=== PATIENT | male | born 1975 | race Caucasian/White ===

== ENCOUNTER 2017-09-28 08:33 | Inpatient (IN) ==
[2017-09-28] MEDS ORDERED: 0.9 % SODIUM CHLORIDE 1,000 ML IV ONE ×2 (08:50→09:10)
[2017-09-28] MEDS ORDERED: ACETAMINOPHEN 325 MG TABLET PO ONE (09:10)
[2017-09-28] MEDS ORDERED: ONDANSETRON 4 MG/2 ML VIAL IV ONE ×2 (09:12→13:00)
[2017-09-28] MEDS ORDERED: PIPERACILLIN SODIUM/TAZOBACTAM 3.375 GM in DEXTROSE 5% IN WATER 50 ML IV ONE (09:22)
[2017-09-28] MEDS ORDERED: INSULIN REGULAR, HUMAN 1 UNIT/0.01 ML UNIT IV ONE (09:23)
--- NOTE | 2017-09-28 09:24 | XRay Report ---
HISTORY: Cough FINDINGS: The lungs are clear and normally expanded. The heart size, pulmonary vasculature, mediastinum, jesus, pleura and bones are normal. There is improved aeration of both lungs since 04/20/17 IMPRESSION: Normal exam Interpreted and Authenticated by: Lizandro Grewal 09/28/17
--- NOTE | 2017-09-28 09:27 | Emergency Department Note ---
Fever HPI - General Chief Complaint: Fever Stated Complaint: Nausea, chills, fever Time Seen by Provider: 09/28/17 09:09 Source: patient Mode of arrival: ambulatory Limitations: no limitations - History of Present Illness HPI Narrative: 42-year-old uncontrolled diabetic male with 10 day history of illness status post working in the heat. Apparently he almost passed out was very weak after working all day in the heat. His friends thought he had a heat stroke. Today he says he has not really recovered from that. Additionally he has been sick with nausea vomiting diarrhea cough for the last 4 days. Also for the last 2 months he has had trouble with his right foot. He has several open sores on his right foot. He had that right foot is very red and tender around the great toe with a large open ulcer on the sole as well as the medial heel. He is not going to wound care secondary to financial reasons. He is not on insulin and his blood sugars are typically around 350. - Related Data Home Medications Medication Instructions Recorded Confirmed Hydrochlorothiazide [Oretic] 25 mg PO DAILY 09/28/17 09/28/17 Allergies Allergy/AdvReac Type Severity Reaction Status Date / Time No Known Drug Allergies Allergy Verified 07/17/17 14:04 Review of Systems All systems ED: reviewed and negative except as stated. Fever PMH - Past Medical History Attestation: Yes: The following information was validated with the patient. Medical history: Reports: DM, hypertension, other (some chronic back isssues) Psychiatric history: Reports: no psych history - Social History smoking status: Current every day smoker Alcohol use: Reports: None Drug use: Reports: none Physical Exam No acute distress resting comfortably. Appears ill with mild diaphoresis. Face is flushed. Normocephalic atraumatic. Conjunctive are clear sclerae nonicteric. No nasal discharge or congestion. Oropharynx pink and moist. Multiple missing teeth. Posterior pharynx clear. Neck is supple without lymphadenopathy thyromegaly. Heart is mildly tachycardic but regular rhythm no murmur appreciated. Lungs are clear to auscultation bilaterally without wheezes rales rhonchi or respiratory distress. Occasional nonproductive cough. Abdomen soft nontender nondistended. No pedal edema. Homans sign is negative. Exam of the right foot shows a half dollar size ulcer at the forefoot sole. It is not purulent or malodorous however there is redness surrounding this area up into the top of the foot and the first 2 toes it is tender. He does retain sensation in his foot. No red streaks up his leg. On the medial heel there is a similar ulcer with a good granulation base not malodorous or purulent but again with redness surrounding. He is alert oriented able answer questions; somewhat irritable Limitations: no limitations Course Vital Signs Temperature 99.4 F H 09/28/17 08:35 Pulse Rate 120 H 09/28/17 08:35 Respiratory Rate 34 H 09/28/17 08:35 Blood Pressure 155/87 09/28/17 08:35 Pulse Oximetry (%) 99 09/28/17 08:35 Temperature 98.4 F 09/28/17 10:44 Pulse Rate 99 H 09/28/17 11:54 Respiratory Rate 23 H 09/28/17 11:54 Blood Pressure 145/77 09/28/17 11:54 Pulse Oximetry (%) 93 09/28/17 11:54 Fever - Lab Data Lab results reviewed: Yes I reviewed the patient's lab results. Result diagrams: 09/28/17 09:06 09/28/17 09:06 Lab Results 09/28/17 09/28/17 09/28/17 Range/Units 08:59 09:06 09:06 WBC 38.2 H* (4.5-11.0) K/mcL RBC 4.33 L (4.50-5.90) M/mcL Hgb 13.1 L (13.5-16.5) g/dL Hct 38.5 L (41.0-55.0) % MCV 88.9 (80.0-100.0) fL MCH 30.2 (26.0-34.0) pg MCHC 34.0 (31.0-36.0) g/dL RDW 12.9 (11.5-14.5) % Plt Count 427 (140-440) K/mcL MPV 8.2 (7.4-10.4) fL Gran % 88.3 H (38.0-78.0) % Lymph % (Auto) 3.6 L (15.5-49.0) % [place] % (Auto) 8.0 (1.0-12.0) % Eos % (Auto) 0.1 (0.0-7.0) % Baso % (Auto) 0 (0.0-2.0) % Gran # 33.7 H (1.8-8.0) K/mcL Lymph # (Auto) 1.4 L (1.5-4.8) K/mcL [place] # (Auto) 3.0 H (0.1-0.9) K/mcL Eos # (Auto) 0 (0.0-0.7) K/mcL Baso # (Auto) 0 (0.0-0.3) K/mcL VBG Lactic Acid 1.6 (0.5-2.2) mmol/L Sodium 131 L (133-145) mmol/L Potassium 3.2 L (3.3-5.1) mmol/L Chloride 90 L (96-108) mmol/L Carbon Dioxide 24 (22-30) mmol/L Anion Gap 17.0 H (8-16) BUN 13 (6-20) mg/dl Creatinine 1.0 (0.7-1.2) mg/dl GFR Calculation 93 Glucose 323 H (70-105) mg/dL Hemoglobin A1c (4.0-6.0) % HGB Estim Average Glucose mg/dL Uric Acid (2.5-8.0) mg/dL Calcium 9.1 (8.6-10.4) mg/dl Total Bilirubin 1.4 H (0.0-1.0) mg/dL AST 10 (0-37) U/l ALT 14 (0-40) U/l Alkaline Phosphatase 92 (39-117) U/L Total Protein 7.4 (5.9-8.4) gm/dL Albumin 3.3 (3.2-5.2) gm/dL Globulin 4.1 H (2.2-3.7) gm/dL Albumin/Globulin Ratio 0.8 L (1.0-2.3) Procalcitonin (<0.10) ng/mL 09/28/17 09/28/17 09/28/17 Range/Units 09:06 09:06 09:06 WBC (4.5-11.0) K/mcL RBC (4.50-5.90) M/mcL Hgb (13.5-16.5) g/dL Hct (41.0-55.0) % MCV (80.0-100.0) fL MCH (26.0-34.0) pg MCHC (31.0-36.0) g/dL RDW (11.5-14.5) % Plt Count (140-440) K/mcL MPV (7.4-10.4) fL Gran % (38.0-78.0) % Lymph % (Auto) (15.5-49.0) % [place] % (Auto) (1.0-12.0) % Eos % (Auto) (0.0-7.0) % Baso % (Auto) (0.0-2.0) % Gran # (1.8-8.0) K/mcL Lymph # (Auto) (1.5-4.8) K/mcL [place] # (Auto) (0.1-0.9) K/mcL Eos # (Auto) (0.0-0.7) K/mcL Baso # (Auto) (0.0-0.3) K/mcL VBG Lactic Acid (0.5-2.2) mmol/L Sodium (133-145) mmol/L Potassium (3.3-5.1) mmol/L Chloride (96-108) mmol/L Carbon Dioxide (22-30) mmol/L Anion Gap (8-16) BUN (6-20) mg/dl Creatinine (0.7-1.2) mg/dl GFR Calculation Glucose (70-105) mg/dL Hemoglobin A1c 11.1 H (4.0-6.0) % HGB Estim Average Glucose 272 mg/dL Uric Acid 5.7 (2.5-8.0) mg/dL Calcium (8.6-10.4) mg/dl Total Bilirubin (0.0-1.0) mg/dL AST (0-37) U/l ALT (0-40) U/l Alkaline Phosphatase (39-117) U/L Total Protein (5.9-8.4) gm/dL Albumin (3.2-5.2) gm/dL Globulin (2.2-3.7) gm/dL Albumin/Globulin Ratio (1.0-2.3) Procalcitonin 0.40 (<0.10) ng/mL - Radiology Data Radiology results reviewed: Yes I reviewed the patient's radiology results. Chest x-ray shows no acute cardia pulmonary disease CT scan of the head was done secondary to concern for heat injury-no acute findings except for chronic sinusitis X-ray of the right foot shows subcutaneous gas and abscess but no evidence of osteomyelitis - EKG Data EKG attestation: Yes I reviewed and interpreted this EKG. EKG results narrative: EKG shows a rate of 105 sinus tachycardia no evidence of ischemia. A second EKG shows a rate of 102 with slight nonspecific T-wave depression 2 3 aVF Critical Care Time Critical Care Time: Yes Total Critical Care Time: 30 Attestation: Approximately 30 minutes of critical care time in addition to initial evaluation and management. This includes reviewing studies coordinating care, documentation and discussing options and plan of care with patient/mother. I was immediately available to the patient the entire time. The patient is critically ill and is in danger of losing his foot and is likely septic Disposition Pt seen by MEDICAL RECRUITER/PA only: No Clinical Impression: Foot abscess, right, Hypokalemia Sepsis Qualifiers: Sepsis type: sepsis due to unspecified organism Qualified Code(s): A41.9 - Sepsis, unspecified organism Diabetic foot ulcer Qualifiers: Diabetic foot ulcer location: heel Diabetes mellitus type: type 2 Laterality: right Non-pressure ulcer stage: with fat layer exposed Qualified Code(s): E11.621 - Type 2 diabetes mellitus with foot ulcer; L97.412 - Non-pressure chronic ulcer of right heel and midfoot with fat layer exposed Uncontrolled diabetes mellitus Qualifiers: Diabetes mellitus type: type 2 Glycemic state: with hyperglycemia Qualified Code(s): E11.65 - Type 2 diabetes mellitus with hyperglycemia Summary: Patient clearly has 3 possible things going on: Subacute heat injury, Sirs versus sepsis likely from his right foot ulcers with nausea vomiting diarrhea, uncontrolled diabetes likely causing impaired healing Started IV fluids, empiric antibiotics after cultures, get wound culture, laboratory and imaging studies. He was given 10 units of IV insulin At first patient wanted to go home but I informed patient that he could lose his foot or even of sepsis so best medical care is to bring him in for emergent surgery as he has an abscess of his foot with gas-forming organism. I talked to Dr. Singh at the [facility] who agreed to bring him back to the operating room as soon as possible; we will get anesthesia involved. I also discussed the case with . were told her hospitalist who will admit the patient consult Dr. Singh for further care. Patient agreed to come in the hospital for couple days so we can get him taken care of Patient refused to give us a urine sample Incidentally found chronic sinusitis likely covered by antibiotics Disposition: Xfer As Inpt ([facility]) Condition: Critical Referrals: Mary Davis, CHASE [Primary Care Provider] -
[2017-09-28 09:42] LABS: Basophils # (Auto) 0 K/mcL (0.0-0.3); Basophils % (Auto) 0 % (0.0-2.0); Eosinophils # (Auto) 0 K/mcL (0.0-0.7); Eosinophils % (Auto) 0.1 % (0.0-7.0); Granulocytes % (Auto) 88.3 % (38.0-78.0); Lymphocytes # (Auto) 1.4 K/mcL (1.5-4.8); Lymphocytes % (Auto) 3.6 % (15.5-49.0); Mean Cell Volume 88.9 fL (80.0-100.0); Mean Corpuscular Hemoglobin 30.2 pg (26.0-34.0); Platelet Count 427 K/mcL (140-440); RBC 4.33 M/mcL (4.50-5.90); Red Cell Distribution Width 12.9 % (11.5-14.5)
--- NOTE | 2017-09-28 09:57 | XRay Report ---
HISTORY: Diabetic foot ulcers FINDINGS: There are ulcerations beneath the skin with small bubbles of air seen beneath the heads of the fourth and fifth metatarsals, extending into the bases of these two toes. There is no evidence of osteomyelitis. No fracture or subluxation are present. There is generalized soft tissue swelling throughout the foot. Giant spur is present on the plantar surface of the calcaneus. There are vascular calcifications around the ankle. Old healed fracture is present in the mid shaft of the proximal phalanx in the second toe. There is mature callus. No acute fracture or subluxation are present. Joint spaces are normal in width and alignment. IMPRESSION: Subcutaneous abscess beneath the heads of the fourth and fifth metatarsals. No evidence of osteomyelitis Interpreted and Authenticated by: Lizandro Grewal 09/28/17
[2017-09-28 10:02] LABS: ALT/SGPT 14 U/l (0-40); Albumin 3.3 gm/dL (3.2-5.2); Albumin/Globulin Ratio 0.8 (1.0-2.3); Alkaline Phosphatase 92 U/L (39-117); Blood Urea Nitrogen 13 mg/dl (6-20)
[2017-09-28 10:54] LABS: Estimated Average Glucose(eAG) 272 mg/dL; Hemoglobin A1C 11.1 % HGB (4.0-6.0)
--- NOTE | 2017-09-28 11:00 | Cat Scan Report ---
Headache, fever and chills TECHNIQUE: The brain was imaged without contrast at 2.5 mm intervals. Radiation exposure was limited using dose reduction technology. FINDINGS: The brain appears normal without evidence of edema, inflammation, infarct, hemorrhage or mass effect. No developmental malformation is present. The ventricles are normal in size. There is opacification of most of the ethmoid air cells bilaterally due to sinusitis. There is an old blowout fracture along the posterior medial wall of the right orbit. There is no associated hemorrhage or inflammation in the orbit. Mild mucosal thickening is seen in the inferior recess of the left frontal sinus and there is also mild left-sided sphenoid sinusitis. IMPRESSION: Normal brain Severe ethmoid and mild frontal and left sphenoid sinusitis Dr. Connors was called with the results Interpreted and Authenticated by: Lizandro Grewal 09/28/17
[2017-09-28] MEDS ORDERED: IOPAMIDOL 100 ML BOTTLE IV ONE (12:39)
[2017-09-28] MEDS ORDERED: LIDOCAINE HCL/PF 100 MG/5 ML SYRINGE IV ONE (13:00)
[2017-09-28] MEDS ORDERED: PROPOFOL 200 MG/20 ML VIAL IV ONE (13:00)
[2017-09-28] MEDS ORDERED: GLYCOPYRROLATE 0.2 MG/ML VIAL IV ONE (13:00)
[2017-09-28] MEDS ORDERED: KETAMINE 100 MG/ML ML IV ONE (13:00)
[2017-09-28] MEDS ORDERED: fentaNYL 100 MCG/2 ML VIAL IV ONE (13:00)
[2017-09-28] MEDS ORDERED: MIDAZOLAM 2 MG/2 ML VIAL IV ONE (13:00)
--- NOTE | 2017-09-28 13:13 | Cat Scan Report ---
History: Diabetic foot ulcer with abscess TECHNIQUE: The foot was imaged following injection of 80 cc of Isovue 300 contrast. Sagittal and coronal reformats are created. FINDINGS: There is an open skin wound along the plantar surface of the foot, inferior and lateral to the head of the fifth metatarsal. There are multiple bubbles of air in the soft tissues deep to the skin wound extending to the bases of the fourth and fifth toes. There is significant cellulitis in this region. There are also bubbles of air tracking proximally in the deep fascia along the plantar surface of the foot. An abscess pocket is not identified. Moderate subcutaneous edema is present along the superior lateral aspect of the foot with milder edema up to the ankle. There is a multi septated bone cyst in the calcaneus. Giant spur is present on the plantar surface of the calcaneus. There is no evidence of osteomyelitis within the foot or ankle. No fracture or subluxation are present. IMPRESSION: Skin ulceration on the plantar surface of the foot with associated necrotizing fasciitis Interpreted and Authenticated by: Lizandro Grewal 09/28/17
[2017-09-28 13:15] LABS: Appearance,Urine HAZY; Bacteria,Urine 0 /hpf (0); Color,Urine AMBER; Glucose,Urine (UA) >=500 mg/dL (NEG); Leukocyte Esterase,Urine 500 /uL (NEG); Mucus,Urine MANY /hpf (0); Protein,Urine 100 mg/dL (NEG); Specific Gravity,Urine 1.031 (1.000-1.035); Urine Blood 0.03 mg/dL (<0.03); Urine Hyaline Cast 13 /lpf (0-2); Urine RBC 25 /hpf (0-1); Urine Squamous Epithelial Cell 5 /hpf (0-4); Urine WBC 97 /hpf (0-4)
[2017-09-28] MEDS ORDERED: KETOROLAC 15 MG/ML VIAL IV PRN (13:33)
[2017-09-28] MEDS ORDERED: fentaNYL 100 MCG/2 ML VIAL IV PRN (13:33)
[2017-09-28] MEDS ORDERED: IPRATROPIUM/ALBUTEROL 3 ML AMPUL.NEB NEB PRN (13:33)
[2017-09-28] MEDS ORDERED: PROMETHAZINE 25 MG/ML VIAL IV PRN (13:33)
[2017-09-28] MEDS ORDERED: MEPERIDINE 25 MG/ML SYRINGE IV PRN (13:33)
[2017-09-28] MEDS ORDERED: ACETAMINOPHEN 1,000 MG/100 ML BOTTLE IV ONE (13:33)
[2017-09-28] MEDS ORDERED: LACTATED RINGERS 1,000 ML IV SCH ×3 (13:45→15:21)
--- NOTE | 2017-09-28 14:12 | Internal Med History&Physical ---
Medical - H&P: HPI Patient information: Note initiated : 09/28/17 at 2:08 pm Service Date, if different from initiated Date: [] Patient: Osmin Leslie 42 y/o M admitted on for Nausea, chills, fever. Chief Complaint: [] History of present illness: Mr. Leslie is a 42 year old male with h/o HTN, and untreated DM. On my eval the patient is in pacu, drowsy after anesthesia, history from chart review. The patient it seems has a chr right foot ulcer. The pt has been working out in the heat, he passed out and came to the ED because he was very weak and tired. The patient has been having nausea vomiting and diarrhea going on for the last 4 days. He notes according to the ER note that the right foot has been bothering him for the last 2 months. He has several ulcers on his right foot. The patient had a fever when he presented to the emergency room, temperature of 99.4, he was tachycardic with a heart rate of 110 blood pressure was stable and he was saturating 93% on room air. The patient had a chest x-ray done which was negative for an acute infection, head CT that was negative for acute process did not sinusitis. The patient had an x-ray of the foot done which showed possible abscess and air in the right foot. Patient underwent an emergent CT scan of the right foot called necrotizing fasciitis on the plantar surface of the foot. The patient was evaluated by Dr. Singh, and taken to the OR immediately. Patient was admitted to the hospital for further management. Patient has elevated WBC count at 38,000, hemoglobin 13 platelets 427 sodium 131 , potassium 3.2 creatinine 1.3 glucose elevated at 32 A1c is 11 pro calcitonin 0.2. EKG reviewed normal sinus, tachycardia ROS unobtainable: due to mental status Medical - H&P: PMH Medical history: DM HTN Pertinent family history: unable to obtain Social history: h/op smoking he said not to etoh or other drugs. but was drowsy whe asked Medical - H&P: Meds Home Medications Medication Instructions Recorded Confirmed Type Hydrochlorothiazide [Oretic] 25 mg PO DAILY 09/28/17 09/28/17 History Allergies Allergy/AdvReac Type Severity Reaction Status Date / Time No Known Drug Allergies Allergy Verified 07/17/17 14:04 Medical - H&P: Exam - Constitutional Vitals: Temp Pulse Resp BP Pulse Ox 97.3 F 90 18 110/62 94 09/28/17 13:55 09/28/17 13:55 09/28/17 13:55 09/28/17 13:55 09/28/17 13:55 Exam: GENERAL: The patient is a well-developed, well-nourished in no apparent distress. Is drowsy and oriented x0. in PACU post op VITAL SIGNS: Reviewed and as noted elsewhere. HEENT: Head is normocephalic and atraumatic. Extraocular muscles are intact. Pupils are equal, round, and reactive to light. Nares appeared normal. Mouth appears any without lesions. Mucous membranes are dry NECK: Normal to inspection, Supple, No lymphadenopathy or thyromegaly. LUNGS: Air entry equal on both sides, no wheezing, crackles or rhonchi noted. No accessory muscles of respiration HEART: Regular rate and rhythm normal, S1 and S2 heard, no Gallop, S3 or Rub Noted, No Gross murmur heard. ABDOMEN: Soft, nontender, and nondistended. Positive bowel sounds. No hepatosplenomegaly was noted. EXTREMITIES: No cyanosis, clubbing, rash, lesions or edema. NEUROLOGIC: Cranial nerves II through XII are grossly intact. Motor and Sensory System Grossly Intact PSYCHIATRIC: Normal affect, Normal Mood. Appropriate Behavior. SKIN: No ulceration or wounds noted, No jaundice, No rash noted. Medical - H&P: Reslt - Labs CBC & Chem 7: 09/28/17 09:06 09/28/17 09:06 Labs: Short CBC 09/28/17 Range/Units 09:06 WBC 38.2 H* (4.5-11.0) K/mcL Hgb 13.1 L (13.5-16.5) g/dL Hct 38.5 L (41.0-55.0) % Plt Count 427 (140-440) K/mcL BMP 09/28/17 09:06 Sodium 131 L Potassium 3.2 L Chloride 90 L Carbon Dioxide 24 BUN 13 Creatinine 1.0 Glucose 323 H Calcium 9.1 Liver Function 09/28/17 Range/Units 09:06 Total Bilirubin 1.4 H (0.0-1.0) mg/dL AST 10 (0-37) U/l ALT 14 (0-40) U/l Alkaline Phosphatase 92 (39-117) U/L Albumin 3.3 (3.2-5.2) gm/dL Urine 09/28/17 Range/Units 12:26 Urine Color Lanie Urine Appearance Hazy Urine pH 5.0 (5.0-9.0) Ur Specific [place] 1.031 (1.000-1.035) Urine Protein 100 A (NEG) mg/dL Urine Glucose (UA) >=500 A (NEG) mg/dL Medical - H&P: A/P - Narrative A/P Narrative: A/P Necrotizing fascitis with gas formation- patient has h/o right foot ulcers, CT foot interpreted as necrotizing fascitis due to presence of fascitis as well as gas in the foot. Patient underwent urgent debridement today, I am yet to speak with the surgeon afer the procedure. I had recommended cultures to be sent. patient will be on vancomycin, zosyn and clindamycin for now. Will deescalate abx per cultures and sensitivity. Patient will likely benefit from HBOT treatment given concern for necrotizing fascitis. Sepsis- Treat underlying etiology, IV fluids, no e/o septic shock at thsi time, monitor closely. Diabetes- Uncontrolled, no ont any medication due to financial issues? SSI insulin for now to keep glucose under control. Hypertension- Pt on hctz, in light of dehydration. elevated creat, will hold same, monitor. Acute kidney injury, creat is 1.3, baseline unable, pt had declined ua sample in Er, will try to obtain one while inpatient. DVT hep sq Diet carb consistent Full code.
[2017-09-28] MEDS ORDERED: GENTAMICIN SULFATE 800 MG/20 ML VIAL IR ONE (14:28)
[2017-09-28] MEDS ORDERED: DEXTROSE 31 GM ORAL.SUSP PO PRN (14:29)
[2017-09-28] MEDS ORDERED: VANCOMYCIN PER PHARMACY IV SCH ×2 (14:29→15:21)
[2017-09-28] MEDS ORDERED: NALOXONE HCL 0.4 MG/ML VIAL IV PRN ×2 (14:29→15:21)
[2017-09-28] MEDS ORDERED: HYDROmorphone 2 MG/ML VIAL IV PRN ×2 (14:29→15:21)
[2017-09-28] MEDS ORDERED: POTASSIUM CHLORIDE 40 MEQ in DEXTROSE 5% IN WATER 500 ML IV ONE (14:29)
[2017-09-28] MEDS ORDERED: ACETAMINOPHEN 325 MG TABLET PO PRN ×2 (14:29→15:21)
[2017-09-28] MEDS ORDERED: ONDANSETRON 4 MG/2 ML VIAL IV PRN ×2 (14:29→15:21)
[2017-09-28] MEDS ORDERED: oxyCODONE HCL 5 MG TABLET PO PRN ×2 (14:29→15:21)
[2017-09-28] MEDS ORDERED: 0.9 % SODIUM CHLORIDE 10 ML SYRINGE IV SCH (14:29)
[2017-09-28] MEDS ORDERED: DEXTROSE 50% 50 ML VIAL IV PRN (14:29)
[2017-09-28] MEDS ORDERED: 0.9 % SODIUM CHLORIDE 1,000 ML IV SCH (14:29)
[2017-09-28] MEDS: 0.9 % SODIUM CHLORIDE 1,000 ML IV SCH ×2 (14:42→22:57)
--- NOTE | 2017-09-28 14:47 | General Surgery Procedure Note ---
Date of procedure: Note initiated : 09/28/17 at 2:44 pm Service Date, if different from initiated Date: [] Pre-op diagnosis: DFU Right foot, SIRS Necrotizing infection with air /gas in soft tisses Post-op diagnosis: same Procedure: OR Debridement, Tissue samples for c/s, Fasciotomy RIGHT foot 4/5 toes and excision debridement of DFU Ambrosio 2 Right medial jodi, Ambrosio 3 Right plantar under 5 th toe MPJ and debridement of skin tear Right lower lateral leg. Findings: Fouls smelling necrotic soft tissue in base of right 5 th toe ulcer over plantar 5 th toe MPJ. Necrotic skin and soft tissue wound over right medial heel Grade 2 skin tear right lower lateral leg Dimensions: Right medial heel 3 x 2.5 CM full thickness. Right foot plantar 3 x 2 x a.5 CM exposed bone in wound Skin tear Right lower lateral leg 2 x 1 CM X Ray right foot gas / air in tissue planes between 4 / 5 toes. Anesthesia: GLMA Surgeon: Juanjo Singh Estimated blood loss: 10 Pathology: other Description of procedure: Excision debridement of wounds. Deep tissue biopsies and cultures RIGHT foot DFU Ambrosio 3 and Right Heel Ambrosio 2 wounds. Decompression fasciotomy over blister of dorsal foot between 4/5 toes. Condition: stable Disposition: floor (Procedure well toelrated. Will treat patient with HBOT for necrotizing soft tissue infection DFU Ambrosio 3)
[2017-09-28] MEDS ORDERED: PIPERACILLIN SODIUM/TAZOBACTAM 3.375 GM in DEXTROSE 5% IN WATER 50 ML IV SCH (15:00)
[2017-09-28] MEDS ORDERED: CLINDAMYCIN 900 MG in DEXTROSE 5% IN WATER 50 ML IV SCH (15:00)
[2017-09-28] MEDS ORDERED: VANCOMYCIN 1,500 MG in 0.9 % SODIUM CHLORIDE 500 ML IV SCH (16:00)
[2017-09-28] MEDS ORDERED: INSULIN LISPRO 1 UNIT/0.01 ML UNIT SQ SCH (17:00)
[2017-09-28] MEDS: INSULIN LISPRO 1 UNIT/0.01 ML UNIT SQ SCH ×3 (18:28→23:50)
--- NOTE | 2017-09-28 19:02 | General Surgery Consult Note ---
History of Present Illness Patient information: Note initiated : 09/28/17 at 6:51 pm Service Date, if different from initiated Date: [] Patient: Omsin Leslie 42 y/o M admitted on 09/28/17 for Nausea, chills, fever. Chief Complaint: [] Consult date: 09/28/17 Requesting physician: Vidal Connors (DFU Rt foot SIRS) History of present illness: I saw the chart and examined this patient in the emergency room. I spoke with the patient and his nurse at length. This is a 42-year-old obese male with uncontrolled diabetes, sepsis syndrome, with worsening symptoms for the last 10 days or so. He ended up passing out, with fever and chills. He had high blood sugars, tachycardia, tachypnea and necrotizing fasciitis starting in the right foot DFU Gonzalez 3 under fifth toe. There was foul odor with purulent drainage and necrotic tissue with the patch of gangrenous skin. Additional area of skin necrosis was seen at the site of pressure ulcer medial right heel and a skin tear right lateral lower third of the leg. Patient had a chest x-ray which was negative and a CT scan of head which revealed sinusitis but no intracranial abnormality. EKG revealed tachycardia without any other RHYTHM abnormalities. He had leukocytosis of 38,000, hyperglycemia 350+ and a hemoglobin A1c of 11. I reviewed his imaging studies and noted gas about the ulcer site and corresponding to the area of blister along the anterior lateral aspect of foot above the DFU. I discussed this at length with the patient and his mother, who was present in the room at the time. Decision was made to admit him to the hospital start him on IV antibiotics. Expeditiously take him to the operating room for debridement, deep tissue irrigation, fasciotomy and obtaining tissue samples for cultures and pathology. Indication for surgical exploration, risks benefits and complications discussed and informed consent obtained to proceed with the necessary treatment Further recommendations to be made as his conditioning evolves. No assurances given of any outcome. Medications and Allergies Home Medications Medication Instructions Recorded Confirmed Type Hydrochlorothiazide [Oretic] 25 mg PO DAILY 09/28/17 09/28/17 History Allergies Allergy/AdvReac Type Severity Reaction Status Date / Time scallops Allergy Intermediate Swelling Verified 09/28/17 15:57 of Lip/Tongue/Throat Haw[place] Allergy Intermediate Swelling Verified 09/28/17 15:56 of Lip/Tongue/Throat Exam Temp Pulse Resp BP Pulse Ox 98.4 F 90 18 133/85 94 09/28/17 14:37 09/28/17 14:21 09/28/17 14:21 09/28/17 16:27 09/28/17 16:27 - General physical appearance well developed, well nourished, severe distress, obese, other (warm and tremulous. ) - Eyes PERRL, normal ocular movement - ENT normal pinna, normal nares, normal mucosa - Head Head exam IM: Present: atraumatic, normal inspection, normocephalic - Neck no masses, no bruits, trachea midline, no lymphadectomy, no venous distension - Cardiovascular Cardiovascular exam IM: Present: tachycardia - Respiratory normal expansion, normal respiratory effort, clear to auscultation - Abdomen Abdomen: Present: soft, non tender, bowel sounds - Integumentary Present: other (cellulitis around the right fifth toe DFU GONZALEZ 3, with cellulitis and a blister on the dorsal aspect of the foot between the fourth and fifth toe. Additional areas of full-thickness necrosis involving the medial aspect of right heel and a skin tear on the anterior lateral aspect of lower leg. Palpable pedal pulses. No regional lymphadenopathy.) - Neurologic Present: normal coordination, other (MOVES all 4 extremities.) - Musculoskeletal Present: other (Did not examine patient standing up or walking. Moves all 4 extremities) - Psychiatric Present: oriented to time, oriented to person, oriented to place, speech is normal, memory intact, other (noncompliance in the past. Patient was somewhat lethargic and could not hold a long conversation.) Results - Labs 09/29/17 04:50 09/29/17 04:50 Abnormal lab results 09/28/17 09/28/17 09/28/17 Range/Units 09:06 09:06 09:06 WBC 38.2 H* (4.5-11.0) K/mcL RBC 4.33 L (4.50-5.90) M/mcL Hgb 13.1 L (13.5-16.5) g/dL Hct 38.5 L (41.0-55.0) % Gran % 88.3 H (38.0-78.0) % Lymph % (Auto) 3.6 L (15.5-49.0) % Gran # 33.7 H (1.8-8.0) K/mcL Lymph # (Auto) 1.4 L (1.5-4.8) K/mcL [place] # (Auto) 3.0 H (0.1-0.9) K/mcL Sodium 131 L (133-145) mmol/L Potassium 3.2 L (3.3-5.1) mmol/L Chloride 90 L (96-108) mmol/L Anion Gap 17.0 H (8-16) Glucose 323 H (70-105) mg/dL Hemoglobin A1c 11.1 H (4.0-6.0) % HGB Total Bilirubin 1.4 H (0.0-1.0) mg/dL Globulin 4.1 H (2.2-3.7) gm/dL Albumin/Globulin Ratio 0.8 L (1.0-2.3) Urine Protein (NEG) mg/dL Urine Glucose (UA) (NEG) mg/dL Urine Ketones (NEG) mg/dL Urine Occult Blood (<0.03) mg/dL Urine Bilirubin (NEG) mg/dL Urine Urobilinogen (NEG) mg/dL Ur Leukocyte Esterase (NEG) /uL Urine RBC (0-1) /hpf Urine WBC (0-4) /hpf Ur Squamous Epith Cells (0-4) /hpf Hyaline Casts (0-2) /lpf Urine Mucus (0) /hpf 09/28/17 Range/Units 12:26 WBC (4.5-11.0) K/mcL RBC (4.50-5.90) M/mcL Hgb (13.5-16.5) g/dL Hct (41.0-55.0) % Gran % (38.0-78.0) % Lymph % (Auto) (15.5-49.0) % Gran # (1.8-8.0) K/mcL Lymph # (Auto) (1.5-4.8) K/mcL [place] # (Auto) (0.1-0.9) K/mcL Sodium (133-145) mmol/L Potassium (3.3-5.1) mmol/L Chloride (96-108) mmol/L Anion Gap (8-16) Glucose (70-105) mg/dL Hemoglobin A1c (4.0-6.0) % HGB Total Bilirubin (0.0-1.0) mg/dL Globulin (2.2-3.7) gm/dL Albumin/Globulin Ratio (1.0-2.3) Urine Protein 100 A (NEG) mg/dL Urine Glucose (UA) >=500 A (NEG) mg/dL Urine Ketones 20 A (NEG) mg/dL Urine Occult Blood 0.03 A (<0.03) mg/dL Urine Bilirubin 2.0 A (NEG) mg/dL Urine Urobilinogen 4.0 A (NEG) mg/dL Ur Leukocyte Esterase 500 A (NEG) /uL Urine RBC 25 H (0-1) /hpf Urine WBC 97 H (0-4) /hpf Ur Squamous Epith Cells 5 H (0-4) /hpf Hyaline Casts 13 H (0-2) /lpf Urine Mucus Many A (0) /hpf Diabetes panel 09/28/17 09/28/17 Range/Units 09:06 09:06 Sodium 131 L (133-145) mmol/L Potassium 3.2 L (3.3-5.1) mmol/L Chloride 90 L (96-108) mmol/L Carbon Dioxide 24 (22-30) mmol/L BUN 13 (6-20) mg/dl Creatinine 1.0 (0.7-1.2) mg/dl Glucose 323 H (70-105) mg/dL Hemoglobin A1c 11.1 H (4.0-6.0) % HGB Calcium 9.1 (8.6-10.4) mg/dl AST 10 (0-37) U/l ALT 14 (0-40) U/l Alkaline Phosphatase 92 (39-117) U/L Total Protein 7.4 (5.9-8.4) gm/dL Albumin 3.3 (3.2-5.2) gm/dL Calcium panel 09/28/17 Range/Units 09:06 Calcium 9.1 (8.6-10.4) mg/dl Albumin 3.3 (3.2-5.2) gm/dL Pituitary panel 09/28/17 Range/Units 09:06 Sodium 131 L (133-145) mmol/L Potassium 3.2 L (3.3-5.1) mmol/L Chloride 90 L (96-108) mmol/L Carbon Dioxide 24 (22-30) mmol/L BUN 13 (6-20) mg/dl Creatinine 1.0 (0.7-1.2) mg/dl Glucose 323 H (70-105) mg/dL Calcium 9.1 (8.6-10.4) mg/dl Adrenal panel 09/28/17 Range/Units 09:06 Sodium 131 L (133-145) mmol/L Potassium 3.2 L (3.3-5.1) mmol/L Chloride 90 L (96-108) mmol/L Carbon Dioxide 24 (22-30) mmol/L BUN 13 (6-20) mg/dl Creatinine 1.0 (0.7-1.2) mg/dl Glucose 323 H (70-105) mg/dL Calcium 9.1 (8.6-10.4) mg/dl Total Bilirubin 1.4 H (0.0-1.0) mg/dL AST 10 (0-37) U/l ALT 14 (0-40) U/l Alkaline Phosphatase 92 (39-117) U/L Total Protein 7.4 (5.9-8.4) gm/dL Albumin 3.3 (3.2-5.2) gm/dL All other labs normal. Assessment and Plan (1) 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 Status: Acute Priority: High Qualifiers: Diabetic foot ulcer location: toe Diabetes mellitus type: type 2 Qualified Code(s): E11.621 - Type 2 diabetes mellitus with foot ulcer; L97.513 - Non-pressure chronic ulcer of other part of right foot with necrosis of muscle (2) Sepsis due to anaerobic bacteria Assessment: SIRS, necrotizing skin and soft tissue infection right foot along fourth and fifth toe without evidence of osteomyelitis on CT scan. Uncontrolled diabetes, morbid obesity. Plan: OR debridement, pulse a large irrigation, fasciotomy or pending tissue samples for pathology and cultures and other indicated operation Spoke at length about the indication for emergency surgery, risks, benefits and complications associated with the operation and need for further surgical procedures. Will proceed with hyperbaric oxygen therapy and adjuvant setting after surgical procedure starting tonight and over the weekend as well. There is consensus on part of the patient's mother, patient and. hospitalist physician. Infectious disease consult will be obtained later. 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
[2017-09-28] MEDS ORDERED: HEPARIN 5,000 UNIT/ML VIAL SQ SCH (21:00)
[2017-09-28] MEDS: PIPERACILLIN SODIUM/TAZOBACTAM 3.375 GM in DEXTROSE 5% IN WATER 50 ML IV SCH ×2 (21:27→21:55)
[2017-09-28] MEDS: 0.9 % SODIUM CHLORIDE 10 ML SYRINGE IV SCH (21:55)
[2017-09-28] MEDS: HEPARIN 5,000 UNIT/ML VIAL SQ SCH (21:55)
[2017-09-28] MEDS: VANCOMYCIN 1,500 MG in 0.9 % SODIUM CHLORIDE 500 ML IV SCH (22:32)
[2017-09-29] MEDS: PIPERACILLIN SODIUM/TAZOBACTAM 3.375 GM in DEXTROSE 5% IN WATER 50 ML IV SCH ×5 (02:11→23:17)
[2017-09-29 05:56] LABS: Basophils # (Auto) 0.1 K/mcL (0.0-0.3); Basophils % (Auto) 0.2 % (0.0-2.0); Eosinophils # (Auto) 0.3 K/mcL (0.0-0.7); Eosinophils % (Auto) 1.1 % (0.0-7.0); Granulocytes % (Auto) 82.7 % (38.0-78.0); Lymphocytes # (Auto) 3.1 K/mcL (1.5-4.8); Lymphocytes % (Auto) 9.9 % (15.5-49.0); Mean Cell Volume 89.4 fL (80.0-100.0); Mean Corpuscular HGB Conc 32.5 g/dL (31.0-36.0); Mean Corpuscular Hemoglobin 29.1 pg (26.0-34.0); Monocytes # (Auto) 1.9 K/mcL (0.1-0.9); Monocytes % (Auto) 6.1 % (1.0-12.0); Platelet Count 427 K/mcL (140-440); RBC 3.73 M/mcL (4.50-5.90); Red Cell Distribution Width 13.1 % (11.5-14.5)
[2017-09-29] MEDS: 0.9 % SODIUM CHLORIDE 10 ML SYRINGE IV SCH ×3 (06:01→20:31)
[2017-09-29 06:26] LABS: ALT/SGPT 17 U/l (0-40); Albumin 2.8 gm/dL (3.2-5.2); Albumin/Globulin Ratio 0.7 (1.0-2.3); Alkaline Phosphatase 136 U/L (39-117); Bilirubin,Direct < 0.2 mg/dL (0.0-0.3); Blood Urea Nitrogen 19 mg/dl (6-20); Gamma Glutamyl Transpeptidase 22 U/L (8-61); Uric Acid 4.7 mg/dL (2.5-8.0)
[2017-09-29] MEDS: INSULIN LISPRO 1 UNIT/0.01 ML UNIT SQ SCH ×4 (08:33→20:30)
--- NOTE | 2017-09-29 09:08 | General Surgery Progress Note ---
Subjective Patient reports: no new complaints, other (Uneventful night.) Narrative: Note initiated : 09/29/17 at 9:06 am Service Date, if different from initiated Date: [] Patient: Osmin Leslie 42 y/o M admitted on 09/28/17 for Nausea, chills, fever. Chief Complaint: [] Objective Temp Pulse Resp BP Pulse Ox 99 F 100 H 20 122/72 95 09/29/17 06:59 09/29/17 03:58 09/29/17 06:59 09/29/17 06:59 09/29/17 06:59 AVSS. HD stable. HANG, WNL. L/E. Right foot toes PWD. Dressing CDI Labs: Resolving leucocytosis, Blood glucose trending down. - Additional Data Intake & Output - Last 24 hours: Intake & Output 09/27/17 09/28/17 09/29/17 09/30/17 05:59 05:59 05:59 05:59 Intake Total 3395 / 3395 535 / 535 Output Total 475 / 475 Balance 2920 / 2920 535 / 535 Weight 281 lb 8 oz - Labs 09/29/17 04:50 09/29/17 04:50 Diabetes panel 09/28/17 09/28/17 09/29/17 Range/Units 09:06 09:06 04:50 Sodium 131 L 135 (133-145) mmol/L Potassium 3.2 L 3.8 (3.3-5.1) mmol/L Chloride 90 L 99 (96-108) mmol/L Carbon Dioxide 24 23 (22-30) mmol/L BUN 13 19 (6-20) mg/dl Creatinine 1.0 1.1 (0.7-1.2) mg/dl Glucose 323 H 233 H (70-105) mg/dL Hemoglobin A1c 11.1 H (4.0-6.0) % HGB Calcium 9.1 8.4 L (8.6-10.4) mg/dl AST 10 14 (0-37) U/l ALT 14 17 (0-40) U/l Alkaline Phosphatase 92 136 H (39-117) U/L Total Protein 7.4 6.9 (5.9-8.4) gm/dL Albumin 3.3 2.8 L (3.2-5.2) gm/dL Triglycerides 111 (<150) mg/dl Calcium panel 09/28/17 09/29/17 Range/Units 09:06 04:50 Calcium 9.1 8.4 L (8.6-10.4) mg/dl Phosphorus 2.2 L (2.7-4.5) mg/dL Albumin 3.3 2.8 L (3.2-5.2) gm/dL Pituitary panel 09/28/17 09/29/17 Range/Units 09:06 04:50 Sodium 131 L 135 (133-145) mmol/L Potassium 3.2 L 3.8 (3.3-5.1) mmol/L Chloride 90 L 99 (96-108) mmol/L Carbon Dioxide 24 23 (22-30) mmol/L BUN 13 19 (6-20) mg/dl Creatinine 1.0 1.1 (0.7-1.2) mg/dl Glucose 323 H 233 H (70-105) mg/dL Calcium 9.1 8.4 L (8.6-10.4) mg/dl Adrenal panel 09/28/17 09/29/17 Range/Units 09:06 04:50 Sodium 131 L 135 (133-145) mmol/L Potassium 3.2 L 3.8 (3.3-5.1) mmol/L Chloride 90 L 99 (96-108) mmol/L Carbon Dioxide 24 23 (22-30) mmol/L BUN 13 19 (6-20) mg/dl Creatinine 1.0 1.1 (0.7-1.2) mg/dl Glucose 323 H 233 H (70-105) mg/dL Calcium 9.1 8.4 L (8.6-10.4) mg/dl Total Bilirubin 1.4 H 0.6 (0.0-1.0) mg/dL AST 10 14 (0-37) U/l ALT 14 17 (0-40) U/l Alkaline Phosphatase 92 136 H (39-117) U/L Total Protein 7.4 6.9 (5.9-8.4) gm/dL Albumin 3.3 2.8 L (3.2-5.2) gm/dL Assessment and Plan (1) 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 Status: Acute Current Visit: Yes (2) Sepsis due to anaerobic bacteria Status: Acute Current Visit: Yes (3) Sepsis Status: Acute Current Visit: Yes - Time Spent With Patient Total time spent is greater than 50% in coordination of care (as documented) at patient's floor/unit and/or counseling patient: Assessment: Progressing well. Started on HBOT last evening. Tolerating well. Plan: Continue current treatment. HBOT X 2 today and tomorrow. Change dressing and remove packing on Sunday10/01/2017 Sensilase study on Sunday10/01/2017. consult Associate Entertainment Editor RN to see patient Anticipate discharge by early or mid week and continuation of care as out patient. less than 15 minutes
[2017-09-29] MEDS: VANCOMYCIN 1,500 MG in 0.9 % SODIUM CHLORIDE 500 ML IV SCH ×2 (10:50→20:30)
[2017-09-29] MEDS: HEPARIN 5,000 UNIT/ML VIAL SQ SCH ×2 (11:31→20:30)
[2017-09-29] MEDS: 0.9 % SODIUM CHLORIDE 1,000 ML IV SCH ×3 (11:35→23:06)
--- NOTE | 2017-09-29 13:30 | Internal Med Progress Note ---
Medical - PN: Subj Patient information: Note initiated : 09/29/17 at 1:28 pm Service Date, if different from initiated Date: [] Patient: Osmin Leslie 42 y/o M admitted on 09/28/17 for Nausea, chills, fever. Chief Complaint: [] Interval history: Mr. Leslie is a 42 year old male with h/o HTN, and untreated DM. On my eval the patient is in pacu, drowsy after anesthesia, history from chart review. The patient it seems has a chr right foot ulcer. The pt has been working out in the heat, he passed out and came to the ED because he was very weak and tired. The patient has been having nausea vomiting and diarrhea going on for the last 4 days. He notes according to the ER note that the right foot has been bothering him for the last 2 months. He has several ulcers on his right foot. The patient had a fever when he presented to the emergency room, temperature of 99.4, he was tachycardic with a heart rate of 110 blood pressure was stable and he was saturating 93% on room air. The patient had a chest x-ray done which was negative for an acute infection, head CT that was negative for acute process did not sinusitis. The patient had an x-ray of the foot done which showed possible abscess and air in the right foot. Patient underwent an emergent CT scan of the right foot called necrotizing fasciitis on the plantar surface of the foot. The patient was evaluated by Dr. Singh, and taken to the OR immediately. Patient was admitted to the hospital for further management. Patient has elevated WBC count at 38,000, hemoglobin 13 platelets 427 sodium 131 , potassium 3.2 creatinine 1.3 glucose elevated at 32 A1c is 11 pro calcitonin 0.2. EKG reviewed normal sinus, tachycardia 09/29 Pt seen and examined, no acute overnight issues, mental status much better wbc trending down still high on vanco, zosyn and clindamycin s/p debridement HBOT per wound care DM control not optimal, Pt has no complaints. Pertinent ROS: Denies headache, dizziness Denies chest pain, palpitations Denies cough or shortness of breath Denies abdominal pain, nausea or vomiting. - Constitutional Vitals: Vital Signs Temp Pulse Resp BP Pulse Ox 98.4 F 100 H 20 134/81 97 09/29/17 12:00 09/29/17 03:58 09/29/17 12:00 09/29/17 12:00 09/29/17 12:00 Period Temp Pulse Resp BP Sys/Felix Pulse Ox Last 24 Hr 97.0 F-99 F 82-100 11-20 95-156/49-88 91-98 Intake and Output 09/28/17 09/29/17 09/29/17 21:59 05:59 13:59 Intake Total 345 / 345 1000 / 1000 825 / 825 Output Total 475 / 475 Balance -130 / -130 1000 / 1000 825 / 825 Weight 281 lb 8 oz 281 lb 8 oz Patient Weight 09/30/17 05:59 Weight 281 lb 8 oz Intake & Output: Intake & Output 09/28/17 09/29/17 09/29/17 21:59 05:59 13:59 Intake Total 345 / 345 1000 / 1000 825 / 825 Output Total 475 / 475 Balance -130 / -130 1000 / 1000 825 / 825 Weight 281 lb 8 oz 281 lb 8 oz Intake: IV 345 / 345 700 / 700 225 / 225 Zosyn 3.375 gm In Dextrose 5% 100 / 100 50 / 50 in Water 50 ml @ 100 mls/hr IV Q6H [facility] Rx#:[id number] Vancomycin 1,500 mg In Sodium 500 / 500 Chloride 0.9% 500 ml @ 333.3 mls/hr IV Q12H [facility] Rx#: [id number] Oral 300 / 300 600 / 600 Output: Void Amount 375 / 375 Emesis 100 / 100 Other: Meal Dinner Lunch Percent of Meal Consumed 100% 75% Feeding Ability Independent Independent Urine Appearance Clear Urine Color Dark Yellow Exam: Constitutional; Afebrile, cooperative, alert, not in distress. Eyes- No icterus, , No periorbital swelling Ears- Ext ear normal, hearing normal to conversation. Neck- Midline trachea, supple Respiratory system: Air Entry equal on both sides, No crackles or wheezing, no rhonchi. CVS- Rate rhythm regular, S1,S2 heard, no gallop, no rub. Abdomen- Soft nontender abdomen, no organomegaly, no tenderness, no guarding or rigidity, SOFTWARE ENGINEER INTERN- AOOx3, moving all extremities, no gross focal deficit noted. Medical - PN: Obj Da - Labs CBC & Chem 7: 09/29/17 04:50 09/29/17 04:50 Labs: Abnormal Lab Results 09/29/17 09/29/17 09/28/17 04:50 04:50 12:26 WBC 31.8 H* RBC 3.73 L Hgb 10.8 L Hct 33.3 L Gran % 82.7 H Lymph % (Auto) 9.9 L Gran # 26.3 H Lymph # (Auto) [place] # (Auto) 1.9 H Sodium Potassium Chloride Anion Gap Glucose 233 H Hemoglobin A1c Calcium 8.4 L Phosphorus 2.2 L Total Bilirubin Alkaline Phosphatase 136 H Albumin 2.8 L Globulin 4.1 H Albumin/Globulin Ratio 0.7 L Urine Protein 100 A Urine Glucose (UA) >=500 A Urine Ketones 20 A Urine Occult Blood 0.03 A Urine Bilirubin 2.0 A Urine Urobilinogen 4.0 A Ur Leukocyte Esterase 500 A Urine RBC 25 H Urine WBC 97 H Ur Squamous Epith Cells 5 H Hyaline Casts 13 H Urine Mucus Many A 09/28/17 09/28/17 09/28/17 09:06 09:06 09:06 WBC 38.2 H* RBC 4.33 L Hgb 13.1 L Hct 38.5 L Gran % 88.3 H Lymph % (Auto) 3.6 L Gran # 33.7 H Lymph # (Auto) 1.4 L [place] # (Auto) 3.0 H Sodium 131 L Potassium 3.2 L Chloride 90 L Anion Gap 17.0 H Glucose 323 H Hemoglobin A1c 11.1 H Calcium Phosphorus Total Bilirubin 1.4 H Alkaline Phosphatase Albumin Globulin 4.1 H Albumin/Globulin Ratio 0.8 L Urine Protein Urine Glucose (UA) Urine Ketones Urine Occult Blood Urine Bilirubin Urine Urobilinogen Ur Leukocyte Esterase Urine RBC Urine WBC Ur Squamous Epith Cells Hyaline Casts Urine Mucus Meds: Medications Acetaminophen (Tylenol) 650 mg PO Q6HP PRN PRN Reason: PAIN/FEVER > 101 Diagnostic Test (Pha) (Accu-Chek) 1 each FS ACHS [facility] Last Admin: 09/29/17 11:29 Dose: 1 each Heparin Sodium (Porcine) (Heparin) 5,000 unit SQ Q12 [facility] Last Admin: 09/29/17 11:31 Dose: Not Given Hydromorphone HCl (Dilaudid) 0.5 mg IV Q2HP PRN PRN Reason: PAIN LEVEL > 6 Piperacillin Sod/Tazobactam (Sod 3.375 gm/ Dextrose) 50 mls @ 100 mls/hr IV Q6H [facility] Last Admin: 09/29/17 12:52 Dose: 100 mls/hr Vancomycin HCl 1,500 mg/ (Sodium Chloride) 500 mls @ 333.3 mls/hr IV Q12H [facility] Last Admin: 09/29/17 10:50 Dose: 333.3 mls/hr Sodium Chloride (Sodium Chloride 0.9%) 1,000 mls @ 125 mls/hr IV .Q8H [facility] Last Admin: 09/29/17 11:35 Dose: Not Given Insulin Human Lispro (Humalog) 0 unit SQ ACHS [facility]; Protocol Metformin HCl (Glucophage) 500 mg PO BIDCC [facility] Naloxone HCl (Narcan) 0.1 mg IV Q2MIN PRN PRN Reason: Opiate Reversal Ondansetron HCl (Zofran) 4 mg IV Q6HP PRN PRN Reason: Nausea And Vomiting Oxycodone HCl (Roxicodone) 5 mg PO Q4HP PRN PRN Reason: PAIN LEVEL 3-6 Sodium Chloride (Saline Flush) 10 ml IV Q8 [facility] Last Admin: 09/29/17 06:01 Dose: Not Given Vancomycin HCl (Vancomycin Per Pharmacy) 1 order IV UD [facility] Medical - PN: A/P - Time Spent With Patient Total time spent is greater than 50% in coordination of care (as documented) at patient's floor/unit and/or counseling patient: - Narrative A/P Narrative: A/P Necrotizing fascitis with gas formation- s/p debridement, on vanco, zosyn and clinda, cultures pending gram stain shows many gram positive and gram neg bacillus, on hbot, clinically stable, Sepsis- Treat underlying etiology, IV fluids, no e/o septic shock at this time, monitor closely. Diabetes- Uncontrolled, no ont any medication due to financial issues? ssi insulin, start on metformin 500bid, will allow to run high given hbot will need high glucose. Hypertension- continue to hold hctz for now, monitor bp, resume in AM if creat remains stable DVT hep sq Diet carb consistent Full code.
[2017-09-29] MEDS: metFORMIN 500 MG TABLET PO SCH (17:46)
--- NOTE | 2017-09-29 19:12 | General Surgery Progress Note ---
Subjective Patient reports: other (Right foot dressing got wet, whilst taking shower. Denies any other complaints. Tolerated TWO HBO treatments today uneventfully. ) Narrative: Note initiated : 09/29/17 at 7:10 pm Service Date, if different from initiated Date: [] Patient: Osmin Leslie 42 y/o M admitted on 09/28/17 for Nausea, chills, fever. Chief Complaint: [] Objective Temp Pulse Resp BP Pulse Ox 98.1 F 100 H 20 139/86 95 09/29/17 16:00 09/29/17 03:58 09/29/17 16:00 09/29/17 16:00 09/29/17 16:00 Afebrile, Tachycardia improving. No other changes HANG. Dressing changed by nurse short time ago. Current dressing is CDI. NO odor and No bleeding . - Additional Data Intake & Output - Last 24 hours: Intake & Output 09/27/17 09/28/17 09/29/17 09/30/17 05:59 05:59 05:59 05:59 Intake Total 3395 / 3395 1575 / 1575 Output Total 475 / 475 Balance 2920 / 2920 1575 / 1575 Weight 281 lb 8 oz 281 lb 8 oz - Labs 09/29/17 04:50 09/29/17 04:50 Diabetes panel 09/29/17 Range/Units 04:50 Sodium 135 (133-145) mmol/L Potassium 3.8 (3.3-5.1) mmol/L Chloride 99 (96-108) mmol/L Carbon Dioxide 23 (22-30) mmol/L BUN 19 (6-20) mg/dl Creatinine 1.1 (0.7-1.2) mg/dl Glucose 233 H (70-105) mg/dL Calcium 8.4 L (8.6-10.4) mg/dl AST 14 (0-37) U/l ALT 17 (0-40) U/l Alkaline Phosphatase 136 H (39-117) U/L Total Protein 6.9 (5.9-8.4) gm/dL Albumin 2.8 L (3.2-5.2) gm/dL Triglycerides 111 (<150) mg/dl Calcium panel 09/29/17 Range/Units 04:50 Calcium 8.4 L (8.6-10.4) mg/dl Phosphorus 2.2 L (2.7-4.5) mg/dL Albumin 2.8 L (3.2-5.2) gm/dL Pituitary panel 09/29/17 Range/Units 04:50 Sodium 135 (133-145) mmol/L Potassium 3.8 (3.3-5.1) mmol/L Chloride 99 (96-108) mmol/L Carbon Dioxide 23 (22-30) mmol/L BUN 19 (6-20) mg/dl Creatinine 1.1 (0.7-1.2) mg/dl Glucose 233 H (70-105) mg/dL Calcium 8.4 L (8.6-10.4) mg/dl Adrenal panel 09/29/17 Range/Units 04:50 Sodium 135 (133-145) mmol/L Potassium 3.8 (3.3-5.1) mmol/L Chloride 99 (96-108) mmol/L Carbon Dioxide 23 (22-30) mmol/L BUN 19 (6-20) mg/dl Creatinine 1.1 (0.7-1.2) mg/dl Glucose 233 H (70-105) mg/dL Calcium 8.4 L (8.6-10.4) mg/dl Total Bilirubin 0.6 (0.0-1.0) mg/dL AST 14 (0-37) U/l ALT 17 (0-40) U/l Alkaline Phosphatase 136 H (39-117) U/L Total Protein 6.9 (5.9-8.4) gm/dL Albumin 2.8 L (3.2-5.2) gm/dL Assessment and Plan (1) 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 Status: Acute Current Visit: Yes (2) Sepsis due to anaerobic bacteria Status: Acute Current Visit: Yes (3) Sepsis Status: Acute Current Visit: Yes (4) 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 Mental status improved. Still has HIGH WBC and Blood Glucose. Plan: Continue current treatment. Will check wound in morning. For HBOT # 4 and 5 tomorrow. less than 15 minutes
[2017-09-30] MEDS: 0.9 % SODIUM CHLORIDE 10 ML SYRINGE IV SCH ×3 (05:10→20:41)
[2017-09-30 05:23] LABS: Basophils # (Auto) 0.1 K/mcL (0.0-0.3); Basophils % (Auto) 0.2 % (0.0-2.0); Eosinophils # (Auto) 0.6 K/mcL (0.0-0.7); Eosinophils % (Auto) 2.7 % (0.0-7.0); Granulocytes % (Auto) 76.5 % (38.0-78.0); Lymphocytes # (Auto) 2.8 K/mcL (1.5-4.8); Lymphocytes % (Auto) 12.5 % (15.5-49.0); Mean Cell Volume 88.2 fL (80.0-100.0); Mean Corpuscular HGB Conc 33.4 g/dL (31.0-36.0); Mean Corpuscular Hemoglobin 29.5 pg (26.0-34.0); Monocytes # (Auto) 1.8 K/mcL (0.1-0.9); Monocytes % (Auto) 8.1 % (1.0-12.0); Platelet Count 448 K/mcL (140-440); RBC 3.62 M/mcL (4.50-5.90); Red Cell Distribution Width 13.1 % (11.5-14.5)
[2017-09-30] MEDS: PIPERACILLIN SODIUM/TAZOBACTAM 3.375 GM in DEXTROSE 5% IN WATER 50 ML IV SCH ×4 (05:36→23:55)
[2017-09-30 05:58] LABS: ALT/SGPT 43 U/l (0-40); Albumin 2.8 gm/dL (3.2-5.2); Albumin/Globulin Ratio 0.7 (1.0-2.3); Alkaline Phosphatase 160 U/L (39-117); Bilirubin,Direct 0.4 mg/dL (0.0-0.3); Blood Urea Nitrogen 15 mg/dl (6-20); Gamma Glutamyl Transpeptidase 42 U/L (8-61); Uric Acid 3.5 mg/dL (2.5-8.0)
[2017-09-30] MEDS: INSULIN LISPRO 1 UNIT/0.01 ML UNIT SQ SCH ×4 (06:27→20:38)
[2017-09-30] MEDS: metFORMIN 500 MG TABLET PO SCH ×2 (06:32→17:06)
[2017-09-30] MEDS: HEPARIN 5,000 UNIT/ML VIAL SQ SCH ×3 (06:38→20:39)
[2017-09-30] MEDS ORDERED: MAG HYDROX/AL HYDROX/SIMETH 30 ML ORAL.SUSP PO ONE (09:47)
[2017-09-30] MEDS: HYDROCHLOROTHIAZIDE 25 MG TABLET PO SCH (09:49)
[2017-09-30] MEDS: VANCOMYCIN 1,500 MG in 0.9 % SODIUM CHLORIDE 500 ML IV SCH (10:54)
--- NOTE | 2017-09-30 14:04 | Internal Med Progress Note ---
Medical - PN: Subj Patient information: Note initiated : 09/30/17 at 1:59 pm Service Date, if different from initiated Date: [] Patient: Osmin Leslie 42 y/o M admitted on 09/28/17 for Nausea, chills, fever. Chief Complaint: [] Interval history: Mr. Leslie is a 42 year old male with h/o HTN, and untreated DM. On my eval the patient is in pacu, drowsy after anesthesia, history from chart review. The patient it seems has a chr right foot ulcer. The pt has been working out in the heat, he passed out and came to the ED because he was very weak and tired. The patient has been having nausea vomiting and diarrhea going on for the last 4 days. He notes according to the ER note that the right foot has been bothering him for the last 2 months. He has several ulcers on his right foot. The patient had a fever when he presented to the emergency room, temperature of 99.4, he was tachycardic with a heart rate of 110 blood pressure was stable and he was saturating 93% on room air. The patient had a chest x-ray done which was negative for an acute infection, head CT that was negative for acute process did not sinusitis. The patient had an x-ray of the foot done which showed possible abscess and air in the right foot. Patient underwent an emergent CT scan of the right foot called necrotizing fasciitis on the plantar surface of the foot. The patient was evaluated by Dr. Singh, and taken to the OR immediately. Patient was admitted to the hospital for further management. Patient has elevated WBC count at 38,000, hemoglobin 13 platelets 427 sodium 131 , potassium 3.2 creatinine 1.3 glucose elevated at 32 A1c is 11 pro calcitonin 0.2. EKG reviewed normal sinus, tachycardia 09/29 Pt seen and examined, no acute overnight issues, mental status much better wbc trending down still high on vanco, zosyn and clindamycin s/p debridement HBOT per wound care DM control not optimal, Pt has no complaints. 09/30 Pt seen examined, no acute overnight issue some chest tightness after hbot tretmetn today x ray chest neg, ekg neg, pt reports that he has these due to his reflux disease , and usually vomiting helps, this time Dr Marie gave mallox which helped start on prn tums wbc trending down microbiolgoy is growing strep agalactate, I am not too sure if this is a gas forming bacteria. Patient may have had some gas in the tissue from open wounds but clearly had necrotic tissue on debridement. no mrsa noted d/c vancomycin. continue clindamycin and zosyn for now, consider d/c clindamycin in AM. Pertinent ROS: Denies headache, dizziness Denies chest pain, palpitations (chest tightness resolved after maalox) Denies cough or shortness of breath Denies abdominal pain, nausea or vomiting. - Constitutional Vitals: Vital Signs Temp Pulse Resp BP Pulse Ox 98.1 F 89 16 157/97 98 09/30/17 11:59 09/30/17 04:00 09/30/17 11:59 09/30/17 11:59 09/30/17 11:59 Period Temp Pulse Resp BP Sys/Felix Pulse Ox Last 24 Hr 97.9 F-99.4 F 87-98 16-24 131-157/78-97 93-98 Intake and Output 09/29/17 09/30/17 09/30/17 21:59 05:59 13:59 Intake Total 250 / 250 1050 / 1050 50 / 50 Output Total 300 / 300 Balance 250 / 250 1050 / 1050 -250 / -250 Weight 283 lb 9.6 oz Intake & Output: Intake & Output 09/29/17 09/30/17 09/30/17 21:59 05:59 13:59 Intake Total 250 / 250 1050 / 1050 50 / 50 Output Total 300 / 300 Balance 250 / 250 1050 / 1050 -250 / -250 Weight 283 lb 9.6 oz Intake: IV 50 / 50 550 / 550 50 / 50 Zosyn 3.375 gm In Dextrose 5% 50 / 50 50 / 50 50 / 50 in Water 50 ml @ 100 mls/hr IV Q6H [facility] Rx#:[id number] Vancomycin 1,500 mg In Sodium 500 / 500 Chloride 0.9% 500 ml @ 333.3 mls/hr IV Q12H [facility] Rx#: [id number] Oral 200 / 200 500 / 500 Output: Void Amount 300 / 300 Other: Urine Appearance Clear Urine Color Dark Yellow # Voids 1 1 Exam: Constitutional; Afebrile, cooperative, alert, not in distress. Respiratory system: Air Entry equal on both sides, No crackles or wheezing, no rhonchi. CVS- Rate rhythm regular, S1,S2 heard, no gallop, no rub. Abdomen- Soft nontender abdomen, no organomegaly, no tenderness, no guarding or rigidity, STENCIL TYPIST- AOOx3, moving all extremities, no gross focal deficit noted. Medical - PN: Obj Da - Labs CBC & Chem 7: 09/30/17 04:19 09/30/17 04:19 Labs: Abnormal Lab Results 09/30/17 09/30/17 09/29/17 04:19 04:19 04:50 WBC 22.7 H RBC 3.62 L Hgb 10.7 L Hct 31.9 L Plt Count 448 H Gran % Lymph % (Auto) 12.5 L Gran # 17.3 H Lymph # (Auto) Rawlins # (Auto) 1.8 H Sodium Potassium Chloride Anion Gap Glucose 138 H 233 H Hemoglobin A1c Calcium 8.1 L 8.4 L Phosphorus 2.4 L 2.2 L Total Bilirubin Direct Bilirubin 0.4 H ALT 43 H Alkaline Phosphatase 160 H 136 H Albumin 2.8 L 2.8 L Globulin 4.1 H 4.1 H Albumin/Globulin Ratio 0.7 L 0.7 L Urine Protein Urine Glucose (UA) Urine Ketones Urine Occult Blood Urine Bilirubin Urine Urobilinogen Ur Leukocyte Esterase Urine RBC Urine WBC Ur Squamous Epith Cells Hyaline Casts Urine Mucus 09/29/17 09/28/17 09/28/17 04:50 12:26 09:06 WBC 31.8 H* RBC 3.73 L Hgb 10.8 L Hct 33.3 L Plt Count Gran % 82.7 H Lymph % (Auto) 9.9 L Gran # 26.3 H Lymph # (Auto) Rawlins # (Auto) 1.9 H Sodium Potassium Chloride Anion Gap Glucose Hemoglobin A1c 11.1 H Calcium Phosphorus Total Bilirubin Direct Bilirubin ALT Alkaline Phosphatase Albumin Globulin Albumin/Globulin Ratio Urine Protein 100 A Urine Glucose (UA) >=500 A Urine Ketones 20 A Urine Occult Blood 0.03 A Urine Bilirubin 2.0 A Urine Urobilinogen 4.0 A Ur Leukocyte Esterase 500 A Urine RBC 25 H Urine WBC 97 H Ur Squamous Epith Cells 5 H Hyaline Casts 13 H Urine Mucus Many A 09/28/17 09/28/17 09:06 09:06 WBC 38.2 H* RBC 4.33 L Hgb 13.1 L Hct 38.5 L Plt Count Gran % 88.3 H Lymph % (Auto) 3.6 L Gran # 33.7 H Lymph # (Auto) 1.4 L Rawlins # (Auto) 3.0 H Sodium 131 L Potassium 3.2 L Chloride 90 L Anion Gap 17.0 H Glucose 323 H Hemoglobin A1c Calcium Phosphorus Total Bilirubin 1.4 H Direct Bilirubin ALT Alkaline Phosphatase Albumin Globulin 4.1 H Albumin/Globulin Ratio 0.8 L Urine Protein Urine Glucose (UA) Urine Ketones Urine Occult Blood Urine Bilirubin Urine Urobilinogen Ur Leukocyte Esterase Urine RBC Urine WBC Ur Squamous Epith Cells Hyaline Casts Urine Mucus Meds: Medications Acetaminophen (Tylenol) 650 mg PO Q6HP PRN PRN Reason: PAIN/FEVER > 101 Last Admin: 09/30/17 06:37 Dose: 650 mg Calcium Carbonate/Glycine (Tums) 1,000 mg CHEWED Q4HP PRN PRN Reason: Dyspepsia Diagnostic Test (Pha) (Accu-Chek) 1 each FS [facility] Last Admin: 09/30/17 11:50 Dose: 1 each Heparin Sodium (Porcine) (Heparin) 5,000 unit SQ Q12 [facility] Last Admin: 09/30/17 09:32 Dose: Not Given Hydrochlorothiazide (Oretic) 25 mg PO DAILY [facility] Last Admin: 09/30/17 09:49 Dose: 25 mg Hydromorphone HCl (Dilaudid) 0.5 mg IV Q2HP PRN PRN Reason: PAIN LEVEL > 6 Piperacillin Sod/Tazobactam (Sod 3.375 gm/ Dextrose) 50 mls @ 100 mls/hr IV Q6H [facility] Last Admin: 09/30/17 12:24 Dose: 100 mls/hr Sodium Chloride (Sodium Chloride 0.9%) 1,000 mls @ 125 mls/hr IV .Q8H [facility] Last Admin: 09/29/17 23:06 Dose: 125 mls/hr Insulin Human Lispro (Humalog) 0 unit SQ [facility]; Protocol Last Admin: 09/30/17 11:52 Dose: Not Given Metformin HCl (Glucophage) 500 mg PO BIDCC [facility] Last Admin: 09/30/17 06:32 Dose: 500 mg Naloxone HCl (Narcan) 0.1 mg IV Q2MIN PRN PRN Reason: Opiate Reversal Ondansetron HCl (Zofran) 4 mg IV Q6HP PRN PRN Reason: Nausea And Vomiting Oxycodone HCl (Roxicodone) 5 mg PO Q4HP PRN PRN Reason: PAIN LEVEL 3-6 Sodium Chloride (Saline Flush) 10 ml IV Q8 [facility] Last Admin: 09/30/17 05:10 Dose: Not Given Medical - PN: A/P - Time Spent With Patient Total time spent is greater than 50% in coordination of care (as documented) at patient's floor/unit and/or counseling patient: - Narrative A/P Narrative: A/P Necrotizing fascitis with gas formation- s/p debridement, cultures growing strep agalactae, not known to be a gas forming organism to my knowledge, no mrsa isolated, d/c vanco, continue zosyn and clindamycin, given need for dual anaerobic coverage for clostridium spp, which may not be isolated yet and these wounds are known to be polymicrobial. on HBOT Sepsis- Treat underlying etiology, IV fluids, no e/o septic shock at this time, monitor closely. wbc ternding down ,but still high Diabetes- Uncontrolled, no ont any medication due to financial issues? ssi insulin, start on metformin 500bid, will allow to run high given hbot will need high glucose. Hypertension- resume hctz chest tigthnes- neg x ray, and ekg, clinically not cardiac, resolved with maalox , monitor for now. DVT hep sq Diet carb consistent Full code.
--- NOTE | 2017-09-30 14:44 | General Surgery Progress Note ---
Subjective Patient reports: other Narrative: Note initiated : 09/30/17 at 2:35 pm Service Date, if different from initiated Date: [] Patient: Osmin Leslie 42 y/o M admitted on 09/28/17 for Nausea, chills, fever. Chief Complaint: [] I saw patient this morning before, during and after the HBO treatment. He tolerated this well but complained of chest tightness without shortness of breath, change in voice, lightheadedness, headache or dizziness. He has had similar tightness due to GERD in past, and vomiting had helped. He has been afebrile and his vital signs have been stable. Complete physical examination in the wound center after HBO treatment was unremarkable. His blood sugar was 216 and he was not diaphoretic. I accompanied him to [facility] floor and assessed him after reviewing his EKG and chest x-ray. Both this studies were unremarkable. I examined his wound. Postsurgical changes are noted. The wound beds are pink and there is no evidence of crepitation in the tissues. Post op edema is present with the serous drainage. No foul odor and No purulence. I reviewed wound cultures. They are growing Strep agalactiae B. Blood cultures are negative I discussed these events with a total hospitalist physician. We'll await infectious disease consult tomorrow. Objective Temp Pulse Resp BP Pulse Ox 98.1 F 89 16 157/97 98 09/30/17 11:59 09/30/17 04:00 09/30/17 11:59 09/30/17 11:59 09/30/17 11:59 AVSS. General physical examination within normal limits. Local examination: Resolving postsurgical changes. Tissue edema is still present. Wound beds are granulating. No purulence. No foul odor. Fourth toes are pink warm and dry. Range of motions are present and normally. Sensations are present and pulses are palpable. - Additional Data Intake & Output - Last 24 hours: Intake & Output 09/28/17 09/29/17 09/30/17 10/01/17 05:59 05:59 05:59 05:59 Intake Total 4395 / 4395 2915 / 2915 50 / 50 Output Total 475 / 475 300 / 300 Balance 3920 / 3920 2915 / 2915 -250 / -250 Weight 281 lb 8 oz 283 lb 9.6 oz - Labs 09/30/17 04:19 09/30/17 04:19 Diabetes panel 09/30/17 Range/Units 04:19 Sodium 136 (133-145) mmol/L Potassium 3.6 (3.3-5.1) mmol/L Chloride 99 (96-108) mmol/L Carbon Dioxide 25 (22-30) mmol/L BUN 15 (6-20) mg/dl Creatinine 1.0 (0.7-1.2) mg/dl Glucose 138 H (70-105) mg/dL Calcium 8.1 L (8.6-10.4) mg/dl AST 34 (0-37) U/l ALT 43 H (0-40) U/l Alkaline Phosphatase 160 H (39-117) U/L Total Protein 6.9 (5.9-8.4) gm/dL Albumin 2.8 L (3.2-5.2) gm/dL Triglycerides 114 (<150) mg/dl Calcium panel 09/30/17 Range/Units 04:19 Calcium 8.1 L (8.6-10.4) mg/dl Phosphorus 2.4 L (2.7-4.5) mg/dL Albumin 2.8 L (3.2-5.2) gm/dL Pituitary panel 09/30/17 Range/Units 04:19 Sodium 136 (133-145) mmol/L Potassium 3.6 (3.3-5.1) mmol/L Chloride 99 (96-108) mmol/L Carbon Dioxide 25 (22-30) mmol/L BUN 15 (6-20) mg/dl Creatinine 1.0 (0.7-1.2) mg/dl Glucose 138 H (70-105) mg/dL Calcium 8.1 L (8.6-10.4) mg/dl Adrenal panel 09/30/17 Range/Units 04:19 Sodium 136 (133-145) mmol/L Potassium 3.6 (3.3-5.1) mmol/L Chloride 99 (96-108) mmol/L Carbon Dioxide 25 (22-30) mmol/L BUN 15 (6-20) mg/dl Creatinine 1.0 (0.7-1.2) mg/dl Glucose 138 H (70-105) mg/dL Calcium 8.1 L (8.6-10.4) mg/dl Total Bilirubin 0.8 (0.0-1.0) mg/dL AST 34 (0-37) U/l ALT 43 H (0-40) U/l Alkaline Phosphatase 160 H (39-117) U/L Total Protein 6.9 (5.9-8.4) gm/dL Albumin 2.8 L (3.2-5.2) gm/dL Assessment and Plan (1) 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 Status: Acute Current Visit: Yes (2) Sepsis due to anaerobic bacteria Status: Acute Current Visit: Yes (3) Sepsis Status: Acute Current Visit: Yes (4) 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 on HBOT Sepsis- Treat underlying etiology, IV fluids, no e/o septic shock at this time, monitor closely. wbc ternding down ,but still high Diabetes- Uncontrolled, no ont any medication due to financial issues? ssi insulin, start on metformin 500bid, will allow to run high given hbot will need high glucose. Hypertension- resume hctz chest tigthnes- neg x ray, and ekg, clinically not cardiac, resolved with maalox , monitor for now. DVT hep sq Diet carb consistent Full code. - Time Spent With Patient Total time spent is greater than 50% in coordination of care (as documented) at patient's floor/unit and/or counseling patient: Assessment: Satisfactory progress at this time. Updated patient about current situation. Mentioned about possibility of needing further wound treatment as Inpatient, outpatient or in swing bed status. Possibility of requiring further surgical procedures cannot be ruled out. Plan: Continue current treatment and next hyperbaric treatment today. See amended wound care orders for MIST treatments with GC B dressing changes. 25 - 35 minutes
--- NOTE | 2017-09-30 15:15 | XRay Report ---
HISTORY: Chest tightness, gastroesophageal reflux and smoker FINDINGS: Mildly prominent increased interstitial lung markings are present bilaterally. The lungs are incompletely expanded due to suboptimal inspiration. This may create crowding of the pulmonary vascular markings. Thin bands of discoid atelectasis are seen above the diaphragms bilaterally. There is no consolidating infiltrate, mass or pleural effusion. The heart size, mediastinum and jesus are normal. No pneumothorax is present. IMPRESSION: Suboptimal inspiration with mild discoid atelectasis in both lower lobes Interpreted and Authenticated by: Lizandro Grewal 09/30/17
[2017-09-30] MEDS: 0.9 % SODIUM CHLORIDE 1,000 ML IV SCH (16:35)
[2017-09-30] MEDS: CALCIUM CARBONATE 500 MG TAB.CHEW CHEWED PRN ×2 (17:05→21:45)
[2017-10-01] MEDS: 0.9 % SODIUM CHLORIDE 10 ML SYRINGE IV SCH ×4 (05:25→21:29)
[2017-10-01] MEDS: PIPERACILLIN SODIUM/TAZOBACTAM 3.375 GM in DEXTROSE 5% IN WATER 50 ML IV SCH ×3 (05:25→19:11)
[2017-10-01 05:37] LABS: Basophils # (Auto) 0 K/mcL (0.0-0.3); Basophils % (Auto) 0.2 % (0.0-2.0); Eosinophils # (Auto) 0.7 K/mcL (0.0-0.7); Eosinophils % (Auto) 3.8 % (0.0-7.0); Granulocytes % (Auto) 67.1 % (38.0-78.0); Lymphocytes # (Auto) 4.1 K/mcL (1.5-4.8); Lymphocytes % (Auto) 20.5 % (15.5-49.0); Mean Corpuscular HGB Conc 32.7 g/dL (31.0-36.0); Mean Corpuscular Hemoglobin 29.1 pg (26.0-34.0); Monocytes # (Auto) 1.7 K/mcL (0.1-0.9); Monocytes % (Auto) 8.4 % (1.0-12.0); Platelet Count 469 K/mcL (140-440); RBC 3.69 M/mcL (4.50-5.90); Red Cell Distribution Width 13.3 % (11.5-14.5)
[2017-10-01 05:47] LABS: ALT/SGPT 41 U/l (0-40); Albumin 2.8 gm/dL (3.2-5.2); Albumin/Globulin Ratio 0.7 (1.0-2.3); Alkaline Phosphatase 137 U/L (39-117); Bilirubin,Direct 0.2 mg/dL (0.0-0.3); Blood Urea Nitrogen 10 mg/dl (6-20); Gamma Glutamyl Transpeptidase 45 U/L (8-61); Uric Acid 2.8 mg/dL (2.5-8.0)
[2017-10-01] MEDS: INSULIN LISPRO 1 UNIT/0.01 ML UNIT SQ SCH ×4 (06:54→21:22)
[2017-10-01] MEDS: metFORMIN 500 MG TABLET PO SCH ×2 (06:55→19:20)
[2017-10-01] MEDS: HYDROCHLOROTHIAZIDE 25 MG TABLET PO SCH (06:59)
[2017-10-01] MEDS ORDERED: POTASSIUM CHLORIDE 20 MEQ PACKET PO ONE (07:01)
--- NOTE | 2017-10-01 08:44 | Operative Note ---
DATE OF OPERATION: 09/28/2017 PREOPERATIVE DIAGNOSIS: Infected diabetic foot ulcer, right fifth toe Ambrosio 3 Sepsis syndrome, necrotizing infection fasciitis, additional skin lesions, pressure ulcer medial aspect of right heel and infected skin tear anterior aspect of lower leg. POSTOPERATIVE DIAGNOSIS: Infected diabetic foot ulcer, right fifth toe Ambrosio 3 sepsis syndrome, necrotizing infection fasciitis, additional skin lesions pressure ulcer medial aspect of right heel and infected skin tear anterior aspect of lower leg. OPERATION: 1. Surgical debridement, pulse lavage irrigation, tissue samples for cultures and pathology, fasciotomy between fourth and fifth toe after excision, debridement of the ulcer under the fifth toe. 2. Excision, debridement of pressure ulcer medial right heel and skin tear anterior lower leg. FINDINGS: 1. Foul-smelling necrotic soft tissue in the neuropathic ulcer on the right fifth toe. 2. Necrotic tissue extending up to the dorsal surface of foot and grossly edematous necrotic soft tissue, muscle, between the fourth and fifth toe. 3. Full thickness necrosis medial aspect of right heel and infected skin tear anterior lower leg. SURGEON: Juanjo Singh MD ANESTHESIA: General laryngeal mask airway. ESTIMATED BLOOD LOSS: 10 mL PROCEDURE NOTE: After obtaining informed consent, patient was taken to the operating room. Timeout was called. Intravenous antibiotics were started on the floor. After successful administration of anesthesia, the right lower extremity was widely cleaned, prepped and draped after taking photographs. First, we started off by excising the necrotic skin along the medial aspect of the right heel. This was a full thickness excision extending to the subcutaneous fat and soft tissue over the bone. Next, attention was turned to the infected skin tear. This was excised. We now proceeded to excise the infected necrotic ulcer on the plantar aspect of the fifth toe. Deep tissue samples were obtained for gram stain and culture. I then made a longitudinal incision between the fourth and fifth toes along the dorsal aspect corresponding to the area of skin blister. This was carefully taken down through the subcutaneous tissues and the intraosseous space between the bones. Fasciotomy was performed. The tissues were explored. They found to be communicating with the plantar ulcer. This space was opened. Thorough irrigation of this area was carried out with pulse lavage vehicle refinisher using 3 liters of normal saline and 800 mg of gentamicin solution. Part of this was also used to irrigate the other surgical site along the medial aspect of heel and lower leg. We placed a packing to the plantar aspect of the ulcer and brought it out through the dorsal skin incision between the fourth and fifth metatarsal bones. This packing was reinforced with Xeroform gauze, 4 x 4 gauze, AMD Kerlix gauze, Webril, Coban and RICHMOND bandages. Estimated blood loss was 10 mL. Count of swabs, instruments and needles was reported to be correct. The patient recovered from anesthesia uneventfully. He was taken to in stable condition. The procedure was well tolerated. VD:john Job ID: [id number] Doc ID: [id number] Juanjo LONGORIA
[2017-10-01] MEDS ORDERED: GENTAMICIN SULFATE 40 MG, CLINDAMYCIN 300 MG, BACITRACIN 25,000 UNIT in SODIUM CHLORIDE... IRR SCH (09:00)
[2017-10-01] MEDS ORDERED: ASPIRIN 81 MG TAB.CHEW CHEWED ONE (09:28)
[2017-10-01] MEDS ORDERED: NITROGLYCERIN 0.4 MG TAB.SUBL SL PRN ×2 (09:29→10:52)
[2017-10-01] MEDS ORDERED: PANTOPRAZOLE 40 MG VIAL IV SCH (09:29)
--- NOTE | 2017-10-01 10:08 | General Surgery Progress Note ---
Subjective Narrative: Note initiated : 10/01/17 at 9:59 am Service Date, if different from initiated Date: [] Patient: Osmin Leslie 42 y/o M admitted on 09/28/17 for Nausea, chills, fever. Chief Complaint: [] I saw this patient in the morning before starting his hyperbaric oxygen treatment. He did not report any symptoms and had an uneventful night. Whilst in the chamber he started complaining of chest tightness and experiencing nausea like yesterday. We did not complete full treatment. He was carefully taken out of the chamber after termination of treatment. He had dry heaves and nonbilious emesis, that relieved his chest tightness. There is a significant component of anxiety as well. Dry heaves and emesis is likely due to gastroparesis however other causes need to be ruled out. Patient needs a GI consult for an EGD biopsies etc. I spoke with Dr. Obregon, [employer] telephone [phone], regarding this patient. Orders given to the floor to keep this patient nothing by mouth for an EGD this evening. I spoke with Dr. Salazar. Hospitalist physician, about this development. Dr. Salazar wants to rule out cardiac causes. He ordered cardiac enzymes and has recommended transferring patient to telemetry unit. Objective Temp Pulse Resp BP Pulse Ox 97.8 F 74 18 173/102 98 10/01/17 06:59 10/01/17 04:00 10/01/17 06:59 10/01/17 06:59 10/01/17 07:00 Afebrile vital signs are stable. General physical examination is unremarkable. Abdomen is soft nontender. Bowel sounds heard. No peritoneal signs. Right foot dressing is clean dry and intact. This will be changed later on at the time of MIST treatment. Laboratory results reveal downtrending of WBCs creatinine and thrombocytosis. There is correction of hyperosmolar state with corresponding decrease in hematocrit as well. I have ordered a laser Doppler studies to check for PAD, and requested various consults. - Additional Data Intake & Output - Last 24 hours: Intake & Output 09/29/17 09/30/17 10/01/17 10/02/17 05:59 05:59 05:59 05:59 Intake Total 4395 / 4395 2915 / 2915 1750 / 1750 Output Total 475 / 475 300 / 300 150 / 150 Balance 3920 / 3920 2915 / 2915 1450 / 1450 -150 / -150 Weight 281 lb 8 oz 283 lb 9.6 oz 282 lb 14.4 oz - Labs 10/01/17 04:10 10/01/17 04:10 Diabetes panel 10/01/17 Range/Units 04:10 Sodium 136 (133-145) mmol/L Potassium 3.3 (3.3-5.1) mmol/L Chloride 96 (96-108) mmol/L Carbon Dioxide 28 (22-30) mmol/L BUN 10 (6-20) mg/dl Creatinine 0.8 (0.7-1.2) mg/dl Glucose 134 H (70-105) mg/dL Calcium 9.0 (8.6-10.4) mg/dl AST 21 (0-37) U/l ALT 41 H (0-40) U/l Alkaline Phosphatase 137 H (39-117) U/L Total Protein 6.8 (5.9-8.4) gm/dL Albumin 2.8 L (3.2-5.2) gm/dL Triglycerides 146 (<150) mg/dl Calcium panel 10/01/17 Range/Units 04:10 Calcium 9.0 (8.6-10.4) mg/dl Phosphorus 2.8 (2.7-4.5) mg/dL Albumin 2.8 L (3.2-5.2) gm/dL Pituitary panel 10/01/17 Range/Units 04:10 Sodium 136 (133-145) mmol/L Potassium 3.3 (3.3-5.1) mmol/L Chloride 96 (96-108) mmol/L Carbon Dioxide 28 (22-30) mmol/L BUN 10 (6-20) mg/dl Creatinine 0.8 (0.7-1.2) mg/dl Glucose 134 H (70-105) mg/dL Calcium 9.0 (8.6-10.4) mg/dl Adrenal panel 10/01/17 Range/Units 04:10 Sodium 136 (133-145) mmol/L Potassium 3.3 (3.3-5.1) mmol/L Chloride 96 (96-108) mmol/L Carbon Dioxide 28 (22-30) mmol/L BUN 10 (6-20) mg/dl Creatinine 0.8 (0.7-1.2) mg/dl Glucose 134 H (70-105) mg/dL Calcium 9.0 (8.6-10.4) mg/dl Total Bilirubin 0.6 (0.0-1.0) mg/dL AST 21 (0-37) U/l ALT 41 H (0-40) U/l Alkaline Phosphatase 137 H (39-117) U/L Total Protein 6.8 (5.9-8.4) gm/dL Albumin 2.8 L (3.2-5.2) gm/dL Assessment and Plan (1) 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 Chest tightness and gastritis versus gastroparesis being evaluated and treated. Ongoing wound care and IV antibiotics at this time. Plan: Continue current management and await input from all the consultants. I explained to the patient about ongoing developments and an outline about plan of care as we go forwards. He understands and agrees. - Time Spent With Patient Total time spent is greater than 50% in coordination of care (as documented) at patient's floor/unit and/or counseling patient: 25 - 35 minutes
[2017-10-01] MEDS ORDERED: oxyCODONE HCL 5 MG TABLET PO PRN (10:52)
[2017-10-01] MEDS ORDERED: HYDROmorphone 2 MG/ML VIAL IV PRN (10:52)
[2017-10-01] MEDS ORDERED: CALCIUM CARBONATE 500 MG TAB.CHEW CHEWED PRN (10:52)
[2017-10-01] MEDS ORDERED: ONDANSETRON 4 MG/2 ML VIAL IV PRN (10:52)
[2017-10-01] MEDS ORDERED: NALOXONE HCL 0.4 MG/ML VIAL IV PRN (10:52)
[2017-10-01] MEDS ORDERED: ACETAMINOPHEN 325 MG TABLET PO PRN (10:52)
[2017-10-01 11:17] LABS: Creatine Kinase MB 1.1 ng/ml (0-4.9); Myoglobin 59 ng/ml (28-72)
--- NOTE | 2017-10-01 13:36 | Surgical Pathology Report ---
HISTOLOGY SPECIMEN MICROSCOPIC DIAGNOSIS SPECIMEN A - SKIN, RIGHT HEEL ULCER, BIOPSY: -- SKIN WITH ULCERATION, ACUTE/CHRONIC INFLAMMATION AND FIBROSIS. SPECIMEN B - SKIN, RIGHT DEEP TISSUE ULCER, BIOPSY: -- SKIN WITH ULCERATION, GRANULATION TISSUE, ACUTE/CHRONIC INFLAMMATION AND INFLAMMATORY EXUDATE. (RLF:djf) PROCEDURAL IMPRESSION Right foot cellulitis. GROSS DESCRIPTION Specimen A: Received in formalin, is a garces piece of skin 2.8 x 1.9 x 0.5 cm. The majority of the skin is covered by dusky rivero, slightly raised area that is 2.6 x 2 by up to 0.2 cm. The margin is inked black. Crew Mess Attendant sections submitted - one cassette. Specimen B: Received in formalin labeled with the patient information, are two tissue fragments. The first fragment is 2.3 x 0.5 by up to 0.3 cm with a 0.7 cm disrupted area centrally. The second fragment is 2.5 x 2.3 x 0.5 cm with a 1.5 x 1.5 cm hole/disrupted area centrally. The possible margins are inked black. Crew Mess Attendant sections submitted - one cassette. (SCB:sln) Electronically Signed by: Danielle Robbins M.D.
--- NOTE | 2017-10-01 14:52 | Internal Medicine Consult Note ---
Medical - CN: HPI - Data of Consult Consult date: 10/01/17 Requesting Physician: Chiquita Salazar Primary Care Provider: Mary Davis - Consult Narrative Reason for consult: necrotizing right 5th toe infection History of present illness: Mr. Leslie is a 42 year old man with past medical history pertinent for: Uncontrolled diabetes, A1c of 11.1, on oral antidiabetics at home Peripheral neuropathy Obesity nonhealing ulcer over the right fifth toe since last 2 months Patient was admitted acutely on 09/28/17 am, with a swollen and red right foot with fever and chills. He originally had a callus develop at the lateral aspect of right foot about 2 months ago, on which he tried carving with some object to get rid of it. This led to a ulcer formation, which never healed and that got bigger and bigger over 2 months. About 4 days prior to admission patient noticed the wound was becoming red, and swollen. The swelling and redness progressed to involve the entire foot last Sunday, and patient also complained of fever and chills. He did see his PCP in last 2 months, who had ordered a x- ray of the foot followed by an MRI. He was also prescribed some oral antibiotics which he took. The MRI could not be done because of insurance issues. On 09/28, at time of presentation to the ED patient was febrile with temp of 90 9.4F, heart rate 110, satting 93% on room air. White cell count was 38,000 with neutrophilic predominance, A1c was 32, pro calcitonin was 0.2. Blood cultures were also sent. The x-ray of the foot was done which showed possible abscess and air. An emergent CT scan of the foot done showed concerns for necrotizing fasciitis on the plantar surface of the foot. Patient underwent emergent surgical debridement with findings of "foul-smelling necrotic soft tissue over fifth toe, right medial heel and grade 2 skin tears over the right lower leg". Operative cultures were sent for Gram stain and culture sensitivity. Patient was started on IV vancomycin, IV clindamycin and IV Zosyn. He also underwent multiple session of hyperbaric oxygen therapy over the weekend and today. His white cell count has trended down, has been afebrile. At the time of visit today he reported pain in epigastrium, dry heaves. He mentioned that as soon as he got the insulin injection he started having the belly pain. He denies any other symptoms. He was n.p.o. for a scheduled EGD later in the day. On review of systems, he denied any headache, problems with vision and hearing, difficulty swallowing, cough, chest pain, shortness of breath, diarrhea, discoloration of the limbs. He lives with his parents locally. He has 1 cat and dog, denies any contact of pets with his wounds. CC: Chiquita Salazar All systems: reviewed and no additional remarkable complaints except as stated Medical - CN: PMH Functional capacity: independent ambulation Smoking status: Light tobacco smoker Have you smoked in the last 12 months: Yes Drug use: none Alcohol use: none Medical - CN: Meds Home Medications Medication Instructions Recorded Confirmed Type Hydrochlorothiazide [Oretic] 25 mg PO DAILY 09/28/17 09/28/17 History Allergies Allergy/AdvReac Type Severity Reaction Status Date / Time scallops Allergy Intermediate Swelling Verified 09/28/17 15:57 of Lip/Tongue/Throat [place] Allergy Intermediate Swelling Verified 09/28/17 15:56 of Lip/Tongue/Throat Medical - CN: Exam - Constitutional Vitals: Temp Pulse Resp BP Pulse Ox 36.4 C 74 16 181/109 92 10/01/17 12:00 10/01/17 04:00 10/01/17 12:00 10/01/17 12:00 10/01/17 12:00 General appearance: cooperative, mild distress, obese - Respiratory Respiratory exam: Present: normal respiratory exam, CTAB - Cardiovascular Cardiovascular exam: Present: +S1, +S2. Absent: systolic murmur - GI/Abdominal GI/Abdominal exam: Present: normal bowel sounds, soft, distended Additional comments: Tender on palpation in the epigastric region, no rebound - Extremities Exam Additional comments: No edema in the left leg or foot. The right foot is wrapped in the bandage, the surgical wound could not be examined - Psychiatric Psychiatric exam: Present: agitated, anxious Medical - CN: Result - Labs CBC & Chem 7: 10/01/17 04:10 10/01/17 04:10 Labs: Short CBC 10/01/17 Range/Units 04:10 WBC 19.7 H (4.5-11.0) K/mcL Hgb 10.8 L (13.5-16.5) g/dL Hct 32.8 L (41.0-55.0) % Plt Count 469 H (140-440) K/mcL BMP 10/01/17 04:10 Sodium 136 Potassium 3.3 Chloride 96 Carbon Dioxide 28 BUN 10 Creatinine 0.8 Glucose 134 H Calcium 9.0 Cardiac Enzymes 10/01/17 10/01/17 10/01/17 Range/Units 09:47 09:47 14:00 CK-MB (CK-2) 1.1 (0-4.9) ng/ml Troponin T < 0.01 < 0.01 (0-0.03) ng/ml Liver Function 10/01/17 Range/Units 04:10 Total Bilirubin 0.6 (0.0-1.0) mg/dL Direct Bilirubin 0.2 (0.0-0.3) mg/dL GGT 45 (8-61) U/L AST 21 (0-37) U/l ALT 41 H (0-40) U/l Alkaline Phosphatase 137 H (39-117) U/L Albumin 2.8 L (3.2-5.2) gm/dL Medical - CN: A/P - Narrative A/P Narrative: 42-year-old man with uncontrolled diabetes, with right foot nonhealing ulcer complicated by: 1. Necrotizing soft tissue infection of the right foot; status post surgical debridement with operative cultures growing group B strep so far 2. Sepsis: Resolving. Q Sofa score of 0 3. Acute upper abdominal pain: Pending EGD -No hematemesis -No concern for acute blood loss Recommendations: Continue IV Zosyn at 3.375 g every 6 hours, and IV clindamycin 900 mg every 8 hours. -Stop IV vancomycin -Agree with ongoing hyperbaric oxygen therapy Might need a relook of the wounds for further surgical debridement until the healthy tissue Anticipate a long course of IV antibiotics. If blood cultures are negative at 72 hours, PICC line can be placed We will follow. Jayson Escobar MD Infectious diseases
--- NOTE | 2017-10-01 15:15 | Internal Med Progress Note ---
Medical - PN: Subj Patient information: Note initiated : 10/01/17 at 3:13 pm Service Date, if different from initiated Date: [] Patient: Osmin Leslie 42 y/o M admitted on 09/28/17 for Nausea, Chills, Fever/ Necrotizing Fascitis, Sepsis. Chief Complaint: [] Interval history: Mr. Leslie is a 42 year old male with h/o HTN, and untreated DM. On my eval the patient is in pacu, drowsy after anesthesia, history from chart review. The patient it seems has a chr right foot ulcer. The pt has been working out in the heat, he passed out and came to the ED because he was very weak and tired. The patient has been having nausea vomiting and diarrhea going on for the last 4 days. He notes according to the ER note that the right foot has been bothering him for the last 2 months. He has several ulcers on his right foot. The patient had a fever when he presented to the emergency room, temperature of 99.4, he was tachycardic with a heart rate of 110 blood pressure was stable and he was saturating 93% on room air. The patient had a chest x-ray done which was negative for an acute infection, head CT that was negative for acute process did not sinusitis. The patient had an x-ray of the foot done which showed possible abscess and air in the right foot. Patient underwent an emergent CT scan of the right foot called necrotizing fasciitis on the plantar surface of the foot. The patient was evaluated by Dr. Singh, and taken to the OR immediately. Patient was admitted to the hospital for further management. Patient has elevated WBC count at 38,000, hemoglobin 13 platelets 427 sodium 131 , potassium 3.2 creatinine 1.3 glucose elevated at 32 A1c is 11 pro calcitonin 0.2. EKG reviewed normal sinus, tachycardia 09/29 Pt seen and examined, no acute overnight issues, mental status much better wbc trending down still high on vanco, zosyn and clindamycin s/p debridement HBOT per wound care DM control not optimal, Pt has no complaints. 09/30 Pt seen examined, no acute overnight issue some chest tightness after hbot tretmetn today x ray chest neg, ekg neg, pt reports that he has these due to his reflux disease , and usually vomiting helps, this time Dr Marie gave mallox which helped start on prn tums wbc trending down microbiolgoy is growing strep agalactate, I am not too sure if this is a gas forming bacteria. Patient may have had some gas in the tissue from open wounds but clearly had necrotic tissue on debridement. no mrsa noted d/c vancomycin. continue clindamycin and zosyn for now, consider d/c clindamycin in AM. 10/01 Pt seen examined, no acute overnight issues this am during HBOT he developed epigastric tightness, nausea, shortness of breath. He attributes this to GI symptoms he did get KCL today for low potassium GI consulted by Dr Marie will get set of troponin, asa 325, ordered ntg which pt refused plan to get CT A chest,coronary to evaluate his coronaries, given that his complaint is chest tightness, and not burning epigastric pain which I would expect Pertinent ROS: Denies headache, dizziness Denies chest pain, palpitations, chest tightness this AM Denies cough or shortness of breath Denies abdominal pain, present nausea on vomiting. - Constitutional Vitals: Vital Signs Temp Pulse Resp BP Pulse Ox 97.5 F 74 16 181/109 92 10/01/17 12:00 10/01/17 04:00 10/01/17 12:00 10/01/17 12:00 10/01/17 12:00 Period Temp Pulse Resp BP Sys/Felix Pulse Ox Last 24 Hr 97.1 F-98.1 F 74-92 14-18 104-181/67-109 92-99 Intake and Output 10/01/17 10/01/17 10/01/17 05:59 13:59 21:59 Intake Total 300 / 300 50 / 50 Output Total 150 / 150 Balance 300 / 300 -100 / -100 Intake & Output: Intake & Output 10/01/17 10/01/17 10/01/17 05:59 13:59 21:59 Intake Total 300 / 300 50 / 50 Output Total 150 / 150 Balance 300 / 300 -100 / -100 Intake: IV 50 / 50 50 / 50 Zosyn 3.375 gm In Dextrose 5% 50 / 50 50 / 50 in Water 50 ml @ 100 mls/hr IV Q6H [facility] Rx#:[id number] Oral 250 / 250 Output: Emesis 150 / 150 Other: # Voids 2 Exam: Constitutional; Afebrile, cooperative, alert, in mild disterss this am Eyes- No icterus, , No periorbital swelling Ears- Ext ear normal, hearing normal to conversation. Neck- Midline trachea, supple Respiratory system: Air Entry equal on both sides, No crackles or wheezing, no rhonchi. CVS- Rate rhythm regular, S1,S2 heard, no gallop, no rub. Abdomen- Soft nontender abdomen, no organomegaly, no tenderness, no guarding or rigidity, [place] [employer]- AOOx3, moving all extremities, no gross focal deficit noted. Medical - PN: Obj Da - Labs CBC & Chem 7: 10/01/17 04:10 10/01/17 04:10 Labs: Abnormal Lab Results 10/01/17 10/01/17 09/30/17 04:10 04:10 04:19 WBC 19.7 H RBC 3.69 L Hgb 10.8 L Hct 32.8 L Plt Count 469 H Gran % Lymph % (Auto) Gran # 13.2 H [place] # (Auto) 1.7 H Glucose 134 H 138 H Calcium 8.1 L Phosphorus 2.4 L Direct Bilirubin 0.4 H ALT 41 H 43 H Alkaline Phosphatase 137 H 160 H Albumin 2.8 L 2.8 L Globulin 4.0 H 4.1 H Albumin/Globulin Ratio 0.7 L 0.7 L 09/30/17 09/29/17 09/29/17 04:19 04:50 04:50 WBC 22.7 H 31.8 H* RBC 3.62 L 3.73 L Hgb 10.7 L 10.8 L Hct 31.9 L 33.3 L Plt Count 448 H Gran % 82.7 H Lymph % (Auto) 12.5 L 9.9 L Gran # 17.3 H 26.3 H [place] # (Auto) 1.8 H 1.9 H Glucose 233 H Calcium 8.4 L Phosphorus 2.2 L Direct Bilirubin ALT Alkaline Phosphatase 136 H Albumin 2.8 L Globulin 4.1 H Albumin/Globulin Ratio 0.7 L Meds: Medications Acetaminophen (Tylenol) 650 mg PO Q6HP PRN PRN Reason: PAIN/FEVER > 101 Calcium Carbonate/Glycine (Tums) 1,000 mg CHEWED Q4HP PRN PRN Reason: Dyspepsia Diagnostic Test (Pha) (Accu-Chek) 1 each FS ACHS [facility] Last Admin: 10/01/17 12:03 Dose: 1 each Heparin Sodium (Porcine) (Heparin) 5,000 unit SQ Q12 [facility] Hydrochlorothiazide (Oretic) 25 mg PO DAILY [facility] Hydromorphone HCl (Dilaudid) 0.5 mg IV Q2HP PRN PRN Reason: PAIN LEVEL > 6 Gentamicin Sulfate 40 mg/Clindamycin Phosphate 300 mg/Bacitracin 25,000 unit/ Sodium Chloride 503 mls @ 0 mls/hr IRR DAILY [facility] Piperacillin Sod/Tazobactam (Sod 3.375 gm/ Dextrose) 50 mls @ 100 mls/hr IV Q6H [facility] Last Infusion: 10/01/17 12:39 Dose: Infused Insulin Human Lispro (Humalog) 0 unit SQ [facility]; Protocol Last Admin: 10/01/17 12:08 Dose: 6 unit Metformin HCl (Glucophage) 500 mg PO BIDCC [facility] Naloxone HCl (Narcan) 0.1 mg IV Q2MIN PRN PRN Reason: Opiate Reversal Nitroglycerin (Nitrostat) 0.4 mg SL Q5M PRN PRN Reason: Chest Pain Ondansetron HCl (Zofran) 4 mg IV Q6HP PRN PRN Reason: Nausea And Vomiting Last Admin: 10/01/17 12:43 Dose: 4 mg Oxycodone HCl (Roxicodone) 5 mg PO Q4HP PRN PRN Reason: PAIN LEVEL 3-6 Last Admin: 10/01/17 12:44 Dose: 5 mg Pantoprazole Sodium (Protonix) 40 mg IV BIDAC [facility] Sodium Chloride (Saline Flush) 10 ml IV Q8 [facility] Last Admin: 10/01/17 12:22 Dose: 10 ml Medical - PN: A/P - Time Spent With Patient Total time spent is greater than 50% in coordination of care (as documented) at patient's floor/unit and/or counseling patient: - Narrative A/P Narrative: A/P Necrotizing fascitis with gas formation- s/p debridement, cultures growing strep agalactae, not known to be a gas forming organism to my knowledge, no mrsa isolated, d/c vanco, continue zosyn and clindamycin, given need for dual anaerobic coverage for clostridium spp, which may not be isolated yet and these wounds are known to be polymicrobial. on HBOT. ID consulte await their recos Sepsis- Treat underlying etiology, IV fluids, no e/o septic shock at this time, monitor closely. wbc ternding down ,but still high Diabetes- Uncontrolled, no ont any medication due to financial issues? ssi insulin, start on metformin 500bid, will allow to run high given hbot will need high glucose. Hypertension- resume hctz chest tigthnes/ Epigastric distress- neg x ray, and ekg, unlinkely to be cardiac , but patient has strong risk factors, refused NTG trop x 2 neg, will see if we can get CT angio coronary. GI to consulted, EGD at 5pm today. started on IV ppi DVT hep sq Diet carb consistent Full code.
[2017-10-01] MEDS ORDERED: PROPOFOL 200 MG/20 ML VIAL IV SCH (16:15)
[2017-10-01] MEDS ORDERED: MIDAZOLAM 2 MG/2 ML VIAL IV SCH (16:15)
--- NOTE | 2017-10-01 16:50 | Internal Med Progress Note ---
Medical - PN: Subj Patient information: Note initiated : 10/01/17 at 4:43 pm Service Date, if different from initiated Date: [] Patient: Osmin Leslie 42 y/o M admitted on 09/28/17 for Debridement of Right Foot Ulcer. Chief Complaint: [necrotizing fasciitis] - Constitutional Vitals: Vital Signs Temp Pulse Resp BP Pulse Ox 98.3 F 74 16 161/82 93 10/01/17 15:31 10/01/17 04:00 10/01/17 15:31 10/01/17 15:31 10/01/17 15:31 Period Temp Pulse Resp BP Sys/Felix Pulse Ox Last 24 Hr 97.5 F-98.3 F 74-92 - 104-181/67-109 92-99 Intake and Output 10/01/17 10/01/17 10/01/17 05:59 13:59 21:59 Intake Total 300 / 300 50 / 50 0 / 0 Output Total 150 / 150 Balance 300 / 300 -100 / -100 0 / 0 Intake & Output: Intake & Output 10/01/17 10/01/17 10/01/17 05:59 13:59 21:59 Intake Total 300 / 300 50 / 50 0 / 0 Output Total 150 / 150 Balance 300 / 300 -100 / -100 0 / 0 Intake: IV 50 / 50 50 / 50 Zosyn 3.375 gm In Dextrose 5% 50 / 50 50 / 50 in Water 50 ml @ 100 mls/hr IV Q6H [facility] Rx#:[id number] Oral 250 / 250 0 / 0 Output: Emesis 150 / 150 Other: # Voids 2 Medical - PN: Obj Da - Labs CBC & Chem 7: 10/01/17 04:10 10/01/17 04:10 Labs: Abnormal Lab Results 10/01/17 10/01/17 09/30/17 04:10 04:10 04:19 WBC 19.7 H RBC 3.69 L Hgb 10.8 L Hct 32.8 L Plt Count 469 H Gran % Lymph % (Auto) Gran # 13.2 H [place] # (Auto) 1.7 H Glucose 134 H 138 H Calcium 8.1 L Phosphorus 2.4 L Direct Bilirubin 0.4 H ALT 41 H 43 H Alkaline Phosphatase 137 H 160 H Albumin 2.8 L 2.8 L Globulin 4.0 H 4.1 H Albumin/Globulin Ratio 0.7 L 0.7 L 09/30/17 09/29/17 09/29/17 04:19 04:50 04:50 WBC 22.7 H 31.8 H* RBC 3.62 L 3.73 L Hgb 10.7 L 10.8 L Hct 31.9 L 33.3 L Plt Count 448 H Gran % 82.7 H Lymph % (Auto) 12.5 L 9.9 L Gran # 17.3 H 26.3 H [place] # (Auto) 1.8 H 1.9 H Glucose 233 H Calcium 8.4 L Phosphorus 2.2 L Direct Bilirubin ALT Alkaline Phosphatase 136 H Albumin 2.8 L Globulin 4.1 H Albumin/Globulin Ratio 0.7 L Meds: Medications Acetaminophen (Tylenol) 650 mg PO Q6HP PRN PRN Reason: PAIN/FEVER > 101 Calcium Carbonate/Glycine (Tums) 1,000 mg CHEWED Q4HP PRN PRN Reason: Dyspepsia Diagnostic Test (Pha) (Accu-Chek) [address] [facility] Last Admin: 10/01/17 12:03 Dose: 1 each Diagnostic Test (Pha) (Accu-Chek) 1 each FS ONCE [facility] Stop: 10/02/17 00:07 Heparin Sodium (Porcine) (Heparin) 5,000 unit SQ Q12 [facility] Hydrochlorothiazide (Oretic) 25 mg PO DAILY [facility] Hydromorphone HCl (Dilaudid) 0.5 mg IV Q2HP PRN PRN Reason: PAIN LEVEL > 6 Gentamicin Sulfate 40 mg/Clindamycin Phosphate 300 mg/Bacitracin 25,000 unit/ Sodium Chloride 503 mls @ 0 mls/hr IRR DAILY [facility] Piperacillin Sod/Tazobactam (Sod 3.375 gm/ Dextrose) 50 mls @ 100 mls/hr IV Q6H [facility] Last Infusion: 10/01/17 12:39 Dose: Infused Insulin Human Lispro (Humalog) 0 unit SQ ACHS [facility]; Protocol Last Admin: 10/01/17 12:08 Dose: 6 unit Metformin HCl (Glucophage) 500 mg PO BIDCC [facility] Midazolam HCl (Versed) 0 mg IV ONCE [facility] Stop: 10/02/17 00:07 Naloxone HCl (Narcan) 0.1 mg IV Q2MIN PRN PRN Reason: Opiate Reversal Nitroglycerin (Nitrostat) 0.4 mg SL Q5M PRN PRN Reason: Chest Pain Ondansetron HCl (Zofran) 4 mg IV Q6HP PRN PRN Reason: Nausea And Vomiting Last Admin: 10/01/17 12:43 Dose: 4 mg Oxycodone HCl (Roxicodone) 5 mg PO Q4HP PRN PRN Reason: PAIN LEVEL 3-6 Last Admin: 10/01/17 12:44 Dose: 5 mg Pantoprazole Sodium (Protonix) 40 mg IV BIDAC [facility] Propofol (Diprivan) 0 mg IV ONCE [facility] Stop: 10/02/17 00:07 Sodium Chloride (Saline Flush) 10 ml IV Q8 [facility] Last Admin: 10/01/17 12:22 Dose: 10 ml Medical - PN: A/P - Time Spent With Patient Total time spent is greater than 50% in coordination of care (as documented) at patient's floor/unit and/or counseling patient: - Narrative A/P Narrative: A: *Nec Fasc: s/p I&D (09/28) -cultures growing strep agalactae, *Sepsis: 2/2 above. Resolving *DM: not on home medication d/t finances *HTN: *Chest tightness/Epigastric discomfort: ?GI -trop neg x2, unremarkable EKG/CXR * P: -cont zosyn/clinda; vanco stopped -ID following -Wound Surg following; HBOT -SSI, Started metformin 500bid, will allow to run high given hbot will need high glucose. -cont HCTZ -GI for EGD tonight, ppi IV -ppx: heparin
[2017-10-01] MEDS ORDERED: PROPOFOL 20 ML IV ONE (16:52)
[2017-10-01] MEDS ORDERED: MIDAZOLAM 2 MG/2 ML VIAL ONE (16:52)
[2017-10-01] MEDS: PANTOPRAZOLE 40 MG VIAL IV SCH (19:10)
[2017-10-01] MEDS: HEPARIN 5,000 UNIT/ML VIAL SQ SCH ×2 (19:11→22:58)
--- NOTE | 2017-10-01 19:17 | General Surgery Progress Note ---
Subjective Narrative: Note initiated : 10/01/17 at 7:04 pm Service Date, if different from initiated Date: [] Patient: Osmin Leslie 42 y/o M admitted on 09/28/17 for Debridement of Right Foot Ulcer. Chief Complaint: [] Patient seen several times during the day. Evaluated his wounds earlier this afternoon after MIST treatment. I was present in the GI lab, when EGD was carried out by Dr. Obregon this evening. There is still considerable edema involving the dorsal and more on the plantar aspect with blisters involving mid plantar portion of FOOT. I'm concerned about evolving compartment syndrome and spread of infection to the other areas of the foot. Consequently, I suggested taking him to the operating room tomorrow morning along with Dr. Slade Christian, glass carrier to evaluate the foot and carry out debridement, fasciotomies or possibly right fifth toe amputation if necessary. EGD this evening was unremarkable except for mild esophagitis just above the EG junction, due to gastroesophageal reflux disease. This is already being treated with PPI. After EGD, patient and his mother expressed reservations / objections about surgical intervention and wound debridement and decompression in the operating room tomorrow morning. We had a conference meeting in the patient's room in the presence of patient, his mother, uncle, warehouse shipping supervisor and other nursing staff. It was decided to cancel his scheduled surgery for tomorrow. I will reassess his wounds in the morning and make further recommendations or changes in management as requested by patient and / or his family members. I spoke with Dr. Barrientos, hospitalist on-call about these developments Objective Temp Pulse Resp BP Pulse Ox 98.3 F 89 16 152/71 96 10/01/17 18:13 10/01/17 18:13 10/01/17 18:13 10/01/17 18:13 10/01/17 18:13 Afebrile. Vital signs are stable. General physical examination is unremarkable. Abdomen is soft and nontender. No peritoneal signs. Right foot dressings are clean dry and intact. - Additional Data Intake & Output - Last 24 hours: Intake & Output 09/29/17 09/30/17 10/01/17 10/02/17 05:59 05:59 05:59 05:59 Intake Total 4395 / 4395 2915 / 2915 1750 / 1750 50 / 50 Output Total 475 / 475 300 / 300 150 / 150 Balance 3920 / 3920 2915 / 2915 1450 / 1450 -100 / -100 Weight 281 lb 8 oz 283 lb 9.6 oz 282 lb 14.4 oz - Labs 10/01/17 04:10 10/01/17 04:10 Diabetes panel 10/01/17 Range/Units 04:10 Sodium 136 (133-145) mmol/L Potassium 3.3 (3.3-5.1) mmol/L Chloride 96 (96-108) mmol/L Carbon Dioxide 28 (22-30) mmol/L BUN 10 (6-20) mg/dl Creatinine 0.8 (0.7-1.2) mg/dl Glucose 134 H (70-105) mg/dL Calcium 9.0 (8.6-10.4) mg/dl AST 21 (0-37) U/l ALT 41 H (0-40) U/l Alkaline Phosphatase 137 H (39-117) U/L Total Protein 6.8 (5.9-8.4) gm/dL Albumin 2.8 L (3.2-5.2) gm/dL Triglycerides 146 (<150) mg/dl Calcium panel 10/01/17 Range/Units 04:10 Calcium 9.0 (8.6-10.4) mg/dl Phosphorus 2.8 (2.7-4.5) mg/dL Albumin 2.8 L (3.2-5.2) gm/dL Pituitary panel 10/01/17 Range/Units 04:10 Sodium 136 (133-145) mmol/L Potassium 3.3 (3.3-5.1) mmol/L Chloride 96 (96-108) mmol/L Carbon Dioxide 28 (22-30) mmol/L BUN 10 (6-20) mg/dl Creatinine 0.8 (0.7-1.2) mg/dl Glucose 134 H (70-105) mg/dL Calcium 9.0 (8.6-10.4) mg/dl Adrenal panel 10/01/17 Range/Units 04:10 Sodium 136 (133-145) mmol/L Potassium 3.3 (3.3-5.1) mmol/L Chloride 96 (96-108) mmol/L Carbon Dioxide 28 (22-30) mmol/L BUN 10 (6-20) mg/dl Creatinine 0.8 (0.7-1.2) mg/dl Glucose 134 H (70-105) mg/dL Calcium 9.0 (8.6-10.4) mg/dl Total Bilirubin 0.6 (0.0-1.0) mg/dL AST 21 (0-37) U/l ALT 41 H (0-40) U/l Alkaline Phosphatase 137 H (39-117) U/L Total Protein 6.8 (5.9-8.4) gm/dL Albumin 2.8 L (3.2-5.2) gm/dL Assessment and Plan (1) 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 Complicated diabetic right foot, skin and soft tissue infection with abscesses. Status post OR debridement 09/28/2017 Plan: Continue current management. Ongoing wound care with missed treatments and topical antibiotic-soaked dressing changes 3 times a day. Non weight bearing on right foot was re emphasized. - Time Spent With Patient Total time spent is greater than 50% in coordination of care (as documented) at patient's floor/unit and/or counseling patient: Greater than 35 minutes
[2017-10-01] MEDS: CLINDAMYCIN 900 MG in DEXTROSE 5% IN WATER 50 ML IV SCH (21:22)
[2017-10-02] MEDS: PIPERACILLIN SODIUM/TAZOBACTAM 3.375 GM in DEXTROSE 5% IN WATER 50 ML IV SCH ×5 (00:33→23:32)
[2017-10-02] MEDS: CLINDAMYCIN 900 MG in DEXTROSE 5% IN WATER 50 ML IV SCH ×3 (05:19→22:26)
[2017-10-02] MEDS: 0.9 % SODIUM CHLORIDE 10 ML SYRINGE IV SCH ×3 (05:20→22:27)
[2017-10-02 05:23] LABS: Basophils # (Auto) 0.1 K/mcL (0.0-0.3); Basophils % (Auto) 0.4 % (0.0-2.0); Eosinophils # (Auto) 0.9 K/mcL (0.0-0.7); Eosinophils % (Auto) 4.5 % (0.0-7.0); Granulocytes % (Auto) 65.4 % (38.0-78.0); Lymphocytes # (Auto) 3.9 K/mcL (1.5-4.8); Lymphocytes % (Auto) 19.7 % (15.5-49.0); Mean Cell Volume 88.5 fL (80.0-100.0); Mean Corpuscular Hemoglobin 29.2 pg (26.0-34.0); Platelet Count 478 K/mcL (140-440); RBC 3.76 M/mcL (4.50-5.90); Red Cell Distribution Width 13.5 % (11.5-14.5)
[2017-10-02 05:30] LABS: ALT/SGPT 31 U/l (0-40); Albumin 2.7 gm/dL (3.2-5.2); Albumin/Globulin Ratio 0.7 (1.0-2.3); Alkaline Phosphatase 120 U/L (39-117); Bilirubin,Direct < 0.2 mg/dL (0.0-0.3); Blood Urea Nitrogen 11 mg/dl (6-20); Gamma Glutamyl Transpeptidase 42 U/L (8-61); Uric Acid 3.2 mg/dL (2.5-8.0)
--- NOTE | 2017-10-02 07:47 | Internal Med Progress Note ---
Medical - PN: Subj Patient information: Note initiated : 10/02/17 at 7:46 am Service Date, if different from initiated Date: [] Patient: Osmin Leslie 42 y/o M admitted on 09/28/17 for Debridement of Right Foot Ulcer. Chief Complaint: [] Interval history: Mr. Leslie is a 42 year old male with h/o HTN, and untreated DM. On my eval the patient is in pacu, drowsy after anesthesia, history from chart review. The patient it seems has a chr right foot ulcer. The pt has been working out in the heat, he passed out and came to the ED because he was very weak and tired. The patient has been having nausea vomiting and diarrhea going on for the last 4 days. He notes according to the ER note that the right foot has been bothering him for the last 2 months. He has several ulcers on his right foot. The patient had a fever when he presented to the emergency room, temperature of 99.4, he was tachycardic with a heart rate of 110 blood pressure was stable and he was saturating 93% on room air. The patient had a chest x-ray done which was negative for an acute infection, head CT that was negative for acute process did not sinusitis. The patient had an x-ray of the foot done which showed possible abscess and air in the right foot. Patient underwent an emergent CT scan of the right foot called necrotizing fasciitis on the plantar surface of the foot. The patient was evaluated by Dr. Singh, and taken to the OR immediately. Patient was admitted to the hospital for further management. Patient has elevated WBC count at 38,000, hemoglobin 13 platelets 427 sodium 131 , potassium 3.2 creatinine 1.3 glucose elevated at 32 A1c is 11 pro calcitonin 0.2. EKG reviewed normal sinus, tachycardia 09/29 Pt seen and examined, no acute overnight issues, mental status much better wbc trending down still high on vanco, zosyn and clindamycin s/p debridement HBOT per wound care DM control not optimal, Pt has no complaints. 09/30 Pt seen examined, no acute overnight issue some chest tightness after hbot tretmetn today x ray chest neg, ekg neg, pt reports that he has these due to his reflux disease , and usually vomiting helps, this time Dr Marie gave mallox which helped start on prn tums wbc trending down microbiolgoy is growing strep agalactate, I am not too sure if this is a gas forming bacteria. Patient may have had some gas in the tissue from open wounds but clearly had necrotic tissue on debridement. no mrsa noted d/c vancomycin. continue clindamycin and zosyn for now, consider d/c clindamycin in AM. 10/01 Pt seen examined, no acute overnight issues this am during HBOT he developed epigastric tightness, nausea, shortness of breath. He attributes this to GI symptoms he did get KCL today for low potassium GI consulted by Dr Marie will get set of troponin, asa 325, ordered ntg which pt refused plan to get CT A chest,coronary to evaluate his coronaries, given that his complaint is chest tightness, and not burning epigastric pain which I would expect 10/02 no issues overnight, no nausea/dyspena/chest pain. Review of Systems: denies headache/fever/chills/nausea/vomiting/chest or abdominal pain/cough/ dyspnea/diarrhea. Otherwise see above. - Constitutional Vitals: Vital Signs Temp Pulse Resp BP Pulse Ox 98.1 F 88 18 141/73 94 10/02/17 03:43 10/02/17 03:43 10/02/17 03:43 10/02/17 03:43 10/02/17 03:43 Period Temp Pulse Resp BP Sys/Felix Pulse Ox Last 24 Hr 97.5 F-98.9 F 88-101 16-18 130-181/69-109 92-99 Intake and Output 10/01/17 10/02/17 10/02/17 21:59 05:59 13:59 Intake Total 50 / 50 106 / 106 Balance 50 / 50 106 / 106 Weight 283 lb 1.6 oz Intake & Output: Intake & Output 10/01/17 10/02/17 10/02/17 21:59 05:59 13:59 Intake Total 50 / 50 106 / 106 Balance 50 / 50 106 / 106 Weight 283 lb 1.6 oz Intake: IV 50 / 50 106 / 106 Cleocin 900 mg In Dextrose 5% 56 / 56 in Water 50 ml @ 100 mls/hr IV Q8H [facility] Rx#:[id number] Zosyn 3.375 gm In Dextrose 5% 50 / 50 50 / 50 in Water 50 ml @ 100 mls/hr IV Q6H [facility] Rx#:[id number] Oral 0 / 0 Exam: General: Alert, Awake, No acute Distress HEENT: EOMI, PERRL CV: RRR, No murmurs Pulm: Clear b/l, no wheezing/rhonchi/rales Abd: soft, nontender, +BS x4 Ext: no clubbing/cyanosis. RLL dressings intact Neuro: Alert, no focal deficits, moves all extremities Skin: warm/dry Medical - PN: Obj Da - Labs CBC & Chem 7: 10/02/17 03:30 10/02/17 03:30 Labs: Abnormal Lab Results 10/02/17 10/02/17 10/01/17 03:30 03:30 04:10 WBC 19.9 H RBC 3.76 L Hgb 11.0 L Hct 33.3 L Plt Count 478 H Lymph % (Auto) Gran # 13.0 H [place] # (Auto) 2.0 H Eos # (Auto) 0.9 H Glucose 172 H 134 H Calcium Phosphorus Direct Bilirubin ALT 41 H Alkaline Phosphatase 120 H 137 H Albumin 2.7 L 2.8 L Globulin 3.9 H 4.0 H Albumin/Globulin Ratio 0.7 L 0.7 L Triglycerides 188 H 10/01/17 09/30/17 09/30/17 04:10 04:19 04:19 WBC 19.7 H 22.7 H RBC 3.69 L 3.62 L Hgb 10.8 L 10.7 L Hct 32.8 L 31.9 L Plt Count 469 H 448 H Lymph % (Auto) 12.5 L Gran # 13.2 H 17.3 H [place] # (Auto) 1.7 H 1.8 H Eos # (Auto) Glucose 138 H Calcium 8.1 L Phosphorus 2.4 L Direct Bilirubin 0.4 H ALT 43 H Alkaline Phosphatase 160 H Albumin 2.8 L Globulin 4.1 H Albumin/Globulin Ratio 0.7 L Triglycerides Meds: Medications Acetaminophen (Tylenol) 650 mg PO Q6HP PRN PRN Reason: PAIN/FEVER > 101 Calcium Carbonate/Glycine (Tums) 1,000 mg CHEWED Q4HP PRN PRN Reason: Dyspepsia Diagnostic Test (Pha) (Accu-Chek) 1 each FS ACHS [facility] Last Admin: 10/01/17 21:21 Dose: 1 each Heparin Sodium (Porcine) (Heparin) 5,000 unit SQ Q12 [facility] Last Admin: 10/01/17 19:11 Dose: 5,000 unit Hydrochlorothiazide (Oretic) 25 mg PO DAILY [facility] Hydromorphone HCl (Dilaudid) 0.5 mg IV Q2HP PRN PRN Reason: PAIN LEVEL > 6 Gentamicin Sulfate 40 mg/Clindamycin Phosphate 300 mg/Bacitracin 25,000 unit/ Sodium Chloride 503 mls @ 0 mls/hr IRR DAILY [facility] Piperacillin Sod/Tazobactam (Sod 3.375 gm/ Dextrose) 50 mls @ 100 mls/hr IV Q6H [facility] Last Admin: 10/02/17 05:17 Dose: 100 mls/hr Clindamycin Phosphate 900 mg/ (Dextrose) 56 mls @ 100 mls/hr IV Q8H [facility] Last Admin: 10/02/17 05:19 Dose: 100 mls/hr Insulin Human Lispro (Humalog) 0 unit SQ ACHS [facility]; Protocol Last Admin: 10/01/17 21:22 Dose: Not Given Metformin HCl (Glucophage) 500 mg PO BIDCC [facility] Last Admin: 10/01/17 19:20 Dose: 500 mg Naloxone HCl (Narcan) 0.1 mg IV Q2MIN PRN PRN Reason: Opiate Reversal Nitroglycerin (Nitrostat) 0.4 mg SL Q5M PRN PRN Reason: Chest Pain Ondansetron HCl (Zofran) 4 mg IV Q6HP PRN PRN Reason: Nausea And Vomiting Last Admin: 10/01/17 12:43 Dose: 4 mg Oxycodone HCl (Roxicodone) 5 mg PO Q4HP PRN PRN Reason: PAIN LEVEL 3-6 Last Admin: 10/01/17 12:44 Dose: 5 mg Pantoprazole Sodium (Protonix) 40 mg IV BIDAC [facility] Last Admin: 10/01/17 19:10 Dose: 40 mg Sodium Chloride (Saline Flush) 10 ml IV Q8 [facility] Last Admin: 10/02/17 05:20 Dose: 10 ml Medical - PN: A/P - Time Spent With Patient Total time spent is greater than 50% in coordination of care (as documented) at patient's floor/unit and/or counseling patient: - Narrative A/P Narrative: A: *Nec Fasc: s/p I&D (09/28) -cultures growing strep agalactae, *Sepsis: 2/2 above. Resolving *DM: A1c 11.1,not on home medication d/t finances *HTN: *Chest tightness/Epigastric discomfort: 2/2 erosive esophagitis on EGD (10/01) -trop neg x2, unremarkable EKG/CXR * P: -cont zosyn/clinda; vanco stopped, PICC once BC neg x72hrs -ID following -Wound care following; HBOT; plan for further debridement -SSI, Started metformin 500bid increase upon d/c, DM education, f/u with pcp likely need insulin; refusing SSI and food brought in from outside hospital -cont HCTZ -cont bid ppi -ppx: heparin
--- NOTE | 2017-10-02 08:37 | Operative Note ---
DATE OF OPERATION: 10/01/2017 PROCEDURE: Esophagogastroduodenoscopy. BARREL CHARRER AND SIGNAL SUPERVISOR: Gilmar Gautam M.D. ANESTHETIC USED: Propofol 150 mg IV and Versed 2 mg IV. PREOPERATIVE DIAGNOSIS: The patient is a 42-year-old white male with poorly-controlled diabetes who was in the hospital for hyperbaric treatment and surgical management of a diabetic foot ulcer and infection. He has had unusual symptoms of epigastric pain and nausea and vomiting that are brought on by undergoing hyperbaric treatments and also by receiving insulin injection subcutaneously. Previously he had not been on subcutaneous insulin injections, and he says that he reacts by having abdominal pain and nausea. POSTOPERATIVE DIAGNOSIS: Multiple shallow ulcerations and erosions of the distal esophagus consistent with either ongoing GERD and/or recent vomiting. Otherwise, normal EGD. CONSENT: Prior to the procedure the patient provided his own informed consent. The patient was evaluated and considered medically fit for endoscopy. DESCRIPTION OF PROCEDURE: With the patient in the left lateral decubitus position, a gastroscope was advanced via the mouth to the esophagus under direct vision. The esophagus appears normal in its upper portion. In the distal 3 to 4 cm of the esophagus, there is almost circumferential shallow ulceration and erosions. It is not friable. There is no stricture. There is no hiatal hernia seen either. The stomach was endoscopically normal including retroflex view. There was a slight patch of gastritis at the prepyloric area but no ulceration or erosion. The pylorus was patent and the duodenum was normal to the second portion. I should note that in the stomach and upper GI tract I saw no significant retained fluid and no food particles. COMPLICATIONS: None immediate. RECOMMENDATIONS AND FOLLOWUP: Consider PPI for reflux and antireflux measures. Ultimately, a gastric emptying scan may be a consideration to investigate possible diabetic gastroparesis. WENDY:anitha Job ID: [id number] Doc ID: [id number] Gilmar STONE
[2017-10-02] MEDS ORDERED: HYDROCHLOROTHIAZIDE 25 MG TABLET PO SCH (09:00)
[2017-10-02] MEDS ORDERED: GENTAMICIN SULFATE 40 MG, CLINDAMYCIN 300 MG, BACITRACIN 25,000 UNIT in SODIUM CHLORIDE... IRR SCH (09:00)
[2017-10-02] MEDS: INSULIN LISPRO 1 UNIT/0.01 ML UNIT SQ SCH ×5 (09:24→21:23)
[2017-10-02] MEDS: metFORMIN 500 MG TABLET PO SCH ×2 (09:24→18:35)
[2017-10-02] MEDS: PANTOPRAZOLE 40 MG VIAL IV SCH ×2 (09:26→18:34)
[2017-10-02] MEDS: HEPARIN 5,000 UNIT/ML VIAL SQ SCH ×2 (09:27→21:22)
--- NOTE | 2017-10-02 10:06 | General Surgery Progress Note ---
Subjective Narrative: Note initiated : 10/02/17 at 9:59 am Service Date, if different from initiated Date: [] Patient: Osmin Leslie 42 y/o M admitted on 09/28/17 for Debridement of Right Foot Ulcer. Chief Complaint: [I saw this patient on morning rounds around 7:30. Nursing staff and patient's mother were in the room at the time. Went over the lab results with the patient. His white count and creatinine are trending up.. Examined his wounds and noted further erythema, redness and blistering especially along the plantar aspect.. Spoke at length with patient and his mother. By now both want to be treated here at [facility]. I explained the need for adequate decompression of his wounds and debridement to keep up with this necrotic process and prevented from spreading further. The risk for amputation of the foot or below-knee and other major complications resulting in is very real in this situation. Cannot give any assurances of outcome but would recommend continuation of current treatment and OR debridement with pulse lavage irrigation. Both patient and his mother have reconsidered their understanding of current situation and want to go ahead with the hyperbaric oxygen treatment and schedule surgery at the earliest convenient time. Planning on doing this first thing tomorrow morning at 7:30 AM. Objective Temp Pulse Resp BP Pulse Ox 98.1 F 88 18 141/73 94 10/02/17 03:43 10/02/17 03:43 10/02/17 03:43 10/02/17 03:43 10/02/17 03:43 AVSS, L/E: Increased erythema and edema extending up to the anterior aspect of the ankle. Plantar open wound probes up to the midportion of the blister medially. No foul odor.. Drainage is hemo-serous. We will continue with the MIST treatment and local antibiotic soaked wet-to-dry gauze dressings 3 times a day and hyperbaric oxygen therapy today. - Additional Data Intake & Output - Last 24 hours: Intake & Output 09/30/17 10/01/17 10/02/17 10/03/17 05:59 05:59 05:59 05:59 Intake Total 2915 / 2915 1750 / 1750 206 / 206 Output Total 300 / 300 150 / 150 Balance 2915 / 2915 1450 / 1450 56 / 56 Weight 283 lb 9.6 oz 282 lb 14.4 oz 283 lb 1.6 oz - Labs 10/02/17 03:30 10/02/17 03:30 Diabetes panel 10/02/17 Range/Units 03:30 Sodium 136 (133-145) mmol/L Potassium 3.3 (3.3-5.1) mmol/L Chloride 99 (96-108) mmol/L Carbon Dioxide 27 (22-30) mmol/L BUN 11 (6-20) mg/dl Creatinine 1.0 (0.7-1.2) mg/dl Glucose 172 H (70-105) mg/dL Calcium 8.9 (8.6-10.4) mg/dl AST 15 (0-37) U/l ALT 31 (0-40) U/l Alkaline Phosphatase 120 H (39-117) U/L Total Protein 6.6 (5.9-8.4) gm/dL Albumin 2.7 L (3.2-5.2) gm/dL Triglycerides 188 H (<150) mg/dl Calcium panel 10/02/17 Range/Units 03:30 Calcium 8.9 (8.6-10.4) mg/dl Phosphorus 3.4 (2.7-4.5) mg/dL Albumin 2.7 L (3.2-5.2) gm/dL Pituitary panel 10/02/17 Range/Units 03:30 Sodium 136 (133-145) mmol/L Potassium 3.3 (3.3-5.1) mmol/L Chloride 99 (96-108) mmol/L Carbon Dioxide 27 (22-30) mmol/L BUN 11 (6-20) mg/dl Creatinine 1.0 (0.7-1.2) mg/dl Glucose 172 H (70-105) mg/dL Calcium 8.9 (8.6-10.4) mg/dl Adrenal panel 10/02/17 Range/Units 03:30 Sodium 136 (133-145) mmol/L Potassium 3.3 (3.3-5.1) mmol/L Chloride 99 (96-108) mmol/L Carbon Dioxide 27 (22-30) mmol/L BUN 11 (6-20) mg/dl Creatinine 1.0 (0.7-1.2) mg/dl Glucose 172 H (70-105) mg/dL Calcium 8.9 (8.6-10.4) mg/dl Total Bilirubin 0.5 (0.0-1.0) mg/dL AST 15 (0-37) U/l ALT 31 (0-40) U/l Alkaline Phosphatase 120 H (39-117) U/L Total Protein 6.6 (5.9-8.4) gm/dL Albumin 2.7 L (3.2-5.2) gm/dL Assessment and Plan (1) 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 Status: Acute Current Visit: Yes (2) Sepsis due to anaerobic bacteria Status: Acute Current Visit: Yes (3) Sepsis Status: Acute Current Visit: Yes (4) 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 Will give Ativan 1 mg before HBO treatment. Or scheduled for 10/03/2017 at 7:30 AM. 15 - 24 minutes
[2017-10-02] MEDS ORDERED: LORazepam 1 MG TABLET PO PRN ×2 (10:11→12:20)
[2017-10-02] MEDS ORDERED: MAG HYDROX/AL HYDROX/SIMETH 30 ML ORAL.SUSP PO PRN ×2 (11:10→12:20)
[2017-10-02] MEDS ORDERED: HYDROmorphone 2 MG/ML VIAL IV PRN (12:20)
[2017-10-02] MEDS ORDERED: NITROGLYCERIN 0.4 MG TAB.SUBL SL PRN (12:20)
[2017-10-02] MEDS ORDERED: ONDANSETRON 4 MG/2 ML VIAL IV PRN (12:20)
[2017-10-02] MEDS ORDERED: CALCIUM CARBONATE 500 MG TAB.CHEW CHEWED PRN (12:20)
[2017-10-02] MEDS ORDERED: NALOXONE HCL 0.4 MG/ML VIAL IV PRN (12:20)
[2017-10-02] MEDS ORDERED: ACETAMINOPHEN 325 MG TABLET PO PRN (12:20)
[2017-10-02] MEDS ORDERED: oxyCODONE HCL 5 MG TABLET PO PRN (12:20)
--- NOTE | 2017-10-02 15:03 | Internal Med Progress Note ---
Medical - PN: Subj Patient information: Note initiated : 10/02/17 at 2:59 pm Service Date, if different from initiated Date: [] Patient: Osmin Leslie 42 y/o M admitted on 09/28/17 for Debridement of Right Foot Ulcer. Chief Complaint: [] Interval history: Patient sitting up in the bed, doing better than yesterday. Says his upper belly pain is much better. Denies any fever, chills, nausea, vomiting, diarrhea. Endorses pain in his foot. - Constitutional Vitals: Vital Signs Temp Pulse Resp BP Pulse Ox 36.7 C 88 16 155/80 95 10/02/17 11:52 10/02/17 03:43 10/02/17 11:52 10/02/17 11:52 10/02/17 11:52 Period Temp Pulse Resp BP Sys/Felix Pulse Ox Last 24 Hr 36.7 C-37.2 C 88-101 16-18 130-161/69-82 93-98 Intake and Output 10/02/17 10/02/17 10/02/17 05:59 13:59 21:59 Intake Total 156 / 156 Balance 156 / 156 Intake & Output: Intake & Output 10/02/17 10/02/17 10/02/17 05:59 13:59 21:59 Intake Total 156 / 156 Balance 156 / 156 Intake: IV 156 / 156 Cleocin 900 mg In Dextrose 5% 56 / 56 in Water 50 ml @ 100 mls/hr IV Q8H [facility] Rx#:[id number] Zosyn 3.375 gm In Dextrose 5% 100 / 100 in Water 50 ml @ 100 mls/hr IV Q6H [facility] Rx#:[id number] General appearance: cooperative, no acute distress, obese - Respiratory Respiratory exam: Present: CTAB - Cardiovascular Cardiovascular exam: Present: +S1, +S2. Absent: systolic murmur - GI/Abdominal GI/Abdominal exam: Present: normal bowel sounds, soft, distended - Extremities Exam Additional comments: Right foot was unwrapped and patient was undergoing ultrasoundmissed therapy: Patient had 2 open surgical wounds; one on the dorsal aspect and another on the plantar aspect. Both of them had purulent exudate, with surrounding redness/ swelling/tenderness Medical - PN: Obj Da - Labs CBC & Chem 7: 10/02/17 03:30 10/02/17 03:30 Labs: Abnormal Lab Results 10/02/17 10/02/17 10/01/17 03:30 03:30 04:10 WBC 19.9 H RBC 3.76 L Hgb 11.0 L Hct 33.3 L Plt Count 478 H Lymph % (Auto) Gran # 13.0 H [place] # (Auto) 2.0 H Eos # (Auto) 0.9 H Glucose 172 H 134 H Calcium Phosphorus Direct Bilirubin ALT 41 H Alkaline Phosphatase 120 H 137 H Albumin 2.7 L 2.8 L Globulin 3.9 H 4.0 H Albumin/Globulin Ratio 0.7 L 0.7 L Triglycerides 188 H 10/01/17 09/30/17 09/30/17 04:10 04:19 04:19 WBC 19.7 H 22.7 H RBC 3.69 L 3.62 L Hgb 10.8 L 10.7 L Hct 32.8 L 31.9 L Plt Count 469 H 448 H Lymph % (Auto) 12.5 L Gran # 13.2 H 17.3 H [place] # (Auto) 1.7 H 1.8 H Eos # (Auto) Glucose 138 H Calcium 8.1 L Phosphorus 2.4 L Direct Bilirubin 0.4 H ALT 43 H Alkaline Phosphatase 160 H Albumin 2.8 L Globulin 4.1 H Albumin/Globulin Ratio 0.7 L Triglycerides Meds: Medications Acetaminophen (Tylenol) 650 mg PO Q6HP PRN PRN Reason: PAIN/FEVER > 101 Al Hydrox/Mg Hydrox/Simethicone (Maalox) 30 ml PO Q4HP PRN PRN Reason: Dyspepsia Calcium Carbonate/Glycine (Tums) 1,000 mg CHEWED Q4HP PRN PRN Reason: Dyspepsia Diagnostic Test (Pha) (Accu-Chek) 1 each FS ACHS [facility] Heparin Sodium (Porcine) (Heparin) 5,000 unit SQ Q12 [facility] Hydrochlorothiazide (Oretic) 25 mg PO DAILY [facility] Hydromorphone HCl (Dilaudid) 0.5 mg IV Q2HP PRN PRN Reason: PAIN LEVEL > 6 Clindamycin Phosphate 900 mg/ (Dextrose) 56 mls @ 100 mls/hr IV Q8H [facility] Gentamicin Sulfate 40 mg/Clindamycin Phosphate 300 mg/Bacitracin 25,000 unit/ Sodium Chloride 503 mls @ 0 mls/hr IRR DAILY [facility] Piperacillin Sod/Tazobactam (Sod 3.375 gm/ Dextrose) 50 mls @ 100 mls/hr IV Q6H [facility] Insulin Human Lispro (Humalog) 0 unit SQ ACHS [facility]; Protocol Lorazepam (Ativan) 1 mg PO DAILYP PRN PRN Reason: ANXIETY/SEDATION Metformin HCl (Glucophage) 500 mg PO BIDCC [facility] Naloxone HCl (Narcan) 0.1 mg IV Q2MIN PRN PRN Reason: Opiate Reversal Nitroglycerin (Nitrostat) 0.4 mg SL Q5M PRN PRN Reason: Chest Pain Ondansetron HCl (Zofran) 4 mg IV Q6HP PRN PRN Reason: Nausea And Vomiting Oxycodone HCl (Roxicodone) 5 mg PO Q4HP PRN PRN Reason: PAIN LEVEL 3-6 Pantoprazole Sodium (Protonix) 40 mg IV BIDAC [facility] Sodium Chloride (Saline Flush) 10 ml IV Q8 [facility] Medical - PN: A/P - Time Spent With Patient Total time spent is greater than 50% in coordination of care (as documented) at patient's floor/unit and/or counseling patient: 15 - 24 minutes - Narrative A/P Narrative: 42-year-old man with uncontrolled diabetes, with right foot nonhealing ulcer complicated by: 1. Necrotizing soft tissue infection of the right foot; status post surgical debridement, postoperative day 2 with operative cultures growing group B strep and a gram-negative anaerobe [pending ID and sensitivity] so far -Still has leukocytosis, which suggests residual infection 2. Sepsis: Resolving. Q Sofa score of 0 3. Acute upper abdominal pain: Resolved. EGD suggestive of gastritis -No hematemesis -No concern for acute blood loss Recommendations: Continue IV Zosyn at 3.375 g every 6 hours, and IV clindamycin 900 mg every 8 hours. -Agree with ongoing hyperbaric oxygen therapy and relook of the wounds for further surgical debridement until the healthy tissue Anticipate a long course of IV antibiotics. -Consider PICC line placement by tomorrow if blood cultures remain negative We will follow. Jayson Escobar MD Infectious diseases
--- NOTE | 2017-10-02 19:39 | General Surgery Progress Note ---
Subjective Narrative: Note initiated : 10/02/17 at 7:35 pm Service Date, if different from initiated Date: [] Patient: Osmin Leslie 42 y/o M admitted on 09/28/17 for Debridement of Right Foot Ulcer. Chief Complaint: [] I saw patient multiple times today. This started first in the morning with nurse on the shift and the dental assistant teacher acute care nursing assistant. Had a detailed talk with the patient and his mother in the presence of nursing staff.. Both patient and his mother have had long time to think over the current situation and now they request for treatment to be carried out here at [facility] and want me to operate on him. I examined the patient's wounds and explained the changes to the patient and his mother. We will continue with the ongoing MIST treatment and local wound care for today. Patient will go to the operating room tomorrow morning. He tolerated HBO treatment uneventfully. His wound cultures are growing and aerobic Peptostreptococcus in addition to strep agalactiae. His current antibiotic wound care coverage is covering for anaerobic bacteria as well. Objective Temp Pulse Resp BP Pulse Ox 99.3 F H 82 20 149/74 97 10/02/17 19:24 10/02/17 16:07 10/02/17 19:24 10/02/17 19:24 10/02/17 19:24 Afebrile vital signs are stable. No changes in her physical examination. Local examination blood for the dressings are clean dry and intact. His wound' s was seen in the morning and detailed note entered thereafter in EMR. - Additional Data Intake & Output - Last 24 hours: Intake & Output 09/30/17 10/01/17 10/02/17 10/03/17 05:59 05:59 05:59 05:59 Intake Total 2915 / 2915 1750 / 1750 256 / 256 Output Total 300 / 300 150 / 150 Balance 2915 / 2915 1450 / 1450 106 / 106 Weight 283 lb 9.6 oz 282 lb 14.4 oz 283 lb 1.6 oz - Labs 10/02/17 03:30 10/02/17 03:30 Diabetes panel 10/02/17 Range/Units 03:30 Sodium 136 (133-145) mmol/L Potassium 3.3 (3.3-5.1) mmol/L Chloride 99 (96-108) mmol/L Carbon Dioxide 27 (22-30) mmol/L BUN 11 (6-20) mg/dl Creatinine 1.0 (0.7-1.2) mg/dl Glucose 172 H (70-105) mg/dL Calcium 8.9 (8.6-10.4) mg/dl AST 15 (0-37) U/l ALT 31 (0-40) U/l Alkaline Phosphatase 120 H (39-117) U/L Total Protein 6.6 (5.9-8.4) gm/dL Albumin 2.7 L (3.2-5.2) gm/dL Triglycerides 188 H (<150) mg/dl Calcium panel 10/02/17 Range/Units 03:30 Calcium 8.9 (8.6-10.4) mg/dl Phosphorus 3.4 (2.7-4.5) mg/dL Albumin 2.7 L (3.2-5.2) gm/dL Pituitary panel 10/02/17 Range/Units 03:30 Sodium 136 (133-145) mmol/L Potassium 3.3 (3.3-5.1) mmol/L Chloride 99 (96-108) mmol/L Carbon Dioxide 27 (22-30) mmol/L BUN 11 (6-20) mg/dl Creatinine 1.0 (0.7-1.2) mg/dl Glucose 172 H (70-105) mg/dL Calcium 8.9 (8.6-10.4) mg/dl Adrenal panel 10/02/17 Range/Units 03:30 Sodium 136 (133-145) mmol/L Potassium 3.3 (3.3-5.1) mmol/L Chloride 99 (96-108) mmol/L Carbon Dioxide 27 (22-30) mmol/L BUN 11 (6-20) mg/dl Creatinine 1.0 (0.7-1.2) mg/dl Glucose 172 H (70-105) mg/dL Calcium 8.9 (8.6-10.4) mg/dl Total Bilirubin 0.5 (0.0-1.0) mg/dL AST 15 (0-37) U/l ALT 31 (0-40) U/l Alkaline Phosphatase 120 H (39-117) U/L Total Protein 6.6 (5.9-8.4) gm/dL Albumin 2.7 L (3.2-5.2) gm/dL Assessment and Plan (1) 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 Now wants to proceed with surgery and further treatment here at [facility]. - Time Spent With Patient Total time spent is greater than 50% in coordination of care (as documented) at patient's floor/unit and/or counseling patient: 15 - 24 minutes
[2017-10-03] MEDS: PIPERACILLIN SODIUM/TAZOBACTAM 3.375 GM in DEXTROSE 5% IN WATER 50 ML IV SCH ×3 (05:48→17:22)
[2017-10-03] MEDS: 0.9 % SODIUM CHLORIDE 10 ML SYRINGE IV SCH (05:48)
[2017-10-03] MEDS: CLINDAMYCIN 900 MG in DEXTROSE 5% IN WATER 50 ML IV SCH (05:48)
[2017-10-03 06:25] LABS: Basophils # (Auto) 0.1 K/mcL (0.0-0.3); Basophils % (Auto) 0.5 % (0.0-2.0); Eosinophils % (Auto) 5.7 % (0.0-7.0); Granulocytes % (Auto) 61.6 % (38.0-78.0); Lymphocytes # (Auto) 4.1 K/mcL (1.5-4.8); Lymphocytes % (Auto) 22.4 % (15.5-49.0); Mean Cell Volume 89.1 fL (80.0-100.0); Mean Corpuscular HGB Conc 32.9 g/dL (31.0-36.0); Mean Corpuscular Hemoglobin 29.3 pg (26.0-34.0); Monocytes # (Auto) 1.8 K/mcL (0.1-0.9); Monocytes % (Auto) 9.8 % (1.0-12.0); Platelet Count 518 K/mcL (140-440); RBC 3.65 M/mcL (4.50-5.90); Red Cell Distribution Width 13.6 % (11.5-14.5)
[2017-10-03 06:53] LABS: ALT/SGPT 30 U/l (0-40); Albumin 2.8 gm/dL (3.2-5.2); Albumin/Globulin Ratio 0.7 (1.0-2.3); Alkaline Phosphatase 109 U/L (39-117); Bilirubin,Direct < 0.2 mg/dL (0.0-0.3); Blood Urea Nitrogen 9 mg/dl (6-20); Gamma Glutamyl Transpeptidase 38 U/L (8-61); Uric Acid 3.4 mg/dL (2.5-8.0)
[2017-10-03] MEDS: PANTOPRAZOLE 40 MG VIAL IV SCH ×2 (07:31→16:32)
[2017-10-03] MEDS: INSULIN LISPRO 1 UNIT/0.01 ML UNIT SQ SCH ×4 (07:36→21:11)
--- NOTE | 2017-10-03 07:38 | Internal Med Progress Note ---
Medical - PN: Subj Patient information: Note initiated : 10/03/17 at 7:31 am Service Date, if different from initiated Date: [] Patient: Osmin Leslie 42 y/o M admitted on 09/28/17 for Debridement of Right Foot Ulcer. Chief Complaint: [] Interval history: Mr. Leslie is a 42 year old male with h/o HTN, and untreated DM. On my eval the patient is in pacu, drowsy after anesthesia, history from chart review. The patient it seems has a chr right foot ulcer. The pt has been working out in the heat, he passed out and came to the ED because he was very weak and tired. The patient has been having nausea vomiting and diarrhea going on for the last 4 days. He notes according to the ER note that the right foot has been bothering him for the last 2 months. He has several ulcers on his right foot. The patient had a fever when he presented to the emergency room, temperature of 99.4, he was tachycardic with a heart rate of 110 blood pressure was stable and he was saturating 93% on room air. The patient had a chest x-ray done which was negative for an acute infection, head CT that was negative for acute process did not sinusitis. The patient had an x-ray of the foot done which showed possible abscess and air in the right foot. Patient underwent an emergent CT scan of the right foot called necrotizing fasciitis on the plantar surface of the foot. The patient was evaluated by Dr. Singh, and taken to the OR immediately. Patient was admitted to the hospital for further management. Patient has elevated WBC count at 38,000, hemoglobin 13 platelets 427 sodium 131 , potassium 3.2 creatinine 1.3 glucose elevated at 32 A1c is 11 pro calcitonin 0.2. EKG reviewed normal sinus, tachycardia 09/29 Pt seen and examined, no acute overnight issues, mental status much better wbc trending down still high on vanco, zosyn and clindamycin s/p debridement HBOT per wound care DM control not optimal, Pt has no complaints. 09/30 Pt seen examined, no acute overnight issue some chest tightness after hbot tretmetn today x ray chest neg, ekg neg, pt reports that he has these due to his reflux disease , and usually vomiting helps, this time Dr Marie gave mallox which helped start on prn tums wbc trending down microbiolgoy is growing strep agalactate, I am not too sure if this is a gas forming bacteria. Patient may have had some gas in the tissue from open wounds but clearly had necrotic tissue on debridement. no mrsa noted d/c vancomycin. continue clindamycin and zosyn for now, consider d/c clindamycin in AM. 10/01 Pt seen examined, no acute overnight issues this am during HBOT he developed epigastric tightness, nausea, shortness of breath. He attributes this to GI symptoms he did get KCL today for low potassium GI consulted by Dr Marie will get set of troponin, asa 325, ordered ntg which pt refused plan to get CT A chest,coronary to evaluate his coronaries, given that his complaint is chest tightness, and not burning epigastric pain which I would expect 10/02 no issues overnight, no nausea/dyspena/chest pain. 10/03 slept well, no new complaints. Review of Systems: denies headache/fever/chills/nausea/vomiting/chest or abdominal pain/cough/ dyspnea/diarrhea. Otherwise see above. - Constitutional Vitals: Vital Signs Temp Pulse Resp BP Pulse Ox 97.6 F 87 16 148/87 96 10/03/17 04:00 10/03/17 04:00 10/03/17 04:00 10/03/17 04:00 10/03/17 04:00 Period Temp Pulse Resp BP Sys/Felix Pulse Ox Last 24 Hr 97.5 F-99.3 F 82-94 16-20 134-165/74-100 94-98 Intake and Output 10/02/17 10/03/17 10/03/17 21:59 05:59 13:59 Intake Total 50 / 50 466 / 466 Balance 50 / 50 466 / 466 Weight 281 lb 4.8 oz Intake & Output: Intake & Output 10/02/17 10/03/17 10/03/17 21:59 05:59 13:59 Intake Total 50 / 50 466 / 466 Balance 50 / 50 466 / 466 Weight 281 lb 4.8 oz Intake: IV 50 / 50 106 / 106 Cleocin 900 mg In Dextrose 5% 56 / 56 in Water 50 ml @ 100 mls/hr IV Q8H [facility] Rx#:[id number] Zosyn 3.375 gm In Dextrose 5% 50 / 50 50 / 50 in Water 50 ml @ 100 mls/hr IV Q6H [facility] Rx#:[id number] Oral 360 / 360 Other: # Voids 2 Exam: General: Alert, Awake, No acute Distress HEENT: EOMI, CV: RRR, No murmurs Pulm: Clear b/l, no wheezing/rhonchi/rales Abd: soft, nontender, +BS x4 Ext: no clubbing/cyanosis. RLL dressings intact Neuro: Alert, no focal deficits, moves all extremities Skin: warm/dry Medical - PN: Obj Da - Labs CBC & Chem 7: 10/03/17 03:23 10/03/17 03:23 Labs: Abnormal Lab Results 10/03/17 10/03/17 10/02/17 03:23 03:23 03:30 WBC 18.4 H RBC 3.65 L Hgb 10.7 L Hct 32.5 L Plt Count 518 H Gran # 11.3 H [place] # (Auto) 1.8 H Eos # (Auto) 1.0 H Glucose 172 H ALT Alkaline Phosphatase 120 H Albumin 2.8 L 2.7 L Globulin 3.8 H 3.9 H Albumin/Globulin Ratio 0.7 L 0.7 L Triglycerides 171 H 188 H 10/02/17 10/01/17 10/01/17 03:30 04:10 04:10 WBC 19.9 H 19.7 H RBC 3.76 L 3.69 L Hgb 11.0 L 10.8 L Hct 33.3 L 32.8 L Plt Count 478 H 469 H Gran # 13.0 H 13.2 H [place] # (Auto) 2.0 H 1.7 H Eos # (Auto) 0.9 H Glucose 134 H ALT 41 H Alkaline Phosphatase 137 H Albumin 2.8 L Globulin 4.0 H Albumin/Globulin Ratio 0.7 L Triglycerides Meds: Medications Acetaminophen (Tylenol) 650 mg PO Q6HP PRN PRN Reason: PAIN/FEVER > 101 Last Admin: 10/02/17 21:22 Dose: 650 mg Al Hydrox/Mg Hydrox/Simethicone (Maalox) 30 ml PO Q4HP PRN PRN Reason: Dyspepsia Calcium Carbonate/Glycine (Tums) 1,000 mg CHEWED Q4HP PRN PRN Reason: Dyspepsia Diagnostic Test (Pha) (Accu-Chek) 1 each FS ACHS [facility] Last Admin: 10/02/17 21:23 Dose: 1 each Heparin Sodium (Porcine) (Heparin) 5,000 unit SQ Q12 [facility] Last Admin: 10/02/17 21:22 Dose: 5,000 unit Hydrochlorothiazide (Oretic) 25 mg PO DAILY [facility] Hydromorphone HCl (Dilaudid) 0.5 mg IV Q2HP PRN PRN Reason: PAIN LEVEL > 6 Clindamycin Phosphate 900 mg/ (Dextrose) 56 mls @ 100 mls/hr IV Q8H [facility] Last Admin: 10/03/17 05:48 Dose: 100 mls/hr Gentamicin Sulfate 40 mg/Clindamycin Phosphate 300 mg/Bacitracin 25,000 unit/ Sodium Chloride 503 mls @ 0 mls/hr IRR DAILY [facility] Piperacillin Sod/Tazobactam (Sod 3.375 gm/ Dextrose) 50 mls @ 100 mls/hr IV Q6H [facility] Last Admin: 10/03/17 05:48 Dose: 100 mls/hr Gentamicin Sulfate 80 mg/Clindamycin Phosphate 600 mg/Bacitracin 25,000 unit/ Sodium Chloride 3,006 mls @ 0 mls/hr IRR ONCE ONE Stop: 10/03/17 08:01 Insulin Human Lispro (Humalog) 0 unit SQ [facility]; Protocol Last Admin: 10/02/17 21:23 Dose: 4 unit Lorazepam (Ativan) 1 mg PO DAILYP PRN PRN Reason: ANXIETY/SEDATION Metformin HCl (Glucophage) 500 mg PO BIDCC [facility] Last Admin: 10/02/17 18:35 Dose: 500 mg Naloxone HCl (Narcan) 0.1 mg IV Q2MIN PRN PRN Reason: Opiate Reversal Nitroglycerin (Nitrostat) 0.4 mg SL Q5M PRN PRN Reason: Chest Pain Ondansetron HCl (Zofran) 4 mg IV Q6HP PRN PRN Reason: Nausea And Vomiting Oxycodone HCl (Roxicodone) 5 mg PO Q4HP PRN PRN Reason: PAIN LEVEL 3-6 Pantoprazole Sodium (Protonix) 40 mg IV BIDAC [facility] Last Admin: 10/02/17 18:34 Dose: 40 mg Sodium Chloride (Saline Flush) 10 ml IV Q8 [facility] Last Admin: 10/03/17 05:48 Dose: 10 ml Medical - PN: A/P - Time Spent With Patient Total time spent is greater than 50% in coordination of care (as documented) at patient's floor/unit and/or counseling patient: - Narrative A/P Narrative: A: *Nec Fasc: s/p I&D (09/28) -cultures growing strep agalactae, *Sepsis: 2/2 above. Resolving *DM: A1c 11.1,not on home medication d/t finances *HTN: *Chest tightness/Epigastric discomfort: 2/2 erosive esophagitis on EGD (10/01) - 2/2 GI etiology -trop neg x2, unremarkable EKG/CXR P: -cont zosyn/clinda; place PICC -ID following, outpt abx/duration per ID -Wound care following; HBOT; plan for further debridement today -SSI, Started metformin 500bid increase upon d/c, DM education, f/u with pcp likely need insulin; refusing SSI and food brought in from outside hospital, improving with now compliance -cont HCTZ -cont ppi bid -ppx: heparin
[2017-10-03] MEDS: metFORMIN 500 MG TABLET PO SCH ×2 (07:42→16:31)
[2017-10-03] MEDS ORDERED: [UNRECOGNIZED DRUG - OTHER] IRR ONE (08:00)
[2017-10-03] MEDS ORDERED: BACITRACIN IRR ONE (08:00)
[2017-10-03] MEDS ORDERED: CLINDAMYCIN IRR ONE (08:00)
[2017-10-03] MEDS ORDERED: GENTAMICIN SULFATE IRR ONE (08:00)
[2017-10-03] MEDS ORDERED: HYDROCHLOROTHIAZIDE 25 MG TABLET PO SCH (09:00)
[2017-10-03] MEDS ORDERED: GENTAMICIN SULFATE 40 MG, CLINDAMYCIN 300 MG, BACITRACIN 25,000 UNIT in SODIUM CHLORIDE... IRR SCH (09:00)
[2017-10-03] MEDS: HEPARIN 5,000 UNIT/ML VIAL SQ SCH ×2 (09:02→21:11)
[2017-10-03] MEDS ORDERED: IPRATROPIUM/ALBUTEROL 3 ML AMPUL.NEB NEB PRN ×3 (12:02→14:29)
[2017-10-03] MEDS ORDERED: PROMETHAZINE 25 MG/ML VIAL IV PRN ×3 (12:02→14:29)
[2017-10-03] MEDS ORDERED: KETOROLAC 30 MG/ML VIAL IV PRN (12:02)
[2017-10-03] MEDS ORDERED: ACETAMINOPHEN 1,000 MG/100 ML BOTTLE IV ONE (12:02)
[2017-10-03] MEDS ORDERED: fentaNYL 100 MCG/2 ML VIAL IV PRN ×3 (12:02→14:29)
[2017-10-03] MEDS ORDERED: MEPERIDINE 25 MG/ML SYRINGE IV PRN (12:02)
[2017-10-03] MEDS ORDERED: ONDANSETRON 4 MG/2 ML VIAL IV PRN ×4 (12:02→14:29)
[2017-10-03] MEDS ORDERED: PROPOFOL 200 MG/20 ML VIAL IV ONE (12:15)
[2017-10-03] MEDS ORDERED: LIDOCAINE HCL/PF 100 MG/5 ML SYRINGE IV ONE (12:15)
[2017-10-03] MEDS ORDERED: DEXAMETHASONE 10 MG/ML VIAL IV ONE (12:15)
[2017-10-03] MEDS ORDERED: KETAMINE 100 MG/ML ML IV ONE (12:15)
[2017-10-03] MEDS ORDERED: LACTATED RINGERS 1,000 ML IV SCH ×3 (12:15→14:29)
[2017-10-03] MEDS ORDERED: fentaNYL 100 MCG/2 ML VIAL IV ONE (12:15)
[2017-10-03] MEDS ORDERED: MIDAZOLAM 5 MG/5 ML VIAL IV ONE (12:15)
[2017-10-03] MEDS ORDERED: ONDANSETRON 4 MG/2 ML VIAL IV ONE (12:15)
[2017-10-03] MEDS ORDERED: diphenhydrAMINE 50 MG/ML VIAL IV PRN ×2 (12:37→14:29)
[2017-10-03] MEDS ORDERED: HYDROmorphone 2 MG/ML VIAL IV PRN ×3 (12:37→14:29)
[2017-10-03] MEDS ORDERED: ATROPINE SULFATE 0.4 MG/ML VIAL IV PRN ×2 (12:37→14:29)
[2017-10-03] MEDS ORDERED: METHOCARBAMOL 1,000 MG/10 ML VIAL IV PRN ×2 (12:37→14:29)
[2017-10-03] MEDS ORDERED: NALOXONE HCL 0.4 MG/ML VIAL IV PRN ×3 (12:37→14:29)
[2017-10-03] MEDS ORDERED: PROMETHAZINE 25 MG/ML VIAL IM PRN ×2 (12:37→14:29)
[2017-10-03] MEDS ORDERED: ePHEDrine 50 MG/ML AMPUL IV PRN ×2 (12:37→14:29)
[2017-10-03] MEDS ORDERED: MEPERIDINE 50 MG/ML INJECTION IM PRN ×2 (12:37→14:29)
[2017-10-03] MEDS ORDERED: METOPROLOL TARTRATE 5 MG/5 ML VIAL IV PRN ×2 (12:37→14:29)
[2017-10-03] MEDS ORDERED: FLUMAZENIL 0.1 MG/ML ML IV PRN ×2 (12:37→14:29)
--- NOTE | 2017-10-03 13:43 | Internal Med Progress Note ---
Medical - PN: Subj Patient information: Note initiated : 10/03/17 at 1:39 pm Service Date, if different from initiated Date: [] Patient: Osmin Leslie 42 y/o M admitted on 09/28/17 for Debridement of Right Foot Ulcer. Chief Complaint: [] Interval history: Patient is feeling better. Denies any fever, chills, nausea, vomiting, diarrhea , belly pain. Is scheduled for relook surgery and possible debridement today afternoon. Discussed with him the results of his white cell count and cultures , and plan to place a PICC line for long-term antibiotics. - Constitutional Vitals: Vital Signs Temp Pulse Resp BP Pulse Ox 37.2 C 80 20 166/91 95 10/03/17 11:53 10/03/17 08:00 10/03/17 11:53 10/03/17 11:53 10/03/17 11:53 Period Temp Pulse Resp BP Sys/Felix Pulse Ox Last 24 Hr 36.4 C-37.4 C 80-94 16-20 134-166/74-100 94-98 Intake and Output 10/02/17 10/03/17 10/03/17 21:59 05:59 13:59 Intake Total 50 / 50 466 / 466 50 / 50 Balance 50 / 50 466 / 466 50 / 50 Weight 127.596 kg Intake & Output: Intake & Output 10/02/17 10/03/17 10/03/17 21:59 05:59 13:59 Intake Total 50 / 50 466 / 466 50 / 50 Balance 50 / 50 466 / 466 50 / 50 Weight 127.596 kg Intake: IV 50 / 50 106 / 106 50 / 50 Cleocin 900 mg In Dextrose 5% 56 / 56 in Water 50 ml @ 100 mls/hr IV Q8H [facility] Rx#:[id number] Zosyn 3.375 gm In Dextrose 5% 50 / 50 50 / 50 50 / 50 in Water 50 ml @ 100 mls/hr IV Q6H [facility] Rx#:[id number] Oral 360 / 360 Other: # Voids 2 General appearance: cooperative, no acute distress, obese - Respiratory Respiratory exam: Present: CTAB - Cardiovascular Cardiovascular exam: Present: +S1, +S2. Absent: systolic murmur - GI/Abdominal GI/Abdominal exam: Present: soft, distended. Absent: tenderness - Extremities Exam Additional comments: The right foot was covered under dressing, and this could not be examined. No edema in the left feet or left leg. Medical - PN: Obj Da - Labs CBC & Chem 7: 10/03/17 03:23 10/03/17 03:23 Labs: Abnormal Lab Results 10/03/17 10/03/17 10/02/17 03:23 03:23 03:30 WBC 18.4 H RBC 3.65 L Hgb 10.7 L Hct 32.5 L Plt Count 518 H Gran # 11.3 H [place] # (Auto) 1.8 H Eos # (Auto) 1.0 H Glucose 172 H ALT Alkaline Phosphatase 120 H Albumin 2.8 L 2.7 L Globulin 3.8 H 3.9 H Albumin/Globulin Ratio 0.7 L 0.7 L Triglycerides 171 H 188 H 10/02/17 10/01/17 10/01/17 03:30 04:10 04:10 WBC 19.9 H 19.7 H RBC 3.76 L 3.69 L Hgb 11.0 L 10.8 L Hct 33.3 L 32.8 L Plt Count 478 H 469 H Gran # 13.0 H 13.2 H [place] # (Auto) 2.0 H 1.7 H Eos # (Auto) 0.9 H Glucose 134 H ALT 41 H Alkaline Phosphatase 137 H Albumin 2.8 L Globulin 4.0 H Albumin/Globulin Ratio 0.7 L Triglycerides Meds: Medications Acetaminophen (Tylenol) 650 mg PO Q6HP PRN PRN Reason: PAIN/FEVER > 101 Last Admin: 10/02/17 21:22 Dose: 650 mg Al Hydrox/Mg Hydrox/Simethicone (Maalox) 30 ml PO Q4HP PRN PRN Reason: Dyspepsia Albuterol/Ipratropium (Duoneb) 3 ml NEB ONCE PRN PRN Reason: Wheezing Stop: 10/03/17 14:02 Albuterol/Ipratropium (Duoneb) 3 ml NEB ONCE PRN PRN Reason: Wheezing Stop: 10/03/17 14:37 Atropine Sulfate (Atropine Sulfate) 0.4 mg IV ONCE PRN PRN Reason: Bradycardia Stop: 10/03/17 14:37 Calcium Carbonate/Glycine (Tums) 1,000 mg CHEWED Q4HP PRN PRN Reason: Dyspepsia Diagnostic Test (Pha) (Accu-Chek) 1 each FS ACHS [facility] Last Admin: 10/03/17 11:49 Dose: 1 each Diphenhydramine HCl (Benadryl) 25 mg IV ONCE PRN PRN Reason: ITCH Stop: 10/03/17 14:37 Ephedrine Sulfate (Akovaz) 0 mg IV Q30M PRN PRN Reason: Hypotension Stop: 10/03/17 14:37 Fentanyl (Sublimaze) 25 mcg IV Q2M PRN PRN Reason: Pain Stop: 10/03/17 14:02 Fentanyl (Sublimaze) 25 mcg IV Q2M PRN PRN Reason: Pain Stop: 10/03/17 14:38 Flumazenil (Romazicon) 0.1 mg IV Q2MIN PRN PRN Reason: BENZODIAZEPINE REVERSAL Stop: 10/03/17 14:37 Heparin Sodium (Porcine) (Heparin) 5,000 unit SQ Q12 [facility] Last Admin: 10/03/17 09:02 Dose: Not Given Hydrochlorothiazide (Oretic) 25 mg PO DAILY [facility] Last Admin: 10/03/17 09:01 Dose: 25 mg Hydromorphone HCl (Dilaudid) 0.5 mg IV Q2HP PRN PRN Reason: PAIN LEVEL > 6 Hydromorphone HCl (Dilaudid) 0.5 mg IV Q15MIN PRN PRN Reason: PAIN LEVEL > 6 Clindamycin Phosphate 900 mg/ (Dextrose) 56 mls @ 100 mls/hr IV Q8H [facility] Last Admin: 10/03/17 05:48 Dose: 100 mls/hr Gentamicin Sulfate 40 mg/Clindamycin Phosphate 300 mg/Bacitracin 25,000 unit/ Sodium Chloride 503 mls @ 0 mls/hr IRR DAILY [facility] Last Admin: 10/03/17 08:52 Dose: Not Given Piperacillin Sod/Tazobactam (Sod 3.375 gm/ Dextrose) 50 mls @ 100 mls/hr IV Q6H [facility] Last Admin: 10/03/17 12:05 Dose: 100 mls/hr Lactated Ringer's (Lactated Ringers) 1,000 mls @ 20 mls/hr IV .Q24H [facility] Stop: 10/03/17 14:03 Lactated Ringer's (Lactated Ringers) 1,000 mls @ 20 mls/hr IV .Q24H [facility] Stop: 10/03/17 14:38 Insulin Human Lispro (Humalog) 0 unit SQ ACHS [facility]; Protocol Last Admin: 10/03/17 11:49 Dose: Not Given Ketorolac Tromethamine (Toradol) 30 mg IV ONCE PRN PRN Reason: Pain Stop: 10/03/17 14:03 Lorazepam (Ativan) 1 mg PO DAILYP PRN PRN Reason: ANXIETY/SEDATION Meperidine HCl (Demerol) 12.5 mg IV Q5M PRN PRN Reason: Shivering Stop: 10/03/17 14:02 Meperidine HCl (Demerol) 50 mg IM ONCE PRN PRN Reason: Pain Stop: 10/03/17 14:38 Metformin HCl (Glucophage) 500 mg PO BIDCC [facility] Last Admin: 10/03/17 07:42 Dose: Not Given Methocarbamol (Robaxin) 750 mg IV ONCE PRN PRN Reason: Muscle Spasm Stop: 10/03/17 14:37 Metoprolol Tartrate (Lopressor) 2.5 mg IV Q5MIN PRN PRN Reason: Tachyarrhythmias Stop: 10/03/17 14:37 Naloxone HCl (Narcan) 0.1 mg IV Q2MIN PRN PRN Reason: Opiate Reversal Naloxone HCl (Narcan) 0.1 mg IV Q2MIN PRN PRN Reason: Opiate Reversal Stop: 10/03/17 14:37 Nitroglycerin (Nitrostat) 0.4 mg SL Q5M PRN PRN Reason: Chest Pain Ondansetron HCl (Zofran) 4 mg IV Q6HP PRN PRN Reason: Nausea And Vomiting Ondansetron HCl (Zofran) 4 mg IV ONCE PRN PRN Reason: Nausea And Vomiting Stop: 10/03/17 14:02 Ondansetron HCl (Zofran) 4 mg IV ONCE PRN PRN Reason: Nausea And Vomiting Stop: 10/03/17 14:37 Oxycodone HCl (Roxicodone) 5 mg PO Q4HP PRN PRN Reason: PAIN LEVEL 3-6 Pantoprazole Sodium (Protonix) 40 mg IV BIDAC [facility] Last Admin: 10/03/17 07:31 Dose: 40 mg Promethazine HCl (Phenergan) 6.25 mg IV Q15M PRN PRN Reason: Nausea And Vomiting Stop: 10/03/17 14:02 Promethazine HCl (Phenergan) 6.25 mg IV Q15M PRN PRN Reason: Nausea And Vomiting Stop: 10/03/17 14:37 Promethazine HCl (Phenergan) 12.5 mg IM ONCE PRN PRN Reason: Nausea And Vomiting Stop: 10/03/17 14:38 Sodium Chloride (Saline Flush) 10 ml IV Q8 [facility] Last Admin: 10/03/17 05:48 Dose: 10 ml Medical - PN: A/P - Time Spent With Patient Total time spent is greater than 50% in coordination of care (as documented) at patient's floor/unit and/or counseling patient: less than 15 minutes - Narrative A/P Narrative: 42-year-old man with uncontrolled diabetes, with right foot nonhealing ulcer complicated by: 1. Necrotizing soft tissue infection of the right foot; status post surgical debridement, postoperative day 2 with operative cultures growing group B strep and Bacteroides, Peptostreptococcus species so far -Still has leukocytosis, which suggests residual infection 2. Sepsis: Resolving. Q Sofa score of 0 3. DM2; blood sugars less than 200 in the last 24 hours Recommendations: Continue IV Zosyn at 3.375 g every 6 hours, and IV clindamycin 900 mg every 8 hours. Will consolidate antibiotics to a single agent tomorrow. -Agree with ongoing hyperbaric oxygen therapy and relook of the wounds for further surgical debridement until the healthy tissue Anticipate a long course of IV antibiotics. -Consider PICC line placement We will follow. Jayson Escobar MD Infectious diseases
--- NOTE | 2017-10-03 13:43 | General Surgery Procedure Note ---
Date of procedure: Note initiated : 10/03/17 at 1:40 pm Service Date, if different from initiated Date: [] Pre-op diagnosis: SEPSIS Necrotizing fascitis Right foot Post-op diagnosis: same Procedure: Transmetatarsal 5 the toe amputation, Plantar and dorsal fasciotomies and radical debridement . OPEN packing Findings: Necrotizing fascitis and loculated abscesses around open wounds and plantar fascia / spaces Anesthesia: MAC Surgeon: Juanjo Singh Estimated blood loss: 100 Pathology: other Description of procedure: As above. ALL necrotic tissue excised and tissue spaces opened and pulse lavaged with antibiotic solution and packed open. Condition: stable Disposition: PACU (Operation well tolerated. Spoke with family ( Mother and Uncle after surgery ))
[2017-10-03] MEDS ORDERED: MAG HYDROX/AL HYDROX/SIMETH 30 ML ORAL.SUSP PO PRN (14:29)
[2017-10-03] MEDS ORDERED: NITROGLYCERIN 0.4 MG TAB.SUBL SL PRN (14:29)
[2017-10-03] MEDS ORDERED: oxyCODONE HCL 5 MG TABLET PO PRN (14:29)
[2017-10-03] MEDS ORDERED: CALCIUM CARBONATE 500 MG TAB.CHEW CHEWED PRN (14:29)
[2017-10-03] MEDS ORDERED: ACETAMINOPHEN 325 MG TABLET PO PRN (14:29)
[2017-10-03] MEDS ORDERED: BACITRACIN IRR SCH (14:30)
[2017-10-03] MEDS ORDERED: CLINDAMYCIN IRR SCH (14:30)
[2017-10-03] MEDS ORDERED: [UNRECOGNIZED DRUG - OTHER] IRR SCH (14:30)
[2017-10-03] MEDS ORDERED: GENTAMICIN SULFATE IRR SCH (14:30)
--- NOTE | 2017-10-03 16:03 | Operative Note ---
DATE OF OPERATION: 10/03/2017 PREOPERATIVE DIAGNOSIS: Progressive necrotizing fasciitis with sepsis. POSTOPERATIVE DIAGNOSES: 1. Progressive necrotizing fasciitis with sepsis. 2. Prior radical debridement of infected right foot with sepsis. PROCEDURE: 1. Transmetatarsal amputation of the fifth toe. 2. Plantar and dorsal fasciotomies and radical debridement. 3. Open packing. SURGEON: Juanjo Singh M.D. FINDINGS: Necrotizing fasciitis with loculated abscesses and collections around the open wounds and on the plantar subcutaneous space above and below the fascia. ANESTHESIA: General laryngeal mask airway. ESTIMATED BLOOD LOSS: 100 mL. PATHOLOGY: Specimen sent for cultures and pathology from deep loculated pocket and collections. PROCEDURE NOTE: This is patient's second trip to the operating room in over 5 days. After obtaining informed consent, he was taken to the operating room and anesthetized uneventfully in supine position using laryngeal mask airway. Timeout was called. The site was marked earlier in the holding area. Preoperative photographs were taken. We first used a 10 mL syringe and 18 gauge needle to probe the deep edematous tissue with fluctuance on the plantar surface of the right foot. An incision was made at this site and digitally all loculations were broken down. This led to drainage of soft necrotic necrotic tissue. This incision was widened adequately and the deep fascia was incised vertically in the direction of its fibers. Superficial and deep spaces along this fasciotomy site were explored. They were communicating with the open wound on the plantar aspect of the right foot and on the open wound on the dorsal aspect of right forefoot. These pockets and spaces were fully opened and sharply debrided. The fifth toe was nonviable. After opening the interdigital space between the fourth and fifth toe, another pocket of necrotic loculation was encountered. This was widely unroofed and debrided. The fifth toe was amputated at the distal metatarsal shaft. Rongeur was used to take additional specimens until healthy bone marrow was encountered. Copious irrigation of these spaces was carried out. We used pulse lavage irrigation with 3 liters of normal saline, 50,000 units of Bacitracin, 80 mg of gentamicin, and 600 mg of clindamycin solution. We used a second bag of 3 liters of normal saline. All the nonviable necrotic tissue was radically excised until healthy back bleeding and tissues were identified with bright red bleeding. We made a counter incision on the medial dorsal aspect of the right foot. Half-inch Edilia drains were placed between the wounds to elevate this segment of skin and to keep it open for a postoperative tissue irrigation. Similarly, Frederica drain was placed at the fasciotomy site and at the open toe amputation site. Hemostasis was achieved with pressure and elevation. Count of swabs, instruments and needles was verified to be correct. We placed Xeroform gauze on the wounds and reinforced this with open 4 x 4 gauze pieces reinforced with Kerlix bandage, ABD pad, Kerlix bandage, Coban and Patrick bandages. Estimated blood loss was about 100 mL. Count of swabs, instruments and needles was reported to be correct. Operation was well tolerated. He recovered from anesthesia uneventfully. After the surgery, I went out and spoke with patient's mother and uncle. VD:anitha Job ID: [id number] Doc ID: [id number] Juanjo [place]
[2017-10-04] MEDS: CLINDAMYCIN 900 MG in DEXTROSE 5% IN WATER 50 ML IV SCH ×4 (00:02→15:14)
[2017-10-04] MEDS: 0.9 % SODIUM CHLORIDE 10 ML SYRINGE IV SCH ×6 (00:14→21:24)
[2017-10-04] MEDS: PIPERACILLIN SODIUM/TAZOBACTAM 3.375 GM in DEXTROSE 5% IN WATER 50 ML IV SCH ×4 (01:37→17:21)
[2017-10-04 06:45] LABS: Basophils # (Auto) 0.1 K/mcL (0.0-0.3); Basophils % (Auto) 0.2 % (0.0-2.0); Eosinophils # (Auto) 0.4 K/mcL (0.0-0.7); Eosinophils % (Auto) 1.4 % (0.0-7.0); Granulocytes % (Auto) 77.1 % (38.0-78.0); Lymphocytes % (Auto) 15.4 % (15.5-49.0); Mean Cell Volume 87.8 fL (80.0-100.0); Mean Corpuscular HGB Conc 34.1 g/dL (31.0-36.0); Mean Corpuscular Hemoglobin 29.9 pg (26.0-34.0); Monocytes # (Auto) 1.6 K/mcL (0.1-0.9); Monocytes % (Auto) 5.9 % (1.0-12.0); Platelet Count 546 K/mcL (140-440); RBC 3.71 M/mcL (4.50-5.90); Red Cell Distribution Width 13.4 % (11.5-14.5)
[2017-10-04 07:07] LABS: ALT/SGPT 26 U/l (0-40); Albumin 2.9 gm/dL (3.2-5.2); Albumin/Globulin Ratio 0.7 (1.0-2.3); Alkaline Phosphatase 101 U/L (39-117); Bilirubin,Direct < 0.2 mg/dL (0.0-0.3); Blood Urea Nitrogen 12 mg/dl (6-20); Gamma Glutamyl Transpeptidase 37 U/L (8-61); Uric Acid 3.6 mg/dL (2.5-8.0)
[2017-10-04] MEDS: PANTOPRAZOLE 40 MG VIAL IV SCH ×2 (07:42→17:15)
--- NOTE | 2017-10-04 07:44 | Internal Med Progress Note ---
Medical - PN: Subj Patient information: Note initiated : 10/04/17 at 7:40 am Service Date, if different from initiated Date: [] Patient: Osmin Leslie 42 y/o M admitted on 09/28/17 for Debridement of Right Foot Ulcer. Chief Complaint: [] Interval history: Mr. Leslie is a 42 year old male with h/o HTN, and untreated DM. On my eval the patient is in pacu, drowsy after anesthesia, history from chart review. The patient it seems has a chr right foot ulcer. The pt has been working out in the heat, he passed out and came to the ED because he was very weak and tired. The patient has been having nausea vomiting and diarrhea going on for the last 4 days. He notes according to the ER note that the right foot has been bothering him for the last 2 months. He has several ulcers on his right foot. The patient had a fever when he presented to the emergency room, temperature of 99.4, he was tachycardic with a heart rate of 110 blood pressure was stable and he was saturating 93% on room air. The patient had a chest x-ray done which was negative for an acute infection, head CT that was negative for acute process did not sinusitis. The patient had an x-ray of the foot done which showed possible abscess and air in the right foot. Patient underwent an emergent CT scan of the right foot called necrotizing fasciitis on the plantar surface of the foot. The patient was evaluated by Dr. Singh, and taken to the OR immediately. Patient was admitted to the hospital for further management. Patient has elevated WBC count at 38,000, hemoglobin 13 platelets 427 sodium 131 , potassium 3.2 creatinine 1.3 glucose elevated at 32 A1c is 11 pro calcitonin 0.2. EKG reviewed normal sinus, tachycardia 09/29 Pt seen and examined, no acute overnight issues, mental status much better wbc trending down still high on vanco, zosyn and clindamycin s/p debridement HBOT per wound care DM control not optimal, Pt has no complaints. 09/30 Pt seen examined, no acute overnight issue some chest tightness after hbot tretmetn today x ray chest neg, ekg neg, pt reports that he has these due to his reflux disease , and usually vomiting helps, this time Dr Marie gave mallox which helped start on prn tums wbc trending down microbiolgoy is growing strep agalactate, I am not too sure if this is a gas forming bacteria. Patient may have had some gas in the tissue from open wounds but clearly had necrotic tissue on debridement. no mrsa noted d/c vancomycin. continue clindamycin and zosyn for now, consider d/c clindamycin in AM. 10/01 Pt seen examined, no acute overnight issues this am during HBOT he developed epigastric tightness, nausea, shortness of breath. He attributes this to GI symptoms he did get KCL today for low potassium GI consulted by Dr Marie will get set of troponin, asa 325, ordered ntg which pt refused plan to get CT A chest,coronary to evaluate his coronaries, given that his complaint is chest tightness, and not burning epigastric pain which I would expect 10/02 no issues overnight, no nausea/dyspena/chest pain. 10/03 slept well, no new complaints. 10/04 I&D yesterday, feeling better. awaiting PICC. Review of Systems: denies headache/fever/chills/nausea/vomiting/chest or abdominal pain/cough/ dyspnea/diarrhea. Otherwise see above. - Constitutional Vitals: Vital Signs Temp Pulse Resp BP Pulse Ox 98.0 F 94 H 24 H 149/76 97 10/04/17 04:00 10/04/17 04:00 10/04/17 04:00 10/04/17 04:00 10/04/17 04:00 Period Temp Pulse Resp BP Sys/Felix Pulse Ox Last 24 Hr 97 F-98.9 F 71-97 16-24 137-168/76-97 93-98 Intake and Output 10/03/17 10/04/17 10/04/17 21:59 05:59 13:59 Intake Total 350 / 350 906 / 906 Output Total 700 / 700 Balance -350 / -350 906 / 906 Weight 275 lb 1.6 oz Intake & Output: Intake & Output 10/03/17 10/04/17 10/04/17 21:59 05:59 13:59 Intake Total 350 / 350 906 / 906 Output Total 700 / 700 Balance -350 / -350 906 / 906 Weight 275 lb 1.6 oz Intake: IV 150 / 150 106 / 106 Cleocin 900 mg In Dextrose 5% 56 / 56 in Water 50 ml @ 100 mls/hr IV Q8H [facility] Rx#:[id number] Zosyn 3.375 gm In Dextrose 5% 50 / 50 50 / 50 in Water 50 ml @ 100 mls/hr IV Q6H [facility] Rx#:[id number] Oral 200 / 200 800 / 800 Output: Void Amount 700 / 700 Other: Meal Dinner Percent of Meal Consumed 100% Feeding Ability Independent Urine Appearance Clear Urine Color Bright Yellow Urine Odor Normal # Voids 1 Exam: General: Alert, Awake, No acute Distress HEENT: EOMI, CV: RRR, No murmurs Pulm: Clear b/l, no wheezing/rhonchi/rales Abd: soft, nontender, +BS x4 Ext: no clubbing/cyanosis. RLL dressings intact Neuro: Alert, no focal deficits, moves all extremities Skin: warm/dry Medical - PN: Obj Da - Labs CBC & Chem 7: 10/04/17 05:28 10/04/17 05:28 Labs: Abnormal Lab Results 10/04/17 10/04/17 10/03/17 05:28 05:28 03:23 WBC 26.3 H RBC 3.71 L Hgb 11.1 L Hct 32.6 L Plt Count 546 H Lymph % (Auto) 15.4 L Gran # 20.3 H [place] # (Auto) 1.6 H Eos # (Auto) Glucose 138 H Alkaline Phosphatase Albumin 2.9 L 2.8 L Globulin 4.3 H 3.8 H Albumin/Globulin Ratio 0.7 L 0.7 L Triglycerides 169 H 171 H 10/03/17 10/02/17 10/02/17 03:23 03:30 03:30 WBC 18.4 H 19.9 H RBC 3.65 L 3.76 L Hgb 10.7 L 11.0 L Hct 32.5 L 33.3 L Plt Count 518 H 478 H Lymph % (Auto) Gran # 11.3 H 13.0 H [place] # (Auto) 1.8 H 2.0 H Eos # (Auto) 1.0 H 0.9 H Glucose 172 H Alkaline Phosphatase 120 H Albumin 2.7 L Globulin 3.9 H Albumin/Globulin Ratio 0.7 L Triglycerides 188 H Meds: Medications Acetaminophen (Tylenol) 650 mg PO Q6HP PRN PRN Reason: PAIN/FEVER > 101 Al Hydrox/Mg Hydrox/Simethicone (Maalox) 30 ml PO Q4HP PRN PRN Reason: Dyspepsia Calcium Carbonate/Glycine (Tums) 1,000 mg CHEWED Q4HP PRN PRN Reason: Dyspepsia Diagnostic Test (Pha) (Accu-Chek) 1 each FS ACHS [facility] Last Admin: 10/03/17 21:12 Dose: 1 each Heparin Sodium (Porcine) (Heparin) 5,000 unit SQ Q12 [facility] Last Admin: 10/03/17 21:11 Dose: 5,000 unit Hydrochlorothiazide (Oretic) 25 mg PO DAILY [facility] Hydromorphone HCl (Dilaudid) 0.5 mg IV Q2HP PRN PRN Reason: PAIN LEVEL > 6 Clindamycin Phosphate 900 mg/ (Dextrose) 56 mls @ 100 mls/hr IV Q8H [facility] Last Admin: 10/04/17 06:27 Dose: 100 mls/hr Piperacillin Sod/Tazobactam (Sod 3.375 gm/ Dextrose) 50 mls @ 100 mls/hr IV Q6H [facility] Last Admin: 10/04/17 06:25 Dose: 100 mls/hr Insulin Human Lispro (Humalog) 0 unit SQ [facility]; Protocol Last Admin: 10/03/17 21:11 Dose: 10 unit Lorazepam (Ativan) 1 mg PO DAILYP PRN PRN Reason: ANXIETY/SEDATION Metformin HCl (Glucophage) 500 mg PO BIDCC [facility] Last Admin: 10/03/17 16:31 Dose: 500 mg Naloxone HCl (Narcan) 0.1 mg IV Q2MIN PRN PRN Reason: Opiate Reversal Nitroglycerin (Nitrostat) 0.4 mg SL Q5M PRN PRN Reason: Chest Pain Ondansetron HCl (Zofran) 4 mg IV Q6HP PRN PRN Reason: Nausea And Vomiting Oxycodone HCl (Roxicodone) 5 mg PO Q4HP PRN PRN Reason: PAIN LEVEL 3-6 Pantoprazole Sodium (Protonix) 40 mg IV BIDAC [facility] Last Admin: 10/03/17 16:32 Dose: 40 mg Sodium Chloride (Saline Flush) 10 ml IV Q8 [facility] Last Admin: 10/04/17 06:17 Dose: Not Given Medical - PN: A/P - Time Spent With Patient Total time spent is greater than 50% in coordination of care (as documented) at patient's floor/unit and/or counseling patient: - Narrative A/P Narrative: A: *Nec Fasc: s/p I&D (09/28) and (10/03) -cultures growing strep agalactae/Bacteroides/Peptostreptoccocus *Sepsis: 2/2 above. Resolving *DM: A1c 11.1,not on home medication d/t finances *HTN: *Chest tightness/Epigastric discomfort: 2/2 erosive esophagitis on EGD (10/01) - 2/2 GI etiology -trop neg x2, unremarkable EKG/CXR P: -cont zosyn/clinda; place PICC -ID following, outpt abx/duration per ID -Wound care following; HBOT; -SSI, Started metformin 500bid increase upon d/c, DM education, f/u with pcp likely need insulin; refusing SSI and food brought in from outside hospital, improving with now compliance -cont HCTZ -cont ppi bid -ppx: heparin
[2017-10-04] MEDS: metFORMIN 500 MG TABLET PO SCH ×2 (07:53→17:21)
[2017-10-04] MEDS: INSULIN LISPRO 1 UNIT/0.01 ML UNIT SQ SCH ×4 (07:53→21:18)
[2017-10-04] MEDS ORDERED: GENTAMICIN SULFATE 40 MG, CLINDAMYCIN 300 MG, BACITRACIN 25,000 UNIT in SODIUM CHLORIDE... IRR SCH (09:00)
[2017-10-04] MEDS: HYDROCHLOROTHIAZIDE 25 MG TABLET PO SCH (09:17)
[2017-10-04] MEDS: HEPARIN 5,000 UNIT/ML VIAL SQ SCH ×2 (09:17→21:17)
--- NOTE | 2017-10-04 16:02 | General Surgery Progress Note ---
Subjective Narrative: Note initiated : 10/04/17 at 3:59 pm Service Date, if different from initiated Date: [] Patient: Osmin Leslie 42 y/o M admitted on 09/28/17 for Wound Dressing Change - Foot Ulcer. Chief Complaint: [] Postoperative day 1. Status post reexploration of right foot surgical wound, fasciotomy plantar fascia, right fifth toe transmetatarsal amputation and tissue samples for cultures and sensitivities. Patient had a even full night. He reports feeling well this morning. There was bloodstained drainage along the distal margin of the dressing and on Patrick bandage. Remaining toes are pink warm and dry. I saw this patient in the morning along with JOSH ORTIZ, wound care nurse and subsequently saw him again around 11:00 this morning. We took down his dressings, irrigated and cleaned the wounds with NS. And his care was explained to the floor DIANA Echavarria for ongoing wound care management and dressing changes 3 times a day. Objective Temp Pulse Resp BP Pulse Ox 97.7 F 72 20 153/88 99 10/04/17 15:52 10/04/17 15:52 10/04/17 15:52 10/04/17 15:52 10/04/17 15:52 - Additional Data Intake & Output - Last 24 hours: Intake & Output 10/02/17 10/03/17 10/04/17 10/05/17 05:59 05:59 05:59 05:59 Intake Total 256 / 256 516 / 516 1906 / 1906 882 / 882 Output Total 150 / 150 800 / 800 Balance 106 / 106 516 / 516 1106 / 1106 882 / 882 Weight 283 lb 1.6 oz 281 lb 4.8 oz 275 lb 1.6 oz 275 lb 1.6 oz 10/04/17 16:02 Afebrile. Vital signs are stable. General physical examination is unchanged. Lab results reviewed. White count is 26,000 with thrombocytosis. This is reactive and postsurgical. Creatinine is normal. Hematocrit is stable. Dressings were taken down. The wounds were irrigated with normal saline. We irrigated the deep spaces by lifting the Edilia drains. Later, these wounds will be covered with antibiotic GCB soaked gauze and Kerlix and Patrick bandages respectively. This is to be done 3 times a day. Patient will continue with his hyperbaric treatments. - Labs 10/04/17 05:28 10/04/17 05:28 Diabetes panel 10/04/17 Range/Units 05:28 Sodium 135 (133-145) mmol/L Potassium 3.6 (3.3-5.1) mmol/L Chloride 97 (96-108) mmol/L Carbon Dioxide 27 (22-30) mmol/L BUN 12 (6-20) mg/dl Creatinine 0.9 (0.7-1.2) mg/dl Glucose 138 H (70-105) mg/dL Calcium 8.9 (8.6-10.4) mg/dl AST 15 (0-37) U/l ALT 26 (0-40) U/l Alkaline Phosphatase 101 (39-117) U/L Total Protein 7.2 (5.9-8.4) gm/dL Albumin 2.9 L (3.2-5.2) gm/dL Triglycerides 169 H (<150) mg/dl Calcium panel 10/04/17 Range/Units 05:28 Calcium 8.9 (8.6-10.4) mg/dl Phosphorus 3.0 (2.7-4.5) mg/dL Albumin 2.9 L (3.2-5.2) gm/dL Pituitary panel 10/04/17 Range/Units 05:28 Sodium 135 (133-145) mmol/L Potassium 3.6 (3.3-5.1) mmol/L Chloride 97 (96-108) mmol/L Carbon Dioxide 27 (22-30) mmol/L BUN 12 (6-20) mg/dl Creatinine 0.9 (0.7-1.2) mg/dl Glucose 138 H (70-105) mg/dL Calcium 8.9 (8.6-10.4) mg/dl Adrenal panel 10/04/17 Range/Units 05:28 Sodium 135 (133-145) mmol/L Potassium 3.6 (3.3-5.1) mmol/L Chloride 97 (96-108) mmol/L Carbon Dioxide 27 (22-30) mmol/L BUN 12 (6-20) mg/dl Creatinine 0.9 (0.7-1.2) mg/dl Glucose 138 H (70-105) mg/dL Calcium 8.9 (8.6-10.4) mg/dl Total Bilirubin 0.6 (0.0-1.0) mg/dL AST 15 (0-37) U/l ALT 26 (0-40) U/l Alkaline Phosphatase 101 (39-117) U/L Total Protein 7.2 (5.9-8.4) gm/dL Albumin 2.9 L (3.2-5.2) gm/dL Assessment and Plan (1) 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 Wound dressings were changed and wound care explained to the nurse on the floor. Plan: Continue current management and dressing changes. Hyperbaric oxygen treatments to continue as scheduled. We will reassess again in the morning. 25 - 35 minutes
--- NOTE | 2017-10-04 17:14 | Internal Med Progress Note ---
Medical - PN: Subj Patient information: Note initiated : 10/04/17 at 5:03 pm Service Date, if different from initiated Date: [] Patient: Osmin Leslie 42 y/o M admitted on 09/28/17 for Wound Dressing Change - Foot Ulcer. Chief Complaint: [] Interval history: Patient not in the room, gone for his hyperbaric oxygen therapy. - Constitutional Vitals: Vital Signs Temp Pulse Resp BP Pulse Ox 36.5 C 72 20 153/88 99 10/04/17 15:52 10/04/17 15:52 10/04/17 15:52 10/04/17 15:52 10/04/17 15:52 Period Temp Pulse Resp BP Sys/Felix Pulse Ox Last 24 Hr 36.5 C-37.1 C 72-97 20-24 140-153/76-90 95-99 Intake and Output 10/04/17 10/04/17 10/04/17 05:59 13:59 21:59 Intake Total 906 / 906 826 / 826 56 / 56 Balance 906 / 906 826 / 826 56 / 56 Weight 124.783 kg Patient Weight 10/05/17 05:59 Weight 124.783 kg Intake & Output: Intake & Output 10/04/17 10/04/17 10/04/17 05:59 13:59 21:59 Intake Total 906 / 906 826 / 826 56 / 56 Balance 906 / 906 826 / 826 56 / 56 Weight 124.783 kg Intake: IV 106 / 106 106 / 106 56 / 56 Cleocin 900 mg In Dextrose 5% 56 / 56 56 / 56 56 / 56 in Water 50 ml @ 100 mls/hr IV Q8H [facility] Rx#:[id number] Zosyn 3.375 gm In Dextrose 5% 50 / 50 50 / 50 in Water 50 ml @ 100 mls/hr IV Q6H [facility] Rx#:[id number] Oral 800 / 800 720 / 720 Other: Meal Lunch Percent of Meal Consumed 75% # Voids 1 2 3 # Bowel Movements 1 Medical - PN: Obj Da - Labs CBC & Chem 7: 10/04/17 05:28 10/04/17 05:28 Labs: Abnormal Lab Results 10/04/17 10/04/17 10/03/17 05:28 05:28 03:23 WBC 26.3 H RBC 3.71 L Hgb 11.1 L Hct 32.6 L Plt Count 546 H Lymph % (Auto) 15.4 L Gran # 20.3 H [place] # (Auto) 1.6 H Eos # (Auto) Glucose 138 H Alkaline Phosphatase Albumin 2.9 L 2.8 L Globulin 4.3 H 3.8 H Albumin/Globulin Ratio 0.7 L 0.7 L Triglycerides 169 H 171 H 10/03/17 10/02/17 10/02/17 03:23 03:30 03:30 WBC 18.4 H 19.9 H RBC 3.65 L 3.76 L Hgb 10.7 L 11.0 L Hct 32.5 L 33.3 L Plt Count 518 H 478 H Lymph % (Auto) Gran # 11.3 H 13.0 H [place] # (Auto) 1.8 H 2.0 H Eos # (Auto) 1.0 H 0.9 H Glucose 172 H Alkaline Phosphatase 120 H Albumin 2.7 L Globulin 3.9 H Albumin/Globulin Ratio 0.7 L Triglycerides 188 H Meds: Medications Acetaminophen (Tylenol) 650 mg PO Q6HP PRN PRN Reason: PAIN/FEVER > 101 Al Hydrox/Mg Hydrox/Simethicone (Maalox) 30 ml PO Q4HP PRN PRN Reason: Dyspepsia Bacitracin (Bacitracin Topical Oint) 1 dose TOPICAL TID [facility] Calcium Carbonate/Glycine (Tums) 1,000 mg CHEWED Q4HP PRN PRN Reason: Dyspepsia Diagnostic Test (Pha) (Accu-Chek) 1 each FS ACHS [facility] Last Admin: 10/04/17 11:32 Dose: 1 each Heparin Sodium (Porcine) (Heparin) 5,000 unit SQ Q12 [facility] Last Admin: 10/04/17 09:17 Dose: 5,000 unit Hydrochlorothiazide (Oretic) 25 mg PO DAILY [facility] Last Admin: 10/04/17 09:17 Dose: 25 mg Hydromorphone HCl (Dilaudid) 0.5 mg IV Q2HP PRN PRN Reason: PAIN LEVEL > 6 Clindamycin Phosphate 900 mg/ (Dextrose) 56 mls @ 100 mls/hr IV Q8H [facility] Last Infusion: 10/04/17 15:55 Dose: Infused Piperacillin Sod/Tazobactam (Sod 3.375 gm/ Dextrose) 50 mls @ 100 mls/hr IV Q6H [facility] Last Admin: 10/04/17 11:31 Dose: 100 mls/hr Gentamicin Sulfate 40 mg/Clindamycin Phosphate 300 mg/Bacitracin 25,000 unit/ Sodium Chloride 503 mls @ 0 mls/hr IRR TID [facility] Insulin Human Lispro (Humalog) 0 unit SQ ACHS [facility]; Protocol Last Admin: 10/04/17 11:46 Dose: 4 unit Lorazepam (Ativan) 1 mg PO DAILYP PRN PRN Reason: ANXIETY/SEDATION Metformin HCl (Glucophage) 500 mg PO BIDCC [facility] Last Admin: 10/04/17 07:53 Dose: 500 mg Naloxone HCl (Narcan) 0.1 mg IV Q2MIN PRN PRN Reason: Opiate Reversal Nitroglycerin (Nitrostat) 0.4 mg SL Q5M PRN PRN Reason: Chest Pain Ondansetron HCl (Zofran) 4 mg IV Q6HP PRN PRN Reason: Nausea And Vomiting Oxycodone HCl (Roxicodone) 5 mg PO Q4HP PRN PRN Reason: PAIN LEVEL 3-6 Pantoprazole Sodium (Protonix) 40 mg IV BIDAC [facility] Last Admin: 10/04/17 07:42 Dose: 40 mg Sodium Chloride (Saline Flush) 10 ml IV Q8 [facility] Last Admin: 10/04/17 15:14 Dose: 10 ml Medical - PN: A/P - Time Spent With Patient Total time spent is greater than 50% in coordination of care (as documented) at patient's floor/unit and/or counseling patient: - Narrative A/P Narrative: 42-year-old man with uncontrolled diabetes, with right foot nonhealing ulcer complicated by: 1. Necrotizing soft tissue infection of the right foot; status post surgical debridement, postoperative day 4 from the original surgery and postoperative day 1 from relook surgery [right fifth toe transmetatarsal amputation, exploration and debridement] - operative cultures growing group B strep and Bacteroides, Peptostreptococcus species so far -Increase in white cell count from 19-26 may suggest an acute inflammatory response secondary to surgery. If it continues to go up will need further workup such as imaging to rule out any deeper fluid collections and C. difficile infection [if patient has diarrhea or ileus] 2. Sepsis: Resolving. Q Sofa score of 0 3. Uncontrolled DM2 at baseline Recommendations: Can consolidate current antibiotics to just IV ertapenem 1 g every 24 hours -Agree with ongoing hyperbaric oxygen therapy Anticipate a 4 week of IV antibiotics and further follow-up in infectious disease clinic to assess the need for antibiotics. -Consider PICC line placement -We will make final follow-up plans prior to discharge Jayson Escobar MD Infectious diseases
[2017-10-04] MEDS ORDERED: 0.9 % SODIUM CHLORIDE 10 ML SYRINGE IV PRN (18:23)
--- NOTE | 2017-10-04 18:48 | XRay Report ---
CLINICAL INFORMATION: PICC placement COMPARISON: 09/30/2017 FINDINGS: Left PICC line tip overlies the SVC right atrial junction. Cardiac mediastinal silhouette and pulmonary vessels are normal for technique. Lungs are clear IMPRESSION: PICC line satisfactory position. Interpreted and Authenticated by: Gilmar Wilson 10/04/17
[2017-10-04] MEDS: ERTAPENEM 1 GM in 0.9 % SODIUM CHLORIDE 50 ML IV SCH (20:37)
[2017-10-04] MEDS: GENTAMICIN SULFATE 40 MG, CLINDAMYCIN 300 MG, BACITRACIN 25,000 UNIT in SODIUM CHLORIDE... IRR SCH (22:25)
[2017-10-04] MEDS: BACITRACIN TOPICAL OINT 15 GM TUBE TOPICAL SCH (22:25)
[2017-10-05 06:50] LABS: Basophils # (Auto) 0.1 K/mcL (0.0-0.3); Basophils % (Auto) 0.5 % (0.0-2.0); Eosinophils # (Auto) 1.2 K/mcL (0.0-0.7); Eosinophils % (Auto) 7.1 % (0.0-7.0); Granulocytes % (Auto) 54.3 % (38.0-78.0); Lymphocytes % (Auto) 28.6 % (15.5-49.0); Mean Corpuscular HGB Conc 32.8 g/dL (31.0-36.0); Mean Corpuscular Hemoglobin 29.2 pg (26.0-34.0); Monocytes # (Auto) 1.7 K/mcL (0.1-0.9); Monocytes % (Auto) 9.5 % (1.0-12.0); Platelet Count 601 K/mcL (140-440); RBC 3.54 M/mcL (4.50-5.90); Red Cell Distribution Width 13.8 % (11.5-14.5)
[2017-10-05 07:14] LABS: ALT/SGPT 28 U/l (0-40); Albumin 3.1 gm/dL (3.2-5.2); Albumin/Globulin Ratio 0.8 (1.0-2.3); Alkaline Phosphatase 99 U/L (39-117); Bilirubin,Direct < 0.2 mg/dL (0.0-0.3); Blood Urea Nitrogen 13 mg/dl (6-20); Gamma Glutamyl Transpeptidase 33 U/L (8-61); Uric Acid 4.1 mg/dL (2.5-8.0)
--- NOTE | 2017-10-05 07:32 | Internal Med Progress Note ---
Medical - PN: Subj Patient information: Note initiated : 10/05/17 at 7:29 am Service Date, if different from initiated Date: [] Patient: Osmin Leslie 42 y/o M admitted on 09/28/17 for Wound Dressing Change - Foot Ulcer. Chief Complaint: [] Interval history: Mr. Leslie is a 42 year old male with h/o HTN, and untreated DM. On my eval the patient is in pacu, drowsy after anesthesia, history from chart review. The patient it seems has a chr right foot ulcer. The pt has been working out in the heat, he passed out and came to the ED because he was very weak and tired. The patient has been having nausea vomiting and diarrhea going on for the last 4 days. He notes according to the ER note that the right foot has been bothering him for the last 2 months. He has several ulcers on his right foot. The patient had a fever when he presented to the emergency room, temperature of 99.4, he was tachycardic with a heart rate of 110 blood pressure was stable and he was saturating 93% on room air. The patient had a chest x-ray done which was negative for an acute infection, head CT that was negative for acute process did not sinusitis. The patient had an x-ray of the foot done which showed possible abscess and air in the right foot. Patient underwent an emergent CT scan of the right foot called necrotizing fasciitis on the plantar surface of the foot. The patient was evaluated by Dr. Singh, and taken to the OR immediately. Patient was admitted to the hospital for further management. Patient has elevated WBC count at 38,000, hemoglobin 13 platelets 427 sodium 131 , potassium 3.2 creatinine 1.3 glucose elevated at 32 A1c is 11 pro calcitonin 0.2. EKG reviewed normal sinus, tachycardia 09/29 Pt seen and examined, no acute overnight issues, mental status much better wbc trending down still high on vanco, zosyn and clindamycin s/p debridement HBOT per wound care DM control not optimal, Pt has no complaints. 09/30 Pt seen examined, no acute overnight issue some chest tightness after hbot tretmetn today x ray chest neg, ekg neg, pt reports that he has these due to his reflux disease , and usually vomiting helps, this time Dr Marie gave mallox which helped start on prn tums wbc trending down microbiolgoy is growing strep agalactate, I am not too sure if this is a gas forming bacteria. Patient may have had some gas in the tissue from open wounds but clearly had necrotic tissue on debridement. no mrsa noted d/c vancomycin. continue clindamycin and zosyn for now, consider d/c clindamycin in AM. 10/01 Pt seen examined, no acute overnight issues this am during HBOT he developed epigastric tightness, nausea, shortness of breath. He attributes this to GI symptoms he did get KCL today for low potassium GI consulted by Dr Marie will get set of troponin, asa 325, ordered ntg which pt refused plan to get CT A chest,coronary to evaluate his coronaries, given that his complaint is chest tightness, and not burning epigastric pain which I would expect 10/02 no issues overnight, no nausea/dyspena/chest pain. 10/03 slept well, no new complaints. 10/04 I&D yesterday, feeling better. awaiting PICC. 10/05 no overnight events, no new complaints Review of Systems: denies headache/fever/chills/nausea/vomiting/chest or abdominal pain/cough/ dyspnea/diarrhea. Otherwise see above. - Constitutional Vitals: Vital Signs Temp Pulse Resp BP Pulse Ox 98.3 F 84 18 171/95 94 10/05/17 04:00 10/05/17 04:00 10/05/17 04:00 10/05/17 04:00 10/05/17 04:00 Period Temp Pulse Resp BP Sys/Felix Pulse Ox Last 24 Hr 97.7 F-98.3 F 72-84 16-20 144-171/86-95 94-99 Intake and Output 10/04/17 10/05/17 10/05/17 21:59 05:59 13:59 Intake Total 156 / 156 50 / 50 Balance 156 / 156 50 / 50 Weight 280 lb Intake & Output: Intake & Output 10/04/17 10/05/17 10/05/17 21:59 05:59 13:59 Intake Total 156 / 156 50 / 50 Balance 156 / 156 50 / 50 Weight 280 lb Intake: IV 156 / 156 Cleocin 900 mg In Dextrose 5% 56 / 56 in Water 50 ml @ 100 mls/hr IV Q8H [facility] Rx#:[id number] INVanz 1 GM In Sodium Chloride 50 / 50 0.9% 50 ml @ 100 mls/hr IV Q24H [facility] Rx#:[id number] Zosyn 3.375 gm In Dextrose 5% 50 / 50 in Water 50 ml @ 100 mls/hr IV Q6H [facility] [place] Rx#:[id number] Oral 50 / 50 Other: # Voids 1 # Bowel Movements 1 Exam: General: Alert, Awake, No acute Distress HEENT: EOMI, CV: RRR, No murmurs Pulm: Clear b/l, no wheezing/rhonchi/rales Abd: soft, nontender, +BS x4 Ext: no clubbing/cyanosis. RLL dressings intact Neuro: Alert, no focal deficits, moves all extremities Skin: warm/dry Medical - PN: Obj Da - Labs CBC & Chem 7: 10/05/17 04:20 10/05/17 04:20 Labs: Abnormal Lab Results 10/05/17 10/05/17 10/04/17 04:20 04:20 05:28 WBC 17.4 H RBC 3.54 L Hgb 10.3 L Hct 31.5 L Plt Count 601 H Lymph % (Auto) Eos % (Auto) 7.1 H Gran # 9.4 H Lymph # (Auto) 5.0 H [place] # (Auto) 1.7 H Eos # (Auto) 1.2 H Glucose 124 H 138 H Albumin 3.1 L 2.9 L Globulin 4.0 H 4.3 H Albumin/Globulin Ratio 0.8 L 0.7 L Triglycerides 233 H 169 H 10/04/17 10/03/17 10/03/17 05:28 03:23 03:23 WBC 26.3 H 18.4 H RBC 3.71 L 3.65 L Hgb 11.1 L 10.7 L Hct 32.6 L 32.5 L Plt Count 546 H 518 H Lymph % (Auto) 15.4 L Eos % (Auto) Gran # 20.3 H 11.3 H Lymph # (Auto) [place] # (Auto) 1.6 H 1.8 H Eos # (Auto) 1.0 H Glucose Albumin 2.8 L Globulin 3.8 H Albumin/Globulin Ratio 0.7 L Triglycerides 171 H Meds: Medications Acetaminophen (Tylenol) 650 mg PO Q6HP PRN PRN Reason: PAIN/FEVER > 101 Al Hydrox/Mg Hydrox/Simethicone (Maalox) 30 ml PO Q4HP PRN PRN Reason: Dyspepsia Bacitracin (Bacitracin Topical Oint) 1 dose TOPICAL TID [facility] Last Admin: 10/04/17 22:25 Dose: 1 dose Calcium Carbonate/Glycine (Tums) 1,000 mg CHEWED Q4HP PRN PRN Reason: Dyspepsia Diagnostic Test (Pha) (Accu-Chek) 1 each FS ACHS [facility] [place] Last Admin: 10/04/17 21:18 Dose: 1 each Heparin Sodium (Porcine) (Heparin) 5,000 unit SQ Q12 [facility] [place] Last Admin: 10/04/17 21:17 Dose: 5,000 unit Heparin Sodium (Porcine) (Heparin Flush) 2 ml IV Q12 [facility] [place] Last Admin: 10/04/17 21:18 Dose: 2 ml Hydrochlorothiazide (Oretic) 25 mg PO DAILY [facility] [place] Last Admin: 10/04/17 09:17 Dose: 25 mg Hydromorphone HCl (Dilaudid) 0.5 mg IV Q2HP PRN PRN Reason: PAIN LEVEL > 6 Gentamicin Sulfate 40 mg/Clindamycin Phosphate 300 mg/Bacitracin 25,000 unit/ Sodium Chloride 503 mls @ 0 mls/hr IRR TID [facility] [place] Last Admin: 10/04/17 22:25 Dose: 1 mls/hr Ertapenem 1 gm/ Sodium (Chloride) 50 mls @ 100 mls/hr IV Q24H [facility] [place] Last Infusion: 10/04/17 21:05 Dose: Infused Insulin Human Lispro (Humalog) 0 unit SQ ACHS [facility] [place]; Protocol Last Admin: 10/04/17 21:18 Dose: 2 unit Lorazepam (Ativan) 1 mg PO DAILYP PRN PRN Reason: ANXIETY/SEDATION Metformin HCl (Glucophage) 500 mg PO BIDCC [facility] [place] Last Admin: 10/04/17 17:21 Dose: 500 mg Naloxone HCl (Narcan) 0.1 mg IV Q2MIN PRN PRN Reason: Opiate Reversal Nitroglycerin (Nitrostat) 0.4 mg SL Q5M PRN PRN Reason: Chest Pain Ondansetron HCl (Zofran) 4 mg IV Q6HP PRN PRN Reason: Nausea And Vomiting Oxycodone HCl (Roxicodone) 5 mg PO Q4HP PRN PRN Reason: PAIN LEVEL 3-6 Pantoprazole Sodium (Protonix) 40 mg IV BIDAC [facility] [place] Last Admin: 10/04/17 17:15 Dose: 40 mg Sodium Chloride (Saline Flush) 10 ml IV UD PRN PRN Reason: FLUSH Sodium Chloride (Saline Flush) 10 ml IV Q12 [facility] [place] Last Admin: 10/04/17 21:24 Dose: Not Given Medical - PN: A/P - Time Spent With Patient Total time spent is greater than 50% in coordination of care (as documented) at patient's floor/unit and/or counseling patient: - Narrative A/P Narrative: A: *Nec Fasc: s/p I&D (09/28) and (10/03) -cultures growing strep agalactae/Bacteroides/Peptostreptoccocus *Sepsis: 2/2 above. Resolving *DM: A1c 11.1,not on home medication d/t finances *HTN: *Chest tightness/Epigastric discomfort: 2/2 erosive esophagitis on EGD (10/01) - 2/2 GI etiology -trop neg x2, unremarkable EKG/CXR P: -per ID IV ertapenem 1 g every 24 hours for 4 weeks and f/u in office, recs to keep another night to trend WBC's -Wound care following; HBOT; -SSI, Started metformin 500bid increase upon d/c, DM education, f/u with pcp likely need insulin; -cont HCTZ -cont ppi bid -ppx: heparin d/c planning
[2017-10-05] MEDS: PANTOPRAZOLE 40 MG VIAL IV SCH ×2 (07:52→17:38)
[2017-10-05] MEDS: INSULIN LISPRO 1 UNIT/0.01 ML UNIT SQ SCH ×4 (07:58→21:10)
[2017-10-05] MEDS: ERTAPENEM 1 GM in 0.9 % SODIUM CHLORIDE 50 ML IV SCH (08:41)
[2017-10-05] MEDS: HYDROCHLOROTHIAZIDE 25 MG TABLET PO SCH (08:41)
[2017-10-05] MEDS: metFORMIN 500 MG TABLET PO SCH ×2 (08:41→17:39)
[2017-10-05] MEDS: HEPARIN 5,000 UNIT/ML VIAL SQ SCH ×2 (08:42→21:04)
[2017-10-05] MEDS: 0.9 % SODIUM CHLORIDE 10 ML SYRINGE IV SCH ×2 (09:31→23:49)
[2017-10-05] MEDS: GENTAMICIN SULFATE 40 MG, CLINDAMYCIN 300 MG, BACITRACIN 25,000 UNIT in SODIUM CHLORIDE... IRR SCH ×3 (10:50→23:48)
[2017-10-05] MEDS: BACITRACIN TOPICAL OINT 15 GM TUBE TOPICAL SCH ×3 (10:50→23:48)
[2017-10-05] MEDS: LORazepam 1 MG TABLET PO PRN (11:50)
--- NOTE | 2017-10-05 13:33 | Infectious Disease Prog Note ---
Subjective Patient information: Note initiated : 10/05/17 at 1:31 pm Service Date, if different from initiated Date: [] Patient: Osmin Leslie 42 y/o M admitted on 09/28/17 for Wound Dressing Change - Foot Ulcer. Pt is doing well. He is POD 2, and POD 5 from his foot debridement. Denies any fever, chills, n/v/diarrgea. Had a PICC line placement today, uneventful. Objective - Vital Signs Vital signs: Vital Signs Temp Pulse Resp BP BP Pulse Ox 10/05/17 11:00 36.6 C 88 16 165/91 97 10/05/17 07:50 37.2 C 82 18 156/85 96 10/05/17 04:00 36.8 C 84 18 171/95 94 10/05/17 00:00 36.6 C 76 16 164/88 97 10/04/17 20:00 98 10/04/17 19:44 36.6 C 84 16 160/90 98 10/04/17 15:52 36.5 C 72 20 153/88 99 Intake and Output 10/04/17 10/05/17 10/05/17 21:59 05:59 13:59 Intake Total 156 / 156 50 / 50 240 / 240 Balance 156 / 156 50 / 50 240 / 240 Intake: IV 156 / 156 Cleocin 900 mg In Dextrose 5% 56 / 56 in Water 50 ml @ 100 mls/hr IV Q8H [facility] Rx#:[id number] INVanz 1 GM In Sodium Chloride 50 / 50 0.9% 50 ml @ 100 mls/hr IV Q24H [facility] Rx#:[id number] Zosyn 3.375 gm In Dextrose 5% 50 / 50 in Water 50 ml @ 100 mls/hr IV Q6H [facility] Rx#:[id number] Oral 50 / 50 240 / 240 Other: Meal Breakfast Percent of Meal Consumed 100% # Voids 1 # Bowel Movements 1 Weight 127.006 kg Intake & Output: Intake & Output 10/04/17 10/05/17 10/05/17 21:59 05:59 13:59 Intake Total 156 / 156 50 / 50 240 / 240 Balance 156 / 156 50 / 50 240 / 240 Weight 127.006 kg Intake: IV 156 / 156 Cleocin 900 mg In Dextrose 5% 56 / 56 in Water 50 ml @ 100 mls/hr IV Q8H [facility] Rx#:[id number] INVanz 1 GM In Sodium Chloride 50 / 50 0.9% 50 ml @ 100 mls/hr IV Q24H [facility] Rx#:[id number] Zosyn 3.375 gm In Dextrose 5% 50 / 50 in Water 50 ml @ 100 mls/hr IV Q6H [facility] Rx#:[id number] Oral 50 / 50 240 / 240 Other: Meal Breakfast Percent of Meal Consumed 100% # Voids 1 # Bowel Movements 1 - General Appearance General appearance: well-developed, obese Respiratory: clear Cardiology: no murmurs, normal S1, normal S2 Gastrointestinal: normoactive bowel sounds, obese - Lab 10/05/17 04:20 10/05/17 04:20 Most recent lab results Calcium 8.9 mg/dl (8.6-10.4) 10/05/17 04:20 Phosphorus 3.2 mg/dL (2.7-4.5) 10/05/17 04:20 Magnesium 1.9 mg/dL (1.6-2.5) 10/05/17 04:20
--- NOTE | 2017-10-05 13:37 | Internal Med Progress Note ---
Medical - PN: Subj Patient information: Note initiated : 10/05/17 at 1:34 pm Service Date, if different from initiated Date: [] Patient: Osmin Leslie 42 y/o M admitted on 09/28/17 for Wound Dressing Change - Foot Ulcer. Chief Complaint: [] Interval history: Pt doing fine. denied any symptoms inc fever, chills, n/v/ diarrhea. had a PICC line placement today, uneventful. discussed the plan to follow up in ID clinic in 4 weeks. - Constitutional Vitals: Vital Signs Temp Pulse Resp BP Pulse Ox 36.6 C 88 16 165/91 97 10/05/17 11:00 10/05/17 11:00 10/05/17 11:00 10/05/17 11:00 10/05/17 11:00 Period Temp Pulse Resp BP Sys/Felix Pulse Ox Last 24 Hr 36.5 C-37.2 C 72-88 16-20 153-171/85-95 94-99 Intake and Output 10/04/17 10/05/17 10/05/17 21:59 05:59 13:59 Intake Total 156 / 156 50 / 50 240 / 240 Balance 156 / 156 50 / 50 240 / 240 Weight 127.006 kg Intake & Output: Intake & Output 10/04/17 10/05/17 10/05/17 21:59 05:59 13:59 Intake Total 156 / 156 50 / 50 240 / 240 Balance 156 / 156 50 / 50 240 / 240 Weight 127.006 kg Intake: IV 156 / 156 Cleocin 900 mg In Dextrose 5% 56 / 56 in Water 50 ml @ 100 mls/hr IV Q8H [facility] Rx#:[id number] INVanz 1 GM In Sodium Chloride 50 / 50 0.9% 50 ml @ 100 mls/hr IV Q24H [facility] Rx#:[id number] Zosyn 3.375 gm In Dextrose 5% 50 / 50 in Water 50 ml @ 100 mls/hr IV Q6H [facility] Rx#:[id number] Oral 50 / 50 240 / 240 Other: Meal Breakfast Percent of Meal Consumed 100% # Voids 1 # Bowel Movements 1 General appearance: cooperative, no acute distress, obese - Respiratory Respiratory exam: Present: CTAB - Cardiovascular Cardiovascular exam: Present: +S1, +S2. Absent: systolic murmur - GI/Abdominal GI/Abdominal exam: Present: normal bowel sounds, soft, distended. Absent: tenderness - Extremities Exam Additional comments: right foot wrapped in dressing, no drainage seen. Medical - PN: Obj Da - Labs CBC & Chem 7: 10/05/17 04:20 10/05/17 04:20 Labs: Abnormal Lab Results 10/05/17 10/05/17 10/04/17 04:20 04:20 05:28 WBC 17.4 H RBC 3.54 L Hgb 10.3 L Hct 31.5 L Plt Count 601 H Lymph % (Auto) Eos % (Auto) 7.1 H Gran # 9.4 H Lymph # (Auto) 5.0 H [place] # (Auto) 1.7 H Eos # (Auto) 1.2 H Glucose 124 H 138 H Albumin 3.1 L 2.9 L Globulin 4.0 H 4.3 H Albumin/Globulin Ratio 0.8 L 0.7 L Triglycerides 233 H 169 H 10/04/17 10/03/17 10/03/17 05:28 03:23 03:23 WBC 26.3 H 18.4 H RBC 3.71 L 3.65 L Hgb 11.1 L 10.7 L Hct 32.6 L 32.5 L Plt Count 546 H 518 H Lymph % (Auto) 15.4 L Eos % (Auto) Gran # 20.3 H 11.3 H Lymph # (Auto) [place] # (Auto) 1.6 H 1.8 H Eos # (Auto) 1.0 H Glucose Albumin 2.8 L Globulin 3.8 H Albumin/Globulin Ratio 0.7 L Triglycerides 171 H Meds: Medications Acetaminophen (Tylenol) 650 mg PO Q6HP PRN PRN Reason: PAIN/FEVER > 101 Al Hydrox/Mg Hydrox/Simethicone (Maalox) 30 ml PO Q4HP PRN PRN Reason: Dyspepsia Bacitracin (Bacitracin Topical Oint) 1 dose TOPICAL TID [facility] Last Admin: 10/05/17 10:50 Dose: 1 dose Calcium Carbonate/Glycine (Tums) 1,000 mg CHEWED Q4HP PRN PRN Reason: Dyspepsia Diagnostic Test (Pha) (Accu-Chek) 1 each FS ACHS [facility] Last Admin: 10/05/17 11:01 Dose: 1 each Heparin Sodium (Porcine) (Heparin) 5,000 unit SQ Q12 [facility] Last Admin: 10/05/17 08:42 Dose: 5,000 unit Heparin Sodium (Porcine) (Heparin Flush) 2 ml IV Q12 [facility] Last Admin: 10/05/17 09:31 Dose: 2 ml Hydrochlorothiazide (Oretic) 25 mg PO DAILY [facility] Last Admin: 10/05/17 08:41 Dose: 25 mg Hydromorphone HCl (Dilaudid) 0.5 mg IV Q2HP PRN PRN Reason: PAIN LEVEL > 6 Gentamicin Sulfate 40 mg/Clindamycin Phosphate 300 mg/Bacitracin 25,000 unit/ Sodium Chloride 503 mls @ 0 mls/hr IRR TID [facility] Last Admin: 10/05/17 10:50 Dose: 1 mls/hr Ertapenem 1 gm/ Sodium (Chloride) 50 mls @ 100 mls/hr IV Q24H [facility] Last Admin: 10/05/17 08:41 Dose: 100 mls/hr Insulin Human Lispro (Humalog) 0 unit SQ ACHS [facility]; Protocol Last Admin: 10/05/17 07:58 Dose: Not Given Lorazepam (Ativan) 1 mg PO DAILYP PRN PRN Reason: ANXIETY/SEDATION Last Admin: 10/05/17 11:50 Dose: 1 mg Metformin HCl (Glucophage) 500 mg PO BIDCC [facility] Last Admin: 10/05/17 08:41 Dose: 500 mg Naloxone HCl (Narcan) 0.1 mg IV Q2MIN PRN PRN Reason: Opiate Reversal Nitroglycerin (Nitrostat) 0.4 mg SL Q5M PRN PRN Reason: Chest Pain Ondansetron HCl (Zofran) 4 mg IV Q6HP PRN PRN Reason: Nausea And Vomiting Oxycodone HCl (Roxicodone) 5 mg PO Q4HP PRN PRN Reason: PAIN LEVEL 3-6 Pantoprazole Sodium (Protonix) 40 mg IV BIDAC [facility] Last Admin: 10/05/17 07:52 Dose: 40 mg Sodium Chloride (Saline Flush) 10 ml IV UD PRN PRN Reason: FLUSH Sodium Chloride (Saline Flush) 10 ml IV Q12 [facility] Last Admin: 10/05/17 09:31 Dose: 10 ml Medical - PN: A/P - Time Spent With Patient Total time spent is greater than 50% in coordination of care (as documented) at patient's floor/unit and/or counseling patient: less than 15 minutes - Narrative A/P Narrative: 42-year-old man with uncontrolled diabetes, with right foot nonhealing ulcer complicated by: 1. Necrotizing soft tissue infection of the right foot; status post surgical debridement, postoperative day 5 from the original surgery and postoperative day 2 from relook surgery [right fifth toe transmetatarsal amputation, exploration and debridement] - operative cultures growing group B strep and Bacteroides, Peptostreptococcus species so far -Increase in white cell count suggest an acute inflammatory response secondary to surgery. 2. Uncontrolled DM2 at baseline Recommendations: Continue IV ertapenem 1 g every 24 hours Start date: 10/03/17 [date of 2nd debridement] Stop date: at least till 11/01/17 F/u labs: CBC, BMP once weekly ESR and CRP every [address] a follow-up appt in ID clinic in 4 weeks [10/31/17]. will decide about further therapy (IV vs PO) and duration at that time -Agree with ongoing hyperbaric oxygen therapy Jayson Escobar MD Infectious diseases
--- NOTE | 2017-10-05 16:01 | General Surgery Progress Note ---
Subjective Narrative: Note initiated : 10/05/17 at 3:58 pm Service Date, if different from initiated Date: [] Patient: Osmin Leslie 42 y/o M admitted on 09/28/17 for Wound Dressing Change - Foot Ulcer. Chief Complaint: [] Postoperative day #2 status post reexploration of necrotizing fasciitis right foot with the fifth toe amputation and extensive plantar fasciotomy. Patient reportedly feels well. He is likely turning corner. Edema has gone down. Leukocytosis is trending down. Creatinine is normal and the vital signs are stable. Appreciated hospitalist note and infectious diseases follow-up and input. Antibiotics are changed. Patient is ambulating with crutches and waiting for an offloading rollabout scooter so that he can be discharged home and continue his outpatient follow-up in the wound care clinic. He still has 2 more HBO treatments remaining to complete the course. Objective Temp Pulse Resp BP Pulse Ox 98.4 F 82 16 149/87 98 10/05/17 15:38 10/05/17 15:38 10/05/17 15:38 10/05/17 15:38 10/05/17 15:39 AVSS. No changes to her physical examination. Local examination surgical wounds are clean and dry. Granulating. No order. No evidence of cellulitis. Open wounds with resolving erythema and the granulating wound beds. Dorsal Edilia drain has been removed. We will continue with the plantar drain and local wound care and dressing changes along with HBOT. - Additional Data Intake & Output - Last 24 hours: Intake & Output 10/03/17 10/04/17 10/05/17 10/06/17 05:59 05:59 05:59 05:59 Intake Total 516 / 516 1906 / 1906 1082 / 1082 1060 / 1060 Output Total 800 / 800 Balance 516 / 516 1106 / 1106 1082 / 1082 1060 / 1060 Weight 281 lb 4.8 oz 275 lb 1.6 oz 280 lb - Labs 10/05/17 04:20 10/05/17 04:20 Diabetes panel 10/05/17 Range/Units 04:20 Sodium 134 (133-145) mmol/L Potassium 3.5 (3.3-5.1) mmol/L Chloride 97 (96-108) mmol/L Carbon Dioxide 28 (22-30) mmol/L BUN 13 (6-20) mg/dl Creatinine 0.8 (0.7-1.2) mg/dl Glucose 124 H (70-105) mg/dL Calcium 8.9 (8.6-10.4) mg/dl AST 19 (0-37) U/l ALT 28 (0-40) U/l Alkaline Phosphatase 99 (39-117) U/L Total Protein 7.1 (5.9-8.4) gm/dL Albumin 3.1 L (3.2-5.2) gm/dL Triglycerides 233 H (<150) mg/dl Calcium panel 10/05/17 Range/Units 04:20 Calcium 8.9 (8.6-10.4) mg/dl Phosphorus 3.2 (2.7-4.5) mg/dL Albumin 3.1 L (3.2-5.2) gm/dL Pituitary panel 10/05/17 Range/Units 04:20 Sodium 134 (133-145) mmol/L Potassium 3.5 (3.3-5.1) mmol/L Chloride 97 (96-108) mmol/L Carbon Dioxide 28 (22-30) mmol/L BUN 13 (6-20) mg/dl Creatinine 0.8 (0.7-1.2) mg/dl Glucose 124 H (70-105) mg/dL Calcium 8.9 (8.6-10.4) mg/dl Adrenal panel 10/05/17 Range/Units 04:20 Sodium 134 (133-145) mmol/L Potassium 3.5 (3.3-5.1) mmol/L Chloride 97 (96-108) mmol/L Carbon Dioxide 28 (22-30) mmol/L BUN 13 (6-20) mg/dl Creatinine 0.8 (0.7-1.2) mg/dl Glucose 124 H (70-105) mg/dL Calcium 8.9 (8.6-10.4) mg/dl Total Bilirubin 0.3 (0.0-1.0) mg/dL AST 19 (0-37) U/l ALT 28 (0-40) U/l Alkaline Phosphatase 99 (39-117) U/L Total Protein 7.1 (5.9-8.4) gm/dL Albumin 3.1 L (3.2-5.2) gm/dL Assessment and Plan (1) 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 Plan: Continue current treatment. Consider wound VAC placement off to the weekend and before discharge. Have explained to the patient that he will need further wound care treatment and or operating room debridement and covering this area with a Skin graft from cadaver skin substitute. - Time Spent With Patient Total time spent is greater than 50% in coordination of care (as documented) at patient's floor/unit and/or counseling patient: 15 - 24 minutes
[2017-10-06 05:50] LABS: Basophils # (Auto) 0.1 K/mcL (0.0-0.3); Basophils % (Auto) 0.6 % (0.0-2.0); Eosinophils # (Auto) 1.2 K/mcL (0.0-0.7); Eosinophils % (Auto) 7.2 % (0.0-7.0); Granulocytes % (Auto) 53.9 % (38.0-78.0); Lymphocytes # (Auto) 4.8 K/mcL (1.5-4.8); Lymphocytes % (Auto) 29.7 % (15.5-49.0); Mean Cell Volume 88.6 fL (80.0-100.0); Mean Corpuscular HGB Conc 32.7 g/dL (31.0-36.0); Monocytes # (Auto) 1.4 K/mcL (0.1-0.9); Monocytes % (Auto) 8.6 % (1.0-12.0); Platelet Count 603 K/mcL (140-440); RBC 3.61 M/mcL (4.50-5.90); Red Cell Distribution Width 13.4 % (11.5-14.5)
[2017-10-06 06:35] LABS: Erythrocyte Sedimentation Rate 108 mm/hr (0-15)
--- NOTE | 2017-10-06 07:18 | Internal Med Progress Note ---
Medical - PN: Subj Patient information: Note initiated : 10/06/17 at 7:13 am Service Date, if different from initiated Date: [] Patient: Osmin Leslie 42 y/o M admitted on 09/28/17 for Wound Dressing Change - Foot Ulcer. Chief Complaint: [] Interval history: Mr. Leslie is a 42 year old male with h/o HTN, and untreated DM. On my eval the patient is in pacu, drowsy after anesthesia, history from chart review. The patient it seems has a chr right foot ulcer. The pt has been working out in the heat, he passed out and came to the ED because he was very weak and tired. The patient has been having nausea vomiting and diarrhea going on for the last 4 days. He notes according to the ER note that the right foot has been bothering him for the last 2 months. He has several ulcers on his right foot. The patient had a fever when he presented to the emergency room, temperature of 99.4, he was tachycardic with a heart rate of 110 blood pressure was stable and he was saturating 93% on room air. The patient had a chest x-ray done which was negative for an acute infection, head CT that was negative for acute process did not sinusitis. The patient had an x-ray of the foot done which showed possible abscess and air in the right foot. Patient underwent an emergent CT scan of the right foot called necrotizing fasciitis on the plantar surface of the foot. The patient was evaluated by Dr. Singh, and taken to the OR immediately. Patient was admitted to the hospital for further management. Patient has elevated WBC count at 38,000, hemoglobin 13 platelets 427 sodium 131 , potassium 3.2 creatinine 1.3 glucose elevated at 32 A1c is 11 pro calcitonin 0.2. EKG reviewed normal sinus, tachycardia 09/29 Pt seen and examined, no acute overnight issues, mental status much better wbc trending down still high on vanco, zosyn and clindamycin s/p debridement HBOT per wound care DM control not optimal, Pt has no complaints. 09/30 Pt seen examined, no acute overnight issue some chest tightness after hbot tretmetn today x ray chest neg, ekg neg, pt reports that he has these due to his reflux disease , and usually vomiting helps, this time Dr Marie gave mallox which helped start on prn tums wbc trending down microbiolgoy is growing strep agalactate, I am not too sure if this is a gas forming bacteria. Patient may have had some gas in the tissue from open wounds but clearly had necrotic tissue on debridement. no mrsa noted d/c vancomycin. continue clindamycin and zosyn for now, consider d/c clindamycin in AM. 10/01 Pt seen examined, no acute overnight issues this am during HBOT he developed epigastric tightness, nausea, shortness of breath. He attributes this to GI symptoms he did get KCL today for low potassium GI consulted by Dr Marie will get set of troponin, asa 325, ordered ntg which pt refused plan to get CT A chest,coronary to evaluate his coronaries, given that his complaint is chest tightness, and not burning epigastric pain which I would expect 10/02 no issues overnight, no nausea/dyspena/chest pain. 10/03 slept well, no new complaints. 10/04 I&D yesterday, feeling better. awaiting PICC. 10/05 no overnight events, no new complaints 10/06 Patient doing well feeling great. Adamant about leaving, tired of being here and ready to go. No issues overnight. Review of Systems: denies headache/fever/chills/nausea/vomiting/chest or abdominal pain/cough/ dyspnea/diarrhea. Otherwise see above. - Constitutional Vitals: Vital Signs Temp Pulse Resp BP Pulse Ox 97.5 F 80 18 172/93 97 10/06/17 04:00 10/06/17 04:00 10/06/17 04:00 10/06/17 04:00 10/06/17 04:00 Period Temp Pulse Resp BP Sys/Felix Pulse Ox Last 24 Hr 97.3 F-98.9 F 80-88 - 149-186/85-98 96-99 Intake and Output 10/05/17 10/06/17 10/06/17 21:59 05:59 13:59 Intake Total 820 / 820 50 / 50 Output Total 725 / 725 Balance 820 / 820 50 / 50 -725 / -725 Weight 125.418 kg Intake & Output: Intake & Output 10/05/17 10/06/17 10/06/17 21:59 05:59 13:59 Intake Total 820 / 820 50 / 50 Output Total 725 / 725 Balance 820 / 820 50 / 50 -725 / -725 Weight 125.418 kg Intake: Oral 820 / 820 50 / 50 Output: Void Amount 725 / 725 Other: Meal Egg salad sandwich, apple sauce, saltine crackers Percent of Meal Consumed 100% Feeding Ability Independent Urine Appearance Clear Urine Color Dark Yellow # Voids 1 # Bowel Movements 1 Exam: General: Alert, Awake, No acute Distress HEENT: EOMI, CV: RRR, No murmurs Pulm: Clear b/l, no wheezing/rhonchi/rales Abd: soft, nontender, +BS x4 Ext: no clubbing/cyanosis. RLL dressings intact Neuro: Alert, no focal deficits, moves all extremities Skin: warm/dry Medical - PN: Obj Da - Labs CBC & Chem 7: 10/06/17 04:00 10/05/17 04:20 Labs: Abnormal Lab Results 10/06/17 10/06/17 10/05/17 04:00 04:00 04:20 WBC 16.1 H RBC 3.61 L Hgb 10.5 L Hct 32.0 L Plt Count 603 H Lymph % (Auto) Eos % (Auto) 7.2 H Gran # 8.7 H Lymph # (Auto) [place] # (Auto) 1.4 H Eos # (Auto) 1.2 H ESR 108 H Glucose 124 H C-Reactive Protein 2.2 H Albumin 3.1 L Globulin 4.0 H Albumin/Globulin Ratio 0.8 L Triglycerides 233 H 10/05/17 10/04/17 10/04/17 04:20 05:28 05:28 WBC 17.4 H 26.3 H RBC 3.54 L 3.71 L Hgb 10.3 L 11.1 L Hct 31.5 L 32.6 L Plt Count 601 H 546 H Lymph % (Auto) 15.4 L Eos % (Auto) 7.1 H Gran # 9.4 H 20.3 H Lymph # (Auto) 5.0 H [place] # (Auto) 1.7 H 1.6 H Eos # (Auto) 1.2 H ESR Glucose 138 H C-Reactive Protein Albumin 2.9 L Globulin 4.3 H Albumin/Globulin Ratio 0.7 L Triglycerides 169 H Meds: Medications Acetaminophen (Tylenol) 650 mg PO Q6HP PRN PRN Reason: PAIN/FEVER > 101 Al Hydrox/Mg Hydrox/Simethicone (Maalox) 30 ml PO Q4HP PRN PRN Reason: Dyspepsia Bacitracin (Bacitracin Topical Oint) 1 dose TOPICAL TID [facility] Last Admin: 10/05/17 23:48 Dose: 1 dose Calcium Carbonate/Glycine (Tums) 1,000 mg CHEWED Q4HP PRN PRN Reason: Dyspepsia Diagnostic Test (Pha) (Accu-Chek) 1 each FS ACHS [facility] Last Admin: 10/05/17 21:04 Dose: 1 each Heparin Sodium (Porcine) (Heparin) 5,000 unit SQ Q12 [facility] Last Admin: 10/05/17 21:04 Dose: 5,000 unit Heparin Sodium (Porcine) (Heparin Flush) 2 ml IV Q12 [facility] Last Admin: 10/05/17 21:11 Dose: 2 ml Hydrochlorothiazide (Oretic) 25 mg PO DAILY [facility] Last Admin: 10/05/17 08:41 Dose: 25 mg Hydromorphone HCl (Dilaudid) 0.5 mg IV Q2HP PRN PRN Reason: PAIN LEVEL > 6 Gentamicin Sulfate 40 mg/Clindamycin Phosphate 300 mg/Bacitracin 25,000 unit/ Sodium Chloride 503 mls @ 0 mls/hr IRR TID [facility] Last Admin: 10/05/17 23:48 Dose: 100 mls/hr Ertapenem 1 gm/ Sodium (Chloride) 50 mls @ 100 mls/hr IV Q24H [facility] Last Admin: 10/05/17 08:41 Dose: 100 mls/hr Insulin Human Lispro (Humalog) 0 unit SQ [facility]; Protocol Last Admin: 10/05/17 21:10 Dose: 8 unit Lorazepam (Ativan) 1 mg PO DAILYP PRN PRN Reason: ANXIETY/SEDATION Last Admin: 10/05/17 11:50 Dose: 1 mg Metformin HCl (Glucophage) 500 mg PO BIDCC [facility] Last Admin: 10/05/17 17:39 Dose: 500 mg Naloxone HCl (Narcan) 0.1 mg IV Q2MIN PRN PRN Reason: Opiate Reversal Nitroglycerin (Nitrostat) 0.4 mg SL Q5M PRN PRN Reason: Chest Pain Ondansetron HCl (Zofran) 4 mg IV Q6HP PRN PRN Reason: Nausea And Vomiting Oxycodone HCl (Roxicodone) 5 mg PO Q4HP PRN PRN Reason: PAIN LEVEL 3-6 Pantoprazole Sodium (Protonix) 40 mg IV BIDAC [facility] Last Admin: 10/05/17 17:38 Dose: 40 mg Sodium Chloride (Saline Flush) 10 ml IV UD PRN PRN Reason: FLUSH Sodium Chloride (Saline Flush) 10 ml IV Q12 [facility] Last Admin: 10/05/17 23:49 Dose: 10 ml Medical - PN: A/P - Time Spent With Patient Total time spent is greater than 50% in coordination of care (as documented) at patient's floor/unit and/or counseling patient: - Narrative A/P Narrative: A: *Nec Fasc: s/p I&D (09/28) and (10/03) -cultures growing strep agalactae/Bacteroides/Peptostreptoccocus *Sepsis: 2/2 above. Resolving *DM: A1c 11.1, not on home medication d/t finances *HTN: *Chest tightness/Epigastric discomfort: 2/2 erosive esophagitis on EGD (10/01) - 2/2 GI etiology -trop neg x2, unremarkable EKG/CXR P: -per ID IV ertapenem 1g q24 hours x4 weeks until 11/01/17 and f/u in office, cbc/ bmp weekly, esr/crp q2wks -Wound care following; HBOT (none this weekend.) -SSI, Started metformin 500bid (increase to 750bid tonight), DM education, f/u with pcp likely need insulin; -cont HCTZ -cont ppi bid -ppx: heparin d/c planning for AM
[2017-10-06] MEDS: metFORMIN 500 MG TABLET PO SCH ×3 (08:27→17:40)
[2017-10-06] MEDS: PANTOPRAZOLE 40 MG PACKET PO SCH ×2 (08:27→17:39)
[2017-10-06] MEDS: INSULIN LISPRO 1 UNIT/0.01 ML UNIT SQ SCH ×4 (08:28→22:02)
--- NOTE | 2017-10-06 10:14 | Discharge Summary ---
Medical - DS: Prov Patient information: Note initiated : 10/06/17 at 10:04 am Service Date, if different from initiated Date: [] Patient: Osmin Leslie 42 y/o M admitted on 09/28/17 for Wound Dressing Change - Foot Ulcer. Chief Complaint: [] Date of admission: 09/28/17 14:21 Discharge date: 10/07/17 Primary care physician: Mary Davis Consults: 09/28/17 11:40 Consult to Physician [CONS] Stat Comment: Consulting Provider: Juanjo Singh Reason For Exam: Physician to Consult 09/28/17 12:00 Consult to Physician [CONS] Stat Comment: Consulting Provider: Chiquita Salazar Reason For Exam: Physician to Consult 10/01/17 07:01 Consult to Physician [CONS] Routine Comment: Consulting Provider: Jayson Escobar Reason For Exam: Physician to Consult 10/01/17 08:20 Consult to Physician [CONS] Routine Comment: Consulting Provider: Jayson Escobar Reason For Exam: Antibiotics recommendations 10/01/17 09:06 Consult to Physician [CONS] Routine Comment: Consulting Provider: Gilmar Gautam Reason For Exam: Physician to Consult Medical - DS: Meds - Discharge Medications Prescriptions: Accu-Chek 1 each FS ACHS #100 strip Bacitracin Topical Oint 1 dose TOPICAL TID #1 tube Insulin Lispro [Humalog] See Protocol SQ ACHS #10 ml Lisinopril [Zestril] 20 mg PO DAILY #30 tab Pantoprazole [Protonix] 40 mg PO BIDAC #60 packet Active and Home Medications: Home Medications Hydrochlorothiazide [Oretic] 25 mg PO DAILY 09/28/17 [History Confirmed Last Taken Unknown] Medical - DS: Hosp Hospital course: Mr. Leslie is a 42 year old M History of present illness: Mr. Leslie is a 42 year old male with h/o HTN, and untreated DM. On my eval the patient is in pacu, drowsy after anesthesia, history from chart review. The patient it seems has a chr right foot ulcer. The pt has been working out in the heat, he passed out and came to the ED because he was very weak and tired. The patient has been having nausea vomiting and diarrhea going on for the last 4 days. He notes according to the ER note that the right foot has been bothering him for the last 2 months. He has several ulcers on his right foot. The patient had a fever when he presented to the emergency room, temperature of 99.4, he was tachycardic with a heart rate of 110 blood pressure was stable and he was saturating 93% on room air. The patient had a chest x-ray done which was negative for an acute infection, head CT that was negative for acute process did not sinusitis. The patient had an x-ray of the foot done which showed possible abscess and air in the right foot. Patient underwent an emergent CT scan of the right foot called necrotizing fasciitis on the plantar surface of the foot. The patient was evaluated by Dr. Singh, and taken to the OR immediately. Patient was admitted to the hospital for further management. Patient has elevated WBC count at 38,000, hemoglobin 13 platelets 427 sodium 131 , potassium 3.2 creatinine 1.3 glucose elevated at 32 A1c is 11 pro calcitonin 0.2. EKG reviewed normal sinus, tachycardia Course: 09/29 Pt seen and examined, no acute overnight issues, mental status much better wbc trending down still high on vanco, zosyn and clindamycin s/p debridement HBOT per wound care DM control not optimal, Pt has no complaints. 09/30 Pt seen examined, no acute overnight issue some chest tightness after hbot tretmetn today x ray chest neg, ekg neg, pt reports that he has these due to his reflux disease , and usually vomiting helps, this time Dr Marie gave mallox which helped start on prn tums wbc trending down microbiolgoy is growing strep agalactate, I am not too sure if this is a gas forming bacteria. Patient may have had some gas in the tissue from open wounds but clearly had necrotic tissue on debridement. no mrsa noted d/c vancomycin. continue clindamycin and zosyn for now, consider d/c clindamycin in AM. 10/01 Pt seen examined, no acute overnight issues this am during HBOT he developed epigastric tightness, nausea, shortness of breath. He attributes this to GI symptoms he did get KCL today for low potassium GI consulted by Dr Marie will get set of troponin, asa 325, ordered ntg which pt refused plan to get CT A chest,coronary to evaluate his coronaries, given that his complaint is chest tightness, and not burning epigastric pain which I would expect 10/02 no issues overnight, no nausea/dyspena/chest pain. 10/03 slept well, no new complaints. 10/04 I&D yesterday, feeling better. awaiting PICC. 10/05 no overnight events, no new complaints 10/06 Patient doing well feeling great. Looking forward to going home Discharge diagnosis: Diabetic foot ulcer with necrotizing fasciitis - Time Spent with Patient Total time spent providing and/or coordinating discharge services: Medical - DS: Exam - Constitutional Vitals: Vital Signs Temp Pulse Resp BP BP Pulse Ox 10/06/17 08:00 96 10/06/17 07:13 97.8 F 18 149/87 96 10/06/17 04:00 97.5 F 80 18 172/93 97 10/06/17 00:00 97.3 F 82 16 172/91 96 10/05/17 20:00 98 10/05/17 19:55 97.5 F 82 18 186/98 98 10/05/17 15:39 98 10/05/17 15:38 98.4 F 82 16 149/87 99 10/05/17 11:00 98 F 88 16 165/91 97 Intake and Output 10/05/17 10/06/17 10/06/17 21:59 05:59 13:59 Intake Total 820 / 820 50 / 50 Output Total 725 / 725 Balance 820 / 820 50 / 50 -725 / -725 Intake: Oral 820 / 820 50 / 50 Output: Void Amount 725 / 725 Other: Meal Egg salad sandwich, apple sauce, saltine crackers Percent of Meal Consumed 100% Feeding Ability Independent Urine Appearance Clear Urine Color Dark Yellow # Voids 1 # Bowel Movements 1 Weight 125.418 kg Medical - DS: Data Labs on day of discharge: Labs from last 24 hours 10/06/17 10/06/17 04:00 04:00 WBC 16.1 H RBC 3.61 L Hgb 10.5 L Hct 32.0 L MCV 88.6 MCH 29.0 MCHC 32.7 RDW 13.4 Plt Count 603 H MPV 7.8 Gran % 53.9 Lymph % (Auto) 29.7 [place] % (Auto) 8.6 Eos % (Auto) 7.2 H Baso % (Auto) 0.6 Gran # 8.7 H Lymph # (Auto) 4.8 [place] # (Auto) 1.4 H Eos # (Auto) 1.2 H Baso # (Auto) 0.1 ESR 108 H C-Reactive Protein 2.2 H Preliminary micro results at discharge 10/03/17 12:30 Anaerobic Culture - Preliminary Foot - Right Medical - DS: A/P - Patient/Caregiver Discharge Instructions Activity: increase activity as tolerated Diet: Consistent Carbohydrate Prescriptions: Accu-Chek 1 each FS ACHS #100 strip Bacitracin Topical Oint 1 dose TOPICAL TID #1 tube Insulin Lispro [Humalog] See Protocol SQ ACHS #10 ml Lisinopril [Zestril] 20 mg PO DAILY #30 tab Pantoprazole [Protonix] 40 mg PO BIDAC #60 packet - Follow up Plan Follow up with: Mary Davis ARNP [Primary Care Provider] - Juanjo Singh MD [Physician] - Jayson Escobar MD [Physician] - Disposition: Home, Self-Care Prognosis: Fair Rehab Potential: Fair
--- NOTE | 2017-10-06 10:34 | General Surgery Progress Note ---
Subjective Narrative: Note initiated : 10/06/17 at 10:32 am Service Date, if different from initiated Date: [] Patient: Osmin Leslie 42 y/o M admitted on 09/28/17 for Wound Dressing Change - Foot Ulcer. Chief Complaint: [] Patient had an uneventful night. I saw him along with Elisa ORTIZ and reviewed his progress with Dr. Barrientos Hospitalist physician. Patient still has unresolved inflammatory foci / pockets under his open wounds. Objective Temp Pulse Resp BP Pulse Ox 97.8 F 80 18 149/87 96 10/06/17 07:13 10/06/17 04:00 10/06/17 07:13 10/06/17 07:13 10/06/17 08:00 AVSS. HANG no changes L/E. gradually resolving inflammatory changes, STILL has pitting edema around open plantar wound and drain. NEEDS aggressive T I D wound irrigation and dressing changes along with IV antibiotics. Leucocytosis persists. THROMBOCYTOSIS with increasing platelet counts. Will monitor. 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 Patient is compliant with instructions. UNDERSTANDS the need for close monitoring and TID wound care and need for on going IV antibiotics. AGREES to stay in hospital at this time. Plan: Continue current treatment. Will anticipate discharge after week end and continuation of treatment as out patient. - Time Spent With Patient Total time spent is greater than 50% in coordination of care (as documented) at patient's floor/unit and/or counseling patient: 15 - 24 minutes
[2017-10-06] MEDS: BACITRACIN TOPICAL OINT 15 GM TUBE TOPICAL SCH ×3 (10:37→22:04)
[2017-10-06] MEDS: GENTAMICIN SULFATE 40 MG, CLINDAMYCIN 300 MG, BACITRACIN 25,000 UNIT in SODIUM CHLORIDE... IRR SCH ×3 (10:37→21:59)
[2017-10-06] MEDS: ERTAPENEM 1 GM in 0.9 % SODIUM CHLORIDE 50 ML IV SCH (11:21)
[2017-10-06] MEDS: HEPARIN 5,000 UNIT/ML VIAL SQ SCH ×2 (11:21→22:00)
[2017-10-06] MEDS: 0.9 % SODIUM CHLORIDE 10 ML SYRINGE IV SCH ×2 (11:22→22:02)
[2017-10-06] MEDS: HYDROCHLOROTHIAZIDE 25 MG TABLET PO SCH (11:22)
[2017-10-06] MEDS ORDERED: ENALAPRILAT 1.25 MG/ML VIAL IV PRN (22:39)
[2017-10-06] MEDS: LISINOPRIL 20 MG TABLET PO SCH (22:48)
[2017-10-06] MEDS ORDERED: LISINOPRIL 10 MG TABLET ONE (22:50)
[2017-10-07 06:42] LABS: Basophils # (Auto) 0.1 K/mcL (0.0-0.3); Basophils % (Auto) 0.5 % (0.0-2.0); Eosinophils # (Auto) 1.4 K/mcL (0.0-0.7); Eosinophils % (Auto) 7.9 % (0.0-7.0); Lymphocytes # (Auto) 4.8 K/mcL (1.5-4.8); Lymphocytes % (Auto) 27.6 % (15.5-49.0); Mean Cell Volume 88.7 fL (80.0-100.0); Mean Corpuscular HGB Conc 32.9 g/dL (31.0-36.0); Mean Corpuscular Hemoglobin 29.2 pg (26.0-34.0); Monocytes # (Auto) 1.2 K/mcL (0.1-0.9); Platelet Count 622 K/mcL (140-440); Red Cell Distribution Width 13.4 % (11.5-14.5)
--- NOTE | 2017-10-07 07:35 | Internal Med Progress Note ---
Medical - PN: Subj Patient information: Note initiated : 10/07/17 at 7:32 am Service Date, if different from initiated Date: [] Patient: Osmin Leslie 42 y/o M admitted on 09/28/17 for Wound Dressing Change - Foot Ulcer. Chief Complaint: [] Interval history: Mr. Leslie is a 42 year old male with h/o HTN, and untreated DM. On my eval the patient is in pacu, drowsy after anesthesia, history from chart review. The patient it seems has a chr right foot ulcer. The pt has been working out in the heat, he passed out and came to the ED because he was very weak and tired. The patient has been having nausea vomiting and diarrhea going on for the last 4 days. He notes according to the ER note that the right foot has been bothering him for the last 2 months. He has several ulcers on his right foot. The patient had a fever when he presented to the emergency room, temperature of 99.4, he was tachycardic with a heart rate of 110 blood pressure was stable and he was saturating 93% on room air. The patient had a chest x-ray done which was negative for an acute infection, head CT that was negative for acute process did not sinusitis. The patient had an x-ray of the foot done which showed possible abscess and air in the right foot. Patient underwent an emergent CT scan of the right foot called necrotizing fasciitis on the plantar surface of the foot. The patient was evaluated by Dr. Singh, and taken to the OR immediately. Patient was admitted to the hospital for further management. Patient has elevated WBC count at 38,000, hemoglobin 13 platelets 427 sodium 131 , potassium 3.2 creatinine 1.3 glucose elevated at 32 A1c is 11 pro calcitonin 0.2. EKG reviewed normal sinus, tachycardia 09/29 Pt seen and examined, no acute overnight issues, mental status much better wbc trending down still high on vanco, zosyn and clindamycin s/p debridement HBOT per wound care DM control not optimal, Pt has no complaints. 09/30 Pt seen examined, no acute overnight issue some chest tightness after hbot tretmetn today x ray chest neg, ekg neg, pt reports that he has these due to his reflux disease , and usually vomiting helps, this time Dr Marie gave mallox which helped start on prn tums wbc trending down microbiolgoy is growing strep agalactate, I am not too sure if this is a gas forming bacteria. Patient may have had some gas in the tissue from open wounds but clearly had necrotic tissue on debridement. no mrsa noted d/c vancomycin. continue clindamycin and zosyn for now, consider d/c clindamycin in AM. 10/01 Pt seen examined, no acute overnight issues this am during HBOT he developed epigastric tightness, nausea, shortness of breath. He attributes this to GI symptoms he did get KCL today for low potassium GI consulted by Dr Marie will get set of troponin, asa 325, ordered ntg which pt refused plan to get CT A chest,coronary to evaluate his coronaries, given that his complaint is chest tightness, and not burning epigastric pain which I would expect 10/02 no issues overnight, no nausea/dyspena/chest pain. 10/03 slept well, no new complaints. 10/04 I&D yesterday, feeling better. awaiting PICC. 10/05 no overnight events, no new complaints 10/06 Patient doing well feeling great. Adamant about leaving, tired of being here and ready to go. No issues overnight. 10/07 No new complaints. Review of Systems: denies headache/fever/chills/nausea/vomiting/chest or abdominal pain/cough/ dyspnea/diarrhea. Otherwise see above. - Constitutional Vitals: Vital Signs Temp Pulse Resp BP Pulse Ox 97.8 F 87 18 150/82 96 10/07/17 07:13 10/07/17 04:00 10/07/17 07:13 10/07/17 07:13 10/07/17 07:13 Period Temp Pulse Resp BP Sys/Felix Pulse Ox Last 24 Hr 97.3 F-98.2 F 79-96 16-18 146-174/77-99 90-99 Intake and Output 10/06/17 10/07/17 10/07/17 21:59 05:59 13:59 Intake Total 240 / 240 500 / 500 Balance 240 / 240 500 / 500 Weight 123.921 kg Intake & Output: Intake & Output 10/06/17 10/07/17 10/07/17 21:59 05:59 13:59 Intake Total 240 / 240 500 / 500 Balance 240 / 240 500 / 500 Weight 123.921 kg Intake: Oral 240 / 240 500 / 500 Other: Meal Lunch Percent of Meal Consumed 100% # Voids 2 Exam: General: Alert, Awake, No acute Distress HEENT: EOMI, CV: RRR, No murmurs Pulm: Clear b/l, no wheezing/rhonchi/rales Abd: soft, obese, nontender, +BS x4 Ext: no clubbing/cyanosis. RLL dressings intact Neuro: Alert, no focal deficits, moves all extremities Skin: warm/dry Medical - PN: Obj Da - Labs CBC & Chem 7: 10/07/17 05:00 10/05/17 04:20 Labs: Abnormal Lab Results 10/07/17 10/06/17 10/06/17 05:00 04:00 04:00 WBC 17.5 H 16.1 H RBC 3.90 L 3.61 L Hgb 11.4 L 10.5 L Hct 34.6 L 32.0 L Plt Count 622 H 603 H Eos % (Auto) 7.9 H 7.2 H Gran # 9.9 H 8.7 H Lymph # (Auto) [place] # (Auto) 1.2 H 1.4 H Eos # (Auto) 1.4 H 1.2 H ESR 108 H Glucose C-Reactive Protein 2.2 H Albumin Globulin Albumin/Globulin Ratio Triglycerides 10/05/17 10/05/17 04:20 04:20 WBC 17.4 H RBC 3.54 L Hgb 10.3 L Hct 31.5 L Plt Count 601 H Eos % (Auto) 7.1 H Gran # 9.4 H Lymph # (Auto) 5.0 H [place] # (Auto) 1.7 H Eos # (Auto) 1.2 H ESR Glucose 124 H C-Reactive Protein Albumin 3.1 L Globulin 4.0 H Albumin/Globulin Ratio 0.8 L Triglycerides 233 H Meds: Medications Acetaminophen (Tylenol) 650 mg PO Q6HP PRN PRN Reason: PAIN/FEVER > 101 Al Hydrox/Mg Hydrox/Simethicone (Maalox) 30 ml PO Q4HP PRN PRN Reason: Dyspepsia Bacitracin (Bacitracin Topical Oint) 1 dose TOPICAL TID [facility] Last Admin: 10/06/17 22:04 Dose: 1 dose Calcium Carbonate/Glycine (Tums) 1,000 mg CHEWED Q4HP PRN PRN Reason: Dyspepsia Diagnostic Test (Pha) (Accu-Chek) 1 each FS ACHS [facility] Last Admin: 10/06/17 22:03 Dose: 1 each Enalaprilat (Vasotec) 0.625 mg IV Q2HP PRN PRN Reason: SBP>150 Heparin Sodium (Porcine) (Heparin) 5,000 unit SQ Q12 [facility] Last Admin: 10/06/17 22:00 Dose: 5,000 unit Heparin Sodium (Porcine) (Heparin Flush) 2 ml IV Q12 [facility] Last Admin: 10/06/17 22:01 Dose: 2 ml Hydrochlorothiazide (Oretic) 25 mg PO DAILY [facility] Last Admin: 10/06/17 11:22 Dose: 25 mg Hydromorphone HCl (Dilaudid) 0.5 mg IV Q2HP PRN PRN Reason: PAIN LEVEL > 6 Gentamicin Sulfate 40 mg/Clindamycin Phosphate 300 mg/Bacitracin 25,000 unit/ Sodium Chloride 503 mls @ 0 mls/hr IRR TID [facility] Last Admin: 10/06/17 21:59 Dose: 5 mls/hr Ertapenem 1 gm/ Sodium (Chloride) 50 mls @ 100 mls/hr IV Q24H [facility] Last Infusion: 10/06/17 11:51 Dose: Infused Insulin Human Lispro (Humalog) 0 unit SQ [facility]; Protocol Last Admin: 10/06/17 22:02 Dose: Not Given Lisinopril (Zestril) 20 mg PO DAILY [facility] Last Admin: 10/06/17 22:48 Dose: Not Given Lorazepam (Ativan) 1 mg PO DAILYP PRN PRN Reason: ANXIETY/SEDATION Last Admin: 10/05/17 11:50 Dose: 1 mg Metformin HCl (Glucophage) 750 mg PO BIDCC [facility] Last Admin: 10/06/17 17:40 Dose: 750 mg Naloxone HCl (Narcan) 0.1 mg IV Q2MIN PRN PRN Reason: Opiate Reversal Nitroglycerin (Nitrostat) 0.4 mg SL Q5M PRN PRN Reason: Chest Pain Ondansetron HCl (Zofran) 4 mg IV Q6HP PRN PRN Reason: Nausea And Vomiting Oxycodone HCl (Roxicodone) 5 mg PO Q4HP PRN PRN Reason: PAIN LEVEL 3-6 Pantoprazole Sodium (Protonix) 40 mg PO BIDAC [facility] Last Admin: 10/06/17 17:39 Dose: Not Given Sodium Chloride (Saline Flush) 10 ml IV UD PRN PRN Reason: FLUSH Sodium Chloride (Saline Flush) 10 ml IV Q12 [facility] Last Admin: 10/06/17 22:02 Dose: 10 ml Medical - PN: A/P - Time Spent With Patient Total time spent is greater than 50% in coordination of care (as documented) at patient's floor/unit and/or counseling patient: - Narrative A/P Narrative: A: *Nec Fasc: s/p I&D (09/28) and (10/03) -cultures growing strep agalactae/Bacteroides/Peptostreptoccocus *Sepsis: 2/2 above. Resolving *DM: A1c 11.1, not on home medication d/t finances *HTN: *Chest tightness/Epigastric discomfort: 2/2 erosive esophagitis on EGD (10/01) - 2/2 GI etiology -trop neg x2, unremarkable EKG/CXR P: -per ID, IV ertapenem 1g q24 hours x4 weeks until 11/01/17 and f/u in office, cbc /bmp weekly, esr/crp q2wks -Wound care following; HBOT (none this weekend.) -dressing and abx tid per wound care -SSI, Started metformin 500bid (increase to 750bid tonight), DM education, f/u with pcp likely need insulin; -cont HCTZ -cont ppi bid - -ppx: heparin d/c planning for AM
[2017-10-07 09:13] LABS: Basophils % (Manual) 1 % (0-2); Eosinophils % (Manual) 5 % (0-7); Lymphocytes % 25 % (15-49); Monocytes % (Manual) 5 % (1-12); Platelet Estimate INCREASED (NORMAL); RBC Morphology NORMAL (NORMAL); Segmented Neutrophils % 65 % (38-78)
[2017-10-07] MEDS: BACITRACIN TOPICAL OINT 15 GM TUBE TOPICAL SCH ×3 (09:19→22:22)
[2017-10-07] MEDS: metFORMIN 500 MG TABLET PO SCH ×2 (09:19→17:34)
[2017-10-07] MEDS: HEPARIN 5,000 UNIT/ML VIAL SQ SCH ×2 (09:20→20:46)
[2017-10-07] MEDS: GENTAMICIN SULFATE 40 MG, CLINDAMYCIN 300 MG, BACITRACIN 25,000 UNIT in SODIUM CHLORIDE... IRR SCH ×3 (09:20→22:22)
[2017-10-07] MEDS: INSULIN LISPRO 1 UNIT/0.01 ML UNIT SQ SCH ×4 (09:20→22:21)
[2017-10-07] MEDS: LISINOPRIL 20 MG TABLET PO SCH (09:21)
[2017-10-07] MEDS: HYDROCHLOROTHIAZIDE 25 MG TABLET PO SCH (09:21)
[2017-10-07] MEDS: PANTOPRAZOLE 40 MG PACKET PO SCH ×2 (09:35→17:35)
[2017-10-07] MEDS: 0.9 % SODIUM CHLORIDE 10 ML SYRINGE IV SCH (09:37)
[2017-10-07] MEDS: ERTAPENEM 1 GM in 0.9 % SODIUM CHLORIDE 50 ML IV SCH (09:37)
--- NOTE | 2017-10-07 14:32 | General Surgery Progress Note ---
Subjective Narrative: Note initiated : 10/07/17 at 2:28 pm Service Date, if different from initiated Date: [] Patient: Osmin Leslie 42 y/o M admitted on 09/28/17 for Wound Dressing Change - Foot Ulcer. Chief Complaint: [] Patient seen with nursing staff. Progress reviewed. Patient is frustrated about being in the hospital and wants to go home. Understands the current situation i.e. OPEN wounds and exposed structures, WBC and platelet counts trending up and need for ongoing wound care and IV antibiotics. He also needs additional surgical procedures/s i.e debridement and / or skin graft or skin substitute placement. Objective Temp Pulse Resp BP Pulse Ox 97.5 F 81 16 157/85 97 10/07/17 12:00 10/07/17 12:00 10/07/17 12:00 10/07/17 12:00 10/07/17 12:00 NO changes in HANG. Wounds dressed this afternoon. No purulence and NO odor per nursing staff. 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 Concerned about further loculated collections and NEED for additional debridement. Consider imaging studies CT scan without contrast tomorrow ?? Plan: Continue current treatment. SPENT long time over 20 minutes speaking with patient and family members. If he wants to leave hospital, he as to sign AMA papers. REASSESS in AM. - Time Spent With Patient Total time spent is greater than 50% in coordination of care (as documented) at patient's floor/unit and/or counseling patient: 15 - 24 minutes
[2017-10-08] MEDS: 0.9 % SODIUM CHLORIDE 10 ML SYRINGE IV SCH ×2 (01:24→08:28)
[2017-10-08] MEDS ORDERED: PANTOPRAZOLE 40 MG TABLET PO SCH (07:30)
[2017-10-08] MEDS: INSULIN LISPRO 1 UNIT/0.01 ML UNIT SQ SCH ×2 (07:39→11:37)
[2017-10-08] MEDS: metFORMIN 500 MG TABLET PO SCH (07:41)
[2017-10-08] MEDS: GENTAMICIN SULFATE 40 MG, CLINDAMYCIN 300 MG, BACITRACIN 25,000 UNIT in SODIUM CHLORIDE... IRR SCH (08:23)
[2017-10-08] MEDS: ERTAPENEM 1 GM in 0.9 % SODIUM CHLORIDE 50 ML IV SCH (08:26)
[2017-10-08] MEDS: HEPARIN 5,000 UNIT/ML VIAL SQ SCH (08:27)
[2017-10-08] MEDS: LISINOPRIL 20 MG TABLET PO SCH (08:28)
[2017-10-08] MEDS: HYDROCHLOROTHIAZIDE 25 MG TABLET PO SCH (08:29)
[2017-10-08] MEDS: BACITRACIN TOPICAL OINT 15 GM TUBE TOPICAL SCH ×2 (08:34→16:51)
[2017-10-08 09:41] LABS: Basophils # (Auto) 0.3 K/mcL (0.0-0.3); Basophils % (Auto) 1.6 % (0.0-2.0); Eosinophils # (Auto) 1.2 K/mcL (0.0-0.7); Eosinophils % (Auto) 6.6 % (0.0-7.0); Granulocytes % (Auto) 64.9 % (38.0-78.0); Lymphocytes # (Auto) 3.7 K/mcL (1.5-4.8); Lymphocytes % (Auto) 20.7 % (15.5-49.0); Mean Cell Volume 88.4 fL (80.0-100.0); Mean Corpuscular HGB Conc 33.1 g/dL (31.0-36.0); Mean Corpuscular Hemoglobin 29.2 pg (26.0-34.0); Monocytes # (Auto) 1.1 K/mcL (0.1-0.9); Monocytes % (Auto) 6.2 % (1.0-12.0); Platelet Count 647 K/mcL (140-440); RBC 3.98 M/mcL (4.50-5.90); Red Cell Distribution Width 13.6 % (11.5-14.5)
[2017-10-08 09:57] LABS: Blood Urea Nitrogen 16 mg/dl (6-20)
--- NOTE | 2017-10-08 10:23 | Internal Med Progress Note ---
Medical - PN: Subj Patient information: Note initiated : 10/08/17 at 10:21 am Service Date, if different from initiated Date: [] Patient: Osmin Leslie 42 y/o M admitted on 09/28/17 for Wound Dressing Change - Foot Ulcer. Chief Complaint: [] Interval history: Patient fine. Reports no symptoms including fever, chills, nausea, vomiting, diarrhea, pain at the PICC line site. Is frustrated as he wants to go home soon. - Constitutional Vitals: Vital Signs Temp Pulse Resp BP Pulse Ox 36.6 C 94 H 20 134/76 97 10/08/17 07:19 10/08/17 04:00 10/08/17 07:19 10/08/17 07:19 10/08/17 07:19 Period Temp Pulse Resp BP Sys/Felix Pulse Ox Last 24 Hr 36.4 C-36.7 C 81-94 16-20 134-162/76-90 97-98 Intake and Output 10/07/17 10/08/17 10/08/17 21:59 05:59 13:59 Intake Total 1320 / 1320 740 / 740 50 / 50 Balance 1320 / 1320 740 / 740 50 / 50 Weight 123.332 kg Intake & Output: Intake & Output 10/07/17 10/08/17 10/08/17 21:59 05:59 13:59 Intake Total 1320 / 1320 740 / 740 50 / 50 Balance 1320 / 1320 740 / 740 50 / 50 Weight 123.332 kg Intake: IV 50 / 50 INVanz 1 GM In Sodium Chloride 50 / 50 0.9% 50 ml @ 100 mls/hr IV Q24H [facility] Rx#:[id number] Oral 1320 / 1320 740 / 740 Other: Meal Lunch Percent of Meal Consumed 100% # Voids 1 General appearance: no acute distress, obese - Respiratory Respiratory exam: Present: CTAB - Cardiovascular Cardiovascular exam: Present: +S1, +S2. Absent: systolic murmur - GI/Abdominal GI/Abdominal exam: Present: normal bowel sounds, soft, distended. Absent: tenderness - Extremities Exam Additional comments: Left foot wrapped in dressing. Could not be examined No dependent edema bilaterally Medical - PN: Obj Da - Labs CBC & Chem 7: 10/08/17 08:55 10/08/17 08:55 Labs: Abnormal Lab Results 10/08/17 10/08/17 10/07/17 08:55 08:55 05:00 WBC 17.7 H RBC 3.98 L Hgb 11.6 L Hct 35.2 L Plt Count 647 H Eos % (Auto) Gran # 11.5 H [place] # (Auto) 1.1 H Eos # (Auto) 1.2 H Platelet Estimate Increased A ESR Glucose 194 H C-Reactive Protein 10/07/17 10/06/17 10/06/17 05:00 04:00 04:00 WBC 17.5 H 16.1 H RBC 3.90 L 3.61 L Hgb 11.4 L 10.5 L Hct 34.6 L 32.0 L Plt Count 622 H 603 H Eos % (Auto) 7.9 H 7.2 H Gran # 9.9 H 8.7 H [place] # (Auto) 1.2 H 1.4 H Eos # (Auto) 1.4 H 1.2 H Platelet Estimate ESR 108 H Glucose C-Reactive Protein 2.2 H Meds: Medications Acetaminophen (Tylenol) 650 mg PO Q6HP PRN PRN Reason: PAIN/FEVER > 101 Al Hydrox/Mg Hydrox/Simethicone (Maalox) 30 ml PO Q4HP PRN PRN Reason: Dyspepsia Bacitracin (Bacitracin Topical Oint) 1 dose TOPICAL TID [facility] Last Admin: 10/08/17 08:34 Dose: 1 dose Calcium Carbonate/Glycine (Tums) 1,000 mg CHEWED Q4HP PRN PRN Reason: Dyspepsia Diagnostic Test (Pha) (Accu-Chek) 1 each FS ACHS [facility] Last Admin: 10/08/17 07:10 Dose: 1 each Enalaprilat (Vasotec) 0.625 mg IV Q2HP PRN PRN Reason: SBP>150 Heparin Sodium (Porcine) (Heparin) 5,000 unit SQ Q12 [facility] Last Admin: 10/08/17 08:27 Dose: 5,000 unit Heparin Sodium (Porcine) (Heparin Flush) 2 ml IV Q12 [facility] Last Admin: 10/08/17 09:27 Dose: 2 ml Hydrochlorothiazide (Oretic) 25 mg PO DAILY [facility] Last Admin: 10/08/17 08:29 Dose: 25 mg Hydromorphone HCl (Dilaudid) 0.5 mg IV Q2HP PRN PRN Reason: PAIN LEVEL > 6 Gentamicin Sulfate 40 mg/Clindamycin Phosphate 300 mg/Bacitracin 25,000 unit/ Sodium Chloride 503 mls @ 0 mls/hr IRR TID [facility] Last Admin: 10/08/17 08:23 Dose: 1 mls/hr Ertapenem 1 gm/ Sodium (Chloride) 50 mls @ 100 mls/hr IV Q24H [facility] Last Infusion: 10/08/17 09:00 Dose: Infused Insulin Human Lispro (Humalog) 0 unit SQ ACHS [facility]; Protocol Last Admin: 10/08/17 07:39 Dose: 2 unit Lisinopril (Zestril) 20 mg PO DAILY [facility] Last Admin: 10/08/17 08:28 Dose: 20 mg Lorazepam (Ativan) 1 mg PO DAILYP PRN PRN Reason: ANXIETY/SEDATION Last Admin: 10/05/17 11:50 Dose: 1 mg Metformin HCl (Glucophage) 750 mg PO BIDCC [facility] Last Admin: 10/08/17 07:41 Dose: 750 mg Naloxone HCl (Narcan) 0.1 mg IV Q2MIN PRN PRN Reason: Opiate Reversal Nitroglycerin (Nitrostat) 0.4 mg SL Q5M PRN PRN Reason: Chest Pain Ondansetron HCl (Zofran) 4 mg IV Q6HP PRN PRN Reason: Nausea And Vomiting Oxycodone HCl (Roxicodone) 5 mg PO Q4HP PRN PRN Reason: PAIN LEVEL 3-6 Pantoprazole Sodium (Protonix) 40 mg PO BIDAC [facility] Last Admin: 10/08/17 07:40 Dose: 40 mg Sodium Chloride (Saline Flush) 10 ml IV UD PRN PRN Reason: FLUSH Sodium Chloride (Saline Flush) 10 ml IV Q12 [facility] Last Admin: 10/08/17 08:28 Dose: 10 ml Medical - PN: A/P - Time Spent With Patient Total time spent is greater than 50% in coordination of care (as documented) at patient's floor/unit and/or counseling patient: less than 15 minutes - Narrative A/P Narrative: 42-year-old man with uncontrolled diabetes, with right foot nonhealing ulcer complicated by: 1. Necrotizing soft tissue infection of the right foot; status post surgical debridement x 2, with [right fifth toe transmetatarsal amputation, exploration and debridement] - operative cultures growing group B strep and Bacteroides, Peptostreptococcus species -Persistent leukocytosis white suggest acute inflammatory response secondary to surgery, extent of debridement with an open wound 2. Uncontrolled DM2 at baseline Recommendations: Continue IV ertapenem 1 g every 24 hours, day 5 Start date: 10/03/17 [date of 2nd debridement] Stop date: at least till 11/01/17 F/u labs: CBC, BMP once weekly ESR and CRP every [address] a follow-up appt in ID clinic in 4 weeks [10/31/17]. will decide about further therapy (IV vs PO) and duration at that time -Agree with ongoing hyperbaric oxygen therapy, and further relook surgical debridement as needed. Patient will benefit from a wound VAC. Jayson Escobar MD Infectious diseases
--- NOTE | 2017-10-08 12:27 | Surgical Pathology Report ---
HISTOLOGY SPECIMEN MICROSCOPIC DIAGNOSIS SPECIMEN A - RIGHT FIFTH TOE, AMPUTATION: -- ACUTE OSTEOMYELITIS. SPECIMEN B - BONE, RIGHT PROXIMAL FIFTH TOE FRAGMENT, EXCISION: -- CHRONIC OSTEOMYELITIS. -- NEGATIVE FOR ACUTE OSTEOMYELITIS. (EBD:[email or web address]) CLINICAL HISTORY Non-healing wounds. GROSS DESCRIPTION Specimen A is received in formalin as right fifth toe and consists of an amputated toe with lateral aspect of foot that measures 7.5 cm from the tip of the toe to the soft tissue margin of resection and 6 cm from the tip of the toe to the cutaneous resection margin on the lateral aspect. The resection margin of the medial aspect is present 2.5 cm from the tip of the toe. The skin on the dorsal and lateral aspect of the toe has slippage with a broad area of ulcer. The region of skin slippage measures up to 5.5 cm. The region of ulcer on the dorsal foot measures 2.5 x 1.5 cm. The nail plate is intact and measures 1 x 0.6 cm. There is hemorrhage and brown discoloration of the soft tissue. The lateral aspect region ulcer measures 3 x 2.2 cm. The entire specimen is decalcified prior to sectioning. The soft tissue margins are inked. Sectioning reveals soft, decalcified bone underlying areas of ulceration with associated hemorrhage of the marrow space and associated soft tissue. [employer] Professional cross sections of skin, bone and associated soft tissue are submitted in A1-A2. Specimen B is received in formalin as proximal right fifth toe bone fragment and consists of two portions of bone with associated soft tissue that measures 0.4 x 0.5 x 0.3 cm and 0.7 x 0.5 x 0.6 cm. Both of these are decalcified prior to sectioning. The larger piece is bisected and the entire specimen is submitted in B. (ACP:adj) Electronically Signed by: Mercy Lane M.D.
[2017-10-08] MEDS: LORazepam 1 MG TABLET PO PRN (12:51)
--- NOTE | 2017-10-08 13:32 | General Surgery Progress Note ---
Subjective Narrative: Note initiated : 10/08/17 at 1:13 pm Service Date, if different from initiated Date: [] Patient: Osmin Leslie 42 y/o M admitted on 09/28/17 for Wound Dressing Change - Foot Ulcer. Chief Complaint: [] I examined this patient along with [facility] inpatient wound care nurse and [facility]. Patient reports feeling well and is keen to go home. No overnight events were reported. By now, he is changing his own dressings, checking his own blood sugars and giving himself insulin. Objective Temp Pulse Resp BP Pulse Ox 97.8 F 94 H 20 120/74 98 10/08/17 11:40 10/08/17 04:00 10/08/17 11:40 10/08/17 11:40 10/08/17 12:00 Afebrile. Vital signs are stable. No changes in general physical examination. Wound cleaned and debrided / dressing changed at bedside in front of nursing staff. Local examination reveals open wound right anterior lateral foot and right plantar area. There is a connecting tract between the 2 wounds. This will require further debridement and possibly laying it completely open to convert these 2 wounds into one wound. After operating room debridement and pulse lavage irrigation will consider to use wound VAC to bring about own compression contraction and approximation treat this with the wound VAC . Patient will continue to require further surgical intervention / OR debridement , skin graft or skin substitute as the need arises. Lab results and culture results reviewed. Discussed with ID. - Additional Data Intake & Output - Last 24 hours: Intake & Output 10/06/17 10/07/17 10/08/17 10/09/17 05:59 05:59 05:59 05:59 Intake Total 1110 / 1110 840 / 840 2109 / 2109 530 / 530 Output Total 725 / 725 550 / 550 Balance 1110 / 1110 115 / 115 2109 / 2109 -20 / -20 Weight 276 lb 8 oz 273 lb 3.2 oz 271 lb 14.4 oz - Labs 10/08/17 08:55 10/08/17 08:55 Diabetes panel 10/08/17 Range/Units 08:55 Sodium 133 (133-145) mmol/L Potassium 4.7 (3.3-5.1) mmol/L Chloride 97 (96-108) mmol/L Carbon Dioxide 26 (22-30) mmol/L BUN 16 (6-20) mg/dl Creatinine 1.0 (0.7-1.2) mg/dl Glucose 194 H (70-105) mg/dL Calcium 9.5 (8.6-10.4) mg/dl Calcium panel 10/08/17 Range/Units 08:55 Calcium 9.5 (8.6-10.4) mg/dl Pituitary panel 10/08/17 Range/Units 08:55 Sodium 133 (133-145) mmol/L Potassium 4.7 (3.3-5.1) mmol/L Chloride 97 (96-108) mmol/L Carbon Dioxide 26 (22-30) mmol/L BUN 16 (6-20) mg/dl Creatinine 1.0 (0.7-1.2) mg/dl Glucose 194 H (70-105) mg/dL Calcium 9.5 (8.6-10.4) mg/dl Adrenal panel 10/08/17 Range/Units 08:55 Sodium 133 (133-145) mmol/L Potassium 4.7 (3.3-5.1) mmol/L Chloride 97 (96-108) mmol/L Carbon Dioxide 26 (22-30) mmol/L BUN 16 (6-20) mg/dl Creatinine 1.0 (0.7-1.2) mg/dl Glucose 194 H (70-105) mg/dL Calcium 9.5 (8.6-10.4) mg/dl Assessment and Plan (1) 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 CSSSI, Uncontrolled diabetes ( Improving ) Plan: Wound care and dressings daily BID. Once in evening by patient as explained and demonstrated. Daily IV antibiotics as out patient in [facility] and dressing change at the same time in [facility]. For HBOT today. Later OK to discharge home WITH instructions about dressing change and daily IV abx at [facility]. OR debridement on 10/10/2017 at 07:30 hrs. - Time Spent With Patient Total time spent is greater than 50% in coordination of care (as documented) at patient's floor/unit and/or counseling patient: 25 - 35 minutes
[2017-10-09] MEDS ORDERED: GENTAMICIN SULFATE 80 MG, CLINDAMYCIN 600 MG, BACITRACIN 50,000 UNIT in SODIUM CHLORIDE... IRR SCH (07:30)
== END 2017-10-08 16:16 | disposition home or self-care (01) | DRG 616 ==
LOC: ED 08:33 → SUR 12:38 → MEDSUR 14:21 → ICU 10-01 10:05 → MEDSUR 10-03 11:52
PROVIDERS: ADMIT Internal Medicine; ATTEND Internal Medicine

== ENCOUNTER 2019-10-21 15:52 | Inpatient (IN) ==
[2019-10-21] MEDS ORDERED: IOPAMIDOL 100 ML BOTTLE IV ONE (15:53)
[2019-10-21] MEDS ORDERED: 0.9 % SODIUM CHLORIDE 2,000 ML IV ONE (16:02)
[2019-10-21] MEDS ORDERED: VANCOMYCIN 1,500 MG in 0.9 % SODIUM CHLORIDE 500 ML IV ONE (16:02)
[2019-10-21] MEDS ORDERED: PIPERACILLIN SODIUM/TAZOBACTAM 3.375 GM in DEXTROSE 5% IN WATER 50 ML IV ONE (16:02)
--- NOTE | 2019-10-21 16:32 | XRay Report ---
CLINICAL INFORMATION: Sepsis COMPARISON: 02/21/2019 TECHNIQUE: PA and Lateral views FINDINGS: The heart size, mediastinum and pulmonary vessels are unremarkable. The lungs are clear. There are no effusions. The bones and soft tissues are within normal limits. IMPRESSION: Normal chest. Interpreted and Authenticated by: Gilmar Wilson 10/21/19
[2019-10-21] MEDS ORDERED: HYDROmorphone 0.5 MG/0.5 ML SYRINGE IV ONE (16:39)
[2019-10-21] MEDS ORDERED: ONDANSETRON 4 MG/2 ML VIAL IV ONE (16:39)
--- NOTE | 2019-10-21 16:47 | Emergency Department Note ---
Altered Mental Status HPI General Chief Complaint: Altered Mental Status Stated Complaint: altered mental status, lethargy Time Seen by Provider: 10/21/19 16:01 Source: patient Mode of arrival: wheelchair Limitations: no limitations History of Present Illness HPI Narrative: Narrative: 44-year-old male is followed by Dr. Singh for wound care for his left foot wounds. He is a diabetic not on insulin. He has been told he is got neuropathy but he says he retains feeling in his foot. Anyways he had an x-ray done on 09/23/2019 which did not show a fracture of this foot nor evidence of osteomyelitis. However today after getting home from the tire store with his mother he had altered mental status very confused and somnolent so she brought him in. He is not febrile but his left foot wounds have crusted drainage, and the lower leg is hot with mild erythema. No nausea vomiting diarrhea trouble breathing Related Data Home Medications Medication Instructions Recorded Confirmed lisinopril-hydrochlorothiazide 1 tab PO QDAY 10/03/19 pantoprazole 40 mg PO QDAY 10/03/19 Previous Rx's Medication Instructions Recorded blood sugar diagnostic #100 strip 10/08/17 blood-glucose meter #1 each 10/08/17 metformin 750 mg PO BIDCC #60 tab.er.24h 10/08/17 Allergies Allergy/AdvReac Type Severity Reaction Status Date / Time scallops Allergy Intermediate Swelling Verified 10/03/19 12:55 of Lip/Tongue/Throat [place] Allergy Intermediate Swelling Verified 10/03/19 12:55 of Lip/Tongue/Throat Review of Systems ROS ROS Narrative: Narrative: All systems ED: reviewed and negative except as stated. 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 Clearly disoriented but not febrile. Normocephalic atraumatic. Conjunctive are clear sclerae white nonicteric. No nasal discharge or congestion. Oropharynx pink and moist. Neck is supple without lymphadenopathy or thyromegaly. Heart is regular rate and rhythm no murmur appreciated. Lungs are clear to auscultation bilaterally without wheezes rales rhonchi or respiratory distress. Abdomen is soft nontender nondistended. Exam of the left lower leg shows significant swelling compared to the right-especially at the ankle and foot. Trace erythema is noted all the way up to the knee. He has multiple wounds on his left foot -2 dime sized ones on the dorsum of his foot and a larger area perhaps 5 cm or so on the lateral portion of his forefoot. The ones on the dorsum are draining a little bit with crusting. I did check for sensation and he does have sensation to pressure and light touch. He is able to move his toes foot and ankle. General Limitations: no limitations Course Vital Signs Vital signs: Vital Signs Respiratory Rate 10/21/19 15:53 Temperature 98.3 F 10/21/19 18:05 Pulse Rate 98 H 10/21/19 18:46 Respiratory Rate 18 10/21/19 18:46 Blood Pressure 152/92 10/21/19 18:46 Pulse Oximetry (%) 97 10/21/19 18:46 [facility] MDM Narrative Medical decision making narrative: Narrative: concern for sepsis -blood cultures and start vanc and zosyn. Ordered laboratory and start IV fluids. CT scan of the left lower leg. Dilaudid for pain and Zofran for nausea Differential diagnosis also includes metabolic issues, dehydration, blood sugar problems Laboratory consistent with early sepsis. CT scan confirms source of cellulitis plus comminuted fracture of the navicular and medial cuboid consistent with Charcot foot. I discussed the case with Dr. Terell Castro, orthopedist on- call. He felt that there was nothing emergent to be done. I then discussed the case with Dr. Dukes, hospitalist who agreed to accept the patient for further care and evaluation in the hospital. I discussed the situation as well with the patient and his mother and let them know the plan On reevaluation he was much more awake and alert. Antibiotics and fluids seem to be helping Lab Data Result diagrams: 10/21/19 16:11 10/21/19 16:10 Labs: Lab Results 10/21/19 10/21/19 10/21/19 Range/Units 16:10 16:10 16:11 WBC 19.8 H (4.50-11.00) K/mcL RBC 4.12 L (4.63-6.08) M/mcL Hgb 12.1 L (13.7-17.5) g/dL Hct 36.9 L (40.1-51.0) % MCV 89.6 (80.0-100.0) fL MCH 29.4 (26.0-34.0) pg MCHC 32.8 (31.0-36.0) g/dL RDW 12.8 (11.5-14.5) % Plt Count 435 (140-440) K/mcL MPV 10.1 (7.4-10.4) fL Gran % 74.0 (38.0-78.0) % Lymph % (Auto) 12.8 L (15.5-49.0) % [place] % (Auto) 9.2 (1.0-12.0) % Eos % (Auto) 3.4 (0.0-7.0) % Baso % (Auto) 0.6 (0.0-2.0) % Gran # 14.65 H (1.80-8.00) K/mcL Lymph # (Auto) 2.53 (1.50-4.80) K/mcL Fountain # (Auto) 1.81 H (0.10-0.90) K/mcL Eos # (Auto) 0.68 (0.00-0.70) K/mcL Baso # (Auto) 0.11 (0.00-0.30) K/mcL VBG Lactic Acid 1.1 (0.5-2.0) mmol/L Sodium 134 (133-145) mmol/L Potassium 4.2 (3.3-5.1) mmol/L Chloride 100 (96-108) mmol/L Carbon Dioxide 23 (22-30) mmol/L Anion Gap 11.0 (8-16) BUN 16 (6-20) mg/dl Creatinine 0.9 (0.7-1.2) mg/dl GFR Calculation 104 Glucose 183 H (70-105) mg/dL Calcium 9.3 (8.6-10.4) mg/dl Total Bilirubin 1.1 H (0.0-1.0) mg/dL AST 19 (0-37) U/l ALT 19 (0-40) U/l Alkaline Phosphatase 86 (39-117) U/L Ammonia (16-60) umol/L Troponin T (0-0.03) ng/ml Total Protein 6.5 (5.9-8.4) gm/dL Albumin 3.1 L (3.2-5.2) gm/dL Globulin 3.4 (2.2-3.7) gm/dL Albumin/Globulin Ratio 0.9 L (1.0-2.3) Procalcitonin (<0.10) ng/mL Ethyl Alcohol (<0.010) gm/dl 10/21/19 10/21/19 10/21/19 Range/Units 16:11 16:11 16:11 WBC (4.50-11.00) K/mcL RBC (4.63-6.08) M/mcL Hgb (13.7-17.5) g/dL Hct (40.1-51.0) % MCV (80.0-100.0) fL MCH (26.0-34.0) pg MCHC (31.0-36.0) g/dL RDW (11.5-14.5) % Plt Count (140-440) K/mcL MPV (7.4-10.4) fL Gran % (38.0-78.0) % Lymph % (Auto) (15.5-49.0) % Fountain % (Auto) (1.0-12.0) % Eos % (Auto) (0.0-7.0) % Baso % (Auto) (0.0-2.0) % Gran # (1.80-8.00) K/mcL Lymph # (Auto) (1.50-4.80) K/mcL Fountain # (Auto) (0.10-0.90) K/mcL Eos # (Auto) (0.00-0.70) K/mcL Baso # (Auto) (0.00-0.30) K/mcL VBG Lactic Acid (0.5-2.0) mmol/L Sodium (133-145) mmol/L Potassium (3.3-5.1) mmol/L Chloride (96-108) mmol/L Carbon Dioxide (22-30) mmol/L Anion Gap (8-16) BUN (6-20) mg/dl Creatinine (0.7-1.2) mg/dl GFR Calculation Glucose (70-105) mg/dL Calcium (8.6-10.4) mg/dl Total Bilirubin (0.0-1.0) mg/dL AST (0-37) U/l ALT (0-40) U/l Alkaline Phosphatase (39-117) U/L Ammonia (16-60) umol/L Troponin T 0.02 (0-0.03) ng/ml Total Protein (5.9-8.4) gm/dL Albumin (3.2-5.2) gm/dL Globulin (2.2-3.7) gm/dL Albumin/Globulin Ratio (1.0-2.3) Procalcitonin 0.07 (<0.10) ng/mL Ethyl Alcohol < 0.010 (<0.010) gm/dl 10/21/19 Range/Units 16:17 WBC (4.50-11.00) K/mcL RBC (4.63-6.08) M/mcL Hgb (13.7-17.5) g/dL Hct (40.1-51.0) % MCV (80.0-100.0) fL MCH (26.0-34.0) pg MCHC (31.0-36.0) g/dL RDW (11.5-14.5) % Plt Count (140-440) K/mcL MPV (7.4-10.4) fL Gran % (38.0-78.0) % Lymph % (Auto) (15.5-49.0) % Fountain % (Auto) (1.0-12.0) % Eos % (Auto) (0.0-7.0) % Baso % (Auto) (0.0-2.0) % Gran # (1.80-8.00) K/mcL Lymph # (Auto) (1.50-4.80) K/mcL Fountain # (Auto) (0.10-0.90) K/mcL Eos # (Auto) (0.00-0.70) K/mcL Baso # (Auto) (0.00-0.30) K/mcL VBG Lactic Acid (0.5-2.0) mmol/L Sodium (133-145) mmol/L Potassium (3.3-5.1) mmol/L Chloride (96-108) mmol/L Carbon Dioxide (22-30) mmol/L Anion Gap (8-16) BUN (6-20) mg/dl Creatinine (0.7-1.2) mg/dl GFR Calculation Glucose (70-105) mg/dL Calcium (8.6-10.4) mg/dl Total Bilirubin (0.0-1.0) mg/dL AST (0-37) U/l ALT (0-40) U/l Alkaline Phosphatase (39-117) U/L Ammonia 39 (16-60) umol/L Troponin T (0-0.03) ng/ml Total Protein (5.9-8.4) gm/dL Albumin (3.2-5.2) gm/dL Globulin (2.2-3.7) gm/dL Albumin/Globulin Ratio (1.0-2.3) Procalcitonin (<0.10) ng/mL Ethyl Alcohol (<0.010) gm/dl Radiology Data Radiology results reviewed: Yes I reviewed the patient's radiology results. Radiology results narrative: CT scan showed findings above. Cellulitis plus comminuted displaced fractures of the navicular and medial cuboid consistent with Charcot foot EKG Data EKG #1: EKG attestation: Yes I reviewed and interpreted this EKG. EKG results narrative: EKG shows sinus tachycardia without evidence of ACS Discharge Plan Patient/Caregiver Discharge Instructions Pt seen by APPLIANCE INSTALLER/PA only: No Clinical Impression: Sepsis Qualifiers: Sepsis type: sepsis due to unspecified organism Sepsis acute organ dysfunction status: unspecified Qualified Code(s): A41.9 - Sepsis, unspecified organism Cellulitis Qualifiers: Site of cellulitis: extremity Site of cellulitis of extremity: lower extremity Laterality: left Qualified Code(s): L03.116 - Cellulitis of left lower limb Foot, fracture, navicular Qualifiers: Encounter type: initial encounter Fracture type: closed Fracture alignment: displaced Laterality: left Qualified Code(s): S92.252A - Displaced fracture of navicular [scaphoid] of left foot, initial encounter for closed fracture Cuboid fracture Qualifiers: Encounter type: initial encounter Fracture type: closed Fracture alignment: displaced Laterality: left Qualified Code(s): S92.212A - Displaced fracture of cuboid bone of left foot, initial encounter for closed fracture Patient Disposition: Xfer As Inpt ([facility]) Condition: Fair Follow up with: Mary Davis ARNP [Primary Care Provider] - Prescriptions: No Action pantoprazole 40 mg Tablet,Delayed Release (Dr/Ec) 40 mg PO QDAY RF: 0 lisinopril-hydrochlorothiazide 20-25 mg Tablet 1 tab PO QDAY RF: 0 metformin 750 MG tablet extended release 24 hr 750 mg PO BIDCC Qty: 60 RF: 0 (DME) blood-glucose meter 1 EACH misc 1 each MC ACHS Qty: 1 RF: 0 (DME) blood sugar diagnostic 1 EACH strip 1 each MC ACHS Qty: 100 RF: 0
[2019-10-21 17:07] LABS: Basophils # (Auto) 0.11 K/mcL (0.00-0.30); Basophils % (Auto) 0.6 % (0.0-2.0); Eosinophils # (Auto) 0.68 K/mcL (0.00-0.70); Eosinophils % (Auto) 3.4 % (0.0-7.0); Hematocrit 36.9 % (40.1-51.0); Hemoglobin 12.1 g/dL (13.7-17.5); Lymphocytes # (Auto) 2.53 K/mcL (1.50-4.80); Lymphocytes % (Auto) 12.8 % (15.5-49.0); Mean Cell Volume 89.6 fL (80.0-100.0); Mean Corpuscular HGB Conc 32.8 g/dL (31.0-36.0); Mean Platelet Volume 10.1 fL (7.4-10.4); Monocytes # (Auto) 1.81 K/mcL (0.10-0.90); Monocytes % (Auto) 9.2 % (1.0-12.0); Platelet Count 435 K/mcL (140-440); RBC 4.12 M/mcL (4.63-6.08); Red Cell Distribution Width 12.8 % (11.5-14.5); WBC 19.8 K/mcL (4.50-11.00)
[2019-10-21 17:28] LABS: Alcohol, Blood < 10.0 mg/dL (<10); Alcohol,Blood < 0.010 gm/dl (<0.010)
[2019-10-21 17:34] LABS: ALT/SGPT 19 U/l (0-40); AST/SGOT 19 U/l (0-37); Albumin 3.1 gm/dL (3.2-5.2); Albumin/Globulin Ratio 0.9 (1.0-2.3); Alkaline Phosphatase 86 U/L (39-117); Bilirubin,Total 1.1 mg/dL (0.0-1.0); Blood Urea Nitrogen 16 mg/dl (6-20); Calcium 9.3 mg/dl (8.6-10.4); Carbon Dioxide 23 mmol/L (22-30); Chloride 100 mmol/L (96-108); Globulin 3.4 gm/dL (2.2-3.7); Glomerular Filtration Rate 104; Glucose 183 mg/dL (70-105)
--- NOTE | 2019-10-21 18:29 | Cat Scan Report ---
CLINICAL INFORMATION: sepsis, wound COMPARISON: TECHNIQUE: 0.625 helical slices were obtained through the distal femoral diaphysis through the entire left lower leg including the foot and ankle. Following reconstruction, 2.5 or axial, coronal and axial reformatted images were processed and reviewed in bone and soft tissue windows. FINDINGS: There is a severely comminuted fracture of the navicular with moderate fragment displacement. There is also a severely comminuted fracture through the medial aspect of the cuboid involving the articular surface. Fragments are displaced 6 to 7 mm medially. The visualized distal femur, patella and the entire tibia and fibula are unremarkable. Muscle and fascial planes are normal. Moderate edema in the deep subcutaneous soft tissues of the calf and marked edema throughout the foot. IMPRESSION: 1. Severely comminuted, moderately displaced acute fracture of the navicular. New since plain film of 09/23/2019 2. Severely comminuted mildly displaced fracture the medial cuboid. New since plain film 09/23/2019 3. Moderate edema in the subcutaneous fat throughout the calf and a very large amount of edema throughout the foot and ankle diffusely. Interpreted and Authenticated by: Gilmar Wilson 10/21/19
[2019-10-21 19:43] LABS: Amphetamine Screen,Urine NONE DETECTED (NONDETECTED); Barbiturate Screen,Urine NONE DETECTED (NONDETECTED); Benzodiazepines Screen,Urine NONE DETECTED (NONDETECTED); Cannabinoid Screen,Urine NONE DETECTED (NONDETECTED); Cocaine Screen,Urine NONE DETECTED (NONDETECTED); Opiate Screen,Urine NONE DETECTED (NONDETECTED); Oxycodone, Urine Screen NONE DETECTED (NONDETECTED); Phencyclidine Screen,Urine NONE DETECTED (NONDETECTED)
--- NOTE | 2019-10-21 19:49 | Internal Med History&Physical ---
HPI History of Present Illness Patient information: Note initiated : 10/21/19 at 7:49 pm Service Date, if different from initiated Date: [] Patient: Osmin Leslie 44 y/o M admitted on for altered mental status, lethargy. Chief Complaint: Confused History of present illness: Mr. Leslie is a 44 year old M history of DM type II/hypertension/Charcot foot and recurrent ulcer managed by Dr. Singh at wound care. Patient presents to the ER today with altered mental status since 8 hours, Fever and Lt LE swelling, purulent drainage. Patient's mother discovered him in a state of daze when she returned home. He was brought in for evaluation. Initial work-up was consistent with severe sepsis with white count 19.8/left lower extremity cellulitis with CT evidence of navicular and cuboid fracture. Orthopedics was consulted. Recommended hospitalization and conservative management and antibiotics for management of cellulitis. Following initial evaluation patient's entation much improved he however remains drowsy but able to answer most of the question. Patient was started on broad antibiotics after cultures were drawn. At the time of my evaluation patient is able to answer most the question. He denies chest pain, diarrhea, fever chills. Denies recent trauma. He endorses that his blood sugars have been fairly well controlled. 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 (Acute) Cellulitis (Acute) Foot, fracture, navicular (Acute) Cuboid fracture (Acute) Sepsis (Acute) Congestive heart failure (Acute) Open wound of right foot (Acute) Social History (Updated 02/21/19 @ 12:11 by Terell Crespo PA-C) smoking status: Current every day smoker tobacco type: cigarettes per day: 3 pack-years: 15 alcohol intake frequency: holiday/special occasion only substance use type: does not use MEDS/ALLERGIES Home Medications and Allergies Home Medications Medication Instructions Recorded Confirmed Type blood sugar diagnostic #100 strip 10/08/17 10/21/19 Rx blood-glucose meter #1 each 10/08/17 10/21/19 Rx metformin 750 mg PO BIDCC #60 tab.er.24h 10/08/17 10/22/19 Rx lisinopril-hydrochlorothiazide 1 tab PO QDAY 10/03/19 10/21/19 History pantoprazole 40 mg PO QDAY 10/03/19 10/21/19 History Allergies Allergy/AdvReac Type Severity Reaction Status Date / Time scallops Allergy Intermediate Swelling Verified 10/03/19 12:55 of Lip/Tongue/Throat [place] Allergy Intermediate Swelling Verified 10/03/19 12:55 of Lip/Tongue/Throat EXAM Constitutional Vitals: Temp Pulse Resp BP Pulse Ox 98.3 F 98 H 15 142/121 96 10/21/19 18:05 10/21/19 19:31 10/21/19 19:31 10/21/19 19:31 10/21/19 19:31 Drowsy and lethargic Head normocephalic Oral cavity dry No ear nose discharge Eye movement symmetrical Neck supple no lymphadenopathy S1-S2 occasionally irregular Nonlabored breathing Nondistended nontender abdomen Left lower extremity significant redness around the foot with multiple areas of ulceration medial and dorsal aspect with purulent drainage noted. No cyanosis clubbing noted Skin no suspicious lesion Psych drowsy and lethargic Neuro Limited higher function examination unremarkable DATA Data Completed and Pending Labs: Labs from last 24 hours 10/21/19 10/21/19 10/21/19 18:25 18:25 16:17 WBC RBC Hgb Hct MCV MCH MCHC RDW Plt Count MPV Gran % Lymph % (Auto) Garrett % (Auto) Eos % (Auto) Baso % (Auto) Gran # Lymph # (Auto) Garrett # (Auto) Eos # (Auto) Baso # (Auto) VBG Lactic Acid Sodium Potassium Chloride Carbon Dioxide Anion Gap BUN Creatinine GFR Calculation Glucose Calcium Total Bilirubin AST ALT Alkaline Phosphatase Ammonia 39 Troponin T Total Protein Albumin Globulin Albumin/Globulin Ratio Procalcitonin Urine Color Pending Urine Appearance Pending Urine pH Pending Ur Specific [place] Pending Urine Protein Pending Urine Glucose (UA) Pending Urine Ketones Pending Urine Occult Blood Pending Urine Nitrate Pending Urine Bilirubin Pending Urine Urobilinogen Pending Ur Leukocyte Esterase Pending Urine Opiates Screen None detected Ur Opiates Confirm Pending Ur Oxycodone Screen None detected Urine Methadone Screen None detected Ur Methadone Confirm Pending Ur Barbiturates Screen None detected Ur Barbiturate Confirm Pending Ur Phencyclidine Scrn None detected Urine PCP Confirm Pending Ur Amphetamines Screen None detected U Amphetamines Confirm Pending U Benzodiazepines Scrn None detected U Benzodiazepine Confm Pending Urine Cocaine Screen None detected Urine Cocaine Confirm Pending U Cannabinoids Confirm Pending U Marijuana (THC) Screen None detected Ethyl Alcohol 10/21/19 10/21/19 10/21/19 16:11 16:11 16:11 WBC RBC Hgb Hct MCV MCH MCHC RDW Plt Count MPV Gran % Lymph % (Auto) Garrett % (Auto) Eos % (Auto) Baso % (Auto) Gran # Lymph # (Auto) Garrett # (Auto) Eos # (Auto) Baso # (Auto) VBG Lactic Acid Sodium Potassium Chloride Carbon Dioxide Anion Gap BUN Creatinine GFR Calculation Glucose Calcium Total Bilirubin AST ALT Alkaline Phosphatase Ammonia Troponin T 0.02 Total Protein Albumin Globulin Albumin/Globulin Ratio Procalcitonin 0.07 Urine Color Urine Appearance Urine pH Ur Specific [place] Urine Protein Urine Glucose (UA) Urine Ketones Urine Occult Blood Urine Nitrate Urine Bilirubin Urine Urobilinogen Ur Leukocyte Esterase Urine Opiates Screen Ur Opiates Confirm Ur Oxycodone Screen Urine Methadone Screen Ur Methadone Confirm Ur Barbiturates Screen Ur Barbiturate Confirm Ur Phencyclidine Scrn Urine PCP Confirm Ur Amphetamines Screen U Amphetamines Confirm U Benzodiazepines Scrn U Benzodiazepine Confm Urine Cocaine Screen Urine Cocaine Confirm U Cannabinoids Confirm U Marijuana (THC) Screen Ethyl Alcohol < 0.010 10/21/19 10/21/19 10/21/19 16:11 16:10 16:10 WBC 19.8 H RBC 4.12 L Hgb 12.1 L Hct 36.9 L MCV 89.6 MCH 29.4 MCHC 32.8 RDW 12.8 Plt Count 435 MPV 10.1 Gran % 74.0 Lymph % (Auto) 12.8 L Garrett % (Auto) 9.2 Eos % (Auto) 3.4 Baso % (Auto) 0.6 Gran # 14.65 H Lymph # (Auto) 2.53 Garrett # (Auto) 1.81 H Eos # (Auto) 0.68 Baso # (Auto) 0.11 VBG Lactic Acid 1.1 Sodium 134 Potassium 4.2 Chloride 100 Carbon Dioxide 23 Anion Gap 11.0 BUN 16 Creatinine 0.9 GFR Calculation 104 Glucose 183 H Calcium 9.3 Total Bilirubin 1.1 H AST 19 ALT 19 Alkaline Phosphatase 86 Ammonia Troponin T Total Protein 6.5 Albumin 3.1 L Globulin 3.4 Albumin/Globulin Ratio 0.9 L Procalcitonin Urine Color Urine Appearance Urine pH Ur Specific [place] Urine Protein Urine Glucose (UA) Urine Ketones Urine Occult Blood Urine Nitrate Urine Bilirubin Urine Urobilinogen Ur Leukocyte Esterase Urine Opiates Screen Ur Opiates Confirm Ur Oxycodone Screen Urine Methadone Screen Ur Methadone Confirm Ur Barbiturates Screen Ur Barbiturate Confirm Ur Phencyclidine Scrn Urine PCP Confirm Ur Amphetamines Screen U Amphetamines Confirm U Benzodiazepines Scrn U Benzodiazepine Confm Urine Cocaine Screen Urine Cocaine Confirm U Cannabinoids Confirm U Marijuana (THC) Screen Ethyl Alcohol A/P Narrative A/P Narrative: * Left lower extremity cellulitis pancultures/antibiotic coverage/wound care consul * Sepsis secondary to above with evidence of endorgan dysfunction. Elevated white count at 19.8. Pancultures/antibiotic/crystalloids and management per guidlines. * history of hypertension restart home medications * DM type II sliding scale insulin/CC diet * GERD continue PPI * full code * inpatient admission * broad antibiotic coverage * pre-existing medical condition management on home medications * neurochecks * Wound care consult * Directed therapies/nutrition support Time Spent With Patient Time: Total time spent is greater than 50% in coordination of care (as documented) at patient's floor/unit and/or counseling patient:
[2019-10-21 20:18] LABS: Appearance,Urine CLEAR; Bacteria,Urine 0 /hpf (0); Bilirubin,Urine NEG (NEG); Color,Urine YELLOW; Culture Indicated,Urine NO; Glucose,Urine (UA) NEGATIVE (NEG); Ketones,Urine NEG (NEG); Leukocyte Esterase,Urine NEG /uL (NEG); Mucus,Urine MOD /hpf (0); Nitrate,Urine NEG (NEG); Protein,Urine 100 mg/dL (NEG); Urine Blood 0.03 mg/dL (<0.03); Urine RBC 6 /hpf (0-1); Urine Squamous Epithelial Cell 0 /hpf (0-4); Urine WBC 4 /hpf (0-4); Urobilinogen,Urine NEG (NEG)
[2019-10-21] MEDS ORDERED: BISACODYL 10 MG SUPP.RECT PR PRN (20:30)
[2019-10-21] MEDS ORDERED: MAGNESIUM SULFATE 2 GM/50 ML BAG IV PRN (20:30)
[2019-10-21] MEDS ORDERED: ACETAMINOPHEN 325 MG TABLET PO PRN (20:30)
[2019-10-21] MEDS ORDERED: POLYETHYLENE GLYCOL 3350 17 GM PACKET PO PRN (20:30)
[2019-10-21] MEDS ORDERED: DEXTROSE 31 GM ORAL.SUSP PO PRN (20:30)
[2019-10-21] MEDS ORDERED: DEXTROSE 50% 50 ML VIAL IV PRN (20:30)
[2019-10-21] MEDS ORDERED: ONDANSETRON 4 MG/2 ML VIAL IV PRN (20:30)
[2019-10-21] MEDS ORDERED: VANCOMYCIN PER PHARMACY IV SCH (20:30)
[2019-10-21] MEDS ORDERED: ONDANSETRON 4 MG ODT TABLET SL PRN (20:30)
[2019-10-21] MEDS ORDERED: METOPROLOL TARTRATE 5 MG/5 ML VIAL IV PRN (20:30)
[2019-10-21] MEDS ORDERED: NOREPINEPHRINE BITARTRATE 8 MG in 0.9 % SODIUM CHLORIDE 242 ML IV PRN (20:30)
[2019-10-21] MEDS ORDERED: hydrALAZINE 20 MG/ML VIAL IV PRN (20:30)
[2019-10-21] MEDS ORDERED: MELATONIN 3 MG TABLET PO PRN (20:30)
[2019-10-21] MEDS ORDERED: ACETAMINOPHEN 650 MG/65 ML BOTTLE IV PRN (20:30)
[2019-10-21] MEDS ORDERED: POTASSIUM CHLORIDE 20 MEQ PACKET PO PRN (20:30)
[2019-10-21] MEDS: 0.9 % SODIUM CHLORIDE 1,000 ML IV SCH (21:03)
[2019-10-21] MEDS: 0.9 % SODIUM CHLORIDE 250 ML IV SCH (21:06)
[2019-10-21] MEDS: DOCUSATE SODIUM 100 MG CAPSULE PO SCH (21:12)
[2019-10-21] MEDS: SENNOSIDES/DOCUSATE SODIUM 1 TAB TABLET PO SCH (21:12)
[2019-10-21] MEDS: 0.9 % SODIUM CHLORIDE 10 ML SYRINGE IV SCH (21:24)
[2019-10-21] MEDS: INSULIN LISPRO 1 UNIT/0.01 ML UNIT SQ SCH (21:24)
[2019-10-21] MEDS: HEPARIN 5,000 UNIT/ML VIAL SQ SCH (21:24)
[2019-10-22] MEDS: PIPERACILLIN SODIUM/TAZOBACTAM 3.375 GM in DEXTROSE 5% IN WATER 50 ML IV SCH ×5 (00:12→23:57)
[2019-10-22] MEDS: 0.9 % SODIUM CHLORIDE 10 ML SYRINGE IV SCH ×3 (05:38→20:44)
[2019-10-22 06:25] LABS: Hematocrit 35.2 % (40.1-51.0); Hemoglobin 11.1 g/dL (13.7-17.5); Mean Cell Volume 92.6 fL (80.0-100.0); Mean Corpuscular HGB Conc 31.5 g/dL (31.0-36.0); Mean Platelet Volume 10.2 fL (7.4-10.4); Platelet Count 406 K/mcL (140-440); Red Cell Distribution Width 13.1 % (11.5-14.5); WBC 17.2 K/mcL (4.50-11.00)
[2019-10-22 06:48] LABS: ALT/SGPT 16 U/l (0-40); AST/SGOT 15 U/l (0-37); Albumin 2.7 gm/dL (3.2-5.2); Albumin/Globulin Ratio 0.8 (1.0-2.3); Alkaline Phosphatase 82 U/L (39-117); Bilirubin,Direct 0.3 mg/dL (0.0-0.3); Bilirubin,Total 1.1 mg/dL (0.0-1.0); Blood Urea Nitrogen 13 mg/dl (6-20); Calcium 8.4 mg/dl (8.6-10.4); Carbon Dioxide 23 mmol/L (22-30); Chloride 101 mmol/L (96-108); Globulin 3.2 gm/dL (2.2-3.7); Glomerular Filtration Rate 104; Glucose 119 mg/dL (70-105); Lactate Dehydrogenase 253 U/L (94-250); Phosphorous 2.6 mg/dL (2.7-4.5); Triglycerides 94 mg/dl (<150); Uric Acid 6.8 mg/dL (2.5-8.0)
[2019-10-22] MEDS: INSULIN LISPRO 1 UNIT/0.01 ML UNIT SQ SCH ×4 (08:07→20:43)
[2019-10-22 08:24] LABS: Basophils % (Manual) 2 % (0-2); Eosinophils % (Manual) 4 % (0-7); Lymphocytes % 24 % (15-49); Monocytes % (Manual) 8 % (1-12); Platelet Estimate NORMAL (NORMAL); RBC Morphology NORMAL (NORMAL); Segmented Neutrophils % 62 % (38-78)
[2019-10-22] MEDS: 0.9 % SODIUM CHLORIDE 250 ML IV SCH ×2 (08:29→20:30)
[2019-10-22] MEDS: metFORMIN 500 MG TABLET PO SCH ×3 (08:39→16:54)
[2019-10-22] MEDS: MULTIVIT,THER IRON,CA,FA & MIN 1 TABLET PO SCH (08:40)
[2019-10-22] MEDS: VANCOMYCIN 1,500 MG in 0.9 % SODIUM CHLORIDE 500 ML IV SCH ×2 (08:40→20:43)
[2019-10-22] MEDS: HEPARIN 5,000 UNIT/ML VIAL SQ SCH ×2 (08:40→20:43)
[2019-10-22] MEDS: PANTOPRAZOLE 40 MG TABLET PO SCH (08:40)
[2019-10-22] MEDS: DOCUSATE SODIUM 100 MG CAPSULE PO SCH ×3 (08:40→20:30)
[2019-10-22] MEDS: sitaGLIPtin 100 MG TABLET PO SCH (08:40)
--- NOTE | 2019-10-22 09:51 | Internal Med Progress Note ---
SUBJECTIVE Subjective Patient information: Note initiated : 10/22/19 at 9:47 am Service Date, if different from initiated Date: [] Patient: Osmin Leslie 44 y/o M admitted on 10/21/19 for altered mental status, lethargy. Chief Complaint: [] History of present illness: Mr. Leslie is a 44 year old M history of DM type II/hypertension/Charcot foot and recurrent ulcer managed by Dr. Singh at wound care. Patient presents to the ER today with altered mental status since 8 hours, Fever and Lt LE swelling, purulent drainage. Patient's mother discovered him in a state of daze when she returned home. He was brought in for evaluation. Initial work-up was consistent with severe sepsis with white count 19.8/left lower extremity cellulitis with CT evidence of navicular and cuboid fracture. Orthopedics was consulted. Recommended hospitalization and conservative management and antibiotics for management of cellulitis. Following initial evaluation patient's entation much improved he however remains drowsy but able to answer most of the question. Patient was started on broad antibiotics after cultures were drawn. At the time of my evaluation patient is able to answer most the question. He denies chest pain, diarrhea, fever chills. Denies recent trauma. He endorses that his blood sugars have been fairly well controlled. 10/21-patient doing well. More lucid alert. Sitting on bed . Eating breakfast. No overnight telemetry events. Much improved swelling. Wound care on board. On antibiotic coverage. White count down to 17.2. Constitutional Vitals: Vital Signs Temp Pulse Resp BP Pulse Ox 98.6 F 91 H 26 H 156/94 94 10/22/19 08:01 10/22/19 08:01 10/22/19 08:01 10/22/19 08:01 10/22/19 08:01 Period Temp Pulse Resp BP Sys/Felix Pulse Ox Last 24 Hr 98.3 F-99.1 F 83-109 15-32 133-170/77-121 87-99 Intake and Output 10/21/19 10/22/19 10/22/19 21:59 05:59 13:59 Intake Total 2550 50 290 Output Total 550 Balance 2550 -500 290 Weight 135.715 kg alert oriented Nonlabored breathing Left foot swelling and redness improved No anxiety Intake & Output: Intake & Output 10/21/19 10/22/19 10/22/19 21:59 05:59 13:59 Intake Total 2550 50 290 Output Total 550 Balance 2550 -500 290 Weight 135.715 kg Intake: IV 2550 50 50 Sodium Chloride 0.9% 2,000 ml @ 2000 Wide Open IV .Q0M ONE Rx#: [id number] Zosyn 3.375 gm In Dextrose 5% 50 50 50 in Water 50 ml @ 100 mls/hr IV Q6H [facility] Rx#:[id number] Vancomycin 1,500 mg In Sodium 500 Chloride 0.9% 500 ml @ 333.3 mls/hr IV ONCE ONE Rx#: [id number] Oral 240 Output: Void Amount 550 Other: Meal Breakfast Percent of Meal Consumed 25% Feeding Ability Independent Urine Appearance Clear Urine Color Light Lanie Stool Size Moderate Stool Color Brown Stool Consistency Formed # Bowel Movements 1 OBJ DATA Labs CBC & Chem 7: 10/22/19 05:00 10/22/19 05:00 Labs: Abnormal Lab Results 10/22/19 10/22/19 10/21/19 05:00 05:00 18:25 WBC 17.2 H RBC 3.80 L Hgb 11.1 L Hct 35.2 L Lymph % (Auto) Gran # [place] # (Auto) Glucose 119 H Calcium 8.4 L Phosphorus 2.6 L Total Bilirubin 1.1 H Lactate Dehydrogenase 253 H Albumin 2.7 L Albumin/Globulin Ratio 0.8 L Urine Protein 100 A Urine Occult Blood 0.03 A Urine RBC 6 H 10/21/19 10/21/19 16:11 16:10 WBC 19.8 H RBC 4.12 L Hgb 12.1 L Hct 36.9 L Lymph % (Auto) 12.8 L Gran # 14.65 H [place] # (Auto) 1.81 H Glucose 183 H Calcium Phosphorus Total Bilirubin 1.1 H Lactate Dehydrogenase Albumin 3.1 L Albumin/Globulin Ratio 0.9 L Urine Protein Urine Occult Blood Urine RBC Meds: Medications Acetaminophen (Tylenol) 650 mg PO Q4-6HP PRN; Protocol PRN Reason: Per Pain Protocol/Fever > 101 Last Admin: 10/21/19 21:23 Dose: 650 mg Documented by: Bisacodyl (Dulcolax) 10 mg RI Q2-3DAYS PRN PRN Reason: Constipation Dextrose (Dextrose 50%) 0 ml IV UD PRN PRN Reason: Hypoglycemia Diagnostic Test (Pha) (Accu-Chek) 1 each FS ACHS [facility] Last Admin: 10/22/19 08:07 Dose: 1 each Documented by: Docusate Sodium (Colace) 100 mg PO BID [facility] Last Admin: 10/22/19 09:03 Dose: Not Given Documented by: Glucose (Insta-Glucose) 15 gm PO PRN PRN PRN Reason: Hypoglycemia Heparin Sodium (Porcine) (Heparin) 5,000 unit SQ Q12 [facility] Last Admin: 10/22/19 08:40 Dose: 5,000 unit Documented by: Hydralazine HCl (Apresoline) 10 mg IV Q4-6HP PRN PRN Reason: Hypertension Magnesium Sulfate (Magnesium Sulfate) 2 gm in 50 mls @ 50 mls/hr IV UD PRN PRN Reason: MG = or < 1.7 Sodium Chloride (Sodium Chloride 0.9%) 1,000 mls @ 50 mls/hr IV .Q20H [facility] Stop: 10/24/19 08:29 Last Admin: 10/21/19 21:03 Dose: 50 mls/hr Documented by: Acetaminophen (Ofirmev) 650 mg in 65 mls @ 130 mls/hr IV Q6HP PRN; Protocol PRN Reason: Per Pain Protocol/Fever > 101 Piperacillin Sod/Tazobactam (Sod 3.375 gm/ Dextrose) 50 mls @ 100 mls/hr IV Q6H [facility]; Protocol Last Infusion: 10/22/19 06:10 Dose: Infused Documented by: Norepinephrine Bitartrate 8 mg (/ Sodium Chloride) 250 mls @ 18.75 mls/hr IV Q14H PRN; Protocol PRN Reason: MAP<65 Sodium Chloride (Sodium Chloride 0.9%) 250 mls @ 20 mls/hr IV .[id number] [facility] Last Admin: 10/22/19 08:29 Dose: Not Given Documented by: Vancomycin HCl 1,500 mg/ (Sodium Chloride) 500 mls @ 333.3 mls/hr IV Q12H [facility] Last Admin: 10/22/19 08:40 Dose: 333.3 mls/hr Documented by: Insulin Human Lispro (Humalog) 0 unit SQ ACHS [facility]; Protocol Last Admin: 10/22/19 08:07 Dose: Not Given Documented by: Iron Carb/Multivit/[place]/Folic Acid (Multivitamin W/Minerals) 1 tab PO DAILY [facility] Last Admin: 10/22/19 08:40 Dose: 1 tab Documented by: Melatonin (Melatonin 3mg Tablet) 3 mg PO HSP PRN PRN Reason: Insomnia Last Admin: 10/21/19 21:23 Dose: 3 mg Documented by: Metformin HCl (Glucophage) 750 mg PO BIDCC [facility] Last Admin: 10/22/19 09:01 Dose: Not Given Documented by: Metoprolol Tartrate (Lopressor) 5 mg IV Q5M PRN PRN Reason: Heart Rate > 140 bpm Ondansetron HCl (Zofran Odt) 4 mg SL Q4-6HP PRN; Protocol PRN Reason: Nausea And Vomiting Ondansetron HCl (Zofran) 4 mg IV Q4-6HP PRN; Protocol PRN Reason: Nausea And Vomiting Pantoprazole Sodium (Protonix) 40 mg PO QDAY [facility] Last Admin: 10/22/19 08:40 Dose: 40 mg Documented by: Polyethylene Glycol (Miralax) 17 gm PO DAILYP PRN PRN Reason: Constipation Potassium Chloride (Klor-Con) 40 meq PO DAILYP PRN PRN Reason: K+ < 3.5 Senna/Docusate Sodium (Senna Plus Tablet) 1 tab PO HS [facility] Last Admin: 10/21/19 21:12 Dose: Not Given Documented by: Sitagliptin Phosphate (Januvia) 100 mg PO DAILY [facility] Last Admin: 10/22/19 08:40 Dose: 100 mg Documented by: Sodium Chloride (Saline Flush) 10 ml IV Q8 [facility] Last Admin: 10/22/19 05:38 Dose: 10 ml Documented by: Vancomycin HCl (Vancomycin Per Pharmacy) 1 order IV UD [facility]; Protocol A/P Narrative A/P Narrative: * Left lower extremity cellulitis -clinically improving on antibiotic coverage. Await cultures. Wound care on board. * Sepsis secondary to above with evidence of endorgan dysfunction. White count downtrending from 19.8-17.2. Continue antibiotic/management per guidelines. * history of hypertension continue home medications * DM type II well controlled on sliding scale insulin/CC diet. Metformin held in light of contrast * GERD continue PPI * full code Plan * Continue broad antibiotic coverage * pre-existing medical condition management on home medications * Wound care consult * Continue directed therapies/nutrition support Time Spent With Patient Time: Total time spent is greater than 50% in coordination of care (as documented) at patient's floor/unit and/or counseling patient: Total time spent with greater than 50% in coordination of care (as documented) at patient's floor/unit and/or counseling patient:: Greater than 35 minutes
--- NOTE | 2019-10-22 16:24 | General Surgery Consult Note ---
HPI Data of Consult Patient: known to practice within the last 3 years Consult date: 10/22/19 Requesting physician: Tucker Duffy Primary Care Provider: Mary Davis Consult Narrative Patient Information: Note initiated : 10/22/19 at 4:04 pm Service Date, if different from initiated Date: [] Patient: Osmin Leslie 44 y/o M admitted on 10/21/19 for altered mental status, lethargy. Chief Complaint: [] Reason for consult: SESPSIS syndrome. Acute fractures LEFT cuboid, navicluar bones, AMS. cc:: CC: Tucker Duffy Review of Systems ROS unobtainable: due to mental status (AMS at time of admission. Alert this morning, but confused.) All systems: reviewed and no additional remarkable complaints except as stated (Interval change with fever, cellulitis LEFT foot and edema foot, heel and leg. ) Constitutional Constitutional: Present as per HPI, fever(s) and malaise Endocrine Endocrine: Present other (Elevated blood sugars and leucocytosis. 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 (Acute) Cellulitis (Acute) Foot, fracture, navicular (Acute) Cuboid fracture (Acute) Sepsis (Acute) Congestive heart failure (Acute) Open wound of right foot (Acute) Social History (Updated 02/21/19 @ 12:11 by Terell Crespo PA-C) smoking status: Current every day smoker tobacco type: cigarettes per day: 3 pack-years: 15 alcohol intake frequency: holiday/special occasion only substance use type: does not use MEDS/ALLERGIES Home Medications and Allergies Home Medications Medication Instructions Recorded Confirmed Type blood sugar diagnostic #100 strip 10/08/17 10/21/19 Rx blood-glucose meter #1 each 10/08/17 10/21/19 Rx metformin 750 mg PO BIDCC #60 tab.er.24h 10/08/17 10/22/19 Rx lisinopril-hydrochlorothiazide 1 tab PO QDAY 10/03/19 10/21/19 History pantoprazole 40 mg PO QDAY 10/03/19 10/21/19 History Allergies Allergy/AdvReac Type Severity Reaction Status Date / Time scallops Allergy Severe Swelling Verified 10/22/19 10:48 of Lip/Tongue/Throat [place] Allergy Severe Swelling Verified 10/22/19 10:48 of Lip/Tongue/Throat Physical Examination Vital Signs Vital signs: Temp Pulse Resp BP Pulse Ox 99.2 F H 102 H 20 161/98 93 10/22/19 16:01 10/22/19 16:01 10/22/19 16:01 10/22/19 16:01 10/22/19 16:01 General physical appearance General physical exam: well developed, well nourished, no distress and no pain Eyes Eye exam: PERRL and normal ocular movement ENT ENT exam: normal pinna, normal mucosa and no congestion Head Head exam IM: Present atraumatic and normocephalic Neck Neck exam: no masses and no venous distension Cardiovascular Cardiovascular exam IM: Present tachycardia Respiratory Respiratory exam: normal expansion, clear to auscultation and other (Tachypnea) Abdomen Abdomen: Present soft, non tender and bowel sounds Integumentary Integumentary: Present other (Cellulitis of LEFT foot extending to ankle and edma of leg, ankle and foot.) Neurologic Neurologic: Present confused and other (Diabetic peripheral neuropathy. ) Musculoskeletal Musculoskeletal: Present other (Non ambulatory. Edema LEFT foot,ankle and leg. 2 chronic pressure ulcer wounds Lateral mid foot ) Psychiatric Psychiatric: Present oriented to person and speech is normal Results Labs Result diagrams: 10/22/19 05:00 10/22/19 05:00 Labs: Abnormal lab results 10/21/19 10/21/19 10/21/19 Range/Units 16:10 16:11 18:25 WBC 19.8 H (4.50-11.00) K/mcL RBC 4.12 L (4.63-6.08) M/mcL Hgb 12.1 L (13.7-17.5) g/dL Hct 36.9 L (40.1-51.0) % Lymph % (Auto) 12.8 L (15.5-49.0) % Gran # 14.65 H (1.80-8.00) K/mcL [place] # (Auto) 1.81 H (0.10-0.90) K/mcL Glucose 183 H (70-105) mg/dL Calcium (8.6-10.4) mg/dl Phosphorus (2.7-4.5) mg/dL Total Bilirubin 1.1 H (0.0-1.0) mg/dL Lactate Dehydrogenase (94-250) U/L Albumin 3.1 L (3.2-5.2) gm/dL Albumin/Globulin Ratio 0.9 L (1.0-2.3) Urine Protein 100 A (NEG) mg/dL Urine Occult Blood 0.03 A (<0.03) mg/dL Urine RBC 6 H (0-1) /hpf 10/22/19 10/22/19 Range/Units 05:00 05:00 WBC 17.2 H (4.50-11.00) K/mcL RBC 3.80 L (4.63-6.08) M/mcL Hgb 11.1 L (13.7-17.5) g/dL Hct 35.2 L (40.1-51.0) % Lymph % (Auto) (15.5-49.0) % Gran # (1.80-8.00) K/mcL [place] # (Auto) (0.10-0.90) K/mcL Glucose 119 H (70-105) mg/dL Calcium 8.4 L (8.6-10.4) mg/dl Phosphorus 2.6 L (2.7-4.5) mg/dL Total Bilirubin 1.1 H (0.0-1.0) mg/dL Lactate Dehydrogenase 253 H (94-250) U/L Albumin 2.7 L (3.2-5.2) gm/dL Albumin/Globulin Ratio 0.8 L (1.0-2.3) Urine Protein (NEG) mg/dL Urine Occult Blood (<0.03) mg/dL Urine RBC (0-1) /hpf Diabetes panel 10/21/19 10/22/19 Range/Units 16:10 05:00 Sodium 134 135 (133-145) mmol/L Potassium 4.2 4.0 (3.3-5.1) mmol/L Chloride 100 101 (96-108) mmol/L Carbon Dioxide 23 23 (22-30) mmol/L BUN 16 13 (6-20) mg/dl Creatinine 0.9 0.9 (0.7-1.2) mg/dl Glucose 183 H 119 H (70-105) mg/dL Calcium 9.3 8.4 L (8.6-10.4) mg/dl AST 19 15 (0-37) U/l ALT 19 16 (0-40) U/l Alkaline Phosphatase 86 82 (39-117) U/L Total Protein 6.5 5.9 (5.9-8.4) gm/dL Albumin 3.1 L 2.7 L (3.2-5.2) gm/dL Triglycerides 94 (<150) mg/dl Calcium panel 10/21/19 10/22/19 Range/Units 16:10 05:00 Calcium 9.3 8.4 L (8.6-10.4) mg/dl Phosphorus 2.6 L (2.7-4.5) mg/dL Albumin 3.1 L 2.7 L (3.2-5.2) gm/dL Pituitary panel 10/21/19 10/22/19 Range/Units 16:10 05:00 Sodium 134 135 (133-145) mmol/L Potassium 4.2 4.0 (3.3-5.1) mmol/L Chloride 100 101 (96-108) mmol/L Carbon Dioxide 23 23 (22-30) mmol/L BUN 16 13 (6-20) mg/dl Creatinine 0.9 0.9 (0.7-1.2) mg/dl Glucose 183 H 119 H (70-105) mg/dL Calcium 9.3 8.4 L (8.6-10.4) mg/dl Adrenal panel 10/21/19 10/22/19 Range/Units 16:10 05:00 Sodium 134 135 (133-145) mmol/L Potassium 4.2 4.0 (3.3-5.1) mmol/L Chloride 100 101 (96-108) mmol/L Carbon Dioxide 23 23 (22-30) mmol/L BUN 16 13 (6-20) mg/dl Creatinine 0.9 0.9 (0.7-1.2) mg/dl Glucose 183 H 119 H (70-105) mg/dL Calcium 9.3 8.4 L (8.6-10.4) mg/dl Total Bilirubin 1.1 H 1.1 H (0.0-1.0) mg/dL AST 19 15 (0-37) U/l ALT 19 16 (0-40) U/l Alkaline Phosphatase 86 82 (39-117) U/L Total Protein 6.5 5.9 (5.9-8.4) gm/dL Albumin 3.1 L 2.7 L (3.2-5.2) gm/dL All other labs normal. A/P Narrative A/P Narrative: Assessment: LEFT foot acute fractures Cuboid and navicular bones. SEPSIS DFU chronic lateral mid / posterior border. Plan: Continue current management. Podiatry consult Dr. Slade Christian. ( Local Superintendent ) FOLLOWING PATIENT along with Local Superintendent and Hospitalist. Time Spent With Patient Time: Total time spent is greater than 50% in coordination of care (as documented) at patient's floor/unit and/or counseling patient: Total time spent with greater than 50% in coordination of care (as documented) at patient's floor/unit and/or counseling patient:: 25 - 35 minutes
[2019-10-22] MEDS: 0.9 % SODIUM CHLORIDE 1,000 ML IV SCH (20:15)
[2019-10-22] MEDS: SENNOSIDES/DOCUSATE SODIUM 1 TAB TABLET PO SCH (20:30)
[2019-10-22] MEDS ORDERED: IBUPROFEN 400 MG TABLET PO PRN (20:38)
[2019-10-22] MEDS: MUPIROCIN OINT 2% 22GM TOPICAL SCH (20:44)
[2019-10-22] MEDS ORDERED: IBUPROFEN 200 MG TABLET PO PRN (21:45)
--- NOTE | 2019-10-22 21:52 | Infectious Disease Consult ---
HPI Data of Consult Primary Care Provider: Mary Davis Consult Narrative Patient Information: Note initiated : 10/22/19 at 9:46 pm Service Date, if different from initiated Date: [] Patient: Osmin Leslie 44 y/o M admitted on 10/21/19 for altered mental status, lethargy. Chief Complaint: [44-year-old diabetic male well known to me from his right lateral foot osteomyelitis few years ago, is admitted to [facility] with left foot and leg swelling. Pt is followed by Dr. Singh for wound care for his left foot wounds. Pt had an x-ray done on 09/23/2019 which was neg for fracture or osteomyelitis. Pt developed acute onset confusion yesterday because of which he was brought o [facility] ED. IN ED, he was afebrile BP in 150s. WBC was 19.8. CT left lower extremity showed cellulitis with navicular and cuboid fracture. Patient was started on broad antibiotics after blood cultures were drawn. He was on IV Vanc and IV Zosyn initially. At time of visit, pt confirmed the above Hx. Added that he got sick all of a sudden. Denied any skin blisters in last few weeks. Denied any trauma, falls, bites by pets. Mentions that his diabetes in under control. 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 (Acute) Cellulitis (Acute) Foot, fracture, navicular (Acute) Cuboid fracture (Acute) Sepsis (Acute) Congestive heart failure (Acute) Open wound of right foot (Acute) Social History smoking status: Former smoker alcohol intake frequency: holiday/special occasion only substance use type: does not use MEDS/ALLERGIES Home Medications and Allergies Home Medications Medication Instructions Recorded Confirmed Type blood sugar diagnostic #100 strip 10/08/17 10/21/19 Rx blood-glucose meter #1 each 10/08/17 10/21/19 Rx metformin 750 mg PO BIDCC #60 tab.er.24h 10/08/17 10/22/19 Rx lisinopril-hydrochlorothiazide 1 tab PO QDAY 10/03/19 10/21/19 History pantoprazole 40 mg PO QDAY 10/03/19 10/21/19 History amlodipine 2.5 mg PO DAILY #30 tab 10/24/19 Rx ceftriaxone 2 g IV QDAY #1 each 10/24/19 Rx ceftriaxone 2 gm IV Q24H #0 ea 10/24/19 Rx vancomycin 1,500 mg IV Q12H #1 each 10/24/19 Rx Allergies Allergy/AdvReac Type Severity Reaction Status Date / Time scallops Allergy Severe Swelling Verified 10/22/19 10:48 of Lip/Tongue/Throat [place] Allergy Severe Swelling Verified 10/22/19 10:48 of Lip/Tongue/Throat Physical Examination Vital Signs Vital signs: Temp Pulse Resp BP Pulse Ox 37.3 C H 102 H 20 153/94 92 10/22/19 20:39 10/22/19 20:39 10/22/19 18:01 10/22/19 20:39 10/22/19 20:39 Constitutional General appearance: no acute distress and alert EENT ENT: other (no thrush) Respiratory Auscultation: bilateral: clear Cardiovascular Cardiovascular: regular rate and rhythm and other (s1 s2 normal, no murmurs heard) Gastrointestinal Gastrointestinal: normoactive bowel sounds, soft and non-tender Extremities Extremities: other (left lateral foot has 2 wounds. Distal one probes to bone, with scant yellow drainage. proximal one is scabbed, and doesnot drain. Pt also has a scabbed wound over proximal dorsal foot. All wounds have surrouding redness and swelling which continues on to distal 1/2 of left leg. No ulcer on left leg) Results Laboratory Findings CBC and BMP: 10/24/19 05:45 10/24/19 05:45 Abnormal lab findings: Abnormal Labs 10/21/19 10/21/19 10/21/19 16:10 16:11 18:25 WBC 19.8 H RBC 4.12 L Hgb 12.1 L Hct 36.9 L Lymph % (Auto) 12.8 L Gran # 14.65 H [place] # (Auto) 1.81 H Glucose 183 H Calcium Phosphorus Total Bilirubin 1.1 H Lactate Dehydrogenase Albumin 3.1 L Albumin/Globulin Ratio 0.9 L Urine Protein 100 A Urine Occult Blood 0.03 A Urine RBC 6 H 10/22/19 10/22/19 05:00 05:00 WBC 17.2 H RBC 3.80 L Hgb 11.1 L Hct 35.2 L Lymph % (Auto) Gran # [place] # (Auto) Glucose 119 H Calcium 8.4 L Phosphorus 2.6 L Total Bilirubin 1.1 H Lactate Dehydrogenase 253 H Albumin 2.7 L Albumin/Globulin Ratio 0.8 L Urine Protein Urine Occult Blood Urine RBC Microbiology: Microbiology 10/22/19 17:14 Foot - Left Gram Stain - Preliminary 10/21/19 16:21 Blood Blood Culture - Preliminary 10/21/19 16:17 Blood Blood Culture - Preliminary Gram positive cocci 10/21/19 20:27 Nose - Both Right and Left MRSA (PCR) - Final A/P Narrative A/P Narrative: A: 1. Left foot and leg cellulitis: non purulent - source left foot chronic wounds - MRSA nasal PCR neg 2. DM2 with neuropathy 3. Staph epidermidis isolated from 02/22 bottles: await culture results before concluding if it is bacteremia or not Recommendations: - repeat 2 sets of blood Cx tomorrow - Continue IV Vanc per pharmacy assisted dosing. Check trough before the 4th dose - Stop IV Zosyn tomorrow. Start IV Ceftriaxone 2 gm q24 hrs - left leg and foot elevation - wound care per Dr Singh - wound Cx sent will follow Jayson Escobar MD Infectious Diseases Time Spent With Patient Time: Total time spent is greater than 50% in coordination of care (as documented) at patient's floor/unit and/or counseling patient:
[2019-10-23] MEDS: 0.9 % SODIUM CHLORIDE 10 ML SYRINGE IV SCH ×3 (05:40→20:59)
[2019-10-23] MEDS: PIPERACILLIN SODIUM/TAZOBACTAM 3.375 GM in DEXTROSE 5% IN WATER 50 ML IV SCH (05:40)
[2019-10-23 06:41] LABS: Hematocrit 36.1 % (40.1-51.0); Hemoglobin 11.5 g/dL (13.7-17.5); Mean Cell Volume 91.6 fL (80.0-100.0); Mean Corpuscular HGB Conc 31.9 g/dL (31.0-36.0); Mean Platelet Volume 9.9 fL (7.4-10.4); Platelet Count 433 K/mcL (140-440); RBC 3.94 M/mcL (4.63-6.08); Red Cell Distribution Width 12.9 % (11.5-14.5); WBC 18.4 K/mcL (4.50-11.00)
[2019-10-23] MEDS: PANTOPRAZOLE 40 MG TABLET PO SCH ×2 (06:53→08:12)
[2019-10-23 07:10] LABS: ALT/SGPT 18 U/l (0-40); AST/SGOT 17 U/l (0-37); Albumin 2.8 gm/dL (3.2-5.2); Albumin/Globulin Ratio 0.8 (1.0-2.3); Alkaline Phosphatase 86 U/L (39-117); Bilirubin,Total 1.1 mg/dL (0.0-1.0); Blood Urea Nitrogen 12 mg/dl (6-20); Calcium 8.4 mg/dl (8.6-10.4); Carbon Dioxide 21 mmol/L (22-30); Chloride 103 mmol/L (96-108); Globulin 3.3 gm/dL (2.2-3.7); Glomerular Filtration Rate 92; Glucose 109 mg/dL (70-105); Lactate Dehydrogenase 231 U/L (94-250); Phosphorous 2.4 mg/dL (2.7-4.5); Triglycerides 89 mg/dl (<150); Uric Acid 5.6 mg/dL (2.5-8.0)
[2019-10-23 07:15] LABS: Bilirubin,Direct 0.4 mg/dL (0.0-0.3)
[2019-10-23] MEDS: INSULIN LISPRO 1 UNIT/0.01 ML UNIT SQ SCH ×4 (07:58→21:03)
[2019-10-23] MEDS: metFORMIN 500 MG TABLET PO SCH ×2 (07:59→17:17)
[2019-10-23] MEDS: 0.9 % SODIUM CHLORIDE 250 ML IV SCH (08:29)
[2019-10-23 08:32] LABS: Eosinophils % (Manual) 2 % (0-7); Lymphocytes % 17 % (15-49); Monocytes % (Manual) 9 % (1-12); Platelet Estimate NORMAL (NORMAL); RBC Morphology NORMAL (NORMAL); Segmented Neutrophils % 72 % (38-78)
--- NOTE | 2019-10-23 09:16 | XRay Report ---
CLINICAL INFORMATION: Dyspnea COMPARISON: 10/21/2019 FINDINGS: The heart is mildly enlarged. Mediastinum is unremarkable. Pulmonary vessels show mild upper lobe redistribution. No definite edema. There are no infiltrates or effusions. IMPRESSION: Borderline CHF or volume overload. Note: Patient has had multiple (eight) plain films over the past six months presuming for cardiorespiratory symptoms. CT has not been performed at [facility]. At this juncture, consider CT pulmonary angiogram to more specifically evaluate the lungs for pneumonia, edema pattern digesting CHF, to exclude pulmonary emboli in the region of her symptoms and get a reasonable visualization of the proximal coronary arteries Interpreted and Authenticated by: Glimar Wilson 10/23/19
[2019-10-23] MEDS: sitaGLIPtin 100 MG TABLET PO SCH (09:21)
[2019-10-23] MEDS: HEPARIN 5,000 UNIT/ML VIAL SQ SCH ×2 (09:21→21:02)
[2019-10-23] MEDS: DOCUSATE SODIUM 100 MG CAPSULE PO SCH ×2 (09:21→20:50)
[2019-10-23] MEDS: MULTIVIT,THER IRON,CA,FA & MIN 1 TABLET PO SCH (09:21)
[2019-10-23] MEDS: VANCOMYCIN 1,500 MG in 0.9 % SODIUM CHLORIDE 500 ML IV SCH ×2 (10:08→20:59)
--- NOTE | 2019-10-23 10:43 | Internal Med Progress Note ---
SUBJECTIVE Subjective Patient information: Note initiated : 10/23/19 at 10:38 am Service Date, if different from initiated Date: [] Patient: Osmin Leslie 44 y/o M admitted on 10/21/19 for altered mental status, lethargy. Chief Complaint: [] History of present illness: Mr. Leslie is a 44 year old M history of DM type II/hypertension/Charcot foot and recurrent ulcer managed by Dr. Singh at [facility]. Patient presents to the ER today with altered mental status since 8 hours, Fever and Lt LE swelling, purulent drainage. Patient's mother discovered him in a state of daze when she returned home. He was brought in for evaluation. Initial work-up was consistent with severe sepsis with white count 19.8/left lower extremity cellulitis with CT evidence of navicular and cuboid fracture. Orthopedics was consulted. Recommended hospitalization and conservative management and antibiotics for management of cellulitis. Following initial evaluation patient's entation much improved he however remains drowsy but able to answer most of the question. Patient was started on broad antibiotics after cultures were drawn. At the time of my evaluation patient is able to answer most the question. He denies chest pain, diarrhea, fever chills. Denies recent trauma. He endorses that his blood sugars have been fairly well controlled. 10/21-patient doing well. More lucid alert. Sitting on bed . Eating breakfast. No overnight telemetry events. Much improved swelling. Wound care on board. On antibiotic coverage. White count down to 17.2. 10/22-patient doing a lot better. Continuing antibiotic coverage. Wound care/podiatry on board. On blood culture Rocephin/vancomycin per ID. White count at 18.4. Blood culture 10/20 gram-positive cocci, surveillance cultures pending. Echocardiogram pending. No overnight fever chills. No telemetry events. Transition to medical floor. Constitutional Vitals: Vital Signs Temp Pulse Resp BP Pulse Ox 98.2 F 97 H 20 175/95 94 10/23/19 08:00 10/23/19 08:00 10/23/19 06:02 10/23/19 07:01 10/23/19 08:00 Period Temp Pulse Resp BP Sys/Felix Pulse Ox Last 24 Hr 97.8 F-99.2 F 86-105 16-28 142-175/75-98 86-94 Intake and Output 10/22/19 10/23/19 10/23/19 21:59 05:59 13:59 Intake Total 1050 1270 150 Output Total 300 550 300 Balance 750 720 -150 Weight 137.892 kg Alert oriented Minimal anxiety Swelling and erythema left lower extremity improving Intake & Output: Intake & Output 10/22/19 10/23/19 10/23/19 21:59 05:59 13:59 Intake Total 1050 1270 150 Output Total 300 550 300 Balance 750 720 -150 Weight 137.892 kg Intake: IV 1050 550 50 Sodium Chloride 0.9% 1,000 ml @ 1000 50 mls/hr IV .Q20H [facility] Rx#: [id number] Zosyn 3.375 gm In Dextrose 5% 50 50 50 in Water 50 ml @ 100 mls/hr IV Q6H [facility] Rx#:[id number] Vancomycin 1,500 mg In Sodium 500 Chloride 0.9% 500 ml @ 333.3 mls/hr IV Q12H [facility] Rx#: [id number] Oral 720 100 Output: Void Amount 300 550 300 Other: Meal Dinner Percent of Meal Consumed 75% Feeding Ability Independent Urine Appearance Clear Clear Clear Urine Color Light Lanie Light Lanie Light Lanie Urine Odor Normal Normal Stool Size Moderate Moderate Stool Color Brown Brown Stool Consistency Soft Soft Formed Formed # Bowel Movements 1 OBJ DATA Labs CBC & Chem 7: 10/23/19 05:10 10/23/19 05:10 Labs: Abnormal Lab Results 10/23/19 10/23/19 10/22/19 05:10 05:10 05:00 WBC 18.4 H RBC 3.94 L Hgb 11.5 L Hct 36.1 L Lymph % (Auto) Gran # [place] # (Auto) Carbon Dioxide 21 L Glucose 109 H 119 H Calcium 8.4 L 8.4 L Phosphorus 2.4 L 2.6 L Total Bilirubin 1.1 H 1.1 H Direct Bilirubin 0.4 H Lactate Dehydrogenase 253 H Albumin 2.8 L 2.7 L Albumin/Globulin Ratio 0.8 L 0.8 L Urine Protein Urine Occult Blood Urine RBC 10/22/19 10/21/19 10/21/19 05:00 18:25 16:11 WBC 17.2 H 19.8 H RBC 3.80 L 4.12 L Hgb 11.1 L 12.1 L Hct 35.2 L 36.9 L Lymph % (Auto) 12.8 L Gran # 14.65 H [place] # (Auto) 1.81 H Carbon Dioxide Glucose Calcium Phosphorus Total Bilirubin Direct Bilirubin Lactate Dehydrogenase Albumin Albumin/Globulin Ratio Urine Protein 100 A Urine Occult Blood 0.03 A Urine RBC 6 H 10/21/19 16:10 WBC RBC Hgb Hct Lymph % (Auto) Gran # [place] # (Auto) Carbon Dioxide Glucose 183 H Calcium Phosphorus Total Bilirubin 1.1 H Direct Bilirubin Lactate Dehydrogenase Albumin 3.1 L Albumin/Globulin Ratio 0.9 L Urine Protein Urine Occult Blood Urine RBC Meds: Medications Acetaminophen (Tylenol) 650 mg PO Q4-6HP PRN; Protocol PRN Reason: Per Pain Protocol/Fever > 101 Last Admin: 10/21/19 21:23 Dose: 650 mg Documented by: Bisacodyl (Dulcolax) 10 mg [place] Q2-3DAYS PRN PRN Reason: Constipation Dextrose (Dextrose 50%) 0 ml IV UD PRN PRN Reason: Hypoglycemia Diagnostic Test (Pha) (Accu-Chek) 1 each FS ACHS [facility] Last Admin: 10/23/19 07:58 Dose: 1 each Documented by: Docusate Sodium (Colace) 100 mg PO BID [facility] Last Admin: 10/23/19 09:21 Dose: Not Given Documented by: Glucose (Insta-Glucose) 15 gm PO PRN PRN PRN Reason: Hypoglycemia Heparin Sodium (Porcine) (Heparin) 5,000 unit SQ Q12 [facility] Last Admin: 10/23/19 09:21 Dose: 5,000 unit Documented by: Hydralazine HCl (Apresoline) 10 mg IV Q4-6HP PRN PRN Reason: Hypertension Magnesium Sulfate (Magnesium Sulfate) 2 gm in 50 mls @ 50 mls/hr IV UD PRN PRN Reason: MG = or < 1.7 Sodium Chloride (Sodium Chloride 0.9%) 1,000 mls @ 50 mls/hr IV .Q20H [facility] Stop: 10/24/19 08:29 Last Admin: 10/22/19 20:15 Dose: 50 mls/hr Documented by: Acetaminophen (Ofirmev) 650 mg in 65 mls @ 130 mls/hr IV Q6HP PRN; Protocol PRN Reason: Per Pain Protocol/Fever > 101 Piperacillin Sod/Tazobactam (Sod 3.375 gm/ Dextrose) 50 mls @ 100 mls/hr IV Q6H [facility]; Protocol Last Infusion: 10/23/19 06:45 Dose: Infused Documented by: Norepinephrine Bitartrate 8 mg (/ Sodium Chloride) 250 mls @ 18.75 mls/hr IV Q14H PRN; Protocol PRN Reason: MAP<65 Sodium Chloride (Sodium Chloride 0.9%) 250 mls @ 20 mls/hr IV .[id number] [facility] Last Admin: 10/23/19 08:29 Dose: Not Given Documented by: Vancomycin HCl 1,500 mg/ (Sodium Chloride) 500 mls @ 333.3 mls/hr IV Q12H [facility] Last Admin: 10/23/19 10:08 Dose: 250 mls/hr Documented by: Ibuprofen (Motrin) 400 mg PO TIDP PRN; Protocol PRN Reason: Per Pain Protocol Insulin Human Lispro (Humalog) 0 unit SQ ACHS [facility]; Protocol Last Admin: 10/23/19 07:58 Dose: Not Given Documented by: Iron Carb/Multivit/Group Activities Aide/Folic Acid (Multivitamin W/Minerals) 1 tab PO DAILY [facility] Last Admin: 10/23/19 09:21 Dose: 1 tab Documented by: Melatonin (Melatonin 3mg Tablet) 3 mg PO HSP PRN PRN Reason: Insomnia Last Admin: 10/21/19 21:23 Dose: 3 mg Documented by: [facility]) [facility] Last Admin: 10/23/19 07:59 Dose: Not Given Documented by: Metoprolol Tartrate (Lopressor) 5 mg IV Q5M PRN PRN Reason: Heart Rate > 140 bpm Mupirocin (Bactroban Oint 2%) 1 dose TOPICAL BID [facility] Last Admin: 10/22/19 20:44 Dose: 1 dose Documented by: Ondansetron HCl (Zofran Odt) 4 mg SL Q4-6HP PRN; Protocol PRN Reason: Nausea And Vomiting Ondansetron HCl (Zofran) 4 mg IV Q4-6HP PRN; Protocol PRN Reason: Nausea And Vomiting Pantoprazole Sodium (Protonix) 40 mg PO QDAY [facility] Last Admin: 10/23/19 08:12 Dose: Not Given Documented by: Polyethylene Glycol (Miralax) 17 gm PO DAILYP PRN PRN Reason: Constipation Potassium Chloride (Klor-Con) 40 meq PO DAILYP PRN PRN Reason: K+ < 3.5 Senna/Docusate Sodium (Senna Plus Tablet) 1 tab PO HS [facility] Last Admin: 10/22/19 20:30 Dose: Not Given Documented by: Sitagliptin Phosphate (Januvia) 100 mg PO DAILY [facility] Last Admin: 10/23/19 09:21 Dose: 100 mg Documented by: Sodium Chloride (Saline Flush) 10 ml IV Q8 [facility] Last Admin: 10/23/19 05:40 Dose: 10 ml Documented by: Vancomycin HCl (Vancomycin Per Pharmacy) 1 order IV UD [facility]; Protocol A/P Narrative A/P Narrative: * Left lower extremity cellulitis -White count uptrending. 18.4 today. On antibiotic coverage per ID. Wound care on board * Gram-positive bacteremia, surveillance cultures pending. Echocardiogram pending rule out infective endocarditis. * Sepsis secondary to above with evidence of endorgan dysfunction. WBC 18.4. * history of hypertension continue home medications, suboptimally controlled. * DM type II well controlled on sliding scale insulin/CC diet. Metformin held in light of contrast * GERD continue PPI * full code Plan * Switch Zosyn to Rocephin per ID * Continue pre-existing medical condition management on home medications * Wound management per wound care * Continue directed therapies/nutrition support Time Spent With Patient Time: Total time spent is greater than 50% in coordination of care (as documented) at patient's floor/unit and/or counseling patient: Total time spent with greater than 50% in coordination of care (as documented) at patient's floor/unit and/or counseling patient:: Greater than 35 minutes
[2019-10-23] MEDS ORDERED: NOREPINEPHRINE BITARTRATE 8 MG in 0.9 % SODIUM CHLORIDE 242 ML IV PRN (11:00)
[2019-10-23] MEDS ORDERED: hydrALAZINE 20 MG/ML VIAL IV PRN ×2 (11:00)
[2019-10-23] MEDS ORDERED: POTASSIUM CHLORIDE 20 MEQ PACKET PO PRN (11:00)
[2019-10-23] MEDS ORDERED: ONDANSETRON 4 MG/2 ML VIAL IV PRN (11:00)
[2019-10-23] MEDS ORDERED: IBUPROFEN 200 MG TABLET PO PRN (11:00)
[2019-10-23] MEDS ORDERED: DEXTROSE 31 GM ORAL.SUSP PO PRN (11:00)
[2019-10-23] MEDS ORDERED: MELATONIN 3 MG TABLET PO PRN (11:00)
[2019-10-23] MEDS ORDERED: 0.9 % SODIUM CHLORIDE 250 ML IV SCH ×2 (11:00)
[2019-10-23] MEDS ORDERED: ACETAMINOPHEN 650 MG/65 ML BOTTLE IV PRN (11:00)
[2019-10-23] MEDS ORDERED: BISACODYL 10 MG SUPP.RECT PR PRN (11:00)
[2019-10-23] MEDS ORDERED: VANCOMYCIN PER PHARMACY IV SCH (11:00)
[2019-10-23] MEDS ORDERED: ACETAMINOPHEN 325 MG TABLET PO PRN (11:00)
[2019-10-23] MEDS ORDERED: 0.9 % SODIUM CHLORIDE 1,000 ML IV SCH (11:00)
[2019-10-23] MEDS ORDERED: ONDANSETRON 4 MG ODT TABLET SL PRN (11:00)
[2019-10-23] MEDS ORDERED: DEXTROSE 50% 50 ML VIAL IV PRN (11:00)
[2019-10-23] MEDS ORDERED: MAGNESIUM SULFATE 2 GM/50 ML BAG IV PRN (11:00)
[2019-10-23] MEDS ORDERED: METOPROLOL TARTRATE 5 MG/5 ML VIAL IV PRN (11:00)
[2019-10-23] MEDS ORDERED: POLYETHYLENE GLYCOL 3350 17 GM PACKET PO PRN (11:00)
--- NOTE | 2019-10-23 12:08 | Internal Med Progress Note ---
SUBJECTIVE Subjective Patient information: Note initiated : 10/23/19 at 12:07 pm Service Date, if different from initiated Date: [] Patient: Osmin Leslie 44 y/o M admitted on 10/21/19 for altered mental status, lethargy. Chief Complaint: [Pt feels better than yesterday, denied any fever, chills, n/v, diarrhea. Denied any left foot pain.] Constitutional Vitals: Vital Signs Temp Pulse Resp BP Pulse Ox 36.8 C 97 H 20 175/95 94 10/23/19 08:00 10/23/19 08:00 10/23/19 06:02 10/23/19 07:01 10/23/19 08:00 Period Temp Pulse Resp BP Sys/Felix Pulse Ox Last 24 Hr 36.6 C-37.3 C 86-105 16-28 142-175/75-98 86-94 Intake and Output 10/22/19 10/23/19 10/23/19 21:59 05:59 13:59 Intake Total 1050 1270 150 Output Total 300 550 300 Balance 750 720 -150 Weight 137.892 kg Intake & Output: Intake & Output 10/22/19 10/23/19 10/23/19 21:59 05:59 13:59 Intake Total 1050 1270 150 Output Total 300 550 300 Balance 750 720 -150 Weight 137.892 kg Intake: IV 1050 550 50 Sodium Chloride 0.9% 1,000 ml @ 1000 50 mls/hr IV .Q20H [facility] Rx#: [id number] Zosyn 3.375 gm In Dextrose 5% 50 50 50 in Water 50 ml @ 100 mls/hr IV Q6H [facility] Rx#:[id number] Vancomycin 1,500 mg In Sodium 500 Chloride 0.9% 500 ml @ 333.3 mls/hr IV Q12H [facility] Rx#: [id number] Oral 720 100 Output: Void Amount 300 550 300 Other: Meal Dinner Percent of Meal Consumed 75% Feeding Ability Independent Urine Appearance Clear Clear Clear Urine Color Light Lanie Light Lanie Light Lanie Urine Odor Normal Normal Stool Size Moderate Moderate Stool Color Brown Brown Stool Consistency Soft Soft Formed Formed # Bowel Movements 1 General appearance: no acute distress and obese Exam: ao x 3, no thrush left foot: has 3 wounds. 1st one measures 3-4 mm, is located over lateral border has minimal purulent drainage, with probe to bone +ve. 2nd one is scabbed and located adjacent and proximal to the 1st one. the 3rd one is located over dorsum of the left foot and is a shallow ulcer with a dirty looking base and some slough, measures 4-5 mm left leg: swollen compared to right side. non tender, and not red. OBJ DATA Labs CBC & Chem 7: 10/23/19 05:10 10/23/19 05:10 Labs: Abnormal Lab Results 10/23/19 10/23/19 10/22/19 05:10 05:10 05:00 WBC 18.4 H RBC 3.94 L Hgb 11.5 L Hct 36.1 L Lymph % (Auto) Gran # [place] # (Auto) Carbon Dioxide 21 L Glucose 109 H 119 H Calcium 8.4 L 8.4 L Phosphorus 2.4 L 2.6 L Total Bilirubin 1.1 H 1.1 H Direct Bilirubin 0.4 H Lactate Dehydrogenase 253 H Albumin 2.8 L 2.7 L Albumin/Globulin Ratio 0.8 L 0.8 L Urine Protein Urine Occult Blood Urine RBC 10/22/19 10/21/19 10/21/19 05:00 18:25 16:11 WBC 17.2 H 19.8 H RBC 3.80 L 4.12 L Hgb 11.1 L 12.1 L Hct 35.2 L 36.9 L Lymph % (Auto) 12.8 L Gran # 14.65 H [place] # (Auto) 1.81 H Carbon Dioxide Glucose Calcium Phosphorus Total Bilirubin Direct Bilirubin Lactate Dehydrogenase Albumin Albumin/Globulin Ratio Urine Protein 100 A Urine Occult Blood 0.03 A Urine RBC 6 H 10/21/19 16:10 WBC RBC Hgb Hct Lymph % (Auto) Gran # [place] # (Auto) Carbon Dioxide Glucose 183 H Calcium Phosphorus Total Bilirubin 1.1 H Direct Bilirubin Lactate Dehydrogenase Albumin 3.1 L Albumin/Globulin Ratio 0.9 L Urine Protein Urine Occult Blood Urine RBC Meds: Medications Acetaminophen (Tylenol) 650 mg PO Q4-6HP PRN; Protocol PRN Reason: Per Pain Protocol/Fever > 101 Bisacodyl (Dulcolax) 10 mg [place] Q2-3DAYS PRN PRN Reason: Constipation Dextrose (Dextrose 50%) 0 ml IV UD PRN PRN Reason: Hypoglycemia Diagnostic Test (Pha) (Accu-Chek) 1 each FS ACHS [facility] Docusate Sodium (Colace) 100 mg PO BID [facility] Glucose (Insta-Glucose) 15 gm PO PRN PRN PRN Reason: Hypoglycemia Heparin Sodium (Porcine) (Heparin) 5,000 unit SQ Q12 [facility] Hydralazine HCl (Apresoline) 10 mg IV Q4-6HP PRN PRN Reason: Hypertension Hydrochlorothiazide ([place]) 25 mg PO DAILY [facility] Magnesium Sulfate (Magnesium Sulfate) 2 gm in 50 mls @ 50 mls/hr IV UD PRN PRN Reason: MG = or < 1.7 Sodium Chloride (Sodium Chloride 0.9%) 250 mls @ 20 mls/hr IV .[id number] [facility] Last Admin: 10/23/19 11:09 Dose: Not Given Documented by: Sodium Chloride (Sodium Chloride 0.9%) 1,000 mls @ 50 mls/hr IV .Q20H [facility] Stop: 10/24/19 08:29 Acetaminophen (Ofirmev) 650 mg in 65 mls @ 130 mls/hr IV Q6HP PRN; Protocol PRN Reason: Per Pain Protocol/Fever > 101 Vancomycin HCl 1,500 mg/ (Sodium Chloride) 500 mls @ 333.3 mls/hr IV Q12H [facility] Norepinephrine Bitartrate 8 mg (/ Sodium Chloride) 250 mls @ 18.75 mls/hr IV Q14H PRN; Protocol PRN Reason: MAP<65 Sodium Chloride (Sodium Chloride 0.9%) 250 mls @ 20 mls/hr IV .[id number] [facility] Last Admin: 10/23/19 11:09 Dose: Not Given Documented by: Ceftriaxone Sodium 2 gm/ (Dextrose) 50 mls @ 100 mls/hr IV Q24H [facility]; Protocol Ibuprofen (Motrin) 400 mg PO TIDP PRN; Protocol PRN Reason: Per Pain Protocol Insulin Human Lispro (Humalog) 0 unit SQ ACHS [facility]; Protocol Iron Carb/Multivit/[place]/Folic Acid (Multivitamin W/Minerals) 1 tab PO DAILY [facility] Lisinopril (Zestril) 20 mg PO DAILY [facility] Melatonin (Melatonin 3mg Tablet) 3 mg PO HSP PRN PRN Reason: Insomnia Metformin HCl (Glucophage) 750 mg PO BIDCC [facility] Metoprolol Tartrate (Lopressor) 5 mg IV Q5M PRN PRN Reason: Heart Rate > 140 bpm Mupirocin (Bactroban Oint 2%) 1 dose TOPICAL BID [facility] Ondansetron HCl (Zofran Odt) 4 mg SL Q4-6HP PRN; Protocol PRN Reason: Nausea And Vomiting Ondansetron HCl (Zofran) 4 mg IV Q4-6HP PRN; Protocol PRN Reason: Nausea And Vomiting Pantoprazole Sodium (Protonix) 40 mg PO QDAY [facility] Polyethylene Glycol (Miralax) 17 gm PO DAILYP PRN PRN Reason: Constipation Potassium Chloride (Klor-Con) 40 meq PO DAILYP PRN PRN Reason: K+ < 3.5 Senna/Docusate Sodium (Senna Plus Tablet) 1 tab PO HS [facility] Sitagliptin Phosphate (Januvia) 100 mg PO DAILY [facility] Sodium Chloride (Saline Flush) 10 ml IV Q8 [facility] Vancomycin HCl (Vancomycin Per Pharmacy) 1 order IV UD [facility]; Protocol A/P Narrative A/P Narrative: A: 1. Left foot and leg cellulitis: non purulent - source left foot chronic wounds - MRSA nasal PCR neg - given chronicity of wound, and non healing since last 4 weeks, location, probe to bone +ve, poorly controlled DM2; I think osteomyelitis should be ruled out 2. DM2 with neuropathy 3. Staph epidermidis isolated from 02/22 bottles on 10/20: - repeat blood cultures sent 10/21 pending Recommendations: - Continue IV Vanc per pharmacy assisted dosing. Check trough weekly, or if there is an increase in serum Creatinine - Continue IV Ceftriaxone 2 gm q24 hrs - MRI of left foot with contrast to r/o osteomyelitis - left leg and foot elevation - wound care - check ESR and CRP to establish baseline will follow Jayson Escobar MD Infectious Diseases Time Spent With Patient Time: Total time spent is greater than 50% in coordination of care (as documented) at patient's floor/unit and/or counseling patient:
[2019-10-23] MEDS: cefTRIAXone 2 GM in DEXTROSE 5% IN WATER 50 ML IV SCH (12:15)
--- NOTE | 2019-10-23 13:08 | Orthopedic Consult Note ---
HPI Data of Consult Primary Care Provider: Mary Davis Consult Narrative Patient Information: Note initiated : 10/23/19 at 1:06 pm Service Date, if different from initiated Date: [] Patient: Osmin Leslie 44 y/o M admitted on 10/21/19 for altered mental status, lethargy. 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 (Acute) Cellulitis (Acute) Foot, fracture, navicular (Acute) Cuboid fracture (Acute) Sepsis (Acute) Congestive heart failure (Acute) Open wound of right foot (Acute) Social History smoking status: Current every day smoker tobacco type: cigarettes per day: 3 pack-years: 15 alcohol intake frequency: holiday/special occasion only substance use type: does not use MEDS/ALLERGIES Home Medications and Allergies Home Medications Medication Instructions Recorded Confirmed Type blood sugar diagnostic #100 strip 10/08/17 10/21/19 Rx blood-glucose meter #1 each 10/08/17 10/21/19 Rx metformin 750 mg PO BIDCC #60 tab.er.24h 10/08/17 10/22/19 Rx lisinopril-hydrochlorothiazide 1 tab PO QDAY 10/03/19 10/21/19 History pantoprazole 40 mg PO QDAY 10/03/19 10/21/19 History Allergies Allergy/AdvReac Type Severity Reaction Status Date / Time [place] Allergy Severe Swelling Verified 10/22/19 10:48 of Lip/Tongue/Throat [place] Allergy Severe Swelling Verified 10/22/19 10:48 of Lip/Tongue/Throat Physical Examination Ankle & Foot left: Foot appearance: other ( Left, Lateral Foot is an acute Ambrosio Grade 3 Diabetic Ulcer and has received a status of Not Healed. Wound measurements are 3.5cm length x 1.8cm width x 0.5cm depth, with an area of 6.3 sq cm and a volume of 3.15 cubic cm. Tunneling has been noted at 3:00) Foot swelling: other (Left, Anterior Foot is an acute Ambrosio Grade 2 Diabetic Ulcer and has received a status of Not Healed. Subsequent wound encounter measurements are 1.6cm length x 1cm width x 0.05cm depth, with an area of 1.6 sq cm and a volume of 0.08 cubic cm. No tunneling has been noted. No sinus tract) A/P Time Spent With Patient Time: Total time spent is greater than 50% in coordination of care (as documented) at patient's floor/unit and/or counseling patient: Patient requires continued intravenous antibiotic therapy Cuboid and navicular fractures likely related to Charcot neuroarthropathy Must rule out osteomyelitis of underlying bone due to chronicity of healing ulcers. Likely requires partial fifth ray amputation should there be MRI positive osteomyelitis in this region Likely performing partial resection &/or incision and drainage with bone biopsy fifth metatarsal left foot.
[2019-10-23] MEDS: MUPIROCIN OINT 2% 22GM TOPICAL SCH ×2 (14:21→20:39)
--- NOTE | 2019-10-23 16:46 | General Surgery Progress Note ---
SUBJECTIVE Subjective Patient information: Note initiated : 10/23/19 at 4:41 pm Service Date, if different from initiated Date: [] Patient: Osmin Leslie 44 y/o M admitted on 10/21/19 for altered mental status, lethargy. Chief Complaint: [] Additional PMFSH (Level 3 Only): Had an uneventful day. Now out of ICU to [facility] Floor. DENIES any interval symptoms or changes. Constitutional Vitals: Vital Signs Temp Pulse Resp BP Pulse Ox 98.3 F 97 H 16 179/98 94 10/23/19 15:55 10/23/19 15:55 10/23/19 15:55 10/23/19 15:55 10/23/19 15:55 Period Temp Pulse Resp BP Sys/Felix Pulse Ox Last 24 Hr 97.8 F-99.1 F 86-105 - 142-179/75-98 86-94 Intake and Output 10/23/19 10/23/19 10/23/19 05:59 13:59 21:59 Intake Total 1270 200 Output Total 550 300 Balance 720 -100 Intake & Output: Intake & Output 10/23/19 10/23/19 10/23/19 05:59 13:59 21:59 Intake Total 1270 200 Output Total 550 300 Balance 720 -100 Intake: IV 550 100 Zosyn 3.375 gm In Dextrose 5% 50 50 in Water 50 ml @ 100 mls/hr IV Q6H [facility] Rx#:[id number] Vancomycin 1,500 mg In Sodium 500 Chloride 0.9% 500 ml @ 333.3 mls/hr IV Q12H [facility] Rx#: [id number] Rocephin 2 gm In Dextrose 5% in 50 Water 50 ml @ 100 mls/hr IV Q24H [facility] Rx#:[id number] Oral 720 100 Output: Void Amount 550 300 Other: Meal Dinner Lunch Percent of Meal Consumed 75% 50% Feeding Ability Independent Independent Urine Appearance Clear Clear Urine Color Light Lanie Light Lanie Urine Odor Normal Stool Size Moderate Stool Color Brown Stool Consistency Soft Formed General appearance: cooperative, morbidly obese and no acute distress Exam: No changes HANG. Left foot wound site is covered with bandage. S/B Dr. Slade Christian, Senior Net Engineer. Input noted / appreciated. A/P Narrative A/P Narrative: Assessment: Acute fractures tarsal bones of Left foot. Chronic open wounds LEFT lateral border mid foot. Plan: Current on going treatment noted. Will check wounds tomorrow. Time Spent With Patient Time: Total time spent is greater than 50% in coordination of care (as documented) at patient's floor/unit and/or counseling patient: Total time spent with greater than 50% in coordination of care (as documented) at patient's floor/unit and/or counseling patient:: less than 15 minutes
[2019-10-23] MEDS ORDERED: SENNOSIDES/DOCUSATE SODIUM 1 TAB TABLET PO SCH (21:00)
[2019-10-24 06:37] LABS: Hematocrit 33.7 % (40.1-51.0); Hemoglobin 10.6 g/dL (13.7-17.5); Mean Cell Volume 91.1 fL (80.0-100.0); Mean Corpuscular HGB Conc 31.5 g/dL (31.0-36.0); Mean Platelet Volume 9.8 fL (7.4-10.4); Platelet Count 436 K/mcL (140-440); Red Cell Distribution Width 12.9 % (11.5-14.5); WBC 17.6 K/mcL (4.50-11.00)
[2019-10-24 06:53] LABS: ALT/SGPT 20 U/l (0-40); AST/SGOT 17 U/l (0-37); Albumin 2.6 gm/dL (3.2-5.2); Albumin/Globulin Ratio 0.8 (1.0-2.3); Alkaline Phosphatase 88 U/L (39-117); Bilirubin,Total 0.6 mg/dL (0.0-1.0); Blood Urea Nitrogen 12 mg/dl (6-20); Calcium 8.5 mg/dl (8.6-10.4); Carbon Dioxide 22 mmol/L (22-30); Chloride 103 mmol/L (96-108); Globulin 3.4 gm/dL (2.2-3.7); Glomerular Filtration Rate 92; Glucose 125 mg/dL (70-105); Lactate Dehydrogenase 208 U/L (94-250); Phosphorous 2.4 mg/dL (2.7-4.5); Triglycerides 101 mg/dl (<150); Uric Acid 5.4 mg/dL (2.5-8.0)
[2019-10-24 06:54] LABS: Bilirubin,Direct < 0.2 mg/dL (0.0-0.3)
[2019-10-24] MEDS: metFORMIN 500 MG TABLET PO SCH ×2 (07:44→17:31)
[2019-10-24] MEDS: 0.9 % SODIUM CHLORIDE 10 ML SYRINGE IV SCH ×2 (07:48→13:22)
[2019-10-24] MEDS: INSULIN LISPRO 1 UNIT/0.01 ML UNIT SQ SCH ×3 (07:51→17:27)
[2019-10-24] MEDS ORDERED: sitaGLIPtin 100 MG TABLET PO SCH (09:00)
[2019-10-24] MEDS ORDERED: LISINOPRIL HYDROCHLOROTHIAZIDE PO SCH (09:00)
[2019-10-24] MEDS ORDERED: HYDROCHLOROTHIAZIDE 25 MG TABLET PO SCH (09:00)
[2019-10-24] MEDS ORDERED: MULTIVIT,THER IRON,CA,FA & MIN 1 TABLET PO SCH (09:00)
[2019-10-24] MEDS ORDERED: LISINOPRIL 20 MG TABLET PO SCH (09:00)
[2019-10-24] MEDS ORDERED: PANTOPRAZOLE 40 MG TABLET PO SCH (09:00)
[2019-10-24] MEDS ORDERED: amLODIPine 5 MG TABLET PO SCH ×2 (09:00→09:20)
[2019-10-24 09:08] LABS: Eosinophils % (Manual) 3 % (0-7); Lymphocytes % 17 % (15-49); Monocytes % (Manual) 3 % (1-12); Platelet Estimate NORMAL (NORMAL); RBC Morphology NORMAL (NORMAL); Segmented Neutrophils % 77 % (38-78)
--- NOTE | 2019-10-24 09:18 | Internal Med Progress Note ---
SUBJECTIVE Subjective Patient information: Note initiated : 10/24/19 at 9:11 am Service Date, if different from initiated Date: [] Patient: Osmin Leslie 44 y/o M admitted on 10/21/19 for altered mental status, lethargy. Chief Complaint: [] History of present illness: Mr. Leslie is a 44 year old M history of DM type II/hypertension/Charcot foot and recurrent ulcer managed by Dr. Singh at wound care. Patient presents to the ER today with altered mental status since 8 hours, Fever and Lt LE swelling, purulent drainage. Patient's mother discovered him in a state of daze when she returned home. He was brought in for evaluation. Initial work-up was consistent with severe sepsis with white count 19.8/left lower extremity cellulitis with CT evidence of navicular and cuboid fracture. Orthopedics was consulted. Recommended hospitalization and conservative management and antibiotics for management of cellulitis. Following initial evaluation patient's entation much improved he however remains drowsy but able to answer most of the question. Patient was started on broad antibiotics after cultures were drawn. At the time of my evaluation patient is able to answer most the question. He denies chest pain, diarrhea, fever chills. Denies recent trauma. He endorses that his blood sugars have been fairly well controlled. 10/21-patient doing well. More lucid alert. Sitting on bed . Eating breakfast. No overnight telemetry events. Much improved swelling. Wound care on board. On antibiotic coverage. White count down to 17.2. 10/22-patient doing a lot better. Continuing antibiotic coverage. Wound care/podiatry on board. On blood culture Rocephin/vancomycin per ID. White count at 18.4. Blood culture 10/20 gram-positive cocci, surveillance cultures pending. Echocardiogram pending. No overnight fever chills. No telemetry events. Transition to medical floor. 10/23-patient doing a lot better. Podiatry reviewed patient and plans on surgery in the next week. Continuing antibiotics. White count 17.6. Wound care on board. Blood sugars much improved. Afebrile and stable hemodynamics. No overnight fever chills. Much improved lower extremity swelling/pain Constitutional Vitals: Vital Signs Temp Pulse Resp BP Pulse Ox 98.4 F 94 H 16 189/109 96 10/24/19 08:00 10/24/19 08:00 10/24/19 08:00 10/24/19 08:00 10/24/19 08:00 Period Temp Pulse Resp BP Sys/Felix Pulse Ox Last 24 Hr 98.1 F-99.5 F 89-108 16-20 148-189/85-109 92-96 Intake and Output 10/23/19 10/24/19 10/24/19 21:59 05:59 13:59 Intake Total 600 Balance 600 Weight 138.346 kg left lower extremity swelling/pain much improved No fever chills No anxiety Intake & Output: Intake & Output 10/23/19 10/24/19 10/24/19 21:59 05:59 13:59 Intake Total 600 Balance 600 Weight 138.346 kg Intake: Oral 600 Other: # Voids 1 OBJ DATA Labs CBC & Chem 7: 10/24/19 05:45 10/24/19 05:45 Labs: Abnormal Lab Results 10/24/19 10/24/19 10/23/19 05:45 05:45 05:10 WBC 17.6 H RBC 3.70 L Hgb 10.6 L Hct 33.7 L Lymph % (Auto) Gran # Taylor # (Auto) Carbon Dioxide 21 L Glucose 125 H 109 H Calcium 8.5 L 8.4 L Phosphorus 2.4 L 2.4 L Total Bilirubin 1.1 H Direct Bilirubin 0.4 H Lactate Dehydrogenase Albumin 2.6 L 2.8 L Albumin/Globulin Ratio 0.8 L 0.8 L Urine Protein Urine Occult Blood Urine RBC 10/23/19 10/22/19 10/22/19 05:10 05:00 05:00 WBC 18.4 H 17.2 H RBC 3.94 L 3.80 L Hgb 11.5 L 11.1 L Hct 36.1 L 35.2 L Lymph % (Auto) Gran # Taylor # (Auto) Carbon Dioxide Glucose 119 H Calcium 8.4 L Phosphorus 2.6 L Total Bilirubin 1.1 H Direct Bilirubin Lactate Dehydrogenase 253 H Albumin 2.7 L Albumin/Globulin Ratio 0.8 L Urine Protein Urine Occult Blood Urine RBC 10/21/19 10/21/19 10/21/19 18:25 16:11 16:10 WBC 19.8 H RBC 4.12 L Hgb 12.1 L Hct 36.9 L Lymph % (Auto) 12.8 L Gran # 14.65 H Taylor # (Auto) 1.81 H Carbon Dioxide Glucose 183 H Calcium Phosphorus Total Bilirubin 1.1 H Direct Bilirubin Lactate Dehydrogenase Albumin 3.1 L Albumin/Globulin Ratio 0.9 L Urine Protein 100 A Urine Occult Blood 0.03 A Urine RBC 6 H Meds: Medications Acetaminophen (Tylenol) 650 mg PO Q4-6HP PRN; Protocol PRN Reason: Per Pain Protocol/Fever > 101 Last Admin: 10/23/19 12:26 Dose: 650 mg Documented by: Bisacodyl (Dulcolax) 10 mg [place] Q2-3DAYS PRN PRN Reason: Constipation Dextrose (Dextrose 50%) 0 ml IV UD PRN PRN Reason: Hypoglycemia Diagnostic Test (Pha) (Accu-Chek) 1 each FS ACHS [facility] Last Admin: 10/24/19 07:49 Dose: 1 each Documented by: Docusate Sodium (Colace) 100 mg PO BID [facility] Last Admin: 10/23/19 20:50 Dose: Not Given Documented by: Glucose (Insta-Glucose) 15 gm PO PRN PRN PRN Reason: Hypoglycemia Heparin Sodium (Porcine) (Heparin) 5,000 unit SQ Q12 [facility] Last Admin: 10/23/19 21:02 Dose: 5,000 unit Documented by: Hydralazine HCl (Apresoline) 10 mg IV Q4-6HP PRN PRN Reason: Hypertension Hydrochlorothiazide (Oretic) 25 mg PO DAILY [facility] Magnesium Sulfate (Magnesium Sulfate) 2 gm in 50 mls @ 50 mls/hr IV UD PRN PRN Reason: MG = or < 1.7 Acetaminophen (Ofirmev) 650 mg in 65 mls @ 130 mls/hr IV Q6HP PRN; Protocol PRN Reason: Per Pain Protocol/Fever > 101 Vancomycin HCl 1,500 mg/ (Sodium Chloride) 500 mls @ 333.3 mls/hr IV Q12H [facility] Last Admin: 10/23/19 20:59 Dose: 333.3 mls/hr Documented by: Norepinephrine Bitartrate 8 mg (/ Sodium Chloride) 250 mls @ 18.75 mls/hr IV Q14H PRN; Protocol PRN Reason: MAP<65 Ceftriaxone Sodium 2 gm/ (Dextrose) 50 mls @ 100 mls/hr IV Q24H [facility]; Protocol Last Infusion: 10/23/19 12:45 Dose: Infused Documented by: Ibuprofen (Motrin) 400 mg PO TIDP PRN; Protocol PRN Reason: Per Pain Protocol Last Admin: 10/23/19 12:26 Dose: 400 mg Documented by: Insulin Human Lispro (Humalog) 0 unit SQ ACHS [facility]; Protocol Last Admin: 10/24/19 07:51 Dose: Not Given Documented by: Iron Carb/Multivit/[place]/Folic Acid (Multivitamin W/Minerals) 1 tab PO DAILY [facility] Lisinopril (Zestril) 20 mg PO DAILY [facility] Melatonin (Melatonin 3mg Tablet) 3 mg PO HSP PRN PRN Reason: Insomnia Metformin HCl (Glucophage) 750 mg PO BIDCC [facility] Last Admin: 10/24/19 07:44 Dose: 750 mg Documented by: Metoprolol Tartrate (Lopressor) 5 mg IV Q5M PRN PRN Reason: Heart Rate > 140 bpm Mupirocin (Bactroban Oint 2%) 1 dose TOPICAL BID [facility] Last Admin: 10/23/19 20:39 Dose: 1 dose Documented by: Ondansetron HCl (Zofran Odt) 4 mg SL Q4-6HP PRN; Protocol PRN Reason: Nausea And Vomiting Ondansetron HCl (Zofran) 4 mg IV Q4-6HP PRN; Protocol PRN Reason: Nausea And Vomiting Pantoprazole Sodium (Protonix) 40 mg PO QDAY [facility] Polyethylene Glycol (Miralax) 17 gm PO DAILYP PRN PRN Reason: Constipation Potassium Chloride (Klor-Con) 40 meq PO DAILYP PRN PRN Reason: K+ < 3.5 Senna/Docusate Sodium (Senna Plus Tablet) 1 tab PO HS [facility] Last Admin: 10/23/19 20:50 Dose: Not Given Documented by: Sitagliptin Phosphate (Januvia) 100 mg PO DAILY [facility] Sodium Chloride (Saline Flush) 10 ml IV Q8 [facility] Last Admin: 10/24/19 07:48 Dose: 10 ml Documented by: Vancomycin HCl (Vancomycin Per Pharmacy) 1 order IV UD [facility]; Protocol A/P Narrative A/P Narrative: * Left lower extremity cellulitis with suspected osteomyelitis-MRI foot pending. On Rocephin/vancomycin per ID. * Gram-positive bacteremia, surveillance cultures awaited.. Echocardiogram pending rule out infective endocarditis. * Sepsis secondary to above with evidence of endorgan dysfunction. White count 17.6. Likely improvement noted * Suboptimally controlled hypertension -on home dose thiazide/RICHMOND inhibitor. Start amlodipine 2.5 * DM type II well controlled on sliding scale insulin/CC diet. Metformin held in light of contrast * GERD continue PPI * full code Plan * Continue antibiotics per ID * Surgical intervention by podiatry in a week * Start amlodipine 2.5 * Continue pre-existing medical condition management on home medications * Wound management per wound care * CC diet/therapies Time Spent With Patient Time: Total time spent is greater than 50% in coordination of care (as documented) at patient's floor/unit and/or counseling patient: Total time spent with greater than 50% in coordination of care (as documented) at patient's floor/unit and/or counseling patient:: Greater than 35 minutes
[2019-10-24] MEDS: DOCUSATE SODIUM 100 MG CAPSULE PO SCH (09:34)
[2019-10-24] MEDS: HEPARIN 5,000 UNIT/ML VIAL SQ SCH (09:37)
[2019-10-24] MEDS: VANCOMYCIN 1,500 MG in 0.9 % SODIUM CHLORIDE 500 ML IV SCH ×2 (10:13→14:24)
--- NOTE | 2019-10-24 12:46 | Internal Med Progress Note ---
SUBJECTIVE Subjective Patient information: Note initiated : 10/24/19 at 12:40 pm Service Date, if different from initiated Date: [] Patient: Osmin Leslie 44 y/o M admitted on 10/21/19 for altered mental status, lethargy. Chief Complaint: [] Interval history: History of present illness: Mr. Lesile is a 44 year old M history of DM type II/hypertension/Charcot foot and recurrent ulcer managed by Dr. Singh at wound care. Patient presents to the ER today with altered mental status since 8 hours, Fever and Lt LE swelling, purulent drainage. Eliana baldwin's mother discovered him in a state of daze when she returned home. He was brought in for evaluation. Initial work-up was consistent with severe sepsis with white count 19.8/left lower extremity cellulitis with CT evidence of navicular and cuboid fracture. Orthopedics was consulted. Recommended hospitalization and conservative management and antibiotics for management of cellulitis. Following initial evaluation patient's entation much improved he however remains drowsy but able to answer most of the question. Patient was started on broad antibiotics after cultures were drawn. At the time of my evaluation patient is able to answer most the question. He denies chest pain, diarrhea, fever chills. Denies recent trauma. He endorses that his blood sugars have been fairly well controlled. 10/21-patient doing well. More lucid alert. Sitting on bed . Eating breakfast. No overnight telemetry events. Much improved swelling. Wound care on board. On antibiotic coverage. White count down to 17.2. 10/22-patient doing a lot better. Continuing antibiotic coverage. Wound care/po diatry on board. On blood culture Rocephin/vancomycin per ID. White count at 18.4. Blood culture 10/20 gram-positive cocci, surveillance cultures pending. Echocardiogram pending. No overnight fever chills. No telemetry events. Transition to medical floor. 10/23-patient doing a lot better. Podiatry reviewed patient and plans on surgery in the next week. Continuing antibiotics. White count 17.6. Wound care on board. Blood sugars much improved. Afebrile and stable hemodynamics. No overnight fever chills. Much improved lower extremity swelling/pain 10/24 Constitutional Vitals: Vital Signs Temp Pulse Resp BP Pulse Ox 98.7 F 74 16 180/96 94 10/24/19 12:00 10/24/19 12:00 10/24/19 12:00 10/24/19 12:00 10/24/19 12:00 Period Temp Pulse Resp BP Sys/Felix Pulse Ox Last 24 Hr 98.1 F-99.5 F 74-108 16-20 157-189/85-109 92-96 Intake and Output 10/23/19 10/24/19 10/24/19 21:59 05:59 13:59 Intake Total 1100 Balance 1100 Weight 138.346 kg Intake & Output: Intake & Output 10/23/19 10/24/19 10/24/19 21:59 05:59 13:59 Intake Total 1100 Balance 1100 Weight 138.346 kg Intake: IV 500 Vancomycin 1,500 mg In Sodium 500 Chloride 0.9% 500 ml @ 333.3 mls/hr IV Q12H [facility] Rx#: [id number] Oral 600 Other: # Voids 1 Exam: General: Alert, Awake, No acute Distress, obese Eyes/N/T: EOMI, Head/Neck: neck supple, CV: RRR, No murmurs Pulm: Clear b/l, no wheezing/rhonchi/rales Abd: soft, nontender, +BS x4 Ext: no clubbing/cyanosis. LLE with erythema/edema Neuro: Alert, no focal deficits, moves all extremities, Skin: warm/dry . OBJ DATA Labs CBC & Chem 7: 10/24/19 05:45 10/24/19 05:45 Labs: Abnormal Lab Results 10/24/19 10/24/19 10/23/19 05:45 05:45 05:10 WBC 17.6 H RBC 3.70 L Hgb 10.6 L Hct 33.7 L Lymph % (Auto) Gran # [place] # (Auto) Carbon Dioxide 21 L Glucose 125 H 109 H Calcium 8.5 L 8.4 L Phosphorus 2.4 L 2.4 L Total Bilirubin 1.1 H Direct Bilirubin 0.4 H Lactate Dehydrogenase Albumin 2.6 L 2.8 L Albumin/Globulin Ratio 0.8 L 0.8 L Urine Protein Urine Occult Blood Urine RBC 10/23/19 10/22/19 10/22/19 05:10 05:00 05:00 WBC 18.4 H 17.2 H RBC 3.94 L 3.80 L Hgb 11.5 L 11.1 L Hct 36.1 L 35.2 L Lymph % (Auto) Gran # [place] # (Auto) Carbon Dioxide Glucose 119 H Calcium 8.4 L Phosphorus 2.6 L Total Bilirubin 1.1 H Direct Bilirubin Lactate Dehydrogenase 253 H Albumin 2.7 L Albumin/Globulin Ratio 0.8 L Urine Protein Urine Occult Blood Urine RBC 10/21/19 10/21/19 10/21/19 18:25 16:11 16:10 WBC 19.8 H RBC 4.12 L Hgb 12.1 L Hct 36.9 L Lymph % (Auto) 12.8 L Gran # 14.65 H Sully # (Auto) 1.81 H Carbon Dioxide Glucose 183 H Calcium Phosphorus Total Bilirubin 1.1 H Direct Bilirubin Lactate Dehydrogenase Albumin 3.1 L Albumin/Globulin Ratio 0.9 L Urine Protein 100 A Urine Occult Blood 0.03 A Urine RBC 6 H Meds: Medications Acetaminophen (Tylenol) 650 mg PO Q4-6HP PRN; Protocol PRN Reason: Per Pain Protocol/Fever > 101 Last Admin: 10/23/19 12:26 Dose: 650 mg Documented by: Amlodipine Besylate (Norvasc) 2.5 mg PO DAILY [facility] Last Admin: 10/24/19 10:44 Dose: 2.5 mg Documented by: Bisacodyl (Dulcolax) 10 mg [place] Q2-3DAYS PRN PRN Reason: Constipation Dextrose (Dextrose 50%) 0 ml IV UD PRN PRN Reason: Hypoglycemia Diagnostic Test (Pha) (Accu-Chek) 1 each FS ACHS [facility] Last Admin: 10/24/19 11:36 Dose: 1 each Documented by: Docusate Sodium (Colace) 100 mg PO BID [facility] Last Admin: 10/24/19 09:34 Dose: Not Given Documented by: Glucose (Insta-Glucose) 15 gm PO PRN PRN PRN Reason: Hypoglycemia Heparin Sodium (Porcine) (Heparin) 5,000 unit SQ Q12 [facility] Last Admin: 10/24/19 09:37 Dose: 5,000 unit Documented by: Hydralazine HCl (Apresoline) 10 mg IV Q4-6HP PRN PRN Reason: Hypertension Hydrochlorothiazide (Oretic) 25 mg PO DAILY [facility] Last Admin: 10/24/19 09:36 Dose: 25 mg Documented by: Magnesium Sulfate (Magnesium Sulfate) 2 gm in 50 mls @ 50 mls/hr IV UD PRN PRN Reason: MG = or < 1.7 Acetaminophen (Ofirmev) 650 mg in 65 mls @ 130 mls/hr IV Q6HP PRN; Protocol PRN Reason: Per Pain Protocol/Fever > 101 Vancomycin HCl 1,500 mg/ (Sodium Chloride) 500 mls @ 333.3 mls/hr IV Q12H [facility] Last Admin: 10/24/19 10:13 Dose: 333.3 mls/hr Documented by: Norepinephrine Bitartrate 8 mg (/ Sodium Chloride) 250 mls @ 18.75 mls/hr IV Q 14H PRN; Protocol PRN Reason: MAP<65 Ceftriaxone Sodium 2 gm/ (Dextrose) 50 mls @ 100 mls/hr IV Q24H [facility]; Protocol Last Infusion: 10/23/19 12:45 Dose: Infused Documented by: Ibuprofen (Motrin) 400 mg PO TIDP PRN; Protocol PRN Reason: Per Pain Protocol Last Admin: 10/23/19 12:26 Dose: 400 mg Documented by: Insulin Human Lispro (Humalog) 0 unit SQ ACHS [facility]; Protocol Last Admin: 10/24/19 11:41 Dose: 1 units Documented by: Iron Carb/Multivit/[place]/Folic Acid (Multivitamin W/Minerals) 1 tab PO DAILY [facility] Last Admin: 10/24/19 09:36 Dose: 1 tab Documented by: Lisinopril (Zestril) 20 mg PO DAILY [facility] Last Admin: 10/24/19 09:36 Dose: 20 mg Documented by: Melatonin (Melatonin 3mg Tablet) 3 mg PO HSP PRN PRN Reason: Insomnia [facility] Last Admin: 10/24/19 07:44 Dose: 750 mg Documented by: Metoprolol Tartrate (Lopressor) 5 mg IV Q5M PRN PRN Reason: Heart Rate > 140 bpm Mupirocin (Bactroban Oint 2%) 1 dose TOPICAL BID [facility] Last Admin: 10/23/19 20:39 Dose: 1 dose Documented by: Ondansetron HCl (Zofran Odt) 4 mg SL Q4-6HP PRN; Protocol PRN Reason: Nausea And Vomiting Ondansetron HCl (Zofran) 4 mg IV Q4-6HP PRN; Protocol PRN Reason: Nausea And Vomiting Pantoprazole Sodium (Protonix) 40 mg PO QDAY [facility] Last Admin: 10/24/19 09:37 Dose: 40 mg Documented by: Polyethylene Glycol (Miralax) 17 gm PO DAILYP PRN PRN Reason: Constipation Potassium Chloride (Klor-Con) 40 meq PO DAILYP PRN PRN Reason: K+ < 3.5 Senna/Docusate Sodium (Senna Plus Tablet) 1 tab PO HS [facility] Last Admin: 10/23/19 20:50 Dose: Not Given Documented by: Sitagliptin Phosphate (Januvia) 100 mg PO DAILY [facility] Last Admin: 10/24/19 10:16 Dose: 100 mg Documented by: Sodium Chloride (Saline Flush) 10 ml IV Q8 [facility] Last Admin: 10/24/19 07:48 Dose: 10 ml Documented by: Vancomycin HCl (Vancomycin Per Pharmacy) 1 order IV UD [facility]; Protocol A/P Narrative A/P Narrative: A: *Left lower extremity cellulitis w/suspected osteomyelitis: -MRI foot pending. On . *Bacteremia (GPC): -Echocardiogram pending rule out infective endocarditis. *Sepsis: 2/2 above with evidence of endorgan dysfunctio -Persistent leukocytosis *HTN, Suboptimally controlled: home dose thiazide/RICHMOND inhibitor. *DM type II: well controlled on sliding scale insulin/CC diet. *GERD continue PPI Plan: -Continue Rocephin/vancomycin per ID -Surgical intervention by podiatry in a week -Wound management per wound care team/Dr. Reyez -Start amlodipine 2.5 -SSI, Metformin held in light of contrast CC diet/therapies -pt/ot -ppx: heparin * full code Time Spent With Patient Time: Total time spent is greater than 50% in coordination of care (as documented) at patient's floor/unit and/or counseling patient:
[2019-10-24] MEDS: MUPIROCIN OINT 2% 22GM TOPICAL SCH (15:45)
--- NOTE | 2019-10-24 16:22 | Magnetic Resonance Report ---
INDICATION: Diabetic foot ulcer rule out osteomyelitis. TECHNIQUE:Multiplane are multi sequential MR images of the left foot without contrast. COMPARISON: Compared with left foot radiographs performed for September 2019. FINDINGS: Osseous structures left foot: There is diffuse signal abnormality consisting of hypointense on T1-weighted, hyperintense on T2-weighted signal abnormalities most severe in the cuneiforms navicular and cuboid. Less severe signal abnormality in the calcaneus and distal fifth metatarsal respectively. Soft tissues left foot: Diffuse T2 signal abnormality (edema) is seen throughout the intrinsic musculature of the left foot, as well as the plantar and dorsal subcutaneous soft tissues. There is no unenhanced MRI evidence of drainable fluid collection throughout the left foot. There is fluid signal in the sinus tarsi as well as a small subtalar joint effusion. The Achilles tendon is mildly thickened with very subtle intrasubstance signal abnormality suggesting mild Achilles tendinopathy. Demonstrated flexor compartment tendons demonstrates mild fluid signal within the tendon sheath of the FHL and peroneal tendon. The extensor compartment tendons within the [id number] appear unremarkable IMPRESSION: 1. MRI findings highly suggestive of extensive midfoot and calcaneal osteomyelitis. 2. No evidence of drainable abscess. 3. Extensive cellulitis/myositis in the left foot as described above. Interpreted and Authenticated by: Eris Torres M.D. 10/24/19
--- NOTE | 2019-10-24 17:04 | XRay Report ---
CLINICAL INFORMATION: PICC PLACEMENT COMPARISON: 10/23/2019 FINDINGS: PICC line tip is in the right atrium. The chest inguinale images however the cardiomediastinal silhouette and pulmonary vessels are grossly normal. Bronchitis changes appreciated IMPRESSION: PICC line tip in the right atrium. Nurse was instructed to withdraw the tube 2 cm. Bronchitis Interpreted and Authenticated by: Gilmar Wilson 10/24/19
[2019-10-24] MEDS: cefTRIAXone 2 GM in DEXTROSE 5% IN WATER 50 ML IV SCH (17:20)
--- NOTE | 2019-10-24 17:36 | Event Note ---
Event Note Event Note: Patient cleared by Dr. Pack or Dr. Christian to go home today. Repeat blood cultures negative likely contaminant. Patient does have persistent leukocytosis but looking at lab trends he has been significant elevated since 2018. We will send referral for hematology. He was started on Norvasc and asked him to monitor his blood pressure twice daily and bring a log to his primary care provider for adjustment as needed.
--- NOTE | 2019-10-24 17:39 | XRay Report ---
CLINICAL INFORMATION: picc line placement COMPARISON: None. FINDINGS: PICC line tip is in optimization the SVC right atrial junction. The heart is mildly enlarged. Mediastinum is unremarkable. The pulmonary vessels are mildly distended. Minimal reticular edema noted. No infiltrates or effusions IMPRESSION: Mild CHF or volume overload. Right PICC line satisfactory position Interpreted and Authenticated by: Gilmar Wilson 10/24/19
--- NOTE | 2019-10-24 17:39 | Discharge Summary ---
Discharge Provider Provider Patient information: Note initiated : 10/24/19 at 5:38 pm Service Date, if different from initiated Date: [] Patient: Osmin Leslie 44 y/o M admitted on 10/21/19 for altered mental status, lethargy. Chief Complaint: [] Date of admission: 10/21/19 20:21 Discharge date: 10/24/19 Primary care physician: Mary Davis Consults: 10/21/19 Consult to Physician [CONS] Stat Comment: Consulting Provider: Tucker Duffy Reason For Exam: Physician to Consult 10/21/19 21:26 Consult to Physician [CONS] Routine Comment: Consulting Provider: Juanjo Singh Reason For Exam: Physician to Consult 10/22/19 10:44 Consult to Physician [CONS] Routine Comment: Consulting Provider: Jayson Escobar Reason For Exam: Physician to Consult 10/22/19 10:47 Consult to Physician [CONS] Routine Comment: navicular/cuboid fracture, foot wounds Consulting Provider: Slade Christian Reason For Exam: Physician to Consult 10/22/19 15:58 Consult to Physician [CONS] Routine Comment: Acute fracture Cuboid, naviclular fracture LEFT Consulting Provider: Slade Christian Reason For Exam: Physician to Consult Discharge Meds Discharge Medications Home Medications blood sugar diagnostic #100 strip 10/08/17 [Rx Confirmed 10/21/19 Last Taken Unknown] blood-glucose meter #1 each 10/08/17 [Rx Confirmed 10/21/19 Last Taken Unknown] metformin 750 mg PO BIDCC #60 tab.er.24h 10/08/17 [Rx Confirmed 10/22/19 Last Taken 10/21/19] lisinopril-hydrochlorothiazide 1 tab PO QDAY 10/03/19 [History Confirmed 10/21/19 Last Taken Unknown] pantoprazole 40 mg PO QDAY 10/03/19 [History Confirmed 10/21/19 Last Taken Unkn own] amlodipine 2.5 mg PO DAILY #30 tab 10/24/19 [Rx Last Taken Unknown] ceftriaxone 2 g IV QDAY #1 each 10/24/19 [Rx Last Taken Unknown] ceftriaxone 2 gm IV Q24H #0 ea 10/24/19 [Rx Last Taken Unknown] vancomycin 1,500 mg IV Q12H #1 each 10/24/19 [Rx Last Taken Unknown] COURSE Hospital Course Hospital course: History of present illness: Mr. Leslie is a 44 year old M history of DM type II/hypertension/Charcot foot and recurrent ulcer managed by Dr. Singh at wound care. Patient presents to the ER today with altered mental status since 8 hours, Fever and Lt LE swelling, purulent drainage. Patient's mother discovered him in a state of daze when she returned home. He was brought in for evaluation. Initial work-up was consistent with severe sepsis with white count 19.8/left lower extremity cellulitis with CT evidence of navicular and cuboid fracture. Orthopedics was consulted. Recommended hospitalization and conservative management and antibiotics for management of cellulitis. Following initial evaluation patient's entation much improved he however remains drowsy but able to answer most of the question. Patient was started on broad antibiotics after cultures were drawn. At the time of my evaluation patient is able to answer most the question. He denies chest pain, diarrhea, fever chills. Denies recent trauma. He endorses that his blood sugars have been fairly well controlled. 10/21-patient doing well. More lucid alert. Sitting on bed . Eating breakfast. No overnight telemetry events. Much improved swelling. Wound care on board. On antibiotic coverage. White count down to 17.2. 10/22-patient doing a lot better. Continuing antibiotic coverage. Wound care/podiatry on board. On blood culture Rocephin/vancomycin per ID. White count at 18.4. Blood culture 10/20 gram-positive cocci, surveillance cultures pending. Echocardiogram pending. No overnight fever chills. No telemetry events. Transition to medical floor. 10/23-patient doing a lot better. Podiatry reviewed patient and plans on surgery in the next week. Continuing antibiotics. White count 17.6. Wound care on board. Blood sugars much improved. Afebrile and stable hemodynamics. No overnight fever chills. Much improved lower extremity swelling/pain Patient cleared by Dr. Pack or Dr. Christian to go home today. Repeat blood cultures negative likely contaminant. Patient does have persistent leukocytosis but looking at lab trends he has been significant elevated since 2018. We will send referral for hematology. He was started on Norvasc and asked him to monitor his blood pressure twice daily and bring a log to his primary care provider for adjustment as needed. A: *Left lower extremity cellulitis w/suspected osteomyelitis: -MRI foot pending. On . *HTN, Suboptimally controlled: home dose thiazide/RICHMOND inhibitor. *DM type II: well controlled on sliding scale insulin/CC diet. *GERD continue PP Discharge diagnosis: Left lower extremity cellulitis osteomyelitis hypertension diabetes GERD Time Spent with Patient Time attestation: Total time spent providing and/or coordinating discharge services: Time spent: Greater than 30 minutes EXAM Constitutional Vitals: Temp Pulse Resp BP Pulse Ox 98.9 F 91 H 18 185/102 97 10/24/19 15:28 10/24/19 15:28 10/24/19 15:28 10/24/19 15:28 10/24/19 15:28 Discharge Data Data Completed and Pending Labs on day of discharge: Labs from last 24 hours 10/24/19 10/24/19 05:45 05:45 WBC 17.6 H RBC 3.70 L Hgb 10.6 L Hct 33.7 L MCV 91.1 MCH 28.6 MCHC 31.5 RDW 12.9 Plt Count 436 MPV 9.8 Total Counted 100 Seg Neutrophils % 77 Band Neutrophils % Not Reportable Lymphocytes % 17 Monocytes % (Manual) 3 Eosinophils % (Manual) 3 Platelet Estimate Normal RBC Morphology Normal Sodium 135 Potassium 4.0 Chloride 103 Carbon Dioxide 22 Anion Gap 10.0 BUN 12 Creatinine 1.0 GFR Calculation 92 Glucose 125 H Uric Acid 5.4 Calcium 8.5 L Phosphorus 2.4 L Magnesium 2.0 Total Bilirubin 0.6 Direct Bilirubin < 0.2 GGT 26 AST 17 ALT 20 Alkaline Phosphatase 88 Lactate Dehydrogenase 208 Total Protein 6.0 Albumin 2.6 L Globulin 3.4 Albumin/Globulin Ratio 0.8 L Triglycerides 101 Preliminary micro results at discharge 10/21/19 16:21 Blood Culture - Preliminary Blood 10/22/19 15:45 Blood Culture - Preliminary Blood 10/22/19 15:35 Blood Culture - Preliminary Blood 10/22/19 17:14 Gram Stain - Preliminary Foot - Left 10/21/19 16:17 Blood Culture - Preliminary Blood Gram positive cocci Discharge Plan Patient/Caregiver Discharge Instructions Activity: increase activity as tolerated Diet: Consistent Carbohydrate Activity Restrictions/Additional Instructions: referral to see dr. Martinez 1-2 weeks Weekly CBC/BMP while on IV antibiotics. Every other week ESR/CRP while on IV antibiotics. PICC line care and DC when antibiotics finished on December 02, 2019. Monitor blood pressure twice daily, keep a log and bring to PCP. Prescriptions: New amlodipine 5 mg Tablet 2.5 mg PO DAILY Qty: 30 RF: 0 ceftriaxone 2 gram Recon Soln 2 gm IV Q24H Qty: 0 RF: 0 ceftriaxone 2 gram recon soln 2 g IV QDAY Qty: 1 RF: 0 vancomycin 1,000 mg recon soln 1,500 mg IV Q12H Qty: 1 RF: 0 Continued pantoprazole 40 mg Tablet,Delayed Release (Dr/Ec) 40 mg PO QDAY RF: 0 lisinopril-hydrochlorothiazide 20-25 mg Tablet 1 tab PO QDAY RF: 0 metformin 750 MG tablet extended release 24 hr 750 mg PO BIDCC Qty: 60 RF: 0 (DME) blood-glucose meter 1 EACH misc 1 each MC ACHS Qty: 1 RF: 0 (DME) blood sugar diagnostic 1 EACH strip 1 each MC ACHS Qty: 100 RF: 0 Follow Up Plan Follow up with: Juanjo Singh MD [Physician] - Mary Davis ARNP [Primary Care Provider] - Slade Christian DPM [Physician] - Patient Disposition: Home, Self-Care Prognosis: Fair Discharge Orders: Discharge Order (Routine); Ordered 10/24/19 Ordered By: Herman Barrientos
[2019-10-24] MEDS ORDERED: 0.9 % SODIUM CHLORIDE 10 ML SYRINGE IV SCH (21:00)
== END 2019-10-24 18:40 | disposition home or self-care (01) | DRG 871 ==
LOC: ED 15:52 → ICU 20:21 → MEDSUR 10-23 11:56
PROVIDERS: ADMIT Internal Medicine; ATTEND Internal Medicine

== ENCOUNTER 2023-05-10 18:03 | Inpatient (IN) ==
[2023-05-10 19:11] LABS: Basophils % (Auto) 1.2 % (0.0-2.0); Eosinophils # (Auto) 0.69 K/mcL (0.00-0.70); Eosinophils % (Auto) 8.6 % (0.0-7.0); Hematocrit 31.2 % (40.1-51.0); Hemoglobin 9.4 g/dL (13.7-17.5); Lymphocytes # (Auto) 0.96 K/mcL (1.50-4.80); Lymphocytes % (Auto) 11.9 % (15.5-49.0); Mean Corpuscular HGB Conc 30.1 g/dL (31.0-36.0); Mean Platelet Volume 9.8 fL (8.8-12.5); Monocytes % (Auto) 13.6 % (1.0-12.0); Neutrophils % (Auto) 64.6 % (38.0-78.0); Platelet Count 345 K/mcL (140-440); RBC 3.67 M/mcL (4.63-6.08); Red Cell Distribution Width 18.8 % (11.5-14.5); WBC 8.1 K/mcL (4.5-11.0)
[2023-05-10 19:33] LABS: Erythrocyte Sedimentation Rate 20 mm/hr (0-15)
[2023-05-10 19:34] LABS: Blood Urea Nitrogen 44 mg/dL (6-20); C-Reactive Protein 0.44 mg/dL (0.03-0.80); Calcium 9.6 mg/dL (8.6-10.4); Carbon Dioxide 25 mmol/L (22-30); Chloride 100 mmol/L (96-108); Glomerular Filtration Rate 34; Glucose 180 mg/dL (70-105)
[2023-05-10] MEDS: PIPERACILLIN SODIUM/TAZOBACTAM 3.375 GM in DEXTROSE 5% IN WATER 50 ML IV ONE (21:22)
[2023-05-10] MEDS ORDERED: ZOLPIDEM 5 MG TABLET PO PRN (21:40)
[2023-05-10] MEDS ORDERED: VANCOMYCIN PER PHARMACY IV SCH (22:00)
[2023-05-10] MEDS ORDERED: ACETAMINOPHEN 325 MG TABLET PO PRN (22:24)
[2023-05-10] MEDS ORDERED: ONDANSETRON 4 MG/2 ML VIAL IV PRN (22:24)
[2023-05-10] MEDS ORDERED: DEXTROSE 50% 50 ML VIAL IV PRN ×2 (22:24)
[2023-05-10] MEDS ORDERED: DEXTROSE 31 GM ORAL.SUSP PO PRN (22:24)
[2023-05-10] MEDS ORDERED: morphine 4 MG/ML VIAL IV PRN (22:24)
[2023-05-10] MEDS ORDERED: IPRATROPIUM/ALBUTEROL 3 ML AMPUL.NEB NEB PRN (22:24)
[2023-05-10] MEDS: DEXTROSE 5%-LR 1,000 ML IV SCH (22:55)
[2023-05-10] MEDS: CLINDAMYCIN IN 0.9 % SOD CHLOR 900 MG/50 ML BAG IV SCH ×2 (22:55→23:32)
[2023-05-10] MEDS: VANCOMYCIN 1,750 MG in 0.9 % SODIUM CHLORIDE 500 ML IV ONE (22:56)
[2023-05-10] MEDS: VANCOMYCIN PER PHARMACY IV ONE (23:01)
[2023-05-10] MEDS: 0.9 % SODIUM CHLORIDE 10 ML SYRINGE IV SCH (23:01)
[2023-05-10] MEDS: PIPERACILLIN SODIUM/TAZOBACTAM 3.375 GM in DEXTROSE 5% IN WATER 50 ML IV SCH (23:01)
[2023-05-10] MEDS: INSULIN LISPRO 1 UNIT/0.01 ML UNIT SQ SCH ×2 (23:20)
[2023-05-10] MEDS: INSULIN LISPRO 1 UNIT/0.01 ML UNIT SQ ONE (23:31)
[2023-05-11] MEDS: PIPERACILLIN SODIUM/TAZOBACTAM 3.375 GM in DEXTROSE 5% IN WATER 100 ML IV SCH (01:47)
[2023-05-11 05:31] LABS: Basophils # (Auto) 0.12 K/mcL (0.00-0.30); Basophils % (Auto) 1.5 % (0.0-2.0); Eosinophils # (Auto) 0.72 K/mcL (0.00-0.70); Eosinophils % (Auto) 9.3 % (0.0-7.0); Hemoglobin 9.2 g/dL (13.7-17.5); Lymphocytes # (Auto) 1.02 K/mcL (1.50-4.80); Lymphocytes % (Auto) 13.1 % (15.5-49.0); Mean Cell Volume 84.5 fL (80.0-100.0); Mean Corpuscular HGB Conc 30.7 g/dL (31.0-36.0); Mean Platelet Volume 9.8 fL (8.8-12.5); Monocytes # (Auto) 1.16 K/mcL (0.10-0.90); Monocytes % (Auto) 14.9 % (1.0-12.0); Neutrophils % (Auto) 61.1 % (38.0-78.0); Platelet Count 343 K/mcL (140-440); RBC 3.55 M/mcL (4.63-6.08); Red Cell Distribution Width 18.8 % (11.5-14.5); WBC 7.8 K/mcL (4.5-11.0)
[2023-05-11 06:08] LABS: ALT/SGPT 5 U/L (<40); AST/SGOT 16 U/L (<40); Albumin 3.4 gm/dL (3.2-5.2); Alkaline Phosphatase 139 U/L (39-117); Bilirubin,Total 1.8 mg/dL (0.1-1.0); Blood Urea Nitrogen 44 mg/dL (6-20); Calcium 8.8 mg/dL (8.6-10.4); Carbon Dioxide 25 mmol/L (22-30); Chloride 101 mmol/L (96-108); Globulin 3.3 gm/dL (2.2-3.7); Glomerular Filtration Rate 34; Glucose 129 mg/dL (70-105)
[2023-05-11 06:34] LABS: Estimated Average Glucose(eAG) 174 mg/dL; Hemoglobin A1C 7.7 % Hgb (4.0-6.0)
[2023-05-11] MEDS: PANTOPRAZOLE 40 MG TABLET PO SCH (07:51)
[2023-05-11] MEDS: VANCOMYCIN 1,750 MG in 0.9 % SODIUM CHLORIDE 500 ML IV SCH (10:06)
[2023-05-11] MEDS: CARVEDILOL 12.5 MG TABLET PO SCH ×2 (10:26→17:52)
[2023-05-11] MEDS: ISOSORBIDE MONONITRATE 60 MG TAB.XL.24H PO SCH (10:45)
[2023-05-11] MEDS: DOCUSATE SODIUM 100 MG CAPSULE PO SCH (10:45)
[2023-05-11] MEDS: hydrALAZINE 25 MG TABLET PO SCH (10:46)
[2023-05-11] MEDS: cefTRIAXone 2 GM in DEXTROSE 5% IN WATER 50 ML IV SCH (15:04)
[2023-05-11] MEDS ORDERED: PROPOFOL 200 MG/20 ML VIAL IV ONE (16:10)
[2023-05-11] MEDS ORDERED: MIDAZOLAM 2 MG/2 ML VIAL ONE (16:10)
[2023-05-11] MEDS ORDERED: KETAMINE 50 MG/ML Syringe IV ONE (16:21)
[2023-05-11] MEDS: BUPIVACAINE W/EPI 0.5% 50 ML VIAL IJ ONE (16:25)
[2023-05-11] MEDS: GENTAMICIN SULFATE 800 MG/20 ML VIAL IR ONE (16:27)
[2023-05-11] MEDS ORDERED: IPRATROPIUM/ALBUTEROL 3 ML AMPUL.NEB NEB PRN (16:34)
[2023-05-11] MEDS ORDERED: ONDANSETRON 4 MG/2 ML VIAL IV PRN (16:34)
[2023-05-11] MEDS: SENNOSIDES 1 TABLET PO SCH (20:03)
[2023-05-11] MEDS: LACTATED RINGERS 1,000 ML IV SCH (20:06)
[2023-05-11] MEDS: ATORVASTATIN 40 MG TABLET PO SCH (20:45)
[2023-05-11] MEDS: FUROSEMIDE 40 MG TABLET PO SCH (20:45)
[2023-05-11] MEDS: INSULIN LISPRO 1 UNIT/0.01 ML UNIT SQ SCH (20:50)
[2023-05-11] MEDS: HYDROcodone/APAP 10/325MG TABLET PO PRN (22:06)
[2023-05-12 06:27] LABS: ALT/SGPT 7 U/L (<40); AST/SGOT 40 U/L (<40); Albumin 3.3 gm/dL (3.2-5.2); Albumin/Globulin Ratio 0.9 (1.0-2.3); Alkaline Phosphatase 131 U/L (39-117); Bilirubin,Total 1.8 mg/dL (0.1-1.0); Blood Urea Nitrogen 39 mg/dL (6-20); Calcium 8.6 mg/dL (8.6-10.4); Carbon Dioxide 21 mmol/L (22-30); Chloride 100 mmol/L (96-108); Globulin 3.7 gm/dL (2.2-3.7); Glomerular Filtration Rate 33; Glucose 119 mg/dL (70-105)
[2023-05-12 07:34] LABS: Basophils # (Auto) 0.08 K/mcL (0.00-0.30); Basophils % (Auto) 0.9 % (0.0-2.0); Eosinophils # (Auto) 0.59 K/mcL (0.00-0.70); Eosinophils % (Auto) 6.9 % (0.0-7.0); Hematocrit 29.7 % (40.1-51.0); Hemoglobin 9.2 g/dL (13.7-17.5); Lymphocytes # (Auto) 0.37 K/mcL (1.50-4.80); Lymphocytes % (Auto) 4.3 % (15.5-49.0); Mean Cell Volume 83.7 fL (80.0-100.0); Mean Platelet Volume 9.4 fL (8.8-12.5); Monocytes # (Auto) 0.85 K/mcL (0.10-0.90); Monocytes % (Auto) 9.9 % (1.0-12.0); Neutrophils % (Auto) 77.9 % (38.0-78.0); Platelet Count 327 K/mcL (140-440); RBC 3.55 M/mcL (4.63-6.08); Red Cell Distribution Width 18.9 % (11.5-14.5); WBC 8.6 K/mcL (4.5-11.0)
[2023-05-12] MEDS: ASPIRIN 81 MG TAB.CHEW PO SCH (08:01)
[2023-05-13 05:55] LABS: Basophils # (Auto) 0.09 K/mcL (0.00-0.30); Basophils % (Auto) 1.3 % (0.0-2.0); Eosinophils % (Auto) 10.4 % (0.0-7.0); Hematocrit 29.6 % (40.1-51.0); Lymphocytes # (Auto) 0.66 K/mcL (1.50-4.80); Lymphocytes % (Auto) 9.8 % (15.5-49.0); Mean Cell Volume 84.8 fL (80.0-100.0); Mean Corpuscular HGB Conc 30.4 g/dL (31.0-36.0); Mean Platelet Volume 9.2 fL (8.8-12.5); Monocytes # (Auto) 1.11 K/mcL (0.10-0.90); Monocytes % (Auto) 16.5 % (1.0-12.0); Neutrophils % (Auto) 61.7 % (38.0-78.0); Platelet Count 279 K/mcL (140-440); RBC 3.49 M/mcL (4.63-6.08); Red Cell Distribution Width 18.8 % (11.5-14.5); WBC 6.7 K/mcL (4.5-11.0)
[2023-05-13 06:28] LABS: ALT/SGPT 8 U/L (<40); AST/SGOT 24 U/L (<40); Albumin 3.3 gm/dL (3.2-5.2); Alkaline Phosphatase 123 U/L (39-117); Bilirubin,Total 1.4 mg/dL (0.1-1.0); Blood Urea Nitrogen 42 mg/dL (6-20); Calcium 8.4 mg/dL (8.6-10.4); Carbon Dioxide 22 mmol/L (22-30); Chloride 100 mmol/L (96-108); Globulin 3.3 gm/dL (2.2-3.7); Glomerular Filtration Rate 30; Glucose 162 mg/dL (70-105)
== END 2023-05-13 17:56 | disposition home or self-care (01) | DRG 463 ==
LOC: ED 18:03 → ICU 22:10
PROVIDERS: ADMIT Internal Medicine; ATTEND Orthopaedic Surgery Orthopaedic Surgery of the Spine